=== PATIENT | female | born 1955 | race Caucasian/White ===

== ENCOUNTER 2016-04-13 09:25 | Day surgery (SDC) | payer BC ==
[2016-04-01 09:50] VITALS: BMI 19.1
[~2016-04-13 09:25] MED LIST: LACTATED RINGERS 1,000 ML IV SCH
[2016-04-13 09:43] VITALS: RESP 16; TEMP 98.1
[2016-04-13] MEDS ORDERED: LIDOCAINE 1% 20 ML VIAL (10MG/ML) FOR IV START INTRADERMA ONE (09:46)
[2016-04-13] MEDS ORDERED: TRIAMCINOLONE ACETONIDE 40 MG/ML 1 ML VIAL ONE (10:51)
[2016-04-13] MEDS ORDERED: BUPIVACAINE (PF) 0.5% 30 ML VIAL ONE (10:51)
[2016-04-13] MEDS ORDERED: MIDAZOLAM 2 MG/2 ML VIAL ONE (10:51)
[2016-04-13] MEDS ORDERED: fentaNYL (PF) 50 MCG/ML 2 ML AMP ONE (10:51)
--- NOTE | 2016-04-13 11:30 | P.PCN ---
Date of Procedure: 04/13/16 Preoperative Diagnosis: Lumbar spondylosis without myelopathy Postoperative Diagnosis: Lumbar spondylosis without myelopathy Procedure(s) Performed: Left lumbar medial branch radiofrequency ablation under fluoroscopic guidance Implants: Anesthesia: MAC Surgeon: Fátima Alex Pathology: none sent Condition: stable Disposition: PACU Indications for Procedure: Operative Findings: Description of Procedure: The patient was seen in preop holding area consent was obtained then she was brought into the procedure room and placed in prone position. Skin was prepped with the ChloraPrep and draped in a sterile manner. Lidocaine 1% was used to numb the skin up at the target points that were chosen as follows: For the L5- S1 level which corresponds to the to the dorsal ramus of L5 the target point was at the superior medial aspect of the sacral ala on the left side of the spine on the AP view of fluoroscopy and for the L2-L3 and L4 medial branches the target points were the connection between the transverse process and the superior to go process of L3 and L4 and L5 vertebra respectively on the left oblique view of fluoroscopy. I used 18-gauge 100 mm in length with 10 mm curved active tip radiofrequency ablation needle for this procedure. I placed the active tips as parallel as possible to the medial branches tracks by going in a superior medial direction. AP oblique and lateral views of fluoroscopy were used to verify needle tip position then motor stimulation showed only local twitches of these needles with no radiation of twitching to the left lower extremity. I then injected 1 mL of a solution made up of 3 mils Marcaine 0.5% +40 mg of Kenalog and 1 mL of the solution was given in each needle. Frequency ablation was then started for 90 seconds at 80. I was repeated one more time but after withdrawing the needles by 1 or 2 mm and turning the bevels by 180. Patient tolerated procedure well.
[2016-04-13] MEDS ORDERED: IV FLUID CONTINUATION 500 ML IV ONE (11:39)
[2016-04-13 12:00] VITALS: BP 127/78; PULSE 65
--- NOTE | 2016-04-13 13:09 | FL ---
EXAMINATION TYPE: FL guided pain mgmt statistic DATE OF EXAM: 04/13/2016 11:37 AM COMPARISON: NONE HISTORY: Pain Fluoroscopy support supplied to the referring clinician. See dictated report from anesthesia, 15 sec onds fluoroscopy time, 3 intraoperative C-arm images document the procedure
== END 2016-04-13 12:14 | disposition home or self-care (01) ==
LOC: ORPAIN 09:25
PROVIDERS: ATTEND Anesthesiology
DX: M47.816 Spondylosis without myelopathy or radiculopathy, lumbar region (principal); Z88.1 Allergy status to other antibiotic agents; Z88.0 Allergy status to penicillin
CPT/HCPCS: 64635; 64636 ×3; J2250; J3301; J3010

== ENCOUNTER → 2016-05-17 | Outpatient (CLI) | payer BC ==
[2016-05-17 13:43] VITALS: BP 149/81; PULSE 69; RESP 16; TEMP 98
--- NOTE | 2016-05-17 13:50 | P.PN ---
Progress Note - Text Patient returns for followup for chronic back pain with some radiation to lower extremities. Patient recently underwent bilateral lumbar RFA (February and April), which has provided relief for the interval. Patient continues on only Zanaflex prn medications for pain with good relief. Patient denies adverse drug effects from medications. Today, pt denies new-onset weakness, bowel/bladder incontinence, or any other signs or symptoms of cauda equina syndrome. There are no signs of acute intoxication, and no indications of medication diversion or overuse. In addition to above, 13-point review of systems is also negative for chest pain , shortness of breath, changes in vision, changes in hearing, new onset weakness , abdominal pain, diarrhea, extreme fatigue, malaise, fever, skin changes, homicidal or suicidal ideation, or bowel or bladder incontinence. Vital Signs: Reviewed in EMR Gen: WDWN, AAOx3, NAD HEENT: NCAT, EOMI, hearing grossly normal Pulm: resp unlabored Abd: soft, NT, ND Neck: supple, trachea midline ROM in flexion lumbar spine: reduced ROM in extension lumbar spine: reduced Lumbar paravertebral tenderness: + Facet loading: + bilateral, improved SI joint tenderness: + R side Cirilo's test: neg Straight leg raise: neg Neuro: CN II-XII grossly intact, muscle strength lower extremities PRESERVED Imaging: Reviewed in EMR Assessment: 1. lumbar spondylosis without myelopathy 2. sacroiliac joint dysfunction 3. chronic pain syndrome Plan: 1. Explanation: Opioid and psychological risk scores were reviewed. Diagnoses , prognoses, and multiple treatment options including but not limited to physical therapy, interventional therapies, adjuvant medical therapies, narcotic medication therapies, and surgery were discussed with the patient and all questions were answered to the patient's satisfaction. 2. Opioid agreement: Patient has previously signed narcotic agreement, and was orally counseled to not overuse, abuse, divert, or cell medications, and to take them as prescribed by only 1 healthcare provider. The patient was also counseled to store opioid medications in a safe and preferably locked location. Patient was also counseled against driving or operating heavy equipment while using narcotic medications and also to not use alcohol or any illicit or recreational drugs. The patient verbalized understanding that lack of compliance with any of the above and likely result in failure to renew narcotic prescriptions, possible discharge from the clinic, and possible legal ramifications thereafter if indicated. 3. Counseling: The patient was counseled extensively on SMOKING CESSATION, BODY MASS INDEX, EXERCISE. Specifically, the patient was instructed regarding the importance of smoking cessation, obesity, and exercise in the context of both chronic pain and overall health. 4. Procedures: none for now 5. Consultations: None 6. Investigations: None 7. Medications: none prescribed 8. Disposition: f/u as needed PQRS measures: 1-Patient's medications are documented in the chart. 2-Tobacco use is positive 3-Patient has not had a pneumococcal vaccine. 4-Advanced care planning discussed, patient unable to give. 5-Opioid contract NOT signed with the patient. 6-Pain positive, follow-up visit or procedure scheduled 7-Patient's blood pressure measured and documented, and patient will follow up with the primary care due to hypertension. 8-Patient's weight was measured, and body mass index within the normal limits, and counseling was done. Patient instructed to follow up with PCP. 9-Patient WAS NOT identified as an unhealthy alcohol user.
== END | disposition home or self-care (01) ==
LOC: PNWHC3 13:20
PROVIDERS: ATTEND Anesthesiology
DX: G89.4 Chronic pain syndrome (principal); M51.26 Other intervertebral disc displacement, lumbar region; M54.41 Lumbago with sciatica, right side; M51.36 Other intervertebral disc degeneration, lumbar region; M47.816 Spondylosis without myelopathy or radiculopathy, lumbar region; M48.8X9 Other specified spondylopathies, site unspecified; Z79.899 Other long term (current) drug therapy
CPT/HCPCS: 99211

== ENCOUNTER → 2016-11-03 | Outpatient (CLI) | payer BC ==
--- NOTE | 2016-11-03 14:40 | MM ---
Reason for exam: screening (asymptomatic). Last mammogram was performed 1 year and 1 month ago. History: Patient is postmenopausal and has history of endometrial cancer at age 51. Benign excisional biopsy of the left breast, 1989. Physical Findings: A clinical breast exam by your physician is recommended on an annual basis and results should be correlated with mammographic findings. MG 3D Screening Mammo W/Cad Bilateral CC and MLO view(s) were taken. Prior study comparison: September 23, 2015, bilateral MG screening mammo w CAD. August 06, 2014, bilateral MG screening mammo w CAD. There are scattered fibroglandular densities. There is no discrete abnormality. No significant changes when compared with prior studies. ASSESSMENT: Negative, BI-RAD 1 RECOMMENDATION: Routine screening mammogram of both breasts in 1 year.
--- NOTE | 2016-11-04 05:29 | WWHP ---
DATE OF SERVICE: 11/03/2016 CHIEF COMPLAINT: The patient is here for her routine gynecologic exam and mammogram. HPI: This is a 61-year-old G3, P2-0-1-2 with an LMP of 1999. She is status post vaginal hysterectomy and endometrial cancer was found at that time. The patient is without gynecologic complaints. PAST MEDICAL HISTORY: Endometrial cancer, grade 1, stage IA in 2006, asthma, rheumatoid arthritis, history of degenerative disc disease, glaucoma, osteopenia and seasonal allergies. MEDICATIONS: 1. Enbrel injections weekly. 2. Singulair as directed. 3. Pepcid 40 mg daily. 4. Allergy nasal spray used daily. Allergies to AUGMENTIN. 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 SOCIAL HISTORY: She denies tobacco and drug use and has about 10 alcoholic drinks per year. She is retired. She is and is not seeing anybody at this time. REVIEW OF SYSTEMS: Weight has been stable. She denies cardiac problems. RESPIRATORY: Occasional asthma symptoms. GI: Occasional stomach upset after meals, improved with an antacid. PHYSICAL EXAM: Blood pressure 153/88. Height 5 feet 5 inches. Weight 118 pounds. Temperature 98.0. Pulse 67. This is a well-developed, well-nourished white female who is alert and oriented x3 in no acute distress. HEENT is within normal limits. NECK: Supple without mass or thyromegaly. CHEST AND LUNGS: Clear to auscultation. HEART: Regular rate and rhythm. Breasts are without mass or discharge. Axillary exam is negative for adenopathy. BACK: Negative for CVA tenderness. ABDOMEN: Soft, nontender without palpable masses. PELVIC EXAM: External genitalia reveals mild to moderate atrophy without lesions. Vaginal reveals moderate atrophy without lesions. There is no evidence of prolapse. Bimanual exam is negative for mass or tenderness. Rectovaginal exam is negative for mass or tenderness and is negative for occult blood. EXTREMITIES: Nontender. IMPRESSION: 1. A 61-year-old menopausal female, status post vaginal hysterectomy with history of endometrial cancer in 2006. No evidence of recurrent. 2. History of osteopenia. PLAN: 1. Pap smear was performed from the vaginal cuff. 2. Self-breast examination was discussed. 3. Mammogram will be done today. 4. Osteoporosis preventions was discussed. 5. Bone density testing will be repeated and an order slip was given to the patient for this. 6. She will return in one year. BELL
== END | disposition home or self-care (01) ==
LOC: WWCWWP 08:33
PROVIDERS: ATTEND Obstetrics & Gynecology
DX: Z12.31 Encounter for screening mammogram for malignant neoplasm of breast (principal)
CPT/HCPCS: 77063; G0202

== ENCOUNTER → 2017-07-06 | Outpatient (CLI) | payer MEDICARE ==
[2017-07-06 12:25] VITALS: BP 161/93; PULSE 65; RESP 18
--- NOTE | 2017-07-06 12:48 | P.PN ---
Subjective Progress Note Date: 07/06/17 This is follow-up visit for this patient with a history of severe and chronic low back pain secondary to , lumbar spondylosis with facet arthropathy , we have done radiofrequency ablation of the medial branch lumbar area L2-3/L3/L4 5/L5-S1, and she gets excellent pain relief and lasted more than 12 months Patients currently on naproxen 220 mg when necessary Patient denies any side effects of the medication, denies excessive drowsiness or sleepiness, denies suicidal ideation, and reports that the current pain medication is NOT helping To control the pain and improve activity of daily living Patient denies any motor or sensory deficit , patient denies any fever or night sweats, denies any change in the bowel movements or urination Physical Examinations : 1-Constitutiona : Cooperative , not in acute distress . 2-HEENT : nech ; supple , no Lymphadenopathy , no Thyromegaly , normal thyroid size . eyes : no ptosis , no icterus, no photophobia . ENT : normal of hearing , normal oropharynx , no Thrush . 3- Respiratory : Chest clear to auscultations Bilaterally , no wheezing , no Rhonchi . 4- Cardiovascular : regular rate and rhythem , S1 , S2 , no S3 , no S4. 5- Gastrointestinal : abdomen soft no tenderness , bowel sounds positive all four quadrents , no organomegally . 6- Genitourinary : Defferred . 7- neurologic : Cranial nerve II to XII intact , no focal neurological deffecit . 8-psychatric : alert , oriented X 3 , appropriate affect , intact judgment and insight . 9-Lymphatic : no Lymphadenopathy . 10- musculoskeltal : exams of the Lumber spine = motor strength lower extremities ,thigh and legs .5/5 deep tendon reflexes : normal Knee Jerk , normal ankle Jerk . lumber facet Loading Test positive strait leg raising test negative bilaterally, Fabere test negative bilaterally Range of motion: Range of motion in flexion of the lumbar spine 60 degrees Range of motion range of motion of extension of the lumbar spine 10 Assessment and plan = Chronic low back pain secondary to , lumbar spondylosis with facet arthropathy without myelopathy , she had excellent relief after the radiofrequency ablation of the medial branch she will be good candidate to have repeat radiofrequency ablation medial branch lumbar area L2-3/L3 4/L4 5/L5-S1 Objective - Vital Signs Vital signs: Vital Signs Temp Pulse 65 03/28/18 12:19 Resp 18 07/06/17 12:19 BP 161/93 07/06/17 12:19 Pulse Ox 96 07/06/17 12:19 Intake & Output 07/05/17 07/06/17 07/06/17 18:59 06:59 18:59 Weight 52.163 kg
== END | disposition home or self-care (01) ==
LOC: PNWHC3 11:59
PROVIDERS: ATTEND Specialist
DX: G89.29 Other chronic pain (principal); M47.816 Spondylosis without myelopathy or radiculopathy, lumbar region; Z79.1 Long term (current) use of non-steroidal anti-inflammatories (NSAID)
CPT/HCPCS: 99211

== ENCOUNTER 2017-08-03 09:17 | Day surgery (SDC) | payer MEDICARE ==
[2017-08-03 10:12] VITALS: RESP 16; TEMP 98.7
[2017-08-03] MEDS ORDERED: LIDOCAINE 1% 20 ML VIAL (10MG/ML) FOR IV START INTRADERMA ONE (10:13)
[2017-08-03] MEDS ORDERED: KETOROLAC 30 MG/ML 1 ML VIAL IVP STA (11:08)
--- NOTE | 2017-08-03 11:08 | P.PCN ---
Date of Procedure: 08/03/17 Surgeon: Deshawn Cortez Pathology: none sent Condition: stable Disposition: PACU Description of Procedure: PREOPERATIVE DIAGNOSIS: Lumbar spondylosis without myelopathy and facet arthropathy POSTOPERATIVE DIAGNOSIS: Lumbar spondylosis without myelopathy and facet arthropathy PROCEDURES: Right Radiofrequency thermocoagulation, L3-L4, L4-L5, and L5-S1 medial branch, with fluoroscopic guidance. ANESTHESIA: 1% lidocaine plain; Conscious sedation with versed/fentanyl EBL: Minimal PROCEDURE INDICATION: The patient with low back pain secondary to lumbar arthropathy who had more than 50% relief of pain with previous diagnostic lumbar medial branch block with bupivacaine. Patient presents for lumbar RFA today after good relief from RFA in the past; no use of blood thinners. PROCEDURE DESCRIPTION / TECHNIQUE: The patient was seen and identified in the preoperative area. Risks, benefits, complications, and alternatives were discussed with the patient (including but not limited to incomplete pain relief , bleeding, infection, nerve damage, and allergies to medications), the patient agreed to proceed with the procedure and signed the consent after all questions were answered. Patient was taken to the OR and time out was completed to verify proper patient , position, laterality of pain, and allergies. Pt was placed in the prone position. IV was started. Vital signs remained stable throughout the procedure. A pillow was placed under the patients chest to decrease lordosis. The lumbosacral area was prepped and draped in the usual sterile fashion. Vital signs were closely monitored during the procedure. Conscious sedation was used during the procedure to decrease patients anxiety. Using AP and then oblique fluoroscopy, the eye of the Abdulaziz dog corresponding to the connection between the superior and transverse articular processes of right L3, L4, L5 and top of the sacrum were identified, marked, and localized with 1% lidocaine. Subsequently, a 20 gauge, 100-mm radiofrequency cannula with a 10-mm active tip was advanced guided by fluoroscopy to each of the eyes of the Abdulaziz dog at the levels of all four medial branches. Each site then underwent sensory testing at 50 Hz and 0 to 1 volt and motor testing at 2 Hz and 0 to 3 volt with local stimulation, but no radicular symptoms down the legs. Thereafter all four medial branch sites underwent radiofrequency thermocoagulation at 80 degrees Celsius for 90 seconds after injecting 0.5 ml of PF lidocaine 1%. After thermocoagulation, 1 ml of the block solution containing Kenalog 40 mg and 2 mL of preservative-free normal saline was injected at all four medial branch levels after negative aspiration of CSF and blood and with no paresthesias. Cannulas were retracted while injecting lidocaine 1% until the needles were removed. At the end of the procedure, the skin was cleansed and bandages were applied. COMPLICATIONS: No acute complications. DISPOSITION / PLANS: The patient was placed in a supine position and transferred to the recovery area in a stable condition for observation and was discharged from the recovery room after meeting discharge criteria. Home discharge instructions given to the patient by the staff. The patient was reexamined prior to discharge. The patient will schedule a left lumbar RFA at next visit.
[2017-08-03] MEDS ORDERED: IV FLUID CONTINUATION 1,000 ML IV ONE (11:17)
--- NOTE | 2017-08-03 11:17 | FL ---
EXAMINATION TYPE: FL guided pain mgmt statistic DATE OF EXAM: 08/03/2017 HISTORY: Flouroscopy time 16 seconds of fluoroscopy provided. IMPRESSION: 1. Fluoroscopy time.
[2017-08-03] MEDS ORDERED: KETOROLAC 30 MG/ML 1 ML VIAL IVP ONE (11:41)
[2017-08-03 12:04] VITALS: BP 126/65; PULSE 65
== END 2017-08-03 12:14 | disposition home or self-care (01) ==
LOC: ORPAIN 09:17
PROVIDERS: ATTEND Anesthesiology
DX: M47.816 Spondylosis without myelopathy or radiculopathy, lumbar region (principal); G89.29 Other chronic pain; Z88.0 Allergy status to penicillin
CPT/HCPCS: 64635; 64636 ×2; J2250; J3301; J3010; J1885; 99152; 99153

== ENCOUNTER 2017-08-17 06:28 | Day surgery (SDC) | payer MEDICARE ==
[2017-08-11 12:21] VITALS: BMI 19.1
[2017-08-17 07:14] VITALS: RESP 16; TEMP 98.1
[2017-08-17] MEDS ORDERED: LIDOCAINE 1% 20 ML VIAL (10MG/ML) FOR IV START INTRADERMA ONE (07:14)
[2017-08-17] MEDS ORDERED: LACTATED RINGERS 1,000 ML IV SCH (07:15)
--- NOTE | 2017-08-17 08:39 | P.PCN ---
Date of Procedure: 08/17/17 Procedure(s) Performed: PREOPERATIVE DIAGNOSIS: 1-Lumbar Spondylosis with Facet Arthropathy without myelopathy. POSTOPERATIVE DIAGNOSIS: 1- Lumbar Spondylosis with Facet Arthropathy without myelopathy. PROCEDURES : Left Radiofrequency thermocoagulation, L3-L4, L4-L5, and L5-S1 medial branch, with fluoroscopic guidance ANESTHESIA: Moderate sedation with intravenous versed 2 mg and fentaneyl 100 mcg and local infiltration with lidocaine 1% 3ml EBL: Minimal PROCEDURE INDICATION: The patient with low back pain secondary to lumbar facet arthropathy who had more than 50% relief of her pain with previous diagnostic lumbar medial branch block with bupivacaine. PROCEDURE DESCRIPTION / TECHNIQUE: The patient was seen and identified in the preoperative area. Risks, benefits, complications, including but not limited to risk of infection ,bleeding , allergic reactions to the medications and no complete pain releife , and alternatives were discussed with the patient, the patient agreed to proceed with the procedure and signed the consent. IV was started. Vital signs remained stable throughout the procedure. Patient was taken to the OR and time out was completed. The patient was placed in the prone position on the procedure table. The lumber area was prepped and draped in the usual sterile fashion. . Vital signs were closely monitored during the procedure .IV sedation was used during the procedure to decrease patients anxiety. Using AP and then oblique fluoroscopy, the ``eye of the Abdulaziz dog corresponding to the connection between the superior and transverse articular processes of leftL3, L4, and L5 were identified, marked, and localized with 1% lidocaine. Subsequently, a [id number] radiofrequency cannula with a 10-mm active tip was advanced guided by fluoroscopy to each of the ``eyes of the Abdulaziz dog at left L3, L4, and L5. Each site then underwent sensory testing at 50 Hz and 0 to 1 volt and motor testing at 2.5 Hz and 0 to 3 volt with local stimulation, but no radicular symptoms down the legs. Thereafter the left L3-4, L4-5, and L5-S1 sites underwent radiofrequency thermocoagulation at 80 degrees celsius for 90 seconds after injecting 0.5 ml of PF lidocaine 1%. then After the thermocoagulation done , 1 ml of the block solution containing Kenalog 40 mg and 3 ml of marcain 0.5% was injected at the left L3-4 , L4-5 , and L5-S1, levels after negative aspiration of CSF and blood and with no paresthesias. Cannulas were retracted while injecting lidocaine 1% until the needle is out. At the end of the procedure, the skin was cleansed and bandages were applied. COMPLICATIONS: No acute complications. DISPOSITION / PLANS: The patient was placed in a supine position and transferred to the recovery area in a stable condition for observation and was discharged from the recovery room after meeting discharge criteria. Home discharge instructions given to the patient by the staff. The patient was reexamined prior to discharge. The patient will schedule a follow up in the clinic in 2-4 weeks.
--- NOTE | 2017-08-17 08:47 | FL ---
EXAMINATION TYPE: FL guided pain mgmt statistic DATE OF EXAM: 08/17/2017 COMPARISON: NONE HISTORY: Lumbar back pain TECHNIQUE: Fluoroscopy. FINDINGS/IMPRESSION: Fluoroscopic guidance was provided during procedure performed by Dr. Craig. A total of 15 seconds of fluoroscopic time was utilized during the procedure and 3 spot images was a cquired demonstrating localization of the lumbar spine at multiple levels.
[2017-08-17] MEDS ORDERED: IV FLUID CONTINUATION 1,000 ML IV ONE ×2 (08:52)
[2017-08-17 09:10] VITALS: BP 154/84; PULSE 62
== END 2017-08-17 09:30 | disposition home or self-care (01) ==
LOC: ORPAIN 06:28
PROVIDERS: ATTEND Specialist
DX: M47.816 Spondylosis without myelopathy or radiculopathy, lumbar region (principal); J45.909 Unspecified asthma, uncomplicated; M06.9 Rheumatoid arthritis, unspecified; Z86.73 Personal history of transient ischemic attack (TIA), and cerebral infarction without residual deficits; Z88.0 Allergy status to penicillin
CPT/HCPCS: 64635; 64636 ×2; J2250; J3301; J3010; 99152

== ENCOUNTER → 2017-09-15 | Outpatient (CLI) | payer MEDICARE ==
[2017-09-15 12:30] VITALS: BP 163/85; PULSE 70; RESP 16
--- NOTE | 2017-09-15 12:43 | P.PN ---
Progress Note - Text Progress Note Date: 09/15/17 Patient returns for followup for chronic back pain with some radiation to lower extremities. Patient recently underwent bilateral lumbar RFA (July and August) with relief on left side and some relief on right side but complaints of mild weakness and lateral leg sensory deficit since procedure. Patient denies adverse drug effects from medications. Today, pt denies new-onset weakness, bowel/bladder incontinence, or any other signs or symptoms of cauda equina syndrome. There are no signs of acute intoxication, and no indications of medication diversion or overuse. In addition to above, 13-point review of systems is also negative for chest pain , shortness of breath, changes in vision, changes in hearing, new onset weakness , abdominal pain, diarrhea, extreme fatigue, malaise, fever, skin changes, homicidal or suicidal ideation, or bowel or bladder incontinence. Vital Signs: Reviewed in EMR Gen: WDWN, AAOx3, NAD HEENT: NCAT, EOMI, hearing grossly normal Pulm: resp unlabored Abd: soft, NT, ND Neck: supple, trachea midline ROM in flexion lumbar spine: reduced ROM in extension lumbar spine: reduced Lumbar paravertebral tenderness: + Facet loading: + bilateral, R > L SI joint tenderness: + R side Cirilo's test: + R >> L Straight leg raise: neg Imaging: Reviewed in EMR Assessment: 1. lumbar spondylosis without myelopathy 2. sacroiliac joint dysfunction 3. chronic pain syndrome Plan: 1. Explanation: Opioid and psychological risk scores were reviewed. Diagnoses , prognoses, and multiple treatment options including but not limited to physical therapy, interventional therapies, adjuvant medical therapies, narcotic medication therapies, and surgery were discussed with the patient and all questions were answered to the patient's satisfaction. 2. Opioid agreement: Patient has previously signed narcotic agreement, and was orally counseled to not overuse, abuse, divert, or cell medications, and to take them as prescribed by only 1 healthcare provider. The patient was also counseled to store opioid medications in a safe and preferably locked location. Patient was also counseled against driving or operating heavy equipment while using narcotic medications and also to not use alcohol or any illicit or recreational drugs. The patient verbalized understanding that lack of compliance with any of the above and likely result in failure to renew narcotic prescriptions, possible discharge from the clinic, and possible legal ramifications thereafter if indicated. 3. Counseling: The patient was counseled extensively on BODY MASS INDEX, EXERCISE. Specifically, the patient was instructed regarding the importance of weight control and exercise in the context of both chronic pain and overall health. 4. Procedures: R SIJ injection 5. Consultations: Dr. Martinez for EMG RLE 6. Investigations: None 7. Medications: none prescribed 8. Disposition: f/u for procedure as scheduled. Patient clearly has SI joint dysfunction along with lumbar spondylosis and I will send her for EMG to rule out any nerve root irritation before proceeding with next procedure. PQRS measures: 1-Patient's medications are documented in the chart. 2-Tobacco use is positive 3-Patient has not had a pneumococcal vaccine. 4-Advanced care planning discussed, patient unable to give. 5-Opioid contract NOT signed with the patient. 6-Pain positive, follow-up visit or procedure scheduled 7-Patient's blood pressure measured and documented, and patient will follow up with the primary care due to hypertension. 8-Patient's weight was measured, and body mass index within the normal limits, and counseling was done. Patient instructed to follow up with PCP. 9-Patient WAS NOT identified as an unhealthy alcohol user.
== END | disposition home or self-care (01) ==
LOC: PNWHC3 11:49
PROVIDERS: ATTEND Anesthesiology
DX: G89.4 Chronic pain syndrome (principal); M47.816 Spondylosis without myelopathy or radiculopathy, lumbar region; M53.3 Sacrococcygeal disorders, not elsewhere classified; Z72.0 Tobacco use
CPT/HCPCS: 99211

== ENCOUNTER 2017-09-29 07:13 | Day surgery (SDC) | payer MEDICARE ==
[2017-09-27 12:18] VITALS: BMI 19.1
[2017-09-29 08:15] VITALS: TEMP 97.6
--- NOTE | 2017-09-29 09:04 | P.PCN ---
Date of Procedure: 09/29/17 Procedure(s) Performed: Preoperative diagnoses= 1-lumbar spondylosis with lumbar facet arthropathy. 2- Right sacroiliac joint dysfunction. Postoperative diagnoses= same as preoperative diagnosis. Procedure= Right sacroiliac joint steroid injection under fluoroscopic guidance. Anesthesia= only local infiltration with lidocaine 1% 2ml Estimated blood loss=minimal. Procedure indication= the patient had a history of severe chronic low back pain , diagnosed with right sacroiliac joint dysfunction and lumbar sacral facet arthropathy unresponsive to conservative treatment. Procedure description= the patient was seen and identified in the preoperative holding area, risks and benefits and alternative of the procedure and possible complications discussed with the patient, and he agreed with the preceding, patient signed the consent, and vital signs were monitored and were stable throughout the procedure, patient was placed in the prone position or table and the lumbosacral area was prepped and draped with a sterile fashion, vital signs were closely monitored during the procedure, the fluoroscopy camera was placed in the contralateral oblique view on the right sacroiliac joint and the lower part of the joint was identified, local infiltration of the skin and subcutaneous tissue with lidocaine 1% 2 mL then a 22-gauge Quincke-type spinal needle advanced slowly under fluoroscopy and placed in the posterior and inferior border of the right sacroiliac joint, placement confirmed with AP and lateral view, and after appropriate needle placement confirmed and after negative aspiration for heme and CSF and there was no paresthesia during the injection, 3 ml of Marcaine 0.5% and 40 mg of Kenalog injected after negative aspiration, the needle removed, Patient tolerated the procedure well without any complication, The patient returned to supine position after the back was cleaned and a Band- Aid applied, the patient transported to recovery room in stable condition and he was monitored for 30 minutes before he was discharged home and then patient was reexamined before going home and patient was discharged in stable condition and patient will follow up with the pain clinic in a few weeks
[2017-09-29 09:10] VITALS: RESP 18
[2017-09-29 09:22] VITALS: BP 141/89; PULSE 78
--- NOTE | 2017-09-29 09:46 | FL ---
EXAMINATION TYPE: FL guided pain mgmt statistic DATE OF EXAM: 09/29/2017 HISTORY: Flouroscopy time 1 seconds of fluoroscopy provided. IMPRESSION: 1. Fluoroscopy time.
== END 2017-09-29 09:27 | disposition home or self-care (01) ==
LOC: ORPAIN 07:13
PROVIDERS: ATTEND Specialist
DX: M47.817 Spondylosis without myelopathy or radiculopathy, lumbosacral region (principal); J45.909 Unspecified asthma, uncomplicated; Z86.73 Personal history of transient ischemic attack (TIA), and cerebral infarction without residual deficits; G89.29 Other chronic pain; M53.3 Sacrococcygeal disorders, not elsewhere classified
CPT/HCPCS: J3301; G0260; 27096

== ENCOUNTER → 2017-10-31 | Outpatient (CLI) | payer MEDICARE ==
[2017-10-31 12:30] VITALS: BP 171/83; PULSE 62; RESP 16
--- NOTE | 2017-10-31 12:52 | P.PN ---
Subjective Progress Note Date: 10/31/17 This is a 62-year-old pleasant female with history of lower back pain and recent left groin pain that started after her last sacroiliac joint injection. She denies any numbness or tingling in the left groin area this pain is intermittent and it gets better by walking. The last sacroiliac joint injection did not give her good relief of pain however she feels generally better today as she states. She has already had bilateral lumbar medial branch RFA. Today, pt denies new-onset weakness, bowel/bladder incontinence, or any other signs or symptoms of cauda equina syndrome. There are no signs of acute intoxication, and no indications of medication diversion or overuse. In addition to above, 13-point review of systems is also negative for chest pain , shortness of breath, changes in vision, changes in hearing, new onset weakness , abdominal pain, diarrhea, extreme fatigue, malaise, fever, skin changes, homicidal or suicidal ideation, or bowel or bladder incontinence. Vital Signs: Reviewed in EMR Gen: WDWN, AAOx3, NAD HEENT: NCAT, EOMI, hearing grossly normal Pulm: resp unlabored Neck: supple, trachea midline She has tenderness in the adductor tendons by its insertion and the pubic tubercle on the left side. Internal and external rotation of the hip joints did not elicit any pain She has tenderness around the right greater trochanter Neuro exam of the lower extremities showed decreased but symmetrical deep tendon reflexes and normal muscle strength bilaterally and symmetrically Straight leg raise: neg Imaging: Reviewed in EMR Assessment: 1. lumbar spondylosis without myelopathy 2. Right greater trochanter bursitis Plan: 1. Explanation: Opioid and psychological risk scores were reviewed. Diagnoses , prognoses, and multiple treatment options including but not limited to physical therapy, interventional therapies, adjuvant medical therapies, narcotic medication therapies, and surgery were discussed with the patient and all questions were answered to the patient's satisfaction. 2. Opioid agreement: Patient has previously signed narcotic agreement, and was orally counseled to not overuse, abuse, divert, or cell medications, and to take them as prescribed by only 1 healthcare provider. The patient was also counseled to store opioid medications in a safe and preferably locked location. Patient was also counseled against driving or operating heavy equipment while using narcotic medications and also to not use alcohol or any illicit or recreational drugs. The patient verbalized understanding that lack of compliance with any of the above and likely result in failure to renew narcotic prescriptions, possible discharge from the clinic, and possible legal ramifications thereafter if indicated. 3. Counseling: The patient was counseled extensively on BODY MASS INDEX, EXERCISE. Specifically, the patient was instructed regarding the importance of weight control and exercise in the context of both chronic pain and overall health. 4. Procedures: The patient prefers to hold off on injections at this point. she might need right greater trochanter bursa steroid injection in the future if her pain continues in the right hip area. 5. Consultations: We will obtain her EMG results from Dr. Rice 1 6. Investigations: None 7. Medications: none prescribed 8. Disposition: We'll follow up as needed in the clinic. PQRS measures: 1-Patient's medications are documented in the chart. 2-Tobacco use is positive 3-Patient has not had a pneumococcal vaccine. 4-Advanced care planning discussed, patient unable to give. 5-Opioid contract NOT signed with the patient. 6-Pain positive, follow-up visit or procedure scheduled 7-Patient's blood pressure measured and documented, and patient will follow up with the primary care due to hypertension. 8-Patient's weight was measured, and body mass index within the normal limits, and counseling was done. Patient instructed to follow up with PCP. 9-Patient WAS NOT identified as an unhealthy alcohol user. Objective - Vital Signs Vital signs: Vital Signs Temp Pulse 62 10/31/17 12:24 Resp 16 10/31/17 12:24 BP 171/83 10/31/17 12:24 Pulse Ox Intake & Output 10/30/17 10/31/17 10/31/17 18:59 06:59 18:59 Weight 52.163 kg
== END | disposition home or self-care (01) ==
LOC: PNWHC3 12:04
PROVIDERS: ATTEND Anesthesiology
DX: M47.816 Spondylosis without myelopathy or radiculopathy, lumbar region (principal); M70.61 Trochanteric bursitis, right hip; Z72.0 Tobacco use
CPT/HCPCS: 99211

== ENCOUNTER → 2017-11-22 | Outpatient (CLI) | payer MEDICARE ==
[2017-11-22 08:26] VITALS: BP 169/97; PULSE 79; RESP 18; TEMP 94.8
--- NOTE | 2017-11-22 08:41 | P.HPOB ---
History of Present Illness H&P Date: 11/22/17 Chief Complaint: The patient is here for her routine gynecologic exam and mammogram. This is a 62-year-old 012 with an LMP of 1999. The patient is status post vaginal hysterectomy and endometrial cancer was found at that time. The patient is without gynecologic complaints. Review of Systems The patient has gained 2 pounds over the last year. She denies respiratory, cardiac, or G.I. problems. Past Medical History Past Medical History: Asthma, Cancer (Endometrial stage IA in 2006), CVA/TIA ( 1999, no residual effects, ), Eye Disorder, Rheumatoid Arthritis (RA) Additional Past Medical History / Comment(s): chronic low back pain-bulging discs, DJD, osteopenia, hx SMA (SUPERIOR MESENTERIC ARTERY SYNDROME), seasonal allergies. 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 Endometrial CA. History of Any Multi-Drug Resistant Organisms: None Reported Past Surgical History: Cholecystectomy, Hysterectomy (Vaginal 2006), Orthopedic Surgery Additional Past Surgical History / Comment(s): Rt foot bunionectomy. Cervical cone bx. surgery for SMA on intestines, laser eye surgery, bilateral for glaucoma. Colonoscopy 2013. Laparotomy for superior mesenteric artery syndrome. Past Anesthesia/Blood Transfusion Reactions: No Reported Reaction Additional Past Anesthesia/Blood Transfusion Reaction / Comment(s): Pt received blood with no reaction following uterine hemorrhage. Past Psychological History: No Psychological Hx Reported Additional Psychological History / Comment(s): . Smoking Status: Former smoker Past Alcohol Use History: Rare (Less than 10 per year) Additional Past Alcohol Use History / Comment(s): QUIT SMOKING 1999- SMOKED 1PPD for 20 YEARS. Past Drug Use History: None Reported Additional History: She is and is not seeing anybody at this time. 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 - Past Family History Father Family Medical History: Cancer (colon) Mother Family Medical History: Dementia Sister(s) Family Medical History: Cancer (Leukemia) Medications and Allergies Home Medications Medication Instructions Recorded Confirmed Type Albuterol Sulfate [Proair Hfa] 1 - 2 puff INHALATION Q6HR PRN 08/01/14 09/29/17 History Etanercept [Enbrel] 50 mg SQ TU 08/01/14 09/29/17 History Montelukast [Singulair] 10 mg PO HS 08/01/14 09/29/17 History Naproxen Sodium [Aleve] 220 mg PO BID PRN 07/17/15 09/29/17 History Famotidine [Pepcid] 40 mg PO HS 01/27/16 09/29/17 History Fluticasone Nasal [place] [Flonase 2 spr EA NOSTRIL DAILY 04/01/16 09/29/17 History Nasal [place]] Propylene Glycol/Peg 400/Pf 1 drop BOTH EYES QID 07/29/17 09/29/17 History [Systane 0.3-0.4% Eye Drops] Allergies Allergy/AdvReac Type Severity Reaction Status Date / Time amoxicillin trihydrate Allergy Intermediate Rash/Hives Verified 11/22/17 08:08 [From Augmentin] potassium clavulanate Allergy Rash/Hives Verified 10/31/17 12:16 [From Augmentin] Exam Vital Signs Temp Pulse Resp BP 11/22/17 08:09 94.8 F L 79 18 169/97 Intake and Output 11/21/17 11/22/17 11/22/17 22:59 06:59 14:59 Other: Weight 54.431 kg Height 5'5", BMI 20. This is a well-developed well-nourished white female who is alert and oriented times 3 in no acute distress. HEENT: Within normal limits. NECK: Supple without mass or thyromegaly. CHEST AND LUNGS: Clear to auscultation. HEART: Regular rate and rhythm. BREASTS: Are without mass or discharge. AXILLARY EXAM: Negative for adenopathy. BACK: Negative for CVA tenderness. ABDOMEN: Soft, nontender, without palpable masses. PELVIC EXAM: External genitalia appears normal with moderate atrophy. Vagina appears normal with moderate atrophy. There is no evidence of prolapse. Bimanual examination is negative for mass or tenderness. RECTAL EXAM: Rectovaginal exam is negative for mass or tenderness and is negative for occult blood. EXTREMITIES: Nontender. IMPRESSION: 1. 62-year-old menopausal female who is status post vaginal hysterectomy with history of endometrial cancer stage 1A found at the time of hysterectomy. No evidence of recurrence. 2. History of osteopenia. 3. Elevated blood pressure. PLAN: 1. Pap smear of the vaginal cuff was performed. 2. Self breast awareness was discussed. 3. Screening mammogram will be done today. 4. We have discussed her elevated blood pressure. I have recommended that she follow-up with Dr. Stephenson regarding this elevated blood pressure. She states she will do this soon. She states she has also checked her blood pressure is on her own and recently they have been elevated. 5. Osteoporosis prevention was discussed. I have recommended bone density screening since it is been several years. The order slip was given to the patient for this. 6. She'll return in one year.
--- NOTE | 2017-11-29 10:07 | MM ---
Reason for exam: screening (asymptomatic). Last mammogram was performed 1 year and 1 month ago. History: Patient is postmenopausal and has history of endometrial cancer at age 51. Benign excisional biopsy of the left breast, 1989. Physical Findings: A clinical breast exam by your physician is recommended on an annual basis and results should be correlated with mammographic findings. MG 3D Screening Mammo W/Cad Bilateral CC and MLO view(s) were taken. Prior study comparison: November 03, 2016, bilateral MG 3d screening mammo w/cad. September 23, 2015, bilateral MG screening mammo w CAD. The breast tissue is heterogeneously dense. This may lower the sensitivity of mammography. There is no discrete abnormality. ASSESSMENT: Negative, BI-RAD 1 RECOMMENDATION: Routine screening mammogram of both breasts in 1 year.
== END | disposition home or self-care (01) ==
LOC: WWCWWP 07:42
PROVIDERS: ATTEND Obstetrics & Gynecology
DX: Z12.31 Encounter for screening mammogram for malignant neoplasm of breast (principal)
CPT/HCPCS: 77063; 77067

== ENCOUNTER 2017-12-31 08:43 | Observation (INO) | payer MEDICARE ==
--- NOTE | 2017-12-31 09:06 | ED ---
General Adult HPI - General Chief complaint: Chest Pain Stated complaint: chest pain, SOB Time Seen by Provider: 12/31/17 08:51 Source: patient, RN notes reviewed, old records reviewed Mode of arrival: wheelchair Limitations: no limitations - History of Present Illness Initial comments: 62-year-old female presenting for evaluation of central chest pressure and dyspnea. Patient has history of asthma and recent diagnosis of hypertension. She was seen by her primary care physician within the last week, her inhaler was changed and she was started on 2.5 mg of enalapril. She did not start this medication because she was waiting to see if her change in inhaler made any difference on her dyspnea. Denies cough. Denies central chest pain. Just has a mild central pressure. No lower extremity pain or swelling. No history of CAD, patient is otherwise healthy. She has been eating and drinking normally, no vomiting. She had some mild nausea associated with her symptoms this morning. - Related Data Home Medications Medication Instructions Recorded Confirmed Albuterol Sulfate [Proair Hfa] 1 - 2 puff INHALATION RT-Q6H PRN 08/01/14 Etanercept [Enbrel] 50 mg SQ TU 08/01/14 12/31/17 Montelukast [Singulair] 10 mg PO HS 08/01/14 12/31/17 Naproxen Sodium [Aleve] 220 mg PO BID PRN 07/17/15 12/31/17 Famotidine [Pepcid] 40 mg PO HS 01/27/16 12/31/17 Fluticasone Nasal [place] [Flonase 2 spr EA NOSTRIL DAILY PRN 04/01/16 12/31/17 Nasal [place]] Propylene Glycol/Peg 400/Pf 1 drop BOTH EYES QID 07/29/17 12/31/17 [Systane 0.3-0.4% Eye Drops] Enalapril Maleate [Vasotec] 2.5 mg PO DAILY 12/31/17 12/31/17 Mometasone/Formoterol [Dulera 100 1 puff INHALATION RT-BID 12/31/17 12/31/17 Mcg/5 Mcg Inhaler] Allergies Allergy/AdvReac Type Severity Reaction Status Date / Time amoxicillin trihydrate Allergy Intermediate Rash/Hives Verified 12/31/17 11:24 [From Augmentin] potassium clavulanate Allergy Rash/Hives Verified 12/31/17 11:24 [From Augmentin] Review of Systems ROS Statement: Those systems with pertinent positive or pertinent negative responses have been documented in the HPI. ROS Other: All systems not noted in ROS Statement are negative. Past Medical History Past Medical History: Asthma, Cancer, CVA/TIA, Eye Disorder, Hypertension, Rheumatoid Arthritis (RA) Additional Past Medical History / Comment(s): chronic low back pain-bulging discs, DJD, osteopenia, hx SMA (SUPERIOR MESENTERIC ARTERY SYNDROME), seasonal allergies. 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 Endometrial CA. History of Any Multi-Drug Resistant Organisms: None Reported Past Surgical History: Cholecystectomy, Hysterectomy, Orthopedic Surgery Additional Past Surgical History / Comment(s): Rt foot bunionectomy. Cervical cone bx. surgery for SMA on intestines, laser eye surgery, bilateral for glaucoma. Colonoscopy 2013. Laparotomy for superior mesenteric artery syndrome. Past Anesthesia/Blood Transfusion Reactions: No Reported Reaction Additional Past Anesthesia/Blood Transfusion Reaction / Comment(s): Pt received blood with no reaction following uterine hemorrhage. Past Psychological History: No Psychological Hx Reported Smoking Status: Former smoker Past Alcohol Use History: Rare Past Drug Use History: None Reported - Past Family History Father Family Medical History: Cancer (colon) Additional Family Medical History / Comment(s): colon Mother Family Medical History: Dementia Sister(s) Family Medical History: Cancer (Leukemia) Additional Family Medical History / Comment(s): Leukemia General Exam Limitations: no limitations General appearance: alert, in no apparent distress Head exam: Present: atraumatic, normocephalic Eye exam: Present: normal appearance, PERRL ENT exam: Present: normal exam Neck exam: Present: normal inspection. Absent: tenderness, meningismus Respiratory exam: Present: normal lung sounds bilaterally. Absent: respiratory distress, wheezes Cardiovascular Exam: Present: regular rate, normal rhythm GI/Abdominal exam: Present: soft. Absent: distended, tenderness, guarding Extremities exam: Present: normal inspection, normal capillary refill, other ( Bilateral DP, bilateral radial pulses are symmetric 2+). Absent: pedal edema Neurological exam: Present: alert, oriented X3, CN II-XII intact. Absent: motor sensory deficit Psychiatric exam: Present: normal affect, normal mood Skin exam: Present: warm, dry, intact. 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 ] Respiratory 20 18 Rate Blood Pressure 181/91 173/84 O2 Sat by Pulse 97 98 Oximetry 12/31/17 10:43 Temperature Pulse Rate 75 Pulse Rate [ Product Craftsman ] Respiratory 16 Rate Blood Pressure 188/81 O2 Sat by Pulse 98 Oximetry EKG Findings - EKG Comments: EKG Findings:: EKG: Normal sinus rhythm, possible left atrial enlargement, biphasic T waves in lead V2 and V3 and T-wave inversion in lead 3, no ST segment elevation, rate of 79, MO interval 132, QRS duration 88, QTC 456 Medical Decision Making - Medical Decision Making 62-year-old female presenting with chest pressure, dyspnea, and significantly elevated blood pressure. She was recently diagnosed with hypertension and had not started her enalapril. Workup in the emergency department reveals normal CBC, normal CMP, troponin is negative, BNP is negative, chest x-ray negative for acute cardiopulmonary disease, CT angiography shows normal vessels, no pulmonary embolism or dissection. Patient's blood pressure is down trending in the emergency Department with initiation of lisinopril. Given her risk factor she will be kept in observation for blood pressure monitoring, serial cardiac enzymes, and cardiology consultation. - Lab Data Result diagrams: 12/31/17 08:55 12/31/17 08:55 Lab Results 12/31/17 12/31/17 12/31/17 Range/Units 08:55 08:55 08:55 WBC 7.1 (3.8-10.6) k/uL RBC 5.20 (3.80-5.40) m/uL Hgb 14.4 (11.4-16.0) gm/dL Hct 45.8 (34.0-46.0) % MCV 88.2 (80.0-100.0) fL MCH 27.7 (25.0-35.0) pg MCHC 31.4 (31.0-37.0) g/dL RDW 14.6 (11.5-15.5) % Plt Count 214 (150-450) k/uL Neutrophils % 65 % Lymphocytes % 23 % Monocytes % 7 % Eosinophils % 2 % Basophils % 1 % Neutrophils # 4.6 (1.3-7.7) k/uL Lymphocytes # 1.6 (1.0-4.8) k/uL Monocytes # 0.5 (0-1.0) k/uL Eosinophils # 0.2 (0-0.7) k/uL Basophils # 0.1 (0-0.2) k/uL PT (9.0-12.0) sec INR (<1.2) APTT (22.0-30.0) sec Sodium 141 (137-145) mmol/L Potassium 4.5 (3.5-5.1) mmol/L Chloride 106 (98-107) mmol/L Carbon Dioxide 25 (22-30) mmol/L Anion Gap 10 mmol/L BUN 18 H (7-17) mg/dL Creatinine 0.64 (0.52-1.04) mg/dL Est GFR (CKD-EPI)AfAm >90 (>60 ml/min/1.73 sqM) Est GFR (CKD-EPI)NonAf >90 (>60 ml/min/1.73 sqM) Glucose 103 H (74-99) mg/dL Calcium 9.5 (8.4-10.2) mg/dL Magnesium 1.8 (1.6-2.3) mg/dL Total Bilirubin 0.5 (0.2-1.3) mg/dL AST 40 H (14-36) U/L ALT 25 (9-52) U/L Alkaline Phosphatase 99 (38-126) U/L Total Creatine Kinase 279 H (30-135) U/L CK-MB (CK-2) 5.7 H (0.0-2.4) ng/mL CK-MB (CK-2) Rel Index 2.0 Troponin I <0.012 (0.000-0.034) ng/mL NT-Pro-B Natriuret Pep pg/mL Total Protein 7.2 (6.3-8.2) g/dL Albumin 4.4 (3.5-5.0) g/dL 12/31/17 12/31/17 Range/Units 08:55 08:55 WBC (3.8-10.6) k/uL RBC (3.80-5.40) m/uL Hgb (11.4-16.0) gm/dL Hct (34.0-46.0) % MCV (80.0-100.0) fL MCH (25.0-35.0) pg MCHC (31.0-37.0) g/dL RDW (11.5-15.5) % Plt Count (150-450) k/uL Neutrophils % % Lymphocytes % % Monocytes % % Eosinophils % % Basophils % % Neutrophils # (1.3-7.7) k/uL Lymphocytes # (1.0-4.8) k/uL Monocytes # (0-1.0) k/uL Eosinophils # (0-0.7) k/uL Basophils # (0-0.2) k/uL PT 10.3 (9.0-12.0) sec INR 1.1 (<1.2) APTT 23.1 (22.0-30.0) sec Sodium (137-145) mmol/L Potassium (3.5-5.1) mmol/L Chloride (98-107) mmol/L Carbon Dioxide (22-30) mmol/L Anion Gap mmol/L BUN (7-17) mg/dL Creatinine (0.52-1.04) mg/dL Est GFR (CKD-EPI)AfAm (>60 ml/min/1.73 sqM) Est GFR (CKD-EPI)NonAf (>60 ml/min/1.73 sqM) Glucose (74-99) mg/dL Calcium (8.4-10.2) mg/dL Magnesium (1.6-2.3) mg/dL Total Bilirubin (0.2-1.3) mg/dL AST (14-36) U/L ALT (9-52) U/L Alkaline Phosphatase (38-126) U/L Total Creatine Kinase (30-135) U/L CK-MB (CK-2) (0.0-2.4) ng/mL CK-MB (CK-2) Rel Index Troponin I (0.000-0.034) ng/mL NT-Pro-B Natriuret Pep 120 pg/mL Total Protein (6.3-8.2) g/dL Albumin (3.5-5.0) g/dL Disposition Clinical Impression: Chest pain, Hypertension Disposition: ADMITTED IP TO THIS HOSP Condition: Stable Is patient prescribed a controlled substance at d/c from ED?: No Referrals: Long Stephenson III, MD [Primary Care Provider] - 1-2 days Decision to Admit Reason: Admit from EC Decision Date: 12/31/17 Decision Time: 11:33
[2017-12-31 09:18] LABS: Basophils # (A) 0.1 k/uL (0-0.2); Basophils % (A) 1 %; Eosinophils # (A) 0.2 k/uL (0-0.7); Eosinophils % (A) 2 %; HCT 45.8 % (34.0-46.0); HGB 14.4 gm/dL (11.4-16.0); Lymphocytes # (A) 1.6 k/uL (1.0-4.8); Lymphocytes % (A) 23 %; MCH 27.7 pg (25.0-35.0); MCHC 31.4 g/dL (31.0-37.0); MCV 88.2 fL (80.0-100.0); Mean Platelet Volume 8.2; Monocytes # (A) 0.5 k/uL (0-1.0); Monocytes % (A) 7 %; Neutrophils # (A) 4.6 k/uL (1.3-7.7); Neutrophils % (A) 65 %; Platelet Count 214 k/uL (150-450); RDW 14.6 % (11.5-15.5); WBC 7.1 k/uL (3.8-10.6)
[2017-12-31 09:25] LABS: ALT 25 U/L (9-52); AST 40 U/L (14-36); Albumin 4.4 g/dL (3.5-5.0); Alkaline Phosphatase 99 U/L (38-126); Anion Gap 10 mmol/L; Blood Urea Nitrogen 18 mg/dL (7-17); Calcium 9.5 mg/dL (8.4-10.2); Carbon Dioxide 25 mmol/L (22-30); Chloride 106 mmol/L (98-107); Glucose 103 mg/dL (74-99); Magnesium 1.8 mg/dL (1.6-2.3); Potassium 4.5 mmol/L (3.5-5.1); Sodium 141 mmol/L (137-145); Total Bilirubin 0.5 mg/dL (0.2-1.3); Total Protein 7.2 g/dL (6.3-8.2)
[2017-12-31 09:32] LABS: INR 1.1 (<1.2); Partial Thromboplastin Time 23.1 sec (22.0-30.0); Prothrombin Time 10.3 sec (9.0-12.0)
[2017-12-31 09:38] LABS: Creatine Kinase 279 U/L (30-135)
--- NOTE | 2017-12-31 09:42 | XR ---
EXAMINATION TYPE: XR chest 2V DATE OF EXAM: 12/31/2017 HISTORY: Chest Pain. REFERENCE: Previous study dated 04/07/2012. FINDINGS: The lungs remain clear. Pleural spaces are clear. The heart is not enlarged. IMPRESSION: NO ACTIVE INTRATHORACIC DISEASE.
[2017-12-31 09:52] LABS: Creatine Kinase MB 5.7 ng/mL (0.0-2.4); Troponin I <0.012 ng/mL (0.000-0.034)
[2017-12-31] MEDS ORDERED: SODIUM CHLORIDE 0.9% 500 ML IV ONE (10:10)
[2017-12-31] MEDS ORDERED: LISINOPRIL 10 MG TAB PO STA (10:10)
--- NOTE | 2017-12-31 10:38 | CT ---
EXAMINATION TYPE: CT angio chest DATE OF EXAM: 12/31/2017 10:30 AM COMPARISON: Previous study dated 09/29/2007. HISTORY: SOB, Chest pain CT DLP: 109.3 mGycm Automated exposure control for dose reduction was used. CONTRAST: CTA scan of the thorax is performed with IV Contrast, patient injected with 62 mL of Isovue 370, pulm onary embolism protocol. . FINDINGS: There is apical scarring present bilaterally. There is some scarring or early infiltrate in the left lingula. The lungs are otherwise clear. There is no significant axillary, internal mammary, mediastinal or hilar adenopathy. There is no evidence of pulmonary embolus. The aorta is normal in caliber. The heart is not enlarged. There is no pleural or pericardial fluid. There is fullness of the left renal collecting system. There is a metallic suture line in the left upper quadrant which is incompletely visualized. There is hypertrophic spondylosis within the spine. IMPRESSION: THIS EXAMINATION IS NEGATIVE FOR PULMONARY EMBOLUS.
[2017-12-31] MEDS ORDERED: NALOXONE 0.4 MG/ML 1 ML VIAL IV PRN (11:29)
[2017-12-31] MEDS ORDERED: ALBUTEROL NEBULIZED 2.5 MG/3 ML INHALATION PRN (12:59)
[2017-12-31] MEDS ORDERED: NAPROXEN 250 MG TAB PO PRN (12:59)
[2017-12-31] MEDS: NITROGLYCERIN OINT 1 INCH/GM PACKET TOPICAL SCH ×3 (13:35→23:32)
[2017-12-31] MEDS: amLODIPine 5 MG TAB PO SCH (14:02)
[2017-12-31 15:44] LABS: Creatine Kinase 241 U/L (30-135)
--- NOTE | 2017-12-31 15:45 | P.HPIM ---
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 Patient says that she developed chest pressure along with shortness of breath, dizziness and lightheadedness started yesterday afternoon. Patient was still having symptoms this morning and made her come to the hospital. Chest pressure is mainly left retrosternal. No radiation. Associated with some nausea. No vomiting. No diaphoresis. Otherwise patient denied any chest pain. Patient was seen by primary care physician 2 weeks ago and was started on blood pressure medications in the form of Zestril which she has not been taking/not started at home currently. Denied any headache. No cough or sputum production. No previous history of coronary disease. Patient is a former smoker quit in 1997. No recent illnesses or sick contacts or travel. CTA negative for pulmonary embolism Chest x-rays negative EKG showed sinus rhythm normal. Blood pressure was 210/110 mm Hg on admission. Review of Systems Constitutional: Patient denies any fever or chills . No generalized weakness or weight loss. Abdomen: Patient denied nausea vomiting and diarrhea and abdominal pain. Cardiovascular: Chest pressure. Patient denies any chest pain or short of breath no palpitations. Respiratory: patient denied any cough is from production. No shortness of breath Neurologic: Patient denied any numbness or tingling headache. Musculoskeletal: Patient denies any complaints of joint swelling or deformity. Skin: Negative Psychiatric: Negative Endocrine: No heat or cold intolerance. No recent weight gain. Genitourinary: No dysuria or hematuria. All other 14 point ROS negative except the above Past Medical History Past Medical History: Asthma, Cancer, CVA/TIA, Eye Disorder, Hypertension, Rheumatoid Arthritis (RA) Additional Past Medical History / Comment(s): chronic low back pain-bulging discs, DJD, osteopenia, hx SMA (SUPERIOR MESENTERIC ARTERY SYNDROME), seasonal allergies. 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 Endometrial CA. History of Any Multi-Drug Resistant Organisms: None Reported Past Surgical History: Cholecystectomy, Hysterectomy, Orthopedic Surgery Additional Past Surgical History / Comment(s): Rt foot bunionectomy. Cervical cone bx. surgery for SMA on intestines, laser eye surgery, bilateral for glaucoma. Colonoscopy 2013. Laparotomy for superior mesenteric artery syndrome. Past Anesthesia/Blood Transfusion Reactions: No Reported Reaction Additional Past Anesthesia/Blood Transfusion Reaction / Comment(s): Pt received blood with no reaction following uterine hemorrhage. Past Psychological History: No Psychological Hx Reported Additional Psychological History / Comment(s): . Smoking Status: Former smoker Past Alcohol Use History: Rare Additional Past Alcohol Use History / Comment(s): QUIT SMOKING 1997- SMOKED 1PPD for 20 YEARS. Past Drug Use History: None Reported - Past Family History Father Family Medical History: Cancer Additional Family Medical History / Comment(s): colon Mother Family Medical History: Dementia Sister(s) Family Medical History: Cancer Additional Family Medical History / Comment(s): Leukemia Medications and Allergies Home Medications Medication Instructions Recorded Confirmed Type Albuterol Sulfate [Proair Hfa] 1 - 2 puff INHALATION RT-Q6H PRN 08/01/14 History Etanercept [Enbrel] 50 mg SQ TU 08/01/14 12/31/17 History Montelukast [Singulair] 10 mg PO HS 08/01/14 12/31/17 History Naproxen Sodium [Aleve] 220 mg PO BID PRN 07/17/15 12/31/17 History Famotidine [Pepcid] 40 mg PO HS 01/27/16 12/31/17 History Fluticasone Nasal [place] [Flonase 2 spr EA NOSTRIL HS 04/01/16 12/31/17 History Nasal [place]] Propylene Glycol/Peg 400/Pf 1 drop BOTH EYES BID 07/29/17 12/31/17 History [Systane 0.3-0.4% Eye Drops] Enalapril Maleate [Vasotec] 2.5 mg PO DAILY 12/31/17 12/31/17 History Mometasone/Formoterol [Dulera 100 1 puff INHALATION RT-BID PRN 12/31/17 History Mcg/5 Mcg Inhaler] Allergies Allergy/AdvReac Type Severity Reaction Status Date / Time amoxicillin trihydrate Allergy Intermediate Rash/Hives Verified 12/31/17 11:24 [From Augmentin] potassium clavulanate Allergy Rash/Hives Verified 12/31/17 11:24 [From Augmentin] Physical Exam Vitals: Vital Signs Temp Pulse Pulse Resp BP BP Pulse Ox 12/31/17 12:00 98.5 F 65 16 188/82 100 12/31/17 11:46 97.9 F 12/31/17 11:37 77 18 176/84 97 12/31/17 10:43 75 16 188/81 98 12/31/17 09:47 67 18 173/84 98 12/31/17 08:59 86 12/31/17 08:45 98.2 F 86 20 181/91 97 Intake and Output 12/30/17 12/31/17 12/31/17 22:59 06:59 14:59 Other: Weight 52.163 kg PHYSICAL EXAMINATION: Patient is lying in the bed comfortably, no acute distress, awake alert and oriented.. HEENT: Normocephalic. Neck is supple. Pupils reactive. Nostrils clear. Oral cavity is moist. Ears reveal no drainage. Neck reveals no JVD, carotid bruits, or thyromegaly. CHEST EXAMINATION: Trachea is central. Symmetrical expansion. Lung johnson clear to auscultation and percussion. CARDIAC: Normal S1, S2 with no gallops. No murmurs ABDOMEN: Soft. Bowel sounds normal. No organomegaly. No abdominal bruits. Extremities: reveal no edema. No clubbing or cyanosis Neurologically awake, alert, oriented x3 with well-coordinated movements. No focal deficits noted Skin: No rash or skin lesions. Psychiatric: Coperative. Nonsuicidal Musculoskeletal: No joint swelling or deformity. Normal range of motion. Results CBC & Chem 7: 12/31/17 08:55 12/31/17 08:55 Labs: Abnormal Lab Results - Last 24 Hours (Table) 12/31/17 12/31/17 Range/Units 08:55 08:55 BUN 18 H (7-17) mg/dL Glucose 103 H (74-99) mg/dL AST 40 H (14-36) U/L Total Creatine Kinase 279 H (30-135) U/L CK-MB (CK-2) 5.7 H (0.0-2.4) ng/mL Thrombosis Risk Factor Assmnt - DVT/VTE Prophylaxis DVT/VTE Prophylaxis: Pharmacologic Prophylaxis ordered - Choose All That Apply Any of the Below Risk Factors Present?: Yes Other Risk Factors: Yes Each Risk Factor Represents 2 Points: Age 61-74 years Thrombosis Risk Factor Assessment Total Risk Factor Score: 2 Thrombosis Risk Factor Assessment Level: Low Risk Assessment and Plan Assessment: Chest pressure likely due to hypertensive urgency. Rule out ACS Hypertensive urgency Hypertension. Currently patient is not taking any medications at home. Asthma History of smoking in the past 20 PPD History of CVA with mild right-sided weakness. Rheumatoid arthritis Chronic low back pain with bulging disks Degenerative joint disease History of superior mesenteric artery syndrome Mild CPK elevation 294 DVT prophylaxis Plan: Patient will be continued on telemetry monitoring. Serial EKGs and troponins. Patient was started back on lisinopril and added Norvasc. Cardiology was consulted. Monitor blood pressure closely. Continue with breathing treatments and Symbicort. Continue the pain management. Further recommendations based on the clinical course. Time with Patient: Greater than 30
[2017-12-31 15:57] LABS: Creatine Kinase MB 5.1 ng/mL (0.0-2.4); Troponin I <0.012 ng/mL (0.000-0.034)
[2017-12-31] MEDS: ACETAMINOPHEN TAB 325 MG TAB PO PRN ×2 (16:38→23:32)
[2017-12-31] MEDS: SYMBICORT 80-4.5 MCG INHALER INHALATION SCH (20:09)
[2017-12-31 21:02] LABS: Creatine Kinase 314 U/L (30-135)
[2017-12-31 21:14] LABS: Creatine Kinase MB 6.8 ng/mL (0.0-2.4); Troponin I <0.012 ng/mL (0.000-0.034)
[2017-12-31] MEDS: FAMOTIDINE 20 MG TAB PO SCH (21:16)
[2017-12-31] MEDS: MONTELUKAST 10 MG TAB PO SCH (21:17)
[2017-12-31] MEDS: ARTIFICIAL TEARS-HYPROMELLOSE DROPS 15 ML BTL BOTH EYES SCH (21:21)
[2017-12-31] MEDS: FLUTICASONE 50MCG/SPRAY NASAL 16GM EA NOSTRIL SCH (21:21)
[2018-01-01] MEDS: NITROGLYCERIN OINT 1 INCH/GM PACKET TOPICAL SCH ×4 (06:31→22:50)
[2018-01-01] MEDS: ACETAMINOPHEN TAB 325 MG TAB PO PRN ×3 (06:31→22:49)
--- NOTE | 2018-01-01 08:00 | P.CRDCN ---
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 She also has history of asthma and he used to take rescue inhalers. She had a follow-up with primary care physician who prescribed a new inhaler for her asthma to be taken on a regular basis because she was taking her rescue inhaler too Often. She was also prescribed lisinopril for blood pressure control. Over the last week or so patient has been having tightness and shortness of breath and dizziness. Because of ongoing symptoms patient came to the emergency room. She was found to have systolic blood pressure of about 200. Patient is treated and is admitted here for further evaluation. Patient is feeling better this morning. Her EKG did not reveal any acute changes. Cardiac enzymes are negative. Used to smoke in the past. No family history of ischemic heart disease. No history of hypercholesterolemia. We'll proceed with Lexiscan stress test tomorrow for further evaluation along with echocardiogram. Review of Systems As per the chart Past Medical History Past Medical History: Asthma, Cancer, CVA/TIA, Eye Disorder, Hypertension, Rheumatoid Arthritis (RA) Additional Past Medical History / Comment(s): chronic low back pain-bulging discs, DJD, osteopenia, hx SMA (SUPERIOR MESENTERIC ARTERY SYNDROME), seasonal allergies. 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 Endometrial CA. History of Any Multi-Drug Resistant Organisms: None Reported Past Surgical History: Cholecystectomy, Hysterectomy, Orthopedic Surgery Additional Past Surgical History / Comment(s): Rt foot bunionectomy. Cervical cone bx. surgery for SMA on intestines, laser eye surgery, bilateral for glaucoma. Colonoscopy 2014. Laparotomy for superior mesenteric artery syndrome. Past Anesthesia/Blood Transfusion Reactions: No Reported Reaction Additional Past Anesthesia/Blood Transfusion Reaction / Comment(s): Pt received blood with no reaction following uterine hemorrhage. Past Psychological History: No Psychological Hx Reported Additional Psychological History / Comment(s): . Smoking Status: Former smoker Past Alcohol Use History: Rare Additional Past Alcohol Use History / Comment(s): QUIT SMOKING 1997- SMOKED 1PPD for 20 YEARS. Past Drug Use History: None Reported - Past Family History Father Family Medical History: Cancer Additional Family Medical History / Comment(s): colon Mother Family Medical History: Dementia Sister(s) Family Medical History: Cancer Additional Family Medical History / Comment(s): Leukemia Medications and Allergies Home Medications Medication Instructions Recorded Confirmed Type Albuterol Sulfate [Proair Hfa] 1 - 2 puff INHALATION RT-Q6H PRN 08/01/14 History Etanercept [Enbrel] 50 mg SQ TU 08/01/14 12/31/17 History Montelukast [Singulair] 10 mg PO HS 08/01/14 12/31/17 History Naproxen Sodium [Aleve] 220 mg PO BID PRN 07/17/15 12/31/17 History Famotidine [Pepcid] 40 mg PO HS 01/27/16 12/31/17 History Fluticasone Nasal [place] [Flonase 2 spr EA NOSTRIL HS 04/01/16 12/31/17 History Nasal [place]] Propylene Glycol/Peg 400/Pf 1 drop BOTH EYES BID 07/29/17 12/31/17 History [Systane 0.3-0.4% Eye Drops] Enalapril Maleate [Vasotec] 2.5 mg PO DAILY 12/31/17 12/31/17 History Mometasone/Formoterol [Dulera 100 1 puff INHALATION RT-BID PRN 12/31/17 History Mcg/5 Mcg Inhaler] Allergies Allergy/AdvReac Type Severity Reaction Status Date / Time amoxicillin trihydrate Allergy Intermediate Rash/Hives Verified 12/31/17 11:24 [From Augmentin] potassium clavulanate Allergy Rash/Hives Verified 12/31/17 11:24 [From Augmentin] Physical Exam Vitals: Vital Signs Temp Pulse Pulse Pulse Resp BP BP 01/01/18 03:40 97.2 F L 58 L 18 101/58 12/31/17 23:30 97.1 F L 58 L 18 103/58 12/31/17 21:00 97.5 F L 56 L 18 116/64 12/31/17 16:00 97.8 F 60 16 143/74 12/31/17 12:00 98.5 F 65 16 188/82 12/31/17 11:46 97.9 F 12/31/17 11:37 77 18 176/84 12/31/17 10:43 75 16 188/81 12/31/17 09:47 67 18 173/84 12/31/17 08:59 86 12/31/17 08:45 98.2 F 86 20 181/91 Pulse Ox 01/01/18 03:40 96 12/31/17 23:30 98 12/31/17 21:00 97 12/31/17 16:00 99 12/31/17 12:00 100 12/31/17 11:46 12/31/17 11:37 97 12/31/17 10:43 98 12/31/17 09:47 98 12/31/17 08:59 12/31/17 08:45 97 Intake and Output 12/31/17 01/01/18 01/01/18 22:59 06:59 14:59 Other: Weight 97.7 kg GENERAL EXAM: Patient is alert and oriented and doesn't appear to be in any acute distress HEENT: Normocephalic. Normal reaction of pupils, equal size, normal range of extraocular motion. No erythema or exudates in the throat. NECK: No masses, no nuchal rigidity. CHEST: No chest wall deformity. LUNGS: Equal air entry with no crackles or wheeze. HEART: S1 and S2 normal with no audible mumurs or gallops. Regular rhythm, femorals equal on both sides.. ABDOMEN: No hepatosplenomegaly, normal bowel sounds, no guarding or rigidity. SKIN: No rashes CENTRAL NERVOUS SYSTEM: No focal deficits. EXTREMITIES: No cyanosis, clubbing or edema. Results 12/31/17 08:55 12/31/17 08:55 Cardiac Enzymes 12/31/17 12/31/17 12/31/17 Range/Units 08:55 08:55 15:04 AST 40 H (14-36) U/L CK-MB (CK-2) 5.7 H 5.1 H (0.0-2.4) ng/mL Troponin I <0.012 <0.012 (0.000-0.034) ng/mL 12/31/17 Range/Units 20:20 AST (14-36) U/L CK-MB (CK-2) 6.8 H (0.0-2.4) ng/mL Troponin I <0.012 (0.000-0.034) ng/mL Coagulation 09/22/18 Range/Units 08:55 PT 10.3 (9.0-12.0) sec APTT 23.1 (22.0-30.0) sec CBC 12/31/17 Range/Units 08:55 WBC 7.1 (3.8-10.6) k/uL RBC 5.20 (3.80-5.40) m/uL Hgb 14.4 (11.4-16.0) gm/dL Hct 45.8 (34.0-46.0) % Plt Count 214 (150-450) k/uL Comprehensive Metabolic Panel 12/31/17 Range/Units 08:55 Sodium 141 (137-145) mmol/L Potassium 4.5 (3.5-5.1) mmol/L Chloride 106 (98-107) mmol/L Carbon Dioxide 25 (22-30) mmol/L BUN 18 H (7-17) mg/dL Creatinine 0.64 (0.52-1.04) mg/dL Glucose 103 H (74-99) mg/dL Calcium 9.5 (8.4-10.2) mg/dL AST 40 H (14-36) U/L ALT 25 (9-52) U/L Alkaline Phosphatase 99 (38-126) U/L Total Protein 7.2 (6.3-8.2) g/dL Albumin 4.4 (3.5-5.0) g/dL Current Medications Generic Name Dose Route Start Last Admin Trade Name Freq PRN Reason Stop Dose Admin Acetaminophen 650 mg 12/31/17 11:29 01/01/18 06:31 Tylenol Tab PO 650 mg Q6HR PRN Administration Mild Pain or Fever > 100.5 Albuterol Sulfate 2.5 mg 12/31/17 12:59 Ventolin Nebulized INHALATION RT-Q6H PRN Shortness Of Breath Amlodipine Besylate 5 mg 12/31/17 13:00 12/31/17 14:02 Norvasc PO 5 mg DAILY DESHAUN Administration Artificial Tears 1 drops 12/31/17 21:00 12/31/17 21:21 Artificial Tear Drops BOTH EYES Not Given BID DESHAUN Budesonide/Formoterol Fumarate 2 puff 12/31/17 20:00 12/31/17 20:09 Symbicort 80-4.5 Mcg Inhaler INHALATION 2 puff RT-BID DESHUAN Administration Famotidine 40 mg 12/31/17 21:00 12/31/17 21:16 Pepcid PO 40 mg HS DESHAUN Administration Fluticasone Propionate 2 spray 12/31/17 21:00 12/31/17 21:21 Flonase Nasal [place] EA NOSTRIL Not Given HS DESHAUN Lisinopril 10 mg 01/01/18 09:00 Zestril PO DAILY DESHAUN Montelukast Sodium 10 mg 12/31/17 21:00 12/31/17 21:17 Singulair PO 10 mg HS DESHAUN Administration Naloxone HCl 0.2 mg 12/31/17 11:29 Narcan IV Q2M PRN Opioid Reversal Naproxen 250 mg 12/31/17 12:59 Naprosyn PO BID PRN Pain Nitroglycerin 1 inch 12/31/17 13:00 01/01/18 06:31 Nitro-Bid Oint TOPICAL 1 inch Q6HR DESHAUN Administration Patient's Own Med ( 50 mg 01/03/18 12:00 Etanercept [Enbrel] SQ 50 Mg) TU DESHAUN Intake and Output 12/31/17 01/01/18 01/01/18 22:59 06:59 14:59 Other: Weight 97.7 kg 12/31/17 08:55 12/31/17 08:55 EKG Interpretations (text) Sinus rhythm Assessment and Plan (1) Rheumatoid arthritis Current Visit: Yes Status: Acute Code(s): M06.9 - RHEUMATOID ARTHRITIS, UNSPECIFIED SNOMED Code(s): 36564163 (2) Chest pain Current Visit: Yes Status: Acute Code(s): R07.9 - CHEST PAIN, UNSPECIFIED SNOMED Code(s): 51185035 (3) Hypertension Current Visit: Yes Status: Acute Code(s): I10 - ESSENTIAL (PRIMARY) HYPERTENSION SNOMED Code(s): 70209908 (4) Asthma Current Visit: Yes Status: Acute Code(s): J45.909 - UNSPECIFIED ASTHMA, UNCOMPLICATED SNOMED Code(s): 854000945 Plan: We'll proceed with the stress correlation study and echocardiogram. Will increase her activity as tolerated. Further treatment depending upon the clinical course
[2018-01-01] MEDS: SYMBICORT 80-4.5 MCG INHALER INHALATION SCH ×2 (08:03→19:56)
[2018-01-01] MEDS: amLODIPine 5 MG TAB PO SCH (08:34)
[2018-01-01] MEDS: LISINOPRIL 10 MG TAB PO SCH (08:34)
[2018-01-01] MEDS: ARTIFICIAL TEARS-HYPROMELLOSE DROPS 15 ML BTL BOTH EYES SCH ×2 (11:17→20:39)
--- NOTE | 2018-01-01 13:56 | P.PN ---
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 Patient says that she developed chest pressure along with shortness of breath, dizziness and lightheadedness started yesterday afternoon. Patient was still having symptoms this morning and made her come to the hospital. Chest pressure is mainly left retrosternal. No radiation. Associated with some nausea. No vomiting. No diaphoresis. Otherwise patient denied any chest pain. Patient was seen by primary care physician 2 weeks ago and was started on blood pressure medications in the form of Zestril which she has not been taking/not started at home currently. Denied any headache. No cough or sputum production. No previous history of coronary disease. Patient is a former smoker quit in 1997. No recent illnesses or sick contacts or travel. CTA negative for pulmonary embolism Chest x-rays negative EKG showed sinus rhythm normal. Blood pressure was 210/110 mm Hg on admission. 01/01/2018 Blood pressure is better controlled today. Troponin 3 negative. Patient was seen by cardiology and is planning for stress test tomorrow. No nausea vomiting or abdominal pain. Patient is still having mild chest pressure. No headache or dizziness or lightheadedness. No cough or sputum production. Current medications reviewed Objective - Vital Signs Vital signs: Vital Signs Temp 97.3 F L 01/01/18 08:00 Pulse 97 01/01/18 08:00 Resp 20 01/01/18 08:00 BP 129/73 01/01/18 08:00 Pulse Ox 97 01/01/18 08:03 Intake & Output 12/31/17 01/01/18 01/01/18 18:59 06:59 18:59 Weight 52.163 kg 97.7 kg - Exam PHYSICAL EXAMINATION: Patient is lying in the bed comfortably, no acute distress, awake alert and oriented.. HEENT: Normocephalic. Neck is supple. Pupils reactive. Nostrils clear. Oral cavity is moist. Ears reveal no drainage. Neck reveals no JVD, carotid bruits, or thyromegaly. CHEST EXAMINATION: Trachea is central. Symmetrical expansion. Lung johnson clear to auscultation and percussion. CARDIAC: Normal S1, S2 with no gallops. No murmurs ABDOMEN: Soft. Bowel sounds normal. No organomegaly. No abdominal bruits. Extremities: reveal no edema. No clubbing or cyanosis Neurologically awake, alert, oriented x3 with well-coordinated movements. No focal deficits noted Skin: No rash or skin lesions. Psychiatric: Coperative. Nonsuicidal Musculoskeletal: No joint swelling or deformity. Normal range of motion. - Labs CBC & Chem 7: 12/31/17 08:55 12/31/17 08:55 Labs: Abnormal Lab Results - Last 24 Hours (Table) 12/31/17 12/31/17 Range/Units 15:04 20:20 Total Creatine Kinase 241 H 314 H (30-135) U/L CK-MB (CK-2) 5.1 H 6.8 H (0.0-2.4) ng/mL Assessment and Plan Assessment: Chest pressure likely due to hypertensive urgency. Rule out ACS Hypertensive urgency on admission. Hypertension. Currently patient is not taking any medications at home. Blood pressure controlled now. Asthma History of smoking in the past 20 PPD History of CVA with mild right-sided weakness. Rheumatoid arthritis Chronic low back pain with bulging disks Degenerative joint disease History of superior mesenteric artery syndrome Mild CPK elevation 294 DVT prophylaxis Plan: Patient will be continued on telemetry monitoring. Serial EKGs and troponins negative. Patient was started back on lisinopril and added Norvasc. Cardiology is following.. Monitor blood pressure closely. Continue with breathing treatments and Symbicort. Continue the pain management. Further recommendations based on the clinical course. Time with Patient: Greater than 30
[2018-01-01] MEDS: FLUTICASONE 50MCG/SPRAY NASAL 16GM EA NOSTRIL SCH (20:40)
[2018-01-01] MEDS: FAMOTIDINE 20 MG TAB PO SCH (20:40)
[2018-01-01] MEDS: MONTELUKAST 10 MG TAB PO SCH (20:40)
[2018-01-02] MEDS: ACETAMINOPHEN TAB 325 MG TAB PO PRN ×2 (05:22→11:04)
[2018-01-02] MEDS: NITROGLYCERIN OINT 1 INCH/GM PACKET TOPICAL SCH ×2 (05:22→12:43)
[2018-01-02] MEDS: SYMBICORT 80-4.5 MCG INHALER INHALATION SCH (07:43)
[2018-01-02 08:22] VITALS: RESP 16
[2018-01-02] MEDS: ARTIFICIAL TEARS-HYPROMELLOSE DROPS 15 ML BTL BOTH EYES SCH (08:58)
[2018-01-02 11:06] VITALS: BP 145/83; PULSE 88; TEMP 97.6
[2018-01-02] MEDS: LISINOPRIL 10 MG TAB PO SCH (12:43)
[2018-01-02] MEDS: amLODIPine 5 MG TAB PO SCH (12:43)
--- NOTE | 2018-01-02 12:55 | P.STRESS ---
- Stress Test Note Stress Test Results/Findings: Exam Performed: stress echo exercise Exam Date: 01/02/18 Reason for Exam: cp Height: 5 ft 5 in Weight: 53.6 kg Protocol: jakob Stage: 3 Duration of Exercise: 9min 30sec Resting Heart Rate: 73 Resting Blood Pressure: 112/62 Maximum Achieved Heart Rate: 141 Maximum Achieved Blood Pressure: 187/76 85% PMHR: 133 100% PMHR: 157 METS: 11.1 Technologist Comment: Stress Test Results/Findings: This is a 62-year-old female with history of hypertension, previous CVA being evaluated for symptoms of chest pain.. Stress data :Baseline EKG showed a sinus rhythm with normal PA and QRS duration. Blood pressure at rest was 112/62 with pulse rate of 73. Patient exercised on the Jakob protocol for 9 minutes and 30 seconds achieving a maximum to 141 with a blood pressure 155/58. EKGs taken during and after the exercise did not reveal any significant changes from the baseline. Echo data: Baseline echo images show normal wall motion and thickening. Exercise echo images showed augmentation of wall motion and thickening in all the segments. Final impression: #1. Negative stress test #2. Negative stress echo.
--- NOTE | 2018-01-02 13:32 | P.PN ---
Subjective Patient was seen and examined in no acute distress. She denies any further symptoms of chest discomfort, shortness of breath or dizziness. Stress echocardiogram was performed today and is negative for stress-induced cardiac ischemic changes. Blood pressure 145/83 heart rate 88 afebrile maintaining oxygen saturation on room air. Objective - Vital Signs Vital signs: Vital Signs Temp 97.6 F 01/02/18 11:05 Pulse 88 01/02/18 11:05 Resp 16 01/02/18 11:05 BP 145/83 01/02/18 11:05 Pulse Ox 98 01/02/18 11:05 Intake & Output 01/01/18 01/02/18 01/02/18 18:59 06:59 18:59 Weight 53.6 kg Other: Voiding Method Toilet # Voids 0 1 - Exam GENERAL: Well-appearing, well-nourished and in no acute distress. NECK: Supple without JVD or thyromegaly. LUNGS: Breath sounds clear to auscultation bilaterally. Respiration equal and unlabored. No wheezes, rales or rhonchi. HEART: Regular rate and rhythm without murmurs, rubs or gallops. S1 and S2 heard. EXTREMITIES: Normal range of motion, no edema. No clubbing or cyanosis. Peripheral pulses intact. - Labs CBC & Chem 7: 12/31/17 08:55 12/31/17 08:55 Assessment and Plan Assessment: ASSESSMENT Chest pain, atypical. An acute coronary event has been ruled out with no EKG evidence of ischemia and negative cardiac enzymes. Hypertension Asthma Rheumatoid arthritis PLAN Stress echocardiogram obtained negative for stress-induced cardiac ischemic changes. Stable from a cardiac perspective. Follow-up with Dr. Edgar in 2-3 weeks. Nurse Practitioner note has been reviewed, I agree with a documented findings and plan of care. Patient was seen and examined.
--- NOTE | 2018-01-02 14:26 | P.DS ---
Providers Date of admission: 12/31/17 11:29 Expected date of discharge: 01/02/18 Attending physician: Kaykay Estrada Consults: 12/31/17 11:30 Consult Physician Routine Consulting Provider: Aj Mayo Consult Reason/Comments: CP, HTN Do you want consulting provider notified?: Yes Primary care physician: Long Bradshaw [facility] Course: Final Diagnoses: Chest pressure likely due to hypertensive urgency. ACS ruled out as per cardiology; No EKG evidence of ischemia, status post negative reported stress test. Hypertensive urgency on admission. Hypertension. Currently patient is not taking any medications at home. Blood pressure controlled now. Asthma History of smoking in the past 20 PPD History of CVA with mild right-sided weakness. Rheumatoid arthritis Chronic low back pain with bulging disks Degenerative joint disease History of superior mesenteric artery syndrome Mild CPK elevation Hospital course:Chest pressure Patient is a 62-year-old female with a known history of asthma, history of CVA 20 years ago with mild residual right-sided weakness, rheumatoid arthritis and chronic back pain came to ER with complaints of chest pressure and shortness of breath. Patient says that she developed chest pressure along with shortness of breath, dizziness and lightheadedness started yesterday afternoon. Patient was still having symptoms this morning and made her come to the hospital. Chest pressure is mainly left retrosternal. No radiation. Associated with some nausea. No vomiting. No diaphoresis. Otherwise patient denied any chest pain. Patient was seen by primary care physician 2 weeks ago and was started on blood pressure medications in the form of Zestril which she has not been taking/not started at home currently. Denied any headache. No cough or sputum production. No previous history of coronary disease. Patient is a former smoker quit in 1997. No recent illnesses or sick contacts or travel. CTA negative for pulmonary embolism Chest x-rays negative EKG showed sinus rhythm normal. Blood pressure was 210/110 mm Hg on admission. 01/01/2018 Blood pressure is better controlled today. Troponin 3 negative. Patient was seen by cardiology and is planning for stress test tomorrow. No nausea vomiting or abdominal pain. Patient is still having mild chest pressure. No headache or dizziness or lightheadedness. No cough or sputum production. Evaluated by cardiology. Antihypertensives adjusted. underwent stress test reporting negative for stress-induced cardiac ischemia changes. Significant clinical improvement. Cleared by cardiology for discharge. Patient is being discharged home in a stable condition with guarded prognosis. Exam PHYSICAL EXAMINATION: GENERAL: no acute distress, awake alert and oriented X 3 .. CHEST EXAMINATION: Lung johnson clear to auscultation and percussion. CARDIAC: Normal S1, S2 with no gallops. No murmurs ABDOMEN: Soft. Bowel sounds normal. No organomegaly. No abdominal bruits. Neurologically No focal deficits noted The impression and plan of care has been dictated as directed. : I performed a history and examination of this patient, discussed the same with the dictator. I agree with the dictator's note ,documented as a scribe. Any additional findings or plans will be noted. Time taken: 35 minutes. Patient Condition at Discharge: Stable Plan - Discharge Summary Discharge Rx Participant: No New Discharge Prescriptions: New amLODIPine [Norvasc] 5 mg PO DAILY #30 tab Lisinopril [Zestril] 10 mg PO DAILY #30 tab Continue Montelukast [Singulair] 10 mg PO HS Etanercept [Enbrel] 50 mg SQ TU Albuterol Sulfate [Proair Hfa] 1 - 2 puff INHALATION RT-Q6H PRN PRN Reason: Shortness Of Breath Naproxen Sodium [Aleve] 220 mg PO BID PRN PRN Reason: Pain Famotidine [Pepcid] 40 mg PO HS Fluticasone Nasal [place] [Flonase Nasal [place]] 2 spr EA NOSTRIL HS Propylene Glycol/Peg 400/Pf [Systane 0.3-0.4% Eye Drops] 1 drop BOTH EYES BID Mometasone/Formoterol [Dulera 100 Mcg/5 Mcg Inhaler] 1 puff INHALATION RT- BID PRN PRN Reason: Shortness Of Breath Discontinued Enalapril Maleate [Vasotec] 2.5 mg PO DAILY Discharge Medication List Albuterol Sulfate [Proair Hfa] 1 - 2 puff INHALATION RT-Q6H PRN 08/01/14 [ History] Etanercept [Enbrel] 50 mg SQ TU 08/01/14 [History] Montelukast [Singulair] 10 mg PO HS 08/01/14 [History] Naproxen Sodium [Aleve] 220 mg PO BID PRN 07/17/15 [History] Famotidine [Pepcid] 40 mg PO HS 01/27/16 [History] Fluticasone Nasal [place] [Flonase Nasal [place]] 2 spr EA NOSTRIL HS 04/01/16 [ History] Propylene Glycol/Peg 400/Pf [Systane 0.3-0.4% Eye Drops] 1 drop BOTH EYES BID [History] Mometasone/Formoterol [Dulera 100 Mcg/5 Mcg Inhaler] 1 puff INHALATION RT-BID PRN 12/31/17 [History] Lisinopril [Zestril] 10 mg PO DAILY #30 tab 01/02/18 [Rx] amLODIPine [Norvasc] 5 mg PO DAILY #30 tab 01/02/18 [Rx] Follow up Appointment(s)/Referral(s): Long Stephenson III, MD [Primary Care Provider] - 3 Days Katia Edgar MD [STAFF PHYSICIAN] - 3 Weeks Ambulatory/Diagnostic Orders: Complete Blood Count w/diff [LAB.AMB] Time Frame: 3 Days, Location: None Selected
[2018-01-02 14:41] VITALS: BMI 19.6
[2018-01-03] MEDS ORDERED: PATIENT'S OWN MED (Etanercept [Enbrel] 50 MG) SQ SCH (12:00)
--- NOTE | 2018-01-04 12:15 | ECHOS ---
- Stress Test Note Stress Test Results/Findings: Exam Performed: stress echo exercise Exam Date: 01/02/18 Reason for Exam: cp Height: 5 ft 5 in Weight: 53.6 kg Protocol: jakob Stage: 3 Duration of Exercise: 9min 30sec Resting Heart Rate: 73 Resting Blood Pressure: 112/62 Maximum Achieved Heart Rate: 141 Maximum Achieved Blood Pressure: 187/76 85% PMHR: 133 100% PMHR: 157 METS: 11.1 Technologist Comment: Stress Test Results/Findings: This is a 62-year-old female with history of hypertension, previous CVA being evaluated for symptoms of chest pain.. Stress data :Baseline EKG showed a sinus rhythm with normal VA and QRS duration. Blood pressure at rest was 112/62 with pulse rate of 73. Patient exercised on the Jakob protocol for 9 minutes and 30 seconds achieving a maximum to 141 with a blood pressure 155/58. EKGs taken during and after the exercise did not reveal any significant changes from the baseline. Echo data: Baseline echo images show normal wall motion and thickening. Exercise echo images showed augmentation of wall motion and thickening in all the segments. Final impression: #1. Negative stress test #2. Negative stress echo. BELL
== END 2018-01-02 15:34 | disposition home or self-care (01) ==
LOC: EC 08:43 → 3SUR 11:29 → 6SEL 18:09
PROVIDERS: ADMIT Hospitalist; ATTEND Hospitalist
DX: R07.89 Other chest pain (principal); I16.0 Hypertensive urgency; J45.909 Unspecified asthma, uncomplicated; I69.351 Hemiplegia and hemiparesis following cerebral infarction affecting right dominant side; M06.9 Rheumatoid arthritis, unspecified; I10 Essential (primary) hypertension; M85.80 Other specified disorders of bone density and structure, unspecified site; M19.90 Unspecified osteoarthritis, unspecified site; G89.29 Other chronic pain; M54.5 Low back pain; H40.9 Unspecified glaucoma; R42 Dizziness and giddiness; R74.8 Abnormal levels of other serum enzymes; Z79.51 Long term (current) use of inhaled steroids; Z79.899 Other long term (current) drug therapy; Z88.0 Allergy status to penicillin; Z88.8 Allergy status to other drugs, medicaments and biological substances; Z85.42 Personal history of malignant neoplasm of other parts of uterus; Z86.79 Personal history of other diseases of the circulatory system; Z87.891 Personal history of nicotine dependence; Z90.49 Acquired absence of other specified parts of digestive tract; Z90.710 Acquired absence of both cervix and uterus; Z80.0 Family history of malignant neoplasm of digestive organs; Z81.8 Family history of other mental and behavioral disorders; Z80.6 Family history of leukemia
CPT/HCPCS: 96360; 96361; 99285; 36415; 94640 ×4; 94760; 93351; 83880; 80053; 82550; 82553; 83735; 84484; 85025; 85610; 85730; 71046; 71275; G0378 ×3; Q9967

== ENCOUNTER → 2018-02-01 | Outpatient (CLI) | payer MEDICARE ==
[2018-02-01 10:22] LABS: HCT 39.6 % (34.0-46.0); HGB 12.9 gm/dL (11.4-16.0); MCH 28.2 pg (25.0-35.0); MCHC 32.5 g/dL (31.0-37.0); MCV 86.7 fL (80.0-100.0); Mean Platelet Volume 8.2; Platelet Count 252 k/uL (150-450); RBC 4.56 m/uL (3.80-5.40); RDW 14.6 % (11.5-15.5); WBC 7.1 k/uL (3.8-10.6)
[2018-02-01 10:38] LABS: Anion Gap 8 mmol/L; Blood Urea Nitrogen 15 mg/dL (7-17); Carbon Dioxide 28 mmol/L (22-30); Chloride 105 mmol/L (98-107); Potassium 4.8 mmol/L (3.5-5.1); Sodium 141 mmol/L (137-145)
== END | disposition home or self-care (01) ==
LOC: LABPAT 09:29
PROVIDERS: ATTEND Internal Medicine Cardiovascular Disease
DX: Z01.812 Encounter for preprocedural laboratory examination (principal); R07.9 Chest pain, unspecified; R06.09 Other forms of dyspnea; I10 Essential (primary) hypertension
CPT/HCPCS: 36415; 80051; 82565; 84520; 85027

== ENCOUNTER → 2018-02-02 | Outpatient (CLI) | payer MEDICARE ==
[2018-02-02 14:08] VITALS: BP 121/69; PULSE 75; RESP 16
--- NOTE | 2018-02-02 14:40 | P.PN ---
Subjective Progress Note Date: 02/02/18 Principal diagnosis: Lumbar spondylosis without myelopathy Right sacroiliitis This is a 62-year-old lady with history of lower back pain with radiation to the right buttock. The patient had RFA on the lumbar medial branches on both sides previously. She also had right sacroiliac joint steroid injection under fluoroscopic guidance which helped her pain significantly. Recently she was found to have severely elevated blood pressure and she is scheduled to have cardiac catheterization next week. Objective - Vital Signs Vital signs: Vital Signs Temp Pulse 75 02/02/18 14:00 Resp 16 02/02/18 14:00 BP 121/69 02/02/18 14:00 Pulse Ox 97 02/02/18 14:00 Intake & Output 02/01/18 02/02/18 02/02/18 18:59 06:59 18:59 Weight 52.163 kg - EENT Eyes: Present: PERRLA - Respiratory Respiratory: bilateral: CTA - Neurologic Neurologic: Present: CNII-XII intact - Musculoskeletal Musculoskeletal Comment(s): Positive tenderness around the right sacroiliac joint Normal muscle strength in the lower extremities bilaterally and symmetrically - Psychiatric Psychiatric: Present: A&O x's 3, appropriate affect, intact judgment & insight Assessment and Plan Plan: This is a pleasant 62-year-old lady with history of lower back pain with radiation to the right buttock area. Lumbar spondylosis without myelopathy status post bilateral medial branch RFA Right sacroiliitis Possible coronary artery disease the patient is scheduled to have cardiac catheterization next week We will schedule her to have right sacral joint steroid injection under fluoroscopic guidance
== END | disposition home or self-care (01) ==
LOC: PNWHC3 13:48
PROVIDERS: ATTEND Anesthesiology
DX: M47.816 Spondylosis without myelopathy or radiculopathy, lumbar region (principal); M46.1 Sacroiliitis, not elsewhere classified; Z98.890 Other specified postprocedural states
CPT/HCPCS: 99211

== ENCOUNTER 2018-02-06 10:58 | Day surgery (SDC) | payer MEDICARE ==
[2018-02-02 10:53] VITALS: BMI 19.1
[~2018-02-06 10:58] MED LIST changes: +ALPRAZolam 0.25 MG TAB PO PRN; +ALPRAZolam 0.5 MG TAB PO PRN; +ASPIRIN 325 MG TAB PO STA; +ATORVASTATIN 80 MG TAB PO STA; -LACTATED RINGERS 1,000 ML IV SCH; +NITROGLYCERIN SL TABS 0.4 MG TAB SUBLINGUAL PRN; +SODIUM CHLORIDE 0.9% 1,000 ML in EMPTY BAG 1 BAG IV ONE
[2018-02-06 11:23] VITALS: TEMP 97.3
[2018-02-06] MEDS ORDERED: MIDAZOLAM 2 MG/2 ML VIAL ONE (12:35)
[2018-02-06] MEDS ORDERED: fentaNYL (PF) 50 MCG/ML 2 ML AMP ONE (12:36)
[2018-02-06] MEDS ORDERED: LIDOCAINE 1% INJ 10MG/ML (20 ML MDV) ONE (12:36)
[2018-02-06] MEDS ORDERED: fentaNYL (PF) 50 MCG/ML 2 ML AMP IVP ONE (12:38)
[2018-02-06] MEDS ORDERED: MIDAZOLAM 2 MG/2 ML VIAL IVP ONE (12:38)
[2018-02-06] MEDS ORDERED: LIDOCAINE 1% INJ 10MG/ML (20 ML MDV) SQ ONE (12:39)
[2018-02-06] MEDS ORDERED: IOPAMIDOL-370 125ML BTL INJ ONE (12:53)
[2018-02-06] MEDS ORDERED: RX INFO: IV CONTRAST WAS GIVEN 1 EACH MISC MISCELLANE PRN (13:01)
--- NOTE | 2018-02-06 13:07 | P.CARDCATH ---
Date of Procedure: 02/06/18 Preoperative Diagnosis: Recurrent chest pain and shortness of breath Postoperative Diagnosis: Normal coronary arteries and normal end-diastolic pressure of the left ventricle Description of Procedure: HISTORY: This is a 61-year-old female with history of smoking and hypertension who has been experiencing chest pains and shortness of breath. Patient had a stress test that was a normal. However, patient continued to have the pains and wanted to proceed with cardiac catheterization for definite diagnosis. CONSENT:I have discussed the risks, benefits and alternative therapies for the above-mentioned procedure and for both sedation/analgesia as well as necessary blood product administration, if indicated, as they pertain to this patient. The patient has indicated understanding and acceptance of the risks and procedures discussed. PROCEDURE: Patient was brought to the lab in a fasting state. Patient was given some IV sedation. The right groin is infiltrated with lidocaine and right femoral artery was entered using Seldinger technique. A 6-Bulgarian catheter was left in place and selective coronary arteriography and left ventriculography was performed. Patient tolerated the procedure well. Femoral angiogram was performed and Angio-Seal was applied for hemostasis. No immediate complications were noted and patient was transferred to [facility] in a stable condition Conscious Sedation: Versed 1mg Fentanyl 50 g Duration 15minutes HEMODYNAMICS: The aortic pressure is about 110/70. Left ventricular end- diastolic pressure is 5-8. There was no gradient across the aortic valve SELECTIVE CORONARY ARTERIOGRAPHY: LEFT MAIN: Normal length and patent THE LEFT ANTERIOR DESCENDING CORONARY ARTERY:. This is a good caliber vessel giving rise to good-sized diagonal branches. The LAD and its branches are free of occlusive disease THE LEFT CIRCUMFLEX AND IS CORONARY ARTERY:. This is a moderate caliber vessel giving rise good-sized OM branch. Free of occlusive disease THE RIGHT CORONARY ARTERY:. This is a dominant vessel giving rise to PDA and PLV and free of occlusive disease LEFT VENTRICULOGRAPHY:. Performed FINAL IMPRESSION:: Normal coronary arteries. Normal end-diastolic pressures of the left ventricle. No gradient across the aortic valve PLAN: Maximum medical therapy and risk factor modification. Symptomatic medical therapy PROGNOSIS:. Good
[2018-02-06] MEDS ORDERED: SODIUM CHLORIDE 0.9% 1,000 ML IV SCH (13:15)
[2018-02-06 16:03] VITALS: BP 110/60; PULSE 65; RESP 18
== END 2018-02-06 17:55 | disposition home or self-care (01) ==
LOC: CATHCVL 10:58
PROVIDERS: ATTEND Internal Medicine Cardiovascular Disease
DX: R06.00 Dyspnea, unspecified (principal); I10 Essential (primary) hypertension; Z87.891 Personal history of nicotine dependence; J45.909 Unspecified asthma, uncomplicated; Z79.899 Other long term (current) drug therapy; Z79.51 Long term (current) use of inhaled steroids; Z79.82 Long term (current) use of aspirin; Z88.0 Allergy status to penicillin
CPT/HCPCS: 93458; C1760; C1894; C1769; J2250; J2001; J3010; Q9967

== ENCOUNTER 2018-02-23 05:54 | Day surgery (SDC) | payer MEDICARE ==
[2018-02-21 09:21] VITALS: BMI 19.1
[~2018-02-23 05:54] MED LIST changes: -ALPRAZolam 0.25 MG TAB PO PRN; -ALPRAZolam 0.5 MG TAB PO PRN; -ASPIRIN 325 MG TAB PO STA; -ATORVASTATIN 80 MG TAB PO STA; -NITROGLYCERIN SL TABS 0.4 MG TAB SUBLINGUAL PRN; -SODIUM CHLORIDE 0.9% 1,000 ML in EMPTY BAG 1 BAG IV ONE; +SODIUM CHLORIDE 0.9% 500 ML 500 ML IV SCH
[2018-02-23 06:24] VITALS: RESP 16; TEMP 98
--- NOTE | 2018-02-23 07:23 | P.PCN ---
Date of Procedure: 02/23/18 Surgeon: Fátima Alex Pathology: none sent Condition: stable Disposition: PACU Description of Procedure: Preoperative diagnoses= sacroiliac joint dysfunction and sacroiliitis on the right side Postoperative diagnoses= same as preoperative diagnosis. Procedure= sacroiliac joint steroid injection under fluoroscopic guidance. Anesthesia= local anesthesia with lidocaine 1% and IV moderate conscious sedation with fentanyl and Versed Estimated blood loss=minimal. Procedure indication= the patient had a history of severe chronic low back pain , diagnosed with sacroiliitis and lumbar sacral facet arthropathy unresponsive to conservative treatment. Procedure description= the patient was seen and identified in the preoperative holding area, risks and benefits and alternative of the procedure and possible complications discussed with the patient, patient signed the consent. an IV was started, and vital signs were monitored and were stable throughout the procedure , patient was placed in the prone position or table and the lumbosacral area was prepped and draped with a sterile fashion, vital signs were closely monitored during the procedure.The sacroiliac joint was identified on the AP view of fluoroscopy then the C-arm was tilted to the oblique position to superimpose the anterior and posterior joint lines on each other and to have a unified joint line with the target point at the inferior one third of this line. I used 22-gauge 3-1/2 inch Quincke spinal needle for this procedure and after getting into the sacroiliac joint I injected 40 mg of Kenalog +2 MLS of Ropivacaine 0.5%. Patient tolerated the procedure well without any complication, The patient returned to supine position after the back was cleaned and a Band- Aid applied, the patient transported to recovery room in stable condition and he was monitored for 30 minutes before he was discharged home and then patient was reexamined before going home and patient was discharged in stable condition and patient will follow up with the pain clinic in a few weeks
[2018-02-23] MEDS ORDERED: IV FLUID CONTINUATION 1,000 ML IV ONE (07:26)
--- NOTE | 2018-02-23 07:32 | FL ---
EXAMINATION TYPE: FL guided pain mgmt statistic DATE OF EXAM: 02/23/2018 HISTORY: Pain 29 sec fl, 1 film
[2018-02-23 07:43] VITALS: BP 113/66; PULSE 74
== END 2018-02-23 08:29 | disposition home or self-care (01) ==
LOC: ORPAIN 05:54
PROVIDERS: ATTEND Anesthesiology
DX: M46.1 Sacroiliitis, not elsewhere classified (principal); M47.817 Spondylosis without myelopathy or radiculopathy, lumbosacral region; M53.3 Sacrococcygeal disorders, not elsewhere classified; G89.29 Other chronic pain; I10 Essential (primary) hypertension; Z88.0 Allergy status to penicillin
CPT/HCPCS: J2250; J3301; J3010; G0260; 27096

== ENCOUNTER → 2018-05-11 | Outpatient (CLI) | payer MEDICARE ==
[2018-05-11 12:10] VITALS: BP 154/79; PULSE 70; RESP 20
--- NOTE | 2018-05-11 15:32 | P.PAINPG ---
Subjective Progress Note Date: 05/11/18 This is a follow-up visit for this 63 years old female with a chronic history of severe low back pain, she is diagnosed with lumbar spondylosis with lumbar facet arthropathy without myelopathy, and right sacral iliac joint dysfunction/ right sacroiliitis, July 2017 with done radiofrequency ablation of the medial branch lumbar area, she did fairly well, her function improved and her pain decreased significantly, and later on she developed right sacroiliac joint dysfunction/right sacroiliitis, and we have done a right sacroiliac joint steroid injections 2, patient had excellent pain relief after the injection, the pain relief lasted for more than 2 weeks, and her ability to function improved more than 50% after the injection, currently patient reported that she is having pain in the low back and the buttock area, bilaterally, she denies any motor or sensory deficit, she denies any fever or night sweats, and there is no change in the bowel movement. Urination Objective - Vital Signs Vital signs: Vital Signs Temp Pulse 70 05/11/18 12:05 Resp 20 05/11/18 12:05 BP 154/79 05/11/18 12:05 Pulse Ox 99 05/11/18 12:05 Intake & Output 05/10/18 05/11/18 05/11/18 18:59 06:59 18:59 Weight 54.431 kg - Exam Physical Examinations : 1-Constitutiona : Cooperative , not in acute distress . 2-HEENT : nech ; supple , no Lymphadenopathy , normal thyroid size . eyes : no ptosis , no icterus, no photophobia . ENT : normal of hearing , normal oropharynx , no Thrush . 3- Respiratory : Chest clear to auscultations Bilaterally , no wheezing , no Rhonchi . 4- Cardiovascular : regular rate and rhythem , S1 , S2 , no S3 , no S4. 5- Gastrointestinal : abdomen soft no tenderness , bowel sounds , no organomegally . 6- Genitourinary : Defferred . 7- neurologic : Cranial nerve II to XII intact , no focal neurological deffecit . 8-psychatric : alert , oriented X 3 , appropriate affect , intact judgment and insight . 9-Lymphatic : no Lymphadenopathy . 10- musculoskeltal : Lumber spine moter stegnth lower extremities , thigh and legs 5/5 Right side , 5/5 Left side deep tendon reflexes : normal Knee Jerk , normal ankle Jerk positive lumber facet Loading Test Range of motion of the lumbar spine Flexion 60 degrees, extension 30 degrees strait leg raising test negative bilaterally Fabere test positive RT and positive LT . Sever tenderness over the Sacroiliac joint on the R and L sides Gaenslen test positive bilaterally. Seated flexion test positive bilaterally. Assessment and Plan Plan: Assessment and plan= chronic low back pain secondary to bilateral sacroiliitis, bilateral sacroiliac joint dysfunction lumbar spondylosis with lumbar facet arthropathy . Patient had excellent pain relief after right sacroiliac joint steroid injection done twice, she will be good candidate to have radiofrequency ablation of the right sacroiliac joint (Radiofrequency ablation of the L5-S1 dorsal Romus , and the radiofrequency ablation of the lateral branches of S1-S2 and S3 on the right side ), and at the same time we can do left- sided sacroiliac joint steroid injection, procedure risk and benefits and alternatives discussed with the patient she agreed with proceeding , Time with Patient: Less than 30 PQRS Measure Charge Sheet Measure #130: Documentation of Current Meds in Medical Chart: Patient's medications documented in chart Measure #226: Tobacco Use: Screen & Cessation Intervention: Pt not a tobacco user Measure #111: Pneumonia Vaccination: Pneumococcal vaccine administered or previously received Measure #47: Advance Care Plan: Advance care planning discussed & documented, plan or surrogate given Measure #412: Opioid Treatment Agreement: No documentation of signed opioid treatment agreement Measure #408: Opioid Therapy Follow-up Evaluation: Patient had NO f/u eval minimum every 3 months during opioid therapy Measure #317: Preventitive Care & Scrn High Bld Press & F/U: Pre-hypertensive or hypertensive BP documented, pt will f/u with PCP Measure #128: Body Mass Index (BMI) Screening & Follow-up: BMI documented within normal parameters Measure #131: Pain Assessment & Follow-up: Pain positive & plan documented, Follow-up scheduled Measure #431: Unhealthy Alcohol Use Preventative Care & Scrn: Patient not identified as an unhealthy alcohol user PQRS Narrative: Smoking Status Former smoker Do You Want the Pneumonia Vaccine Up to Date Vaccine AT THIS TIME? Blood Pressure 154/79 Pain Intensity [Bilateral 4 Lower Back] Hx Alcohol Use (MH) Yes: rare Home Medications: Ambulatory Orders Albuterol Sulfate [Proair Hfa] 1 - 2 puff INHALATION RT-Q6H PRN 08/01/14 Etanercept [Enbrel] 50 mg SQ TU 08/01/14 Montelukast [Singulair] 10 mg PO HS 08/01/14 Famotidine [Pepcid] 40 mg PO HS 01/27/16 Fluticasone Nasal [place] [Flonase Nasal [place]] 2 spr EA NOSTRIL HS 04/01/16 Propylene Glycol/Peg 400/Pf [Systane 0.3-0.4% Eye Drop] 1 drop BOTH EYES BID Fluticasone/Salmeterol [Advair 100-50 Diskus] 1 inhalation PO BID 02/02/18 Isosorbide Mononitrate [Isosorbide Mononitrate ER] 30 mg PO QAM 02/02/18 Lisinopril [Zestril] 10 mg PO HS 02/02/18 amLODIPine [Norvasc] 5 mg PO HS 02/02/18 Controlled Substance Measures - Controlled Substance Measures Is patient prescribed a controlled substance at discharge?: No When asked, does pt state using other controlled substances?: No If prescribed controlled substance>3 days was MAPS reviewed?: No If Rx opioid, was Start Talking consent form obtained?: No If opioid is for acute pain is fill amount 7 days or less?: No Was information provided regarding opioid addiction?: No
== END ==
LOC: PNWHC3 11:42
PROVIDERS: ATTEND Specialist
DX: G89.29 Other chronic pain (principal); M25.80 Other specified joint disorders, unspecified joint; M47.816 Spondylosis without myelopathy or radiculopathy, lumbar region; M46.96 Unspecified inflammatory spondylopathy, lumbar region; M46.1 Sacroiliitis, not elsewhere classified; Z87.891 Personal history of nicotine dependence; Z79.899 Other long term (current) drug therapy
CPT/HCPCS: 99211

== ENCOUNTER → 2018-05-24 | Outpatient (CLI) | payer MEDICARE ==
[2018-05-24 17:44] LABS: Basophils # (A) 0.1 k/uL (0-0.2); Basophils % (A) 1 %; Eosinophils # (A) 0.2 k/uL (0-0.7); Eosinophils % (A) 3 %; HCT 39.1 % (34.0-46.0); HGB 12.6 gm/dL (11.4-16.0); Lymphocytes # (A) 1.9 k/uL (1.0-4.8); Lymphocytes % (A) 27 %; MCH 29.9 pg (25.0-35.0); MCHC 32.4 g/dL (31.0-37.0); MCV 92.3 fL (80.0-100.0); Mean Platelet Volume 8.2; Monocytes # (A) 0.6 k/uL (0-1.0); Monocytes % (A) 8 %; Neutrophils # (A) 4.1 k/uL (1.3-7.7); Neutrophils % (A) 59 %; Platelet Count 207 k/uL (150-450); RBC 4.23 m/uL (3.80-5.40); RDW 14.2 % (11.5-15.5); WBC 6.9 k/uL (3.8-10.6)
[2018-05-24 23:11] LABS: ALT 25 U/L (8-44); AST 42 U/L (13-35); C Reactive Protein <0.4 mg/dL (0.0-0.8)
[2018-05-24 23:57] LABS: Erythrocyte Sedimentation Rate 5 mm/hr (0-20)
== END ==
LOC: LABWHC1 17:05
PROVIDERS: ATTEND Internal Medicine Rheumatology
DX: M05.79 Rheumatoid arthritis with rheumatoid factor of multiple sites without organ or systems involvement (principal)
CPT/HCPCS: 36415; 82040; 82565; 84450; 84460; 84520; 85025; 85652; 86140; 86480

== ENCOUNTER 2018-05-25 07:42 | Day surgery (SDC) | payer MEDICARE ==
[2018-05-25 08:31] VITALS: TEMP 98
[2018-05-25] MEDS ORDERED: LIDOCAINE 1% 20 ML VIAL (10MG/ML) FOR IV START INTRADERMA ONE (08:36)
[2018-05-25] MEDS ORDERED: LACTATED RINGERS 1,000 ML IV ONE (08:36)
--- NOTE | 2018-05-25 10:05 | P.PCN ---
Date of Procedure: 05/25/18 Surgeon: Fátima Alex Pathology: none sent Condition: stable Disposition: PACU Description of Procedure: PRE and post OPERATIVE DIAGNOSIS: 1-Lumbosacral arthropathy. 2- B/L sacroiliitis. 3-B/L sacroiliac joint dysfunction PROCEDURES: 1- radiofrequency thermocoagulation/ablation of the L5 dorsal ramus on the right side 2- multi-site radiofrequency thermocoagulation/ablation of the S1, S2, and S3 lateral branchs. The procedure was performed using fluoroscopic guidance during needle placement to assure proper position and maximize safety. ANESTHESIA: LOCAL ANESTHESIA with IV moderate conscious sedation using Versed and fentanyl EBL: NONE INDICATION/MEDICAL NECESSITY: History of low back pain secondary to sacroiliitis and lumbosacral arthropathy unresponsive to more conservative treatments. The patient reported more than 50 % relief of pain symptoms following 2 previous diagnostic blocks with Bupivacaine. PROCEDURE DESCRIPTION: The patient was seen and identified in the preoperative area. Risks, benefits, complications, and alternatives were discussed with the patient. The patient agreed to proceed with the procedure and signed the consent. Vital signs were checked before and after the procedure and they remained stable. Patient ambulated to the procedure room and time out was completed. The patient was placed in the prone position on the procedure table and a pillow was placed under the abdomen to reduce lumbar lordosis. The lumbosacral area was prepped and draped in the usual sterile fashion. Critical pause was taken. L5 Dorsal Ramus RF: Using right oblique fluoroscopy, the junction of the transverse process and the superior articular process of the -- S1 vertebra, which correspond to the fluoroscopic image of the "eye of the Abdulaziz dog" was identified. Subsequently, a 10-cm 18-gauge radiofrequency cannula with a 10-mm active tip was advanced under fluoroscopic guidance until contact was made with periosteum. At this level, the Sensory testing of the L5 dorsal ramus was performed at 50 Hz and 0 to 1 volt with production of concordant pain starting at 0.5 volt. Motor stimulation was done at 2 Hz with stimulation of mulitifidus muscle contration at 1.5 volts. No radicular symptoms or paresthesias were produced during the testing. Subsequently, the L5 dorsal ramus was subjected to a radiofrequency ablation at a mode of 90 seconds at 80 degrees Celsius after negative motor and sensory testing and after injecting 0.5 ml of preservative free ropivacaine 0.5%. The needle was withdrawn intact the procedure was repeated on the left side using the same technique. S1, S3, and S3 Lateral Branch RF: The lateral margins of the Right S1, S2, and S3 foramina were identified using AP fluoroscopy. Under fluoroscopic guidance, three 10-cm 18-gauge radiofrequency cannula with a 10-mm active tip were inserted at 8-10 mm peripheral to the posterior S1 foramen, at various locations using clock-face coordinates. The center of the clock was registered at the lateral margin of the foramen. The 2:30, 4:00, and 5:30 oclock positions were used. At this level , the sensory testing of the S1 lateral branch was performed at 50 Hz and 0 to 1 volt at the three levels with production of concordant pain starting at 0.5 volt. Motor stimulation was done at 2 Hz. No radicular symptoms or paresthesias were produced during the testing. Subsequently, the S1 lateral branch was subjected to a radiofrequency ablation at a mode of 90 seconds at 80 degrees Celsius at the 3 levels after negative motor and sensory testing and after injecting 0.5 ml of preservative free Bupivacaine 0.5% and 20 mg of Kenalog. The same procedure was performed at the level of the S2 foramen. For the S3 foramen, only the 2:30 and 4:00 oclock positions were used. Sensory and motor testing followed by radiofrequency ablation were performed as described for the S1 and S2 foramina. COMPLICATIONS: The patient tolerated the procedure well without any acute complications. Then I turned my attention into doing the left sacroiliac joint steroid injection under fluoroscopic guidance as follows: Preoperative diagnoses= Left sacroiliac joint dysfunction and sacroiliitis on the side Postoperative diagnoses= same as preoperative diagnosis. Procedure= Left sacroiliac joint steroid injection under fluoroscopic guidance. Anesthesia= local anesthesia with lidocaine 1% and IV moderate conscious sedation with fentanyl and Versed Estimated blood loss=minimal. Procedure indication= the patient had a history of severe chronic low back pain , diagnosed with sacroiliitis and lumbar sacral facet arthropathy unresponsive to conservative treatment. Procedure description= the patient was seen and identified in the preoperative holding area, risks and benefits and alternative of the procedure and possible complications discussed with the patient, patient signed the consent. an IV was started, and vital signs were monitored and were stable throughout the procedure , patient was placed in the prone position or table and the lumbosacral area was prepped and draped with a sterile fashion, vital signs were closely monitored during the procedure.The left sacroiliac joint was identified on the AP view of fluoroscopy then the C-arm was tilted to the Rt oblique position to superimpose the anterior and posterior joint lines on each other and to have a unified joint line with the target point at the inferior one third of this line. I used 22-gauge 3-1/2 inch Quincke spinal needle for this procedure and after getting into the sacroiliac joint I injected 20 mg of Kenalog +2 MLS of Ropivacaine 0.5%. Patient tolerated the procedure well without any complication, The patient returned to supine position after the back was cleaned and a Band- Aid applied, the patient transported to recovery room in stable condition and he was monitored for 30 minutes before he was discharged home and then patient was reexamined before going home and patient was discharged in stable condition and patient will follow up with the pain clinic in a few weeks
[2018-05-25] MEDS ORDERED: IV FLUID CONTINUATION 1,000 ML IV ONE (10:09)
[2018-05-25 10:21] VITALS: BP 145/87; PULSE 68; RESP 18
--- NOTE | 2018-05-25 10:22 | FL ---
Fluoroscopy INDICATION: Pain FINDINGS: Fluoroscopy time: 25 seconds. Images obtained: 2. IMPRESSIONS: 1. Documentation of fluoroscopy.
== END 2018-05-25 10:39 | disposition home or self-care (01) ==
LOC: ORPAIN 07:42
PROVIDERS: ATTEND Anesthesiology
DX: G89.29 Other chronic pain (principal); M46.96 Unspecified inflammatory spondylopathy, lumbar region; M46.1 Sacroiliitis, not elsewhere classified; M53.3 Sacrococcygeal disorders, not elsewhere classified; I10 Essential (primary) hypertension; Z88.0 Allergy status to penicillin
CPT/HCPCS: 64493; 64494; 64495; J2250; J3301; J3010; G0260; 27096; 99152; 99153

== ENCOUNTER → 2018-06-28 | Outpatient (CLI) | payer MEDICARE ==
[2018-06-28 12:53] VITALS: BP 156/81; PULSE 64; RESP 18
--- NOTE | 2018-06-28 13:09 | P.PN ---
Subjective Progress Note Date: 06/28/18 This is a 63-year-old lady with history of chronic right lower back pain. The patient has just received right sacroiliac joint RFA which improved her pain by at least 70% as she states. She is able to do more activities now. She denies any weakness in the lower extremities or any paresthesia. Today, pt denies new-onset weakness, bowel/bladder incontinence, or any other signs or symptoms of cauda equina syndrome. There are no signs of acute intoxication, and no indications of medication diversion or overuse. In addition to above, 13-point review of systems is also negative for chest pain, shortness of breath, changes in vision, changes in hearing, new onset weakness, abdominal pain, diarrhea, extreme fatigue, malaise, fever, skin changes, homicidal or suicidal ideation, or bowel or bladder incontinence. Vital Signs: Reviewed in EMR Gen: AAOx3, NAD HEENT: PERRLA,hearing grossly normal Pulm: resp unlabored,CTA Heart:S1,S2, No Mur Neck: supple, trachea midline Neuro exam of the lower extremities: Straight leg raising test: Negative bilaterally Cirilo's test: Range of motion of the lumbar spine: Facet loading test: Tenderness in the paravertebral musculature: No tenderness in the lumbar paravertebral area at this point Neuro: CN II-XII grossly intact, Imaging: Reviewed in EMR/chart Assessment: Right sacroiliac joint dysfunction/sacroiliitis Lumbar spondylosis without myelopathy Plan: 1. Explanation: Opioid and psychological risk scores were reviewed. Diagnoses, prognoses, and multiple treatment options including but not limited to physical therapy, interventional therapies, adjuvant medical therapies, narcotic medication therapies, and surgery were discussed with the patient and all questions were answered to the patient's satisfaction. 2. Opioid agreement: Signed with the patient and the patient is warned not to u se opioids while driving or before driving and not to combine opioids with benzodiazepines or alcohol. 3. Counseling: The patient was counseled extensively on SMOKING CESSATION, BODY MASS INDEX, EXERCISE. Specifically, the patient was instructed regarding the importance of smoking cessation, obesity, and exercise in the context of both chronic pain and overall health. 4. Procedures: None at this point 5. Consultations: None 6. Investigations: None 7. Medications: Patient is to continue using Tylenol Extra Strength as needed for pain. She takes 4 pills of that every day. 8. Disposition: Return to clinic as needed PQRS measures: 1-Patient's medications are documented in the chart. 2-Tobacco use is negative, counseling given 3-Patient has had a pneumococcal vaccine. 4-Advanced care planning discussed, patient unable to give 5-Opioid contract signed with the patient. 6-Pain positive, follow-up visit or procedure scheduled 7-Patient's blood pressure measured and documented out of normal limits. The patient will follow up with her PCP. 8-Patient's weight was measured, and body mass index within the normal limits, and counseling was done. 9-Patient WAS NOT identified as an unhealthy alcohol user. Objective - Vital Signs Vital signs: Vital Signs Temp Pulse 64 06/28/18 12:44 Resp 18 06/28/18 12:44 BP 156/81 06/28/18 12:44 Pulse Ox 96 06/28/18 12:44 Intake & Output 06/27/18 06/28/18 06/28/18 18:59 06:59 18:59 Weight 52.163 kg
== END | disposition home or self-care (01) ==
LOC: PNWHC3 12:12
PROVIDERS: ATTEND Anesthesiology
DX: G89.29 Other chronic pain (principal); M47.816 Spondylosis without myelopathy or radiculopathy, lumbar region; M53.3 Sacrococcygeal disorders, not elsewhere classified; M46.1 Sacroiliitis, not elsewhere classified; Z79.1 Long term (current) use of non-steroidal anti-inflammatories (NSAID)
CPT/HCPCS: 99211

== ENCOUNTER 2018-08-25 10:32 | Emergency (ER) | payer MEDICARE ==
[2018-08-25 10:45] VITALS: RESP 18
[2018-08-25] MEDS ORDERED: SODIUM CHLORIDE 0.9% 1,000 ML IV STA ×3 (10:47→12:18)
[2018-08-25] MEDS ORDERED: SODIUM CHLORIDE 0.9% 500 ML 500 ML IV STA (10:47)
--- NOTE | 2018-08-25 11:13 | ED ---
Fever HPI - General Chief Complaint: Recheck/Abnormal Lab/Rx Stated Complaint: Dizziness, SOB, Low BP Time Seen by Provider: 08/25/18 10:46 Source: patient, RN notes reviewed, old records reviewed Mode of arrival: ambulatory Limitations: no limitations - History of Present Illness Initial Comments: This is a 63-year-old female the ER for evaluation. Patient presents ER for evaluation regards to recent diagnosis of influenza concern for pneumonia. Pa tient with a cough congestion with history of asthma. Patient was diagnosed with influenza 2 days ago decreased appetite decreased oral intake decreased by mouth intake. Patient denies any current pain. No fevers that she knows. She does admit to diminished appetite MD Complaint: weakness -: days(s) Temperature Source: subjective Context: sick contacts Associated Symptoms: chills, cough Treatments Prior to Arrival: none - Related Data Home Medications Medication Instructions Recorded Confirmed Albuterol Sulfate [Proair Hfa] 1 - 2 puff INHALATION RT-Q6H PRN 08/01/14 08/25/18 Montelukast [Singulair] 10 mg PO HS 08/01/14 08/25/18 Famotidine [Pepcid] 40 mg PO HS 01/27/16 08/25/18 Fluticasone Nasal [place] [Flonase 2 spr EA NOSTRIL HS 04/01/16 08/25/18 Nasal [place]] Propylene Glycol/Peg 400/Pf 1 drop BOTH EYES BID 07/29/17 08/25/18 [Systane 0.3-0.4% Eye Drop] Fluticasone/Salmeterol [Advair 1 puff INHALATION RT-BID 02/02/18 08/25/18 100-50 Diskus] Lisinopril [Zestril] 10 mg PO HS 02/02/18 08/25/18 amLODIPine [Norvasc] 5 mg PO HS 02/02/18 08/25/18 PARoxetine [Paxil] 10 mg PO DAILY 06/28/18 08/25/18 Adalimumab [Humira Pen] 40 mg SQ [id number] 08/25/18 08/25/18 Previous Rx's Medication Instructions Recorded Albuterol Sulfate [Proair Hfa] 1 - 2 puff INHALATION Q4H PRN #1 08/25/18 inhaler Azithromycin [Zithromax Z-pack] 0 mg PO DIRECTED #1 pack 08/25/18 predniSONE 50 mg PO DAILY #5 tab 08/25/18 Allergies Allergy/AdvReac Type Severity Reaction Status Date / Time amoxicillin trihydrate Allergy Intermediate Rash/Hives Verified 08/25/18 10:56 [From Augmentin] potassium clavulanate Allergy Rash/Hives Verified 08/25/18 10:56 [From Augmentin] Review of Systems ROS Statement: Those systems with pertinent positive or pertinent negative responses have been documented in the HPI. ROS Other: All systems not noted in ROS Statement are negative. Past Medical History Past Medical History: Asthma, Cancer, CVA/TIA, Eye Disorder, Hypertension, Rheumatoid Arthritis (RA) Additional Past Medical History / Comment(s): chronic low back pain-bulging discs, DJD, osteopenia, hx SMA (SUPERIOR MESENTERIC ARTERY SYNDROME), seasonal allergies, Endometrial CA. 1998. CVA 1999. History of Any Multi-Drug Resistant Organisms: None Reported Past Surgical History: Cholecystectomy, Heart Catheterization, Hysterectomy, Orthopedic Surgery Additional Past Surgical History / Comment(s): Rt foot bunionectomy. Cervical cone bx. surgery for SMA on intestines, laser eye surgery, bilateral for glaucoma. Colonoscopy 2013. Laparotomy for superior mesenteric artery syndrome. HEART CATH 02/06/18-CLEAR Past Anesthesia/Blood Transfusion Reactions: No Reported Reaction Additional Past Anesthesia/Blood Transfusion Reaction / Comment(s): Pt received blood with no reaction following uterine hemorrhage. Past Psychological History: No Psychological Hx Reported Smoking Status: Former smoker Past Alcohol Use History: Rare Past Drug Use History: None Reported - Past Family History Father Family Medical History: Cancer Additional Family Medical History / Comment(s): colon Mother Family Medical History: Dementia Sister(s) Family Medical History: Cancer Additional Family Medical History / Comment(s): Leukemia General Exam Limitations: no limitations General appearance: alert, in no apparent distress Head exam: Present: atraumatic, normocephalic, normal inspection Eye exam: Present: normal appearance, PERRL, EOMI. Absent: scleral icterus, conjunctival injection, periorbital swelling ENT exam: Present: normal exam, mucous membranes moist Neck exam: Present: normal inspection. Absent: tenderness, meningismus, lymphadenopathy Respiratory exam: Present: wheezes, decreased breath sounds, prolonged expiratory. Absent: normal lung sounds bilaterally, respiratory distress, rales, rhonchi, stridor Cardiovascular Exam: Present: regular rate, normal rhythm, normal heart sounds. Absent: systolic murmur, diastolic murmur, rubs, gallop, clicks GI/Abdominal exam: Present: soft, normal bowel sounds. Absent: distended, tenderness, guarding, rebound, rigid Extremities exam: Present: normal inspection, full ROM, normal capillary refill. Absent: tenderness, pedal edema, joint swelling, calf tenderness Back exam: Present: normal inspection Neurological exam: Present: alert, oriented X3, CN II-XII intact Psychiatric exam: Present: normal affect, normal mood Skin exam: Present: warm, dry, intact, normal color. Absent: rash Course Vital Signs 08/25/18 08/25/18 08/25/18 10:42 12:49 12:58 Temperature 98.0 F Pulse Rate 72 64 66 Respiratory 18 Rate Blood Pressure 115/69 O2 Sat by Pulse 99 Oximetry 08/25/18 08/25/18 08/25/18 13:06 13:28 14:20 Temperature 98.8 F Pulse Rate 75 69 65 Respiratory 18 18 18 Rate Blood Pressure 118/68 126/73 124/72 O2 Sat by Pulse 98 95 99 Oximetry - Reevaluation(s) Reevaluation #1: Medical record is reviewed Patient symptoms are improved with IV hydration and breathing treatments here in the ER Medical Decision Making - Medical Decision Making 63 female the ER with dizziness recent diagnosis of influenza. Patient does have bronchitis history of asthma, likely bronchitis on x-ray. Patient does not want to stay in the ER for evaluation or admission. Patient can be discharged home - Lab Data Result diagrams: 08/25/18 11:15 08/25/18 11:15 Lab Results 08/25/18 08/25/18 08/25/18 Range/Units 11:15 11:15 11:15 WBC 5.0 (3.8-10.6) k/uL RBC 4.73 (3.80-5.40) m/uL Hgb 13.6 (11.4-16.0) gm/dL Hct 42.2 (34.0-46.0) % MCV 89.2 (80.0-100.0) fL MCH 28.7 (25.0-35.0) pg MCHC 32.2 (31.0-37.0) g/dL RDW 13.5 (11.5-15.5) % Plt Count 211 (150-450) k/uL Neutrophils % 69 % Lymphocytes % 17 % Monocytes % 9 % Eosinophils % 1 % Basophils % 1 % Neutrophils # 3.4 (1.3-7.7) k/uL Lymphocytes # 0.9 L (1.0-4.8) k/uL Monocytes # 0.5 (0-1.0) k/uL Eosinophils # 0.1 (0-0.7) k/uL Basophils # 0.0 (0-0.2) k/uL PT (9.0-12.0) sec INR (<1.2) APTT (22.0-30.0) sec Sodium 138 (137-145) mmol/L Potassium 4.3 (3.5-5.1) mmol/L Chloride 104 (98-107) mmol/L Carbon Dioxide 27 (22-30) mmol/L Anion Gap 7 mmol/L BUN 22 H (7-17) mg/dL Creatinine 1.00 (0.52-1.04) mg/dL Est GFR (CKD-EPI)AfAm 69 (>60 ml/min/1.73 sqM) Est GFR (CKD-EPI)NonAf 60 (>60 ml/min/1.73 sqM) Glucose 98 (74-99) mg/dL Calcium 9.2 (8.4-10.2) mg/dL Magnesium 1.9 (1.6-2.3) mg/dL Total Bilirubin 0.3 (0.2-1.3) mg/dL AST 35 (14-36) U/L ALT 28 (9-52) U/L Alkaline Phosphatase 68 (38-126) U/L Troponin I (0.000-0.034) ng/mL NT-Pro-B Natriuret Pep 55 pg/mL Total Protein 6.6 (6.3-8.2) g/dL Albumin 4.1 (3.5-5.0) g/dL Urine Color Urine Appearance (Clear) Urine pH (5.0-8.0) Ur Specific [place] (1.001-1.035) Urine Protein (Negative) Urine Glucose (UA) (Negative) Urine Ketones (Negative) Urine Blood (Negative) Urine Nitrite (Negative) Urine Bilirubin (Negative) Urine Urobilinogen (<2.0) mg/dL Ur Leukocyte Esterase (Negative) Urine RBC (0-5) /hpf Urine WBC (0-5) /hpf Calcium Oxalate Crystal (None) /hpf Hyaline Casts (0-2) /lpf Urine Mucus (None) /hpf 08/25/18 08/25/18 08/25/18 Range/Units 11:15 11:15 12:16 WBC (3.8-10.6) k/uL RBC (3.80-5.40) m/uL Hgb (11.4-16.0) gm/dL Hct (34.0-46.0) % MCV (80.0-100.0) fL MCH (25.0-35.0) pg MCHC (31.0-37.0) g/dL RDW (11.5-15.5) % Plt Count (150-450) k/uL Neutrophils % % Lymphocytes % % Monocytes % % Eosinophils % % Basophils % % Neutrophils # (1.3-7.7) k/uL Lymphocytes # (1.0-4.8) k/uL Monocytes # (0-1.0) k/uL Eosinophils # (0-0.7) k/uL Basophils # (0-0.2) k/uL PT 9.5 (9.0-12.0) sec INR 0.9 (<1.2) APTT 23.2 (22.0-30.0) sec Sodium (137-145) mmol/L Potassium (3.5-5.1) mmol/L Chloride (98-107) mmol/L Carbon Dioxide (22-30) mmol/L Anion Gap mmol/L BUN (7-17) mg/dL Creatinine (0.52-1.04) mg/dL Est GFR (CKD-EPI)AfAm (>60 ml/min/1.73 sqM) Est GFR (CKD-EPI)NonAf (>60 ml/min/1.73 sqM) Glucose (74-99) mg/dL Calcium (8.4-10.2) mg/dL Magnesium (1.6-2.3) mg/dL Total Bilirubin (0.2-1.3) mg/dL AST (14-36) U/L ALT (9-52) U/L Alkaline Phosphatase (38-126) U/L Troponin I <0.012 (0.000-0.034) ng/mL NT-Pro-B Natriuret Pep pg/mL Total Protein (6.3-8.2) g/dL Albumin (3.5-5.0) g/dL Urine Color Yellow Urine Appearance Clear (Clear) Urine pH 5.5 (5.0-8.0) Ur Specific [place] 1.010 (1.001-1.035) Urine Protein Trace H (Negative) Urine Glucose (UA) Negative (Negative) Urine Ketones Negative (Negative) Urine Blood Small H (Negative) Urine Nitrite Negative (Negative) Urine Bilirubin Negative (Negative) Urine Urobilinogen <2.0 (<2.0) mg/dL Ur Leukocyte Esterase Negative (Negative) Urine RBC 1 (0-5) /hpf Urine WBC 2 (0-5) /hpf Calcium Oxalate Crystal Rare H (None) /hpf Hyaline Casts 7 H (0-2) /lpf Urine Mucus Rare H (None) /hpf - EKG Data -: EKG Interpreted by Me (EKG shows sinus rhythm rate of 61, CT 124, QRS 80, QTC 410) - Radiology Data Radiology results: report reviewed (Chest x-rays negative for acute disease, CTA chest and pelvis is positive for bronchitis no other acute disease), image reviewed Disposition Clinical Impression: Acute bronchitis, Influenza, Dehydration Disposition: HOME SELF-CARE Condition: Good Prescriptions: predniSONE 50 mg PO DAILY #5 tab Albuterol Sulfate [Proair Hfa] 1 - 2 puff INHALATION Q4H PRN #1 inhaler PRN Reason: Shortness Of Breath Azithromycin [Zithromax Z-pack] 0 mg PO DIRECTED #1 pack Is patient prescribed a controlled substance at d/c from ED?: No Referrals: Long Stephenson III, MD [Primary Care Provider] - 1-2 days
[2018-08-25 11:34] LABS: Basophils % (A) 1 %; Eosinophils # (A) 0.1 k/uL (0-0.7); Eosinophils % (A) 1 %; HCT 42.2 % (34.0-46.0); HGB 13.6 gm/dL (11.4-16.0); Lymphocytes # (A) 0.9 k/uL (1.0-4.8); Lymphocytes % (A) 17 %; MCH 28.7 pg (25.0-35.0); MCHC 32.2 g/dL (31.0-37.0); MCV 89.2 fL (80.0-100.0); Mean Platelet Volume 8.4; Monocytes # (A) 0.5 k/uL (0-1.0); Monocytes % (A) 9 %; Neutrophils # (A) 3.4 k/uL (1.3-7.7); Neutrophils % (A) 69 %; Platelet Count 211 k/uL (150-450); RBC 4.73 m/uL (3.80-5.40); RDW 13.5 % (11.5-15.5)
[2018-08-25 11:41] LABS: INR 0.9 (<1.2); Partial Thromboplastin Time 23.2 sec (22.0-30.0); Prothrombin Time 9.5 sec (9.0-12.0)
[2018-08-25 11:45] LABS: Albumin 4.1 g/dL (3.5-5.0); Calcium 9.2 mg/dL (8.4-10.2); Magnesium 1.9 mg/dL (1.6-2.3); Potassium 4.3 mmol/L (3.5-5.1); Total Bilirubin 0.3 mg/dL (0.2-1.3); Total Protein 6.6 g/dL (6.3-8.2)
--- NOTE | 2018-08-25 12:12 | XR ---
EXAMINATION TYPE: XR chest 2V DATE OF EXAM: 08/25/2018 COMPARISON: Prior chest x-ray 12/31/2017 HISTORY: Difficulty breathing, shortness of breath and hypotension TECHNIQUE: Frontal and lateral views of the chest are obtained. FINDINGS: There is no focal air space opacity, pleural effusion, or pneumothorax seen. The cardiac silhouette size is within normal limits. The osseous structures are intact. There is biapical pleur al thickening which is stable. There are overlying cardiac leads. Patient is rotated. IMPRESSION: No acute cardiopulmonary process.
[2018-08-25] MEDS ORDERED: IPRATROPIUM-ALBUTEROL 3 ML NEB INHALATION STA (12:18)
[2018-08-25 12:35] LABS: Appearance,Urine Clear (Clear); Bilirubin,Urine Negative (Negative); Blood,Urine Small (Negative); Calcium Oxalate Crystals,Urine Rare /hpf; Color,Urine Yellow; Glucose,Urine (UA) Negative (Negative); Hyaline Casts,Urine 7 /lpf (0-2); Ketones,Urine Negative (Negative); Leukocyte Esterase,Urine Negative (Negative); Mucus,Urine Rare /hpf; Nitrite,Urine Negative (Negative); PH, Urine 5.5 (5.0-8.0); Protein,Urine Trace (Negative); RBC,Urine 1 /hpf (0-5); Urobilinogen,Urine <2.0 mg/dL (<2.0)
--- NOTE | 2018-08-25 12:58 | CT ---
EXAMINATION TYPE: CT angio chest DATE OF EXAM: 08/25/2018 COMPARISON: 12/31/2017 HISTORY: Cough, congestion and diarrhea. CT DLP: 208.1 mGycm. Automated Exposure Control for Dose Reduction was Utilized. CONTRAST: CTA scan of the thorax is performed with IV Contrast, patient injected with 100 mL of Isovue 370, pul monary embolism protocol. MIP Images are created on CT scanner and reviewed. FINDINGS: LUNGS: There is minimal biapical pleural-parenchymal thickening. The lungs are grossly clear, there i s no concerning parenchymal mass identified however there is a 3 mm lingular pulmonary nodule. Scatte red areas of subsegmental atelectasis are present. Mild peribronchial cuffing is seen and most pronounced of the lower lungs. There is no pleural effusi on or pneumothorax seen. The tracheobronchial tree is patent. MEDIASTINUM: There is satisfactory enhancement of the pulmonary artery and its branches, there is no CT evidence for pulmonary embolism. There are no greater than 1 cm hilar or mediastinal lymph nodes. No cardiomegaly or pericardial effusion is seen. No significant coronary calcifications are eviden t. OTHER: Visualized portions of the upper abdomen are discussed in the CT abdomen and pelvis dictation of the same date IMPRESSION: 1. No evidence of pulmonary embolus. 2. Minimal peribronchial cuffing could relate to bronchitis or reactive airway disease. 3. 3 mm solid lingular pulmonary nodule is seen for which surveillance CT could be performed in one y ear.
[2018-08-25] MEDS ORDERED: DEXAMETHASONE SOD PHOSPHATE 10 MG/ML 1 ML VIAL IV STA (13:13)
--- NOTE | 2018-08-25 13:14 | CT ---
EXAMINATION TYPE: CT abdomen pelvis w con DATE OF EXAM: 08/25/2018 COMPARISON: CT 07/01/2015 HISTORY: Cough, congestion and diarrhea. CT DLP: 474.8 mGycm Automated exposure control for dose reduction was used. TECHNIQUE: Helical acquisition of images from the lung bases through the pelvis have been completed. CONTRAST: Performed without Oral Contrast and with IV Contrast, patient injected with 100 mL of Isovue 370. FINDINGS: LUNG BASES: No significant abnormality is appreciated. AORTA: No significant abnormality is appreciated. LIVER/GB: Stable, patient is post cholecystectomy PANCREAS: No significant abnormality is seen. SPLEEN: No significant abnormality is seen. ADRENALS: No significant abnormality is seen. KIDNEYS: Stable. There are parapelvic cysts on the left. Malrotation noted of the right kidney. REPRODUCTIVE ORGANS: Not seen BOWEL: No significant abnormality is seen. Postop change noted to the stomach. There are some fluid- filled loops of small bowel without bowel distention. No oral contrast administered. Appendix not see n with certainty. Diverticular changes associated with the sigmoid colon. FREE AIR: No Free Air visible. ASCITES: Minimal fluid in the pelvis.. PELVIC ADENOPATHY: None visualized. RETROPERITONEAL ADENOPATHY: No Retroperitoneal Adenopathy visible. URINARY BLADDER: No significant abnormality is seen. OSSEOUS STRUCTURES: Stable degenerative disc changes. Right inguinal region again shows fluid attenu ation IMPRESSION: FLUID-FILLED BOWEL LOOPS MAY BE INDICATIVE OF UNDERLYING ENTERITIS. ADDITIONAL FINDINGS ABOVE.
[2018-08-25 14:21] VITALS: BP 124/72; PULSE 65; TEMP 98.8
== END 2018-08-25 14:20 | disposition home or self-care (01) ==
LOC: EC 10:32
DX: J20.9 Acute bronchitis, unspecified (principal); J11.1 Influenza due to unidentified influenza virus with other respiratory manifestations; J45.909 Unspecified asthma, uncomplicated; I10 Essential (primary) hypertension; H40.9 Unspecified glaucoma; M06.9 Rheumatoid arthritis, unspecified; Z85.42 Personal history of malignant neoplasm of other parts of uterus; Z86.73 Personal history of transient ischemic attack (TIA), and cerebral infarction without residual deficits; Z87.891 Personal history of nicotine dependence; Z79.899 Other long term (current) drug therapy; Z88.0 Allergy status to penicillin; Z95.818 Presence of other cardiac implants and grafts
CPT/HCPCS: 36415; 94640; 93005; 83880; 80053; 83735; 84484; 85025; 85610; 85730; 81001; 87040; 71046; 71275; 74177; 99285; 96374; 96361 ×3; J1100; Q9967

== ENCOUNTER → 2019-02-01 | Outpatient (CLI) | payer MEDICARE ==
[2019-02-01 13:25] VITALS: BP 134/82; PULSE 89; RESP 18
--- NOTE | 2019-02-01 14:03 | P.PAINPG ---
Subjective Progress Note Date: 02/01/19 This is a follow-up visit for this 63 years old female with a chronic history of severe low back pain, she is diagnosed with lumbar spondylosis with lumbar facet arthropathy without myelopathy, and right sacral iliac joint dysfunction/right sacroiliitis, May 2018,we have done radiofrequency ablation of the doors or paralysis of L5-S1 and radiofrequency thermocoagulation of the branches of S1/S2/S3, she did very well, her function improved and her pain decreased significantly, the pain relief lasted almost 8 months, 2 weeks ago she started complaining of severe low back pain mainly in the right buttock area, she denies any motor or sensory deficit, she denies any fever or night sweats, and there is no change in the bowel movement. Urination Objective - Vital Signs Vital signs: Vital Signs Temp Pulse 89 02/01/19 13:19 Resp 18 02/01/19 13:19 BP 134/82 02/01/19 13:19 Pulse Ox 100 02/01/19 13:19 Intake & Output 01/31/19 02/01/19 02/01/19 18:59 06:59 18:59 Weight 52.163 kg - Exam Physical Examinations : -Constitutiona : Cooperative , not in acute distress . -HEENT : nech : supple , no Lymphadenopathy , normal thyroid size . eyes : no ptosis , no icterus, no photophobia . - neurologic : Cranial nerve II to XII intact , no focal neurological deffecit . -psychatric : alert , oriented X 3 , appropriate affect , intact judgment and insight . -Lymphatic : no Lymphadenopathy . - musculoskeltal : Lumber spine moter stegnth lower extremities ,thigh and legs 5/5 Right side , 5/5 Left side deep tendon reflexes : normal Knee Jerk , normal ankle Jerk positive lumber facet Loading Test Range of motion of the lumbar spine Flexion 30 degrees, extension 10 degrees strait leg raising test= negative bilaterally Fabere test = negative bilaterally Sever tenderness over the Sacroiliac joint on the Right side Gaenslen test positive on the right side. Seated flexion test positive on the right side. Assessment and Plan Plan: Assessment and plan=1 right sacroiliitis/right sacroiliac joint dysfunction. 2- lumbar spondylosis with lumbar facet arthropathy Patient had excellent pain relief after the RFA of the right sacroiliac joint the pain relief lasted more than 6 months. She will be a good candidate to have repeat radiofrequency thermocoagulation of the right sacroiliac joint(radiofrequency thermocoagulation of those Right dorsal ramus L5- S1, and radiofrequency thermocoagulation of the lateral branches of right S1/S2/S3 Time with Patient: Less than 30 PQRS Measure Charge Sheet Measure #130: Documentation of Current Meds in Medical Chart: Patient's medications documented in chart Measure #226: Tobacco Use: Screen & Cessation Intervention: Pt not a tobacco user Measure #111: Pneumonia Vaccination: Pneumococcal vaccine administered or previously received Measure #47: Advance Care Plan: Advance care planning discussed & documented, pt chose/unable to give Measure #412: Opioid Treatment Agreement: No documentation of signed opioid treatment agreement Measure #408: Opioid Therapy Follow-up Evaluation: Patient had NO f/u eval minimum every 3 months during opioid therapy Measure #317: Preventitive Care & Scrn High Bld Press & F/U: Normal blood pressure, f/u not required Measure #128: Body Mass Index (BMI) Screening & Follow-up: BMI documented BELOW normal parameters - f/u documented Measure #131: Pain Assessment & Follow-up: Pain positive & plan documented, Follow-up scheduled Measure #431: Unhealthy Alcohol Use Preventative Care & Scrn: Patient not identified as an unhealthy alcohol user PQRS Narrative: Smoking Status Former smoker Blood Pressure 134/82 Pain Intensity [Lower Back] 6 Scale Used Numeric (1 - 10) Hx Alcohol Use (MH) Yes: rare Home Medications: Ambulatory Orders Montelukast [Singulair] 10 mg PO HS 08/01/14 Famotidine [Pepcid] 40 mg PO HS 01/27/16 Fluticasone Nasal [place] [Flonase Nasal [place]] 2 spr EA NOSTRIL HS 04/01/16 Propylene Glycol/Peg 400/Pf [Systane 0.3-0.4% Eye Drop] 1 drop BOTH EYES BID 07/29/17 Lisinopril [Zestril] 10 mg PO HS 02/02/18 amLODIPine [Norvasc] 5 mg PO HS 02/02/18 Adalimumab [Humira Pen] 40 mg SQ [id number] 08/25/18 Acetaminophen [Tylenol Extra Strength] 1,000 mg PO BID 01/31/19 Albuterol Sulfate [Proair Hfa] 1 - 2 puff INHALATION QID PRN 10/23/19 Controlled Substance Measures - Controlled Substance Measures Is patient prescribed a controlled substance at discharge?: No
== END | disposition home or self-care (01) ==
LOC: PNWHC3 12:46
PROVIDERS: ATTEND Specialist
DX: M47.816 Spondylosis without myelopathy or radiculopathy, lumbar region (principal); M46.96 Unspecified inflammatory spondylopathy, lumbar region; Z87.891 Personal history of nicotine dependence; Z79.51 Long term (current) use of inhaled steroids; Z79.899 Other long term (current) drug therapy
CPT/HCPCS: 99211

== ENCOUNTER 2019-02-22 09:27 | Day surgery (SDC) | payer MEDICARE ==
[2019-02-20 15:33] VITALS: BMI 19.1
[~2019-02-22 09:27] MED LIST changes: +LACTATED RINGERS 1,000 ML IV SCH; -SODIUM CHLORIDE 0.9% 500 ML 500 ML IV SCH
[2019-02-22 09:43] VITALS: TEMP 97.7
[2019-02-22] MEDS ORDERED: LIDOCAINE 1% 20 ML VIAL (10MG/ML) FOR IV START INTRADERMA ONE (09:48)
[2019-02-22] MEDS ORDERED: IV FLUID CONTINUATION 1,000 ML IV ONE (10:49)
[2019-02-22 10:55] VITALS: RESP 18
[2019-02-22 11:08] VITALS: BP 115/72; PULSE 66
--- NOTE | 2019-02-22 11:34 | P.PCN ---
Date of Procedure: 02/22/19 Procedure(s) Performed: Bipolar Radiofrequency Ablation of Dorasal Ramus of L5, Lateral Branches of S1 and S2 ATTENDING PHYSICIAN: Karol Estrada MD PREOPERATIVE DIAGNOSIS: Right Sacroiliac Joint Pain/ sacroilitis POSTOPERATIVE DIAGNOSIS: same PROCEDURE PERFORMED: Bipolar Radiofrequency Ablation of Lateral Branches of S1, S2 and unipolar radiofrequency ablation of Dorasal Ramus of L5; S3 foramen unable to be visualized SIDE: Right side IV SEDATION moderate sedation with Versed and fentanyl , sedation time 40 minutes ESTIMATED BLOOD LOSS: None FLUOROSCOPY WAS USED. Images were saved in the radiology portion of the chart. INDICATIONS FOR PROCEDURE: Patient has a clinical picture consistent with right sacroiliac joint dysfunction and has responded well to sacral radiofrequency ablation in the past. PROCEDURE AND FINDINGS: The patient was greeted in the pre procedure holding area. The risk, benefits and alternatives to the procedure were again reviewed with the patient and written informed consent was placed in the chart. Prior to the procedure a time out was completed, verifying correct patient, procedure, site, positioning, and implants and/or special equipment. An IV line was placed. The patient was taken to the procedure room and positioned prone on the fluoroscopy table. Routine monitors were applied including EKG leads, blood pressure cuff, and pulse oximetry. The skin was prepped with chlorhexidine and draped in the usual sterile fashion. A fluoroscopic AP view was used to identify the sacral ala and the right SI joint with the associated S1-S2 foramens medial to the SI joint line. A marker was used to eliezer the sacral ala and the lateral aspects of the S1-S2 foramen. Narayan were made 1 cm apart. Then overlying skin and subcutaneous tissues were anesthetized using a 25-gauge 1-1/2-inch needle with 1% preservative free lidocaine for a total volume of 10 mls. Under AP and lateral fluorscopic views, 18 gauge 100 mm Cosman Bipolar RF needles with a 10 mm active tip were inserted at the L5 dorsal ramus and the lateral aspects of the S1, S2 foramens and advanced until it touched os. Confirmation of position was then made with a lateral fluoroscopic view to ensure that the tips were posterior to the posterior plate of the sacrum. Motor stimulation at 2 Hz and up to 2V was conducted between sequential probes. There was no observable motor movement in the lower extremities and the patient confirmed this by self-report. After satisfactory motor testing was completed at each level, approximately 0.5 mL of 4% Lidocaine was injected to anesthetize the radiofrequency ablation target. Subsequently, bipolar radiofrequency ablation was carried out at each of the aforementioned locations with a probe temperature set to 90C for 150 seconds. A total of 5 bipolar radiofrequency lesions was done. Unipolar radiofrequency ablation was done for the dorsal ramus of L5 at 90C for 150 seconds. Following lesioning the needles were removed. The needle insertion site was dressed appropriately. The patient was taken to the recovery room where they were monitored for a brief period of time. They tolerated the procedure well and were discharged home in stable condition with post procedural instructions. Follow-up will be in clinic in 4 weeks. COMPLICATIONS: None
--- NOTE | 2019-02-22 11:58 | FL ---
EXAMINATION TYPE: FL guided pain mgmt statistic DATE OF EXAM: 02/22/2019 HISTORY: Pain mutiple R sacrum steroid injection, 29sec fl time
== END 2019-02-22 11:22 | disposition home or self-care (01) ==
LOC: ORPAIN 09:27
PROVIDERS: ATTEND Anesthesiology
DX: M53.3 Sacrococcygeal disorders, not elsewhere classified (principal); M46.1 Sacroiliitis, not elsewhere classified; M47.816 Spondylosis without myelopathy or radiculopathy, lumbar region; Z87.891 Personal history of nicotine dependence; Z79.51 Long term (current) use of inhaled steroids; Z79.899 Other long term (current) drug therapy
CPT/HCPCS: 64640; 64635; J2250; J3010; 99152; 99153

== ENCOUNTER 2019-03-10 06:36 | Emergency (ER) | payer MEDICARE ==
[2019-03-10] MEDS ORDERED: SODIUM CHLORIDE 0.9% 1,000 ML IV STA (07:11)
[2019-03-10] MEDS ORDERED: LOPERAMIDE 2 MG CAP PO STA (07:13)
--- NOTE | 2019-03-10 07:24 | ED ---
Nausea/Vomiting/Diarrhea HPI - General Chief complaint: Nausea/Vomiting/Diarrhea Stated complaint: NVD Time Seen by Provider: 03/10/19 06:59 Source: patient Mode of arrival: ambulatory Limitations: no limitations - History of Present Illness Initial comments: Patient is a 63-year-old female presenting to the emergency Department with complaints of diarrhea times one week. Patient states one week ago she had 24 hours of nausea, vomiting has since cleared but then she has been having "explosive diarrhea" for the past week. Patient states she went on a liquid diet and then slowly started introducing bland foods however her symptoms have persisted. Patient states every time she eats she gets pain in her lower left quadrant until she has a bowel movement which helps with the pain. Patient has not been able to keep anything down. Patient has about 5-6 bowel movements a day. Patient states she does have history of C. diff about 10 years ago. Patient denies any recent antibiotic use. Patient has history of cholecystectomy and also another laparotomy. No other abdominal surgeries. Patient denies fever, chills. Patient is no other complaints at this time. Upon arrival to ER, vital signs are stable, afebrile. - Related Data Home Medications Medication Instructions Recorded Confirmed Montelukast [Singulair] 10 mg PO HS 08/01/14 02/22/19 Famotidine [Pepcid] 40 mg PO HS 01/27/16 02/22/19 Fluticasone Nasal [place] [Flonase 2 spr EA NOSTRIL HS 04/01/16 02/22/19 Nasal [place]] Propylene Glycol/Peg 400/Pf 1 drop BOTH EYES BID 07/29/17 02/22/19 [Systane 0.3-0.4% Eye Drop] Lisinopril [Zestril] 10 mg PO DAILY 02/02/18 02/22/19 amLODIPine [Norvasc] 5 mg PO HS 02/02/18 02/22/19 Adalimumab [Humira Pen] 40 mg SQ [id number] 08/25/18 02/22/19 Acetaminophen [Tylenol Extra 1,000 mg PO BID 01/31/19 02/22/19 Strength] Albuterol Sulfate [Proair Hfa] 2 puff INHALATION QID PRN 01/31/19 02/22/19 Allergies Allergy/AdvReac Type Severity Reaction Status Date / Time amoxicillin trihydrate Allergy Intermediate Rash/Hives Verified 03/10/19 06:58 [From Augmentin] potassium clavulanate Allergy Rash/Hives Verified 03/10/19 06:58 [From Augmentin] Review of Systems ROS Statement: Those systems with pertinent positive or pertinent negative responses have been documented in the HPI. ROS Other: All systems not noted in ROS Statement are negative. Past Medical History Past Medical History: Asthma, Cancer, CVA/TIA, Eye Disorder, GERD/Reflux, Hypertension, Rheumatoid Arthritis (RA) Additional Past Medical History / Comment(s): chronic low back pain-bulging discs, DJD, osteopenia, hx SMA (SUPERIOR MESENTERIC ARTERY SYNDROME), seasonal allergies, Endometrial CA. 1998 (surgery)., CVA 1999 (no deficits) History of Any Multi-Drug Resistant Organisms: C-DIFF Date of last positivie culture/infection: MDRO Source:: stool Past Surgical History: Cholecystectomy, Heart Catheterization, Hysterectomy, Orthopedic Surgery Additional Past Surgical History / Comment(s): Rt foot bunionectomy. Cervical cone bx. surgery for SMA on intestines, laser eye surgery, bilateral for glaucoma. Colonoscopy 2013. Laparotomy for superior mesenteric artery syndrome. HEART CATH 02/06/18, pain clinic procedures. Past Anesthesia/Blood Transfusion Reactions: No Reported Reaction Additional Past Anesthesia/Blood Transfusion Reaction / Comment(s): Pt received blood with no reaction following uterine hemorrhage. Past Psychological History: No Psychological Hx Reported Smoking Status: Former smoker Past Alcohol Use History: None Reported Past Drug Use History: None Reported - Past Family History Father Family Medical History: Cancer Additional Family Medical History / Comment(s): colon Mother Family Medical History: Dementia Sister(s) Family Medical History: Cancer Additional Family Medical History / Comment(s): Leukemia General Exam - General Exam Comments Initial Comments: GENERAL: Well-appearing, well-nourished and in no acute distress. HEAD: Atraumatic, normocephalic. EYES: Pupils equal round and reactive to light, extraocular movements intact, sclera anicteric, conjunctiva are normal. ENT: Nares patent, oropharynx clear without exudates. Moist mucous membranes. NECK: Normal range of motion, supple without lymphadenopathy or JVD. LUNGS: Breath sounds clear to auscultation bilaterally and equal. No wheezes rales or rhonchi. HEART: Regular rate and rhythm without murmurs, rubs or gallops. ABDOMEN: Tender to palpation left lower quadrant. Soft, hyper active bowel sounds. No guarding, no rebound. No masses appreciated. : Deferred EXTREMITIES: Normal range of motion, no pitting or edema. No clubbing or cyanosis. NEUROLOGICAL: Cranial nerves II through XII grossly intact. Normal speech, normal gait. PSYCH: Normal mood, normal affect. SKIN: Warm, Dry, normal turgor, no rashes or lesions noted. Limitations: no limitations Course Vital Signs 03/10/19 06:53 Temperature 98.4 F Pulse Rate 87 Respiratory 15 Rate Blood Pressure 160/86 O2 Sat by Pulse 94 L Oximetry Medical Decision Making - Medical Decision Making Patient is a 63-year-old female presenting with diarrhea 5 days. Exam reveals very mild tenderness to the left lower quadrant. Symptoms improved after having a bowel movement. Vital signs are stable, afebrile. Lab work reveals no acute changes. Patient was unable to have a bowel movement during ER stay. Discussed with patient this is most likely viral in nature. Patient will start Imodium for her symptoms and continue with BRAT diet. Patient will follow up with PCP if symptoms persist. Patient will be given stool kit to go home with and prescription for outpatient lab work. Patient is agreement with this plan of care. Return parameters were discussed with the patient she verbalized understanding. Case discussed with Dr. Wooten. - Lab Data Result diagrams: 03/10/19 07:04 03/10/19 07:04 Lab Results 03/10/19 03/10/19 Range/Units 07:04 07:04 WBC 4.1 (3.8-10.6) k/uL RBC 4.74 (3.80-5.40) m/uL Hgb 14.2 (11.4-16.0) gm/dL Hct 43.3 (34.0-46.0) % MCV 91.4 (80.0-100.0) fL MCH 30.0 (25.0-35.0) pg MCHC 32.8 (31.0-37.0) g/dL RDW 12.8 (11.5-15.5) % Plt Count 244 (150-450) k/uL Neutrophils % 49 % Lymphocytes % 28 % Monocytes % 17 % Eosinophils % 1 % Basophils % 1 % Neutrophils # 2.0 (1.3-7.7) k/uL Lymphocytes # 1.2 (1.0-4.8) k/uL Monocytes # 0.7 (0-1.0) k/uL Eosinophils # 0.1 (0-0.7) k/uL Basophils # 0.0 (0-0.2) k/uL Sodium 142 (137-145) mmol/L Potassium 3.8 (3.5-5.1) mmol/L Chloride 107 (98-107) mmol/L Carbon Dioxide 23 (22-30) mmol/L Anion Gap 12 mmol/L BUN 14 (7-17) mg/dL Creatinine 0.86 (0.52-1.04) mg/dL Est GFR (CKD-EPI)AfAm 83 (>60 ml/min/1.73 sqM) Est GFR (CKD-EPI)NonAf 72 (>60 ml/min/1.73 sqM) Glucose 95 (74-99) mg/dL Calcium 9.4 (8.4-10.2) mg/dL Total Bilirubin 0.5 (0.2-1.3) mg/dL AST 32 (14-36) U/L ALT 23 (9-52) U/L Alkaline Phosphatase 78 (38-126) U/L Total Protein 7.5 (6.3-8.2) g/dL Albumin 4.3 (3.5-5.0) g/dL Amylase 66 (30-110) U/L Lipase 85 (23-300) U/L Disposition Clinical Impression: Diarrhea Disposition: HOME SELF-CARE Condition: Stable Instructions (If sedation given, give patient instructions): Acute Diarrhea (ED) Additional Instructions: Please return to the Emergency Department if symptoms worsen or any other concerns. Take Imodium as discussed. Follow-up with PCP if symptoms do not improve. Is patient prescribed a controlled substance at d/c from ED?: No Referrals: Long Stephenson III, MD [Primary Care Provider] - 1-2 days
[2019-03-10 07:27] LABS: Basophils % (A) 1 %; Eosinophils # (A) 0.1 k/uL (0-0.7); Eosinophils % (A) 1 %; HCT 43.3 % (34.0-46.0); HGB 14.2 gm/dL (11.4-16.0); Lymphocytes # (A) 1.2 k/uL (1.0-4.8); Lymphocytes % (A) 28 %; MCHC 32.8 g/dL (31.0-37.0); MCV 91.4 fL (80.0-100.0); Mean Platelet Volume 7.8; Monocytes # (A) 0.7 k/uL (0-1.0); Monocytes % (A) 17 %; Neutrophils % (A) 49 %; Platelet Count 244 k/uL (150-450); RBC 4.74 m/uL (3.80-5.40); RDW 12.8 % (11.5-15.5); WBC 4.1 k/uL (3.8-10.6)
[2019-03-10 07:39] LABS: Albumin 4.3 g/dL (3.5-5.0); Calcium 9.4 mg/dL (8.4-10.2); Potassium 3.8 mmol/L (3.5-5.1); Total Bilirubin 0.5 mg/dL (0.2-1.3); Total Protein 7.5 g/dL (6.3-8.2)
[2019-03-10 08:51] VITALS: BP 121/66; PULSE 66; RESP 16; TEMP 97.9
== END 2019-03-10 08:51 | disposition home or self-care (01) ==
LOC: EC 06:36
DX: R19.7 Diarrhea, unspecified (principal); R11.2 Nausea with vomiting, unspecified; K21.9 Gastro-esophageal reflux disease without esophagitis; J45.909 Unspecified asthma, uncomplicated; I10 Essential (primary) hypertension; Z79.899 Other long term (current) drug therapy; Z79.51 Long term (current) use of inhaled steroids; Z88.0 Allergy status to penicillin; Z88.1 Allergy status to other antibiotic agents; Z86.73 Personal history of transient ischemic attack (TIA), and cerebral infarction without residual deficits; Z85.42 Personal history of malignant neoplasm of other parts of uterus; Z87.891 Personal history of nicotine dependence
CPT/HCPCS: 36415; 80053; 82150; 83630; 83690; 85025; 87045; 87046; 87324; 96360; 99284

== ENCOUNTER → 2019-03-21 | Outpatient (CLI) | payer MEDICARE ==
[2019-03-21 11:40] VITALS: BP 152/90; PULSE 82; RESP 18
--- NOTE | 2019-03-21 11:55 | P.PAINPG ---
Subjective Progress Note Date: 03/21/19 This is a follow-up visit for this 63 years old female with a chronic history of severe low back pain, she is diagnosed with lumbar spondylosis with lumbar facet arthropathy without myelopathy, and right sacral iliac joint dysfunction/right sacroiliitis, status post radiofrequency ablation of the doors or paralysis of L5-S1 and radiofrequency thermocoagulation of the branches of S1/S2/S3, she reported that her pain improved significantly, her function improved and her pain decreased significantly, she is complaining of localized tenderness around the needles placement, she denies any fever or night sweats she denies any discharge at that site ,she denies any motor or sensory deficit, she denies any fever or night sweats, and there is no change in the bowel movement. Objective - Vital Signs Vital signs: Vital Signs Temp Pulse 82 03/21/19 11:35 Resp 18 03/21/19 11:35 BP 152/90 03/21/19 11:35 Pulse Ox 97 03/21/19 11:35 - Exam Physical Examinations : -Constitutiona : Cooperative , not in acute distress . -HEENT : nech : supple , no Lymphadenopathy , normal thyroid size . : eyes : no ptosis , no icterus, no photophobia . - neurologic : Cranial nerve II to XII intact , no focal neurological deffecit . -psychatric : alert , oriented X 3 , appropriate affect , intact judgment and insight . -Lymphatic : no Lymphadenopathy . - musculoskeltal : Lumber spine moter stegnth lower extremities ,thigh and legs 5/5 Right side , 5/5 Left side deep tendon reflexes : normal Knee Jerk , normal ankle Cesario Fabere test= positive Right , and positive LT . Localized tenderness at the medial aspect of the right sacroiliac joint, no erythema , no discharge ,no swelling. Assessment and Plan Plan: Assessment and plan= chronic low back pain secondary to lumbar spondylosis and sacroiliitis/sacroiliac joint dysfunction Pain improved after RFA of the right sacroiliac joint, currently she is complaining of localized tenderness Patient could benefit from Voltaren gel to be applied to the right buttock area twice daily and she will follow up in the pain clinic when necessary Time with Patient: Less than 30 PQRS Measure Charge Sheet Measure #130: Documentation of Current Meds in Medical Chart: Patient's medications documented in chart Measure #226: Tobacco Use: Screen & Cessation Intervention: Pt not a tobacco user Measure #111: Pneumonia Vaccination: Pneumococcal vaccine administered or previously received Measure #47: Advance Care Plan: Advance care planning discussed & documented, pt chose/unable to give Measure #412: Opioid Treatment Agreement: No documentation of signed opioid treatment agreement Measure #408: Opioid Therapy Follow-up Evaluation: Patient had NO f/u eval minimum every 3 months during opioid therapy Measure #317: Preventitive Care & Scrn High Bld Press & F/U: Pre-hypertensive or hypertensive BP documented, pt will f/u with PCP Measure #128: Body Mass Index (BMI) Screening & Follow-up: BMI documented within normal parameters Measure #131: Pain Assessment & Follow-up: Pain positive & plan documented, Follow-up scheduled Measure #431: Unhealthy Alcohol Use Preventative Care & Scrn: Patient not identified as an unhealthy alcohol user PQRS Narrative: Smoking Status Former smoker Blood Pressure 152/90 Pain Intensity [Right Hip] 7 Scale Used Numeric (1 - 10) Hx Alcohol Use (MH) Yes: rare Home Medications: Ambulatory Orders Montelukast [Singulair] 10 mg PO HS 08/01/14 Famotidine [Pepcid] 40 mg PO HS 01/27/16 Fluticasone Nasal [place] [Flonase Nasal [place]] 2 spr EA NOSTRIL HS 04/01/16 Propylene Glycol/Peg 400/Pf [Systane 0.3-0.4% Eye Drop] 1 drop BOTH EYES BID 07/29/17 Lisinopril [Zestril] 10 mg PO DAILY 02/02/18 amLODIPine [Norvasc] 5 mg PO HS 02/02/18 Adalimumab [Humira Pen] 40 mg SQ [id number] 08/25/18 Acetaminophen [Tylenol Extra Strength] 1,000 mg PO BID 01/31/19 Albuterol Sulfate [Proair Hfa] 2 puff INHALATION QID PRN 01/31/19 Controlled Substance Measures - Controlled Substance Measures Is patient prescribed a controlled substance at discharge?: No
== END | disposition home or self-care (01) ==
LOC: PNWHC3 11:28
PROVIDERS: ATTEND Specialist
DX: M47.816 Spondylosis without myelopathy or radiculopathy, lumbar region (principal); M46.1 Sacroiliitis, not elsewhere classified; M53.3 Sacrococcygeal disorders, not elsewhere classified; G89.29 Other chronic pain; Z87.891 Personal history of nicotine dependence; Z79.899 Other long term (current) drug therapy; Z79.891 Long term (current) use of opiate analgesic
CPT/HCPCS: 99211

== ENCOUNTER → 2019-06-28 | Outpatient (CLI) | payer MEDICARE ==
--- NOTE | 2019-06-28 07:16 | XR ---
EXAMINATION TYPE: XR chest 2V DATE OF EXAM: 06/28/2019 COMPARISON: CTA chest and two view chest x-ray August 25, 2018. HISTORY: Pneumonia progress study. TECHNIQUE: Frontal and lateral views of the chest are obtained. FINDINGS: Mild to moderate biapical pleural/parenchymal scarring redemonstrated. There is no focal a ir space opacity, pleural effusion, or pneumothorax seen currently. The cardiac silhouette size carmen ins within normal limits. The osseous structures are intact. IMPRESSION: No suspicious acute infiltrate identified currently. No significant change from prior st udies.
== END | disposition home or self-care (01) ==
LOC: RADXRMAIN 06:41
PROVIDERS: ATTEND Family Medicine
DX: J16.8 Pneumonia due to other specified infectious organisms (principal)
CPT/HCPCS: 71046

== ENCOUNTER 2019-09-23 19:46 | Observation (INO) | payer MEDICARE ==
[2019-09-23 19:54] VITALS: RESP 16
[2019-09-23 20:39] LABS: Basophils # (A) 0.1 k/uL (0-0.2); Basophils % (A) 1 %; Eosinophils # (A) 0.3 k/uL (0-0.7); Eosinophils % (A) 5 %; HCT 42.1 % (34.0-46.0); HGB 13.5 gm/dL (11.4-16.0); Lymphocytes # (A) 2.3 k/uL (1.0-4.8); Lymphocytes % (A) 32 %; MCH 29.3 pg (25.0-35.0); MCHC 32.1 g/dL (31.0-37.0); MCV 91.3 fL (80.0-100.0); Mean Platelet Volume 8.8; Monocytes # (A) 0.5 k/uL (0-1.0); Monocytes % (A) 8 %; Neutrophils # (A) 3.8 k/uL (1.3-7.7); Neutrophils % (A) 53 %; Platelet Count 214 k/uL (150-450); RBC 4.61 m/uL (3.80-5.40); RDW 13.9 % (11.5-15.5); WBC 7.2 k/uL (3.8-10.6)
--- NOTE | 2019-09-23 20:44 | XR ---
EXAMINATION TYPE: XR chest 2V DATE OF EXAM: 09/23/2019 COMPARISON: 06/28/2019 HISTORY: Chest pain TECHNIQUE: FINDINGS: Heart and mediastinum are normal. Lungs are clear. Diaphragm is normal. Bony thorax appears normal. IMPRESSION: Normal chest. No change.
[2019-09-23 20:46] LABS: ALT 18 U/L (4-34); AST 35 U/L (14-36); African American GFR (CKD) >90 (>60 ml/min/1.73 sqM); Albumin 4.5 g/dL (3.5-5.0); Alkaline Phosphatase 104 U/L (38-126); Anion Gap 9 mmol/L; Blood Urea Nitrogen 16 mg/dL (7-17); Calcium 9.4 mg/dL (8.4-10.2); Carbon Dioxide 26 mmol/L (22-30); Chloride 107 mmol/L (98-107); Glucose 145 mg/dL (74-99); Magnesium 1.9 mg/dL (1.6-2.3); Non-African American GFR(CKD) >90 (>60 ml/min/1.73 sqM); Potassium 3.7 mmol/L (3.5-5.1); Sodium 142 mmol/L (137-145); Total Bilirubin 0.2 mg/dL (0.2-1.3); Total Protein 7.3 g/dL (6.3-8.2)
[2019-09-23] MEDS ORDERED: ASPIRIN 81 MG PO STA (20:56)
[2019-09-23] MEDS ORDERED: IPRATROPIUM-ALBUTEROL 3 ML NEB INHALATION STA (20:56)
[2019-09-23] MEDS ORDERED: NITROGLYCERIN OINT 1 INCH/GM PACKET TOPICAL STA (20:57)
[2019-09-23 20:58] LABS: D-Dimer 0.23 mg/L FEU (<0.60); Partial Thromboplastin Time 22.6 sec (22.0-30.0); Prothrombin Time 10.3 sec (9.0-12.0)
--- NOTE | 2019-09-23 21:03 | ED ---
Chest Pain HPI - General Chief Complaint: Chest Pain Stated Complaint: SOB,Chest Pain,High BP Time Seen by Provider: 09/23/19 19:50 Source: patient Mode of arrival: ambulatory Limitations: no limitations - History of Present Illness Initial Comments: The patient is a 64-year-old female with past medical history of asthma who presents emergency Department with reported chest pain since 3:30 AM this morning. She describes it as a chest pressure located in the central part of her chest without radiation. States it makes her feel short of breath. Also admits to exertional shortness of breath. Denies any provocative factors. No pleuritic chest pain. No ripping or tearing sensation to her back. Denies previous history of cardiac disease. Patient did have a catheterization in 2018 and was negative for coronary disease. She denies a cough or hemoptysis. No numbness, tingling or weakness in her upper extremities. She attempted to use her inhaler at home as she thought it was an exacerbation of her asthma however had no improvement therefore came to the emergency room for evaluation. No recent head trauma. No history of GI bleeding. No headaches, fevers or chills. 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 - Related Data Home Medications Medication Instructions Recorded Confirmed Montelukast [Singulair] 10 mg PO HS 08/01/14 09/23/19 Famotidine [Pepcid] 40 mg PO HS 01/27/16 09/23/19 Fluticasone Nasal [place] [Flonase 2 spray EA NOSTRIL HS 04/01/16 09/23/19 Nasal [place]] Propylene Glycol/Peg 400/Pf 1 drop BOTH EYES BID PRN 07/29/17 09/23/19 [Systane 0.3-0.4% Eye Drop] Lisinopril [Zestril] 10 mg PO HS 02/02/18 09/23/19 amLODIPine [Norvasc] 5 mg PO HS 02/02/18 09/23/19 Acetaminophen [Tylenol Extra 1,000 mg PO TID PRN 01/31/19 09/23/19 Strength] Albuterol Sulfate [Proair Hfa] 2 puff INHALATION RT-QID PRN 01/31/19 09/23/19 Etanercept [Enbrel] 50 mg SQ DUKE 09/23/19 09/24/19 Previous Rx's Medication Instructions Recorded Mometasone/Formoterol [Dulera 100 2 puff INHALATION BID #1 inhaler 09/24/19 Mcg/5 Mcg Inhaler] Allergies Allergy/AdvReac Type Severity Reaction Status Date / Time amoxicillin trihydrate Allergy Intermediate Rash/Hives Verified 09/23/19 23:12 [From Augmentin] potassium clavulanate Allergy Rash/Hives Verified 09/23/19 23:12 [From Augmentin] Review of Systems ROS Statement: Those systems with pertinent positive or pertinent negative responses have been documented in the HPI. ROS Other: All systems not noted in ROS Statement are negative. EKG Findings - EKG Comments: EKG Findings:: EKG demonstrates normal sinus rhythm with a ventricular rate of 79. MD interval is 130. QRS 88. QTC of 470. The patient does have some ST depression in 2, 3 and aVF as well as V3 through V6. These changes are different from the patient's previous EKG no acute ST segment elevations Past Medical History Past Medical History: Asthma, Cancer, CVA/TIA, Eye Disorder, GERD/Reflux, Hypertension, Rheumatoid Arthritis (RA) Additional Past Medical History / Comment(s): chronic low back pain-bulging discs, DJD, osteopenia, hx SMA (SUPERIOR MESENTERIC ARTERY SYNDROME), seasonal allergies, Endometrial CA. 1998 (surgery)., CVA 1999 (no deficits), BILAT CATARACTS History of Any Multi-Drug Resistant Organisms: C-DIFF Date of last positivie culture/infection: 2007 MDRO Source:: stool Past Surgical History: Cholecystectomy, Heart Catheterization, Hysterectomy, Orthopedic Surgery Additional Past Surgical History / Comment(s): Rt foot bunionectomy. Cervical cone bx. surgery for SMA on intestines, laser eye surgery, bilateral for glaucoma. Colonoscopy 2013. Laparotomy for superior mesenteric artery syndrome. HEART CATH 02/06/18, pain clinic procedures. Past Anesthesia/Blood Transfusion Reactions: No Reported Reaction Additional Past Anesthesia/Blood Transfusion Reaction / Comment(s): Pt received blood with no reaction following uterine hemorrhage. Past Psychological History: No Psychological Hx Reported Smoking Status: Former smoker - Past Family History Father Family Medical History: Cancer Additional Family Medical History / Comment(s): colon Mother Family Medical History: Dementia Sister(s) Family Medical History: Cancer Additional Family Medical History / Comment(s): Leukemia General Exam Limitations: no limitations General appearance: alert, in no apparent distress Head exam: Present: atraumatic, normocephalic, normal inspection Eye exam: Present: normal appearance, PERRL, EOMI. Absent: scleral icterus, conjunctival injection, periorbital swelling ENT exam: Present: normal exam, mucous membranes moist Neck exam: Present: normal inspection. Absent: tenderness, meningismus, lymphadenopathy Respiratory exam: Present: normal lung sounds bilaterally. Absent: respiratory distress, wheezes, rales, rhonchi, stridor Cardiovascular Exam: Present: regular rate, normal rhythm, normal heart sounds. Absent: systolic murmur, diastolic murmur, rubs, gallop, clicks GI/Abdominal exam: Present: soft, normal bowel sounds. Absent: distended, tenderness, guarding, rebound, rigid Extremities exam: Present: normal inspection, full ROM, normal capillary refill. Absent: tenderness, pedal edema, joint swelling, calf tenderness Back exam: Present: normal inspection Neurological exam: Present: alert, oriented X3, CN II-XII intact Psychiatric exam: Present: normal affect, normal mood Skin exam: Present: warm, dry, intact, normal color. Absent: rash Course Vital Signs 09/23/19 09/23/19 09/23/19 19:52 20:00 20:06 Temperature 98.1 F Pulse Rate 65 Respiratory 16 16 16 Rate Blood Pressure 187/71 O2 Sat by Pulse 98 Oximetry 09/23/19 09/23/19 09/23/19 21:00 22:00 22:30 Temperature 97.8 F Pulse Rate 62 58 L 66 Respiratory 16 16 16 Rate Blood Pressure 147/81 128/69 137/77 O2 Sat by Pulse 97 96 97 Oximetry 09/23/19 09/23/19 22:36 22:48 Temperature Pulse Rate 73 68 Respiratory Rate Blood Pressure O2 Sat by Pulse Oximetry Chest Pain MDM - MDM Upon arrival the patient is placed into room 1. A thorough history and physical exam was performed. Peripheral IV is established. The patient was given 4 chewable aspirins. I also applied Nitropaste to her chest. 12-lead EKG was performed which does demonstrate some ST depression in 2, 3, aVF as well as V3 through V6. These are new changes. Laboratory studies are essentially unremarkable. First troponin is negative. Chest x-ray demonstrates no acute findings. D-dimer was negative at 0.23. I discussed results the patient. Because of her abnormal EKG I did recommend heparinizing the patient and admitting her to the hospital. The patient did agree to this. Patient has no contraindications to heparin at this time. No history of life-threatening GI bleeds. No recent head trauma or headaches. The patient was admitted to Dr. Estrada and was transferred to the floor in stable condition Critical Care Time Critical Care Time: Yes Critical Care Time: 32 minutes Disposition Clinical Impression: Chest pain, Abnormal EKG Disposition: ADMITTED IP TO THIS HOSP Condition: Stable Is patient prescribed a controlled substance at d/c from ED?: No Decision to Admit Reason: Admit from EC Decision Date: 09/23/19 Decision Time: 22:03
[2019-09-23] MEDS ORDERED: NALOXONE 0.4 MG/ML 1 ML VIAL IV PRN (22:03)
[2019-09-23] MEDS ORDERED: HEPARIN SODIUM,PORCINE 5,000 UNIT/ML 1 ML VIAL IV ONE (22:03)
[2019-09-23] MEDS ORDERED: HEPARIN SODIUM,PORCINE 5,000 UNIT/ML 1 ML VIAL IV PRN (22:03)
[2019-09-23] MEDS ORDERED: HEPARIN SOD,PORK IN 0.45% NACL 25,000 UNIT in 0.45% NACL 1 250ML.BAG IV SCH (22:15)
[2019-09-23] MEDS ORDERED: ARTIFICIAL TEARS-HYPROMELLOSE DROPS 15 ML BTL BOTH EYES PRN (23:50)
[2019-09-23] MEDS ORDERED: ACETAMINOPHEN TAB 500 MG TAB PO PRN (23:50)
[2019-09-23] MEDS ORDERED: ALBUTEROL NEBULIZED 2.5 MG/3 ML INHALATION PRN (23:50)
[2019-09-24] VITALS: TEMP 97.7
[2019-09-24 05:58] LABS: Basophils # (A) 0.1 k/uL (0-0.2); Basophils % (A) 1 %; Eosinophils # (A) 0.2 k/uL (0-0.7); Eosinophils % (A) 4 %; HCT 38.6 % (34.0-46.0); HGB 12.1 gm/dL (11.4-16.0); Lymphocytes # (A) 1.8 k/uL (1.0-4.8); Lymphocytes % (A) 32 %; MCH 29.2 pg (25.0-35.0); MCHC 31.3 g/dL (31.0-37.0); MCV 93.2 fL (80.0-100.0); Mean Platelet Volume 9.2; Monocytes # (A) 0.4 k/uL (0-1.0); Monocytes % (A) 8 %; Neutrophils # (A) 2.9 k/uL (1.3-7.7); Neutrophils % (A) 53 %; Platelet Count 186 k/uL (150-450); RBC 4.14 m/uL (3.80-5.40); WBC 5.6 k/uL (3.8-10.6)
[2019-09-24 06:14] LABS: African American GFR (CKD) >90 (>60 ml/min/1.73 sqM); Anion Gap 4 mmol/L; Blood Urea Nitrogen 15 mg/dL (7-17); Calcium 8.7 mg/dL (8.4-10.2); Carbon Dioxide 28 mmol/L (22-30); Chloride 109 mmol/L (98-107); Glucose 101 mg/dL (74-99); Non-African American GFR(CKD) >90 (>60 ml/min/1.73 sqM); Potassium 4.6 mmol/L (3.5-5.1); Sodium 141 mmol/L (137-145)
[2019-09-24 08:09] VITALS: BP 117/63
[2019-09-24 08:40] VITALS: PULSE 61
--- NOTE | 2019-09-24 09:40 | P.CRDCN ---
History of Present Illness History of present illness: HISTORY OF PRESENTING ILLNESS This is a pleasant 64-year-old female past medical history significant for hypertension, asthma, gastroesophageal reflux disease and chronic back pain. 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 We have been asked to see in consultation for chest pain. She states she woke up last night with symptoms of pressure in the left precordial region. The pain remained localized to the left anterior chest with no radiation to the arm, back, neck or jaw. While she was having chest pain she also noticed some shortness of breath. No palpitations, dizziness, nausea, vomiting or diaphoresis. She attempted to use her inhaler however this did not help her symptoms. She continues to feel mild chest tightness currently but has significantly improved. She underwent cardiac catheterization in 2018 secondary to ongoing chest discomfort was found to have normal coronary arteries with no obstructive disease. DIAGNOSTICS EKG reveals sinus mechanism heart rate 79 nonspecific mild seen the mouth is noted inferolaterally. Chest xray negative for an acute cardiopulmonary process. Laboratory reviewed, CBC unremarkable, d-dimer 0.23, sodium 141, potassium 4.6, creatinine 0.52, magnesium 1.9, cardiac enzymes negative 2. Current cardiac medications include lisinopril 10 mg at bedtime and amlodipine 5 mg at bedtime. Most recent echocardiogram obtained in 2016 revealed preserved LV systolic function with ejection fraction 60-65%. REVIEW OF SYSTEMS At the time of my exam: CONSTITUTIONAL: Denies fever or chills. CARDIOVASCULAR: Denies chest pain, shortness of breath, orthopnea, PND or palpitations. RESPIRATORY: Denies cough. GASTROINTESTINAL: Denies abdominal pain, diarrhea, constipation, nausea or vomiting. MUSCULOSKELETAL: Denies myalgias. NEUROLOGIC: Denies numbness, tingling or weakness. ENDOCRINE: Denies fatigue, weight change, polydipsia or polyurina. GENITOURINARY: Denies burning, hematuria or urgency with micturation. HEMATOLOGIC: Denies history of anemia or bleeding. PHYSICAL EXAMINATION Blood pressure 117/63 heart rate 77 afebrile and maintaining oxygen saturation on room air. CONSTITUTIONAL: No apparent distress. HEENT: Head is normocephalic. Pupils are equal, round. Sclerae anicteric. Mucous membranes of the mouth are moist. No JVD. No carotid bruit. CHEST EXAMINATION: Lungs are clear to auscultation. No chest wall tenderness is noted on palpation or with deep breathing. HEART EXAMINATION: Regular rate and rhythm. S1, S2 heard. No murmurs, gallops or rub. ABDOMEN: Soft, nontender. Positive bowel sounds. EXTREMITIES: 2+ peripheral pulses, no lower extremity edema and no calf tenderness. NEUROLOGIC EXAMINATION: Patient is awake, alert and oriented x3. ASSESSMENT Chest pain, atypical. An acute coronary event has been ruled out. Hypertension Asthma Gastroesophageal reflux disease PLAN An acute coronary event has been ruled out. Obtain 2-D echocardiogram and Doppler study to assess cardiac structure and function. Perform stress echocardiogram to assess for stress-induced ischemia. If normal she is stable for discharge from a cardiac perspective. Thank you kindly for this consultation. Nurse Practitioner note has been reviewed, I agree with a documented findings and plan of care. Patient was seen and examined. Past Medical History Past Medical History: Asthma, Cancer, CVA/TIA, Eye Disorder, GERD/Reflux, Hypertension, Rheumatoid Arthritis (RA) Additional Past Medical History / Comment(s): chronic low back pain-bulging discs, DJD, osteopenia, hx SMA (SUPERIOR MESENTERIC ARTERY SYNDROME), seasonal allergies, Endometrial CA. 1998 (surgery)., CVA 1999 (no deficits), BILAT CATARACTS History of Any Multi-Drug Resistant Organisms: C-DIFF Date of last positivie culture/infection: 2007 MDRO Source:: stool Past Surgical History: Cholecystectomy, Heart Catheterization, Hysterectomy, Orthopedic Surgery Additional Past Surgical History / Comment(s): Rt foot bunionectomy. Cervical cone bx. surgery for SMA on intestines, laser eye surgery, bilateral for glaucoma. Colonoscopy 2013. Laparotomy for superior mesenteric artery syndrome. HEART CATH 02/06/18, pain clinic procedures. Past Anesthesia/Blood Transfusion Reactions: No Reported Reaction Additional Past Anesthesia/Blood Transfusion Reaction / Comment(s): Pt received blood with no reaction following uterine hemorrhage. Past Psychological History: No Psychological Hx Reported Smoking Status: Former smoker - Past Family History Father Family Medical History: Cancer Additional Family Medical History / Comment(s): colon Mother Family Medical History: Dementia Sister(s) Family Medical History: Cancer Additional Family Medical History / Comment(s): Leukemia Medications and Allergies Home Medications Medication Instructions Recorded Confirmed Type Montelukast [Singulair] 10 mg PO HS 08/01/09/23/19 History Famotidine [Pepcid] 40 mg PO HS 01/27/16 09/23/19 History Fluticasone Nasal [place] [Flonase 2 spray EA NOSTRIL HS 04/01/16 09/23/19 History Nasal [place]] Propylene Glycol/Peg 400/Pf 1 drop BOTH EYES BID PRN 07/29/17 09/23/19 History [Systane 0.3-0.4% Eye Drop] Lisinopril [Zestril] 10 mg PO HS 02/02/18 09/23/19 History amLODIPine [Norvasc] 5 mg PO HS 02/02/18 09/23/19 History Acetaminophen [Tylenol Extra 1,000 mg PO TID PRN 01/31/19 09/23/19 History Strength] Albuterol Sulfate [Proair Hfa] 2 puff INHALATION RT-QID PRN 01/31/19 09/23/19 History Etanercept [Enbrel] 50 mg SQ DUKE 09/23/19 09/24/19 History Allergies Allergy/AdvReac Type Severity Reaction Status Date / Time amoxicillin trihydrate Allergy Intermediate Rash/Hives Verified 09/23/19 23:12 [From Augmentin] potassium clavulanate Allergy Rash/Hives Verified 09/23/19 23:12 [From Augmentin] Physical Exam Vitals: Vital Signs Temp Pulse Pulse Resp BP BP Pulse Ox 09/24/19 07:33 70 09/24/19 07:21 72 09/24/19 03:46 97.7 F 61 16 130/69 98 09/23/19 23:39 97.7 F 71 16 136/71 99 09/23/19 22:48 68 09/23/19 22:36 73 09/23/19 22:30 97.8 F 66 16 137/77 97 09/23/19 22:00 58 L 16 128/69 96 09/23/19 21:00 62 16 147/81 97 09/23/19 20:06 16 09/23/19 20:00 16 09/23/19 19:52 98.1 F 65 16 187/71 98 Intake and Output 09/23/19 09/24/19 09/24/19 22:59 06:59 14:59 Intake Total 51.228 Balance 51.228 Intake: Intake, IV Titration 51.228 Amount Heparin Sod,Pork in 0.45% 51.228 NaCl 25,000 unit In 0.45 % NaCl 1 250ml.bag @ 12 UNITS/KG/HR 6.26 mls/hr IV .Q24H [facility] Rx#: [id number] Other: Weight 52.163 kg 52.163 kg Results 09/24/19 05:21 09/24/19 05:21 Cardiac Enzymes 09/23/19 09/23/19 09/24/19 Range/Units 20:28 20:28 01:50 AST 35 (14-36) U/L Troponin I <0.012 <0.012 (0.000-0.034) ng/mL Coagulation 09/23/19 09/24/19 Range/Units 20:28 05:21 PT 10.3 (9.0-12.0) sec APTT 22.6 34.7 H (22.0-30.0) sec CBC 09/23/19 09/24/19 Range/Units 20:28 05:21 WBC 7.2 5.6 (3.8-10.6) k/uL RBC 4.61 4.14 (3.80-5.40) m/uL Hgb 13.5 12.1 (11.4-16.0) gm/dL Hct 42.1 38.6 (34.0-46.0) % Plt Count 214 186 (150-450) k/uL Comprehensive Metabolic Panel 09/23/19 09/24/19 Range/Units 20:28 05:21 Sodium 142 141 (137-145) mmol/L Potassium 3.7 4.6 (3.5-5.1) mmol/L Chloride 107 109 H (98-107) mmol/L Carbon Dioxide 26 28 (22-30) mmol/L BUN 16 15 (7-17) mg/dL Creatinine 0.53 0.52 (0.52-1.04) mg/dL Glucose 145 H 101 H (74-99) mg/dL Calcium 9.4 8.7 (8.4-10.2) mg/dL AST 35 (14-36) U/L ALT 18 (4-34) U/L Alkaline Phosphatase 104 (38-126) U/L Total Protein 7.3 (6.3-8.2) g/dL Albumin 4.5 (3.5-5.0) g/dL Current Medications Generic Name Dose Route Start Last Admin Trade Name Freq PRN Reason Stop Dose Admin Acetaminophen 1,000 mg 09/23/19 23:50 Tylenol Tab PO TID PRN Pain Albuterol Sulfate 2.5 mg 09/23/19 23:50 09/24/19 07:21 Ventolin Nebulized INHALATION 2.5 mg RT-QID PRN Administration Shortness Of Breath Amlodipine Besylate 5 mg 09/24/19 21:00 Norvasc PO HS DESHAUN Artificial Tears 1 drops 09/23/19 23:50 Artificial Tear Drops BOTH EYES BID PRN dry eyes Famotidine 40 mg 09/24/19 21:00 Pepcid PO HS DESHAUN Fluticasone Propionate 2 spray 09/24/19 21:00 Flonase Nasal [place] EA NOSTRIL HS DESHAUN Heparin Sodium (Porcine) 0 unit 09/23/19 22:03 09/24/19 06:47 Heparin IV 2,600 unit PER PROTOCOL PRN Administration Low PTT Protocol Lisinopril 10 mg 09/24/19 21:00 Zestril PO HS DESHAUN Montelukast Sodium 10 mg 09/24/19 21:00 Singulair PO HS DESHAUN Naloxone HCl 0.2 mg 09/23/19 22:03 Narcan IV Q2M PRN Opioid Reversal Intake and Output 09/23/19 09/24/19 09/24/19 22:59 06:59 14:59 Intake Total 51.228 Balance 51.228 Intake: Intake, IV Titration 51.228 Amount Heparin Sod,Pork in 0.45% 51.228 NaCl 25,000 unit In 0.45 % NaCl 1 250ml.bag @ 12 UNITS/KG/HR 6.26 mls/hr IV .Q24H [facility] Rx#: [id number] Other: Weight 52.163 kg 52.163 kg 09/24/19 05:21 09/24/19 05:21
--- NOTE | 2019-09-24 11:00 | ECHOF ---
Referral Reason:cp MEASUREMENTS -------- HEIGHT: 165.1 cm WEIGHT: 52.2 kg BP: 117/63 RVIDd: 2.8 cm (< 3.3) IVSd: 0.7 cm (0.6 - 1.1) LVIDd: 4.3 cm (3.9 - 5.3) LVPWd: 0.8 cm (0.6 - 1.1) IVSs: 1.2 cm LVIDs: 2.3 cm LVPWs: 1.6 cm LA Diam: 2.8 cm (2.7 - 3.8) LAESV Index (A-L): 31.23 ml/m Ao Diam: 2.6 cm (2.0 - 3.7) AV Cusp: 1.8 cm (1.5 - 2.6) MV EXCURSION: 14.919 mm (> 18.000) MV EF SLOPE: 131 mm/s (70 - 150) EPSS: 0.1 cm AR PHT: 1112 ms RAP: 5.00 mmHg RVSP: 30.55 mmHg FINDINGS -------- This was a technically good study. The left ventricular size is normal. Left ventricular wall thickness is normal. Overall left vent ricular systolic function is normal with, an EF between 60 - 65 %. The right ventricle is normal in size. The left atrial size is normal. The right atrium is normal in size. Interatrial and interventricular septum intact. The aortic valve is trileaflet and appears structurally normal. There is mild aortic regurgitation. The mitral valve leaflets are mildly thickened. Mild tricuspid regurgitation present. Right ventricular systolic pressure is normal at < 35 mmHg. Trace/mild (physiologic) pulmonic regurgitation. The aortic root size is normal. Normal inferior vena cava with normal inspiratory collapse consistent with estimated right atrial pre ssure of 5 mmHg. There is no pericardial effusion. CONCLUSIONS -------- 1. This was a technically good study. 2. The left ventricular size is normal. 3. Left ventricular wall thickness is normal. 4. Overall left ventricular systolic function is normal with, an EF between 60 - 65 %. 5. The right ventricle is normal in size. 6. The left atrial size is normal. 7. The right atrium is normal in size. 8. Interatrial and interventricular septum intact. 9. The aortic valve is trileaflet and appears structurally normal. 10. There is mild aortic regurgitation. 11. The mitral valve leaflets are mildly thickened. 12. Mild tricuspid regurgitation present. 13. Right ventricular systolic pressure is normal at < 35 mmHg. 14. Trace/mild (physiologic) pulmonic regurgitation. 15. The aortic root size is normal. 16. Normal inferior vena cava with normal inspiratory collapse consistent with estimated right atrial pressure of 5 mmHg. 17. There is no pericardial effusion. TOOL ANALYST: SAMIR Choi
[2019-09-24 11:26] LABS: Cholesterol 151 mg/dL (<200); HDL Cholesterol 63 mg/dL (40-60); LDL Cholesterol,Calculated 77 mg/dL (0-99); Triglycerides 55 mg/dL (<150)
--- NOTE | 2019-09-24 12:12 | ECHOS ---
STRESS ECHOCARDIOGRAM LUMASON: Vial INDICATIONS: Chest pain. MEDICATIONS: Singulair, Pepcid, Flonase, Norvasc, Zesteril, Tylenol extra strength, Proair, Enebrel. BASELINE HEART RATE: 68 BASELINE BLOOD PRESSURE: 148/71 MAXIMUM HEART RATE: 162 MAXIMUM BLOOD PRESSURE: 177/78 85% MPHR: 132 100% MPHR: 155 METS: 11.5 MAXIMUM STAGE REACHED: IV TOTAL EXERCISE TIME: 10:00 CLINICAL INFORMATION: Chest Pain. INDICATION: Chest pain baseline. Baseline EKG shows sinus rhythm, normal axis, normal intervals with mild ST-T wave changes. Patient exercised on Jonathan protocol for a total of 10 minutes achieving 11 METS, 100% of predicted maximal heart rate without chest pain. At peak exercise there was 0.[address]-segment depression noted in the inferolateral leads. Baseline echo shows normal left ventricular size wall motion and systolic function. Post exercise, there is normal hyperdynamic response of all segments of myocardium noted. CONCLUSION: 1. Good exercise tolerance. 2. Abnormal stress test by EKG criteria. 3. Abnormal stress echo. MMODL / IJN: [id number] /
--- NOTE | 2019-09-24 13:13 | P.HPIM ---
History of Present Illness 64-year-old pleasant female came in with compensative moderate amount of chest pressure-like sensation prechordal area denied any dizziness nausea lightheadedness or diaphoresis nonradiating chest pain which resolved at this time. Patient believes it improved with the DuoNeb nebulizations. Patient was a valid by cardiology rule out a concurrent syndromes underwent stress test which was negative. Patient was not wheezing on exam but although it appears to have asthma exacerbation which is cultures continue with into her chest pressure like sensation patient does use albuterol which did did not help her chest pressure. Review of Systems REVIEW OF SYSTEMS: CONSTITUTIONAL: No fever, no malaise, no fatigue. HEENT: No recent visual problems or hearing problems. Denied any sore throat. CARDIOVASCULAR: No orthopnea, PND, no palpitations, no syncope. PULMONARY: No shortness of breath, no cough, no hemoptysis. GASTROINTESTINAL: No diarrhea, no nausea, no vomiting, no abdominal pain. NEUROLOGICAL: No headaches, no weakness, no numbness. HEMATOLOGICAL: Denies any bleeding or petechiae. GENITOURINARY: Denies any burning micturition, frequency, or urgency. MUSCULOSKELETAL/RHEUMATOLOGICAL: Denies any joint pain, swelling, or any muscle pain. ENDOCRINE: Denies any polyuria or polydipsia. The rest of the 14-point review of systems is negative. Past Medical History Past Medical History: Asthma, Cancer, CVA/TIA, Eye Disorder, GERD/Reflux, H ypertension, Rheumatoid Arthritis (RA) Additional Past Medical History / Comment(s): chronic low back pain-bulging discs, DJD, osteopenia, hx SMA (SUPERIOR MESENTERIC ARTERY SYNDROME), seasonal allergies, Endometrial CA. 1998 (surgery)., CVA 1999 (no deficits), BILAT CATAR ACTS History of Any Multi-Drug Resistant Organisms: C-DIFF Date of last positivie culture/infection: 2007 MDRO Source:: stool Past Surgical History: Cholecystectomy, Heart Catheterization, Hysterectomy, Orthopedic Surgery Additional Past Surgical History / Comment(s): Rt foot bunionectomy. Cervical cone bx. surgery for SMA on intestines, laser eye surgery, bilateral for gl aucoma. Colonoscopy 2013. Laparotomy for superior mesenteric artery syndrome. HEART CATH 02/06/18, pain clinic procedures. Past Anesthesia/Blood Transfusion Reactions: No Reported Reaction Additional Past Anesthesia/Blood Transfusion Reaction / Comment(s): Pt received blood with no reaction following uterine hemorrhage. Past Psychological History: No Psychological Hx Reported Smoking Status: Former smoker - Past Family History Father Family Medical History: Cancer Additional Family Medical History / Comment(s): colon Mother Family Medical History: Dementia Sister(s) Family Medical History: Cancer Additional Family Medical History / Comment(s): Leukemia Medications and Allergies Home Medications Medication Instructions Recorded Confirmed Type Montelukast [Singulair] 10 mg PO HS 08/01/14 09/23/19 History Famotidine [Pepcid] 40 mg PO HS 01/27/16 09/23/19 History Fluticasone Nasal [place] [Flonase 2 spray EA NOSTRIL HS 04/01/16 09/23/19 History Nasal [place]] Propylene Glycol/Peg 400/Pf 1 drop BOTH EYES BID PRN 07/29/17 09/23/19 History [Systane 0.3-0.4% Eye Drop] Lisinopril [Zestril] 10 mg PO HS 02/02/18 09/23/19 History amLODIPine [Norvasc] 5 mg PO HS 02/02/18 09/23/19 History Acetaminophen [Tylenol Extra 1,000 mg PO TID PRN 01/31/19 09/23/19 History Strength] Albuterol Sulfate [Proair Hfa] 2 puff INHALATION RT-QID PRN 01/31/19 09/23/19 History Etanercept [Enbrel] 50 mg SQ DUKE 09/23/19 09/24/19 History Mometasone/Formoterol [Dulera 100 2 puff INHALATION BID #1 inhaler 09/24/19 Rx Mcg/5 Mcg Inhaler] Allergies Allergy/AdvReac Type Severity Reaction Status Date / Time amoxicillin trihydrate Allergy Intermediate Rash/Hives Verified 09/23/19 23:12 [From Augmentin] potassium clavulanate Allergy Rash/Hives Verified 09/23/19 23:12 [From Augmentin] Physical Exam Vitals: Vital Signs Temp Pulse Pulse Pulse Resp BP BP 09/24/19 08:00 97.7 F 77 61 16 117/63 09/24/19 07:33 70 09/24/19 07:21 72 09/24/19 03:46 97.7 F 61 16 130/69 09/23/19 23:39 97.7 F 71 16 136/71 09/23/19 22:48 68 09/23/19 22:36 73 09/23/19 22:30 97.8 F 66 16 137/77 09/23/19 22:00 58 L 16 128/69 09/23/19 21:00 62 16 147/81 09/23/19 20:06 16 09/23/19 20:00 16 09/23/19 19:52 98.1 F 65 16 187/71 Pulse Ox 09/24/19 08:00 97 09/24/19 07:33 09/24/19 07:21 09/24/19 03:46 98 09/23/19 23:39 99 09/23/19 22:48 09/23/19 22:36 09/23/19 22:30 97 09/23/19 22:00 96 09/23/19 21:00 97 09/23/19 20:06 09/23/19 20:00 09/23/19 19:52 98 Intake and Output 09/23/19 09/24/19 09/24/19 22:59 06:59 14:59 Intake Total 51.228 240 Balance 51.228 240 Intake: Intake, IV Titration 51.228 Amount Heparin Sod,Pork in 0.45% 51.228 NaCl 25,000 unit In 0.45 % NaCl 1 250ml.bag @ 12 UNITS/KG/HR 6.26 mls/hr IV .Q24H [facility] Rx#: [id number] Oral 240 Other: Voiding Method Toilet Weight 52.163 kg 52.163 kg 52.16 kg PHYSICAL EXAMINATION: GENERAL: The patient is alert and oriented x3, not in any acute distress. Well developed, well nourished. HEENT: Pupils are round and equally reacting to light. EOMI. No scleral icterus. No conjunctival pallor. Normocephalic, atraumatic. No pharyngeal erythema. No thyromegaly. CARDIOVASCULAR: S1 and S2 present. No murmurs, rubs, or gallops. PULMONARY: Chest is clear to auscultation, no wheezing or crackles. ABDOMEN: Soft, nontender, nondistended, normoactive bowel sounds. No palpable organomegaly. MUSCULOSKELETAL: No joint swelling or deformity. EXTREMITIES: No cyanosis, clubbing, or pedal edema. NEUROLOGICAL: Gross neurological examination did not reveal any focal deficits. SKIN: No rashes. Results CBC & Chem 7: 09/24/19 05:21 09/24/19 05:21 Labs: Abnormal Lab Results - Last 24 Hours (Table) 09/23/19 09/24/19 09/24/19 Range/Units 20:28 05:21 05:21 APTT 34.7 H (22.0-30.0) sec Chloride 109 H (98-107) mmol/L Glucose 145 H 101 H (74-99) mg/dL HDL Cholesterol (40-60) mg/dL 09/24/19 Range/Units 05:21 APTT (22.0-30.0) sec Chloride (98-107) mmol/L Glucose (74-99) mg/dL HDL Cholesterol 63 H (40-60) mg/dL Thrombosis Risk Factor Assmnt - Choose All That Apply Each Risk Factor Represents 2 Points: Age 61-74 years Thrombosis Risk Factor Assessment Total Risk Factor Score: 2 Thrombosis Risk Factor Assessment Level: Low Risk Assessment and Plan Plan: -Chest pressure: Atypical chest pain rule out acute current syndromes followed by stress test which was negative and patient is cleared from cardiology perspective her chest pressure appears to be secondary to asthma. Patient will be given prescription for inhaled steroid. -Mild to moderate intermittent asthma, not in asthma exacerbation at this time -Hypertension -Gastroesophageal reflux disease
--- NOTE | 2019-09-24 13:14 | P.DS ---
Providers Date of admission: 09/23/19 22:04 Attending physician: Maki Estrada Consults: 09/23/19 22:04 Consult Physician Urgent Consulting Provider: [facility] Consult Reason/Comments: acute chest pain, possible acs, abn ekg Do you want consulting provider notified?: Yes Primary care physician: Refugio Cuello MD Hospital Course: Please refer to my HPI for further details Patient Condition at Discharge: Stable Plan - Discharge Summary Discharge Rx Participant: No New Discharge Prescriptions: New Mometasone/Formoterol [Dulera 100 Mcg/5 Mcg Inhaler] 2 puff INHALATION BID #1 inhaler Continue Montelukast [Singulair] 10 mg PO HS Famotidine [Pepcid] 40 mg PO HS Fluticasone Nasal [place] [Flonase Nasal [place]] 2 spray EA NOSTRIL HS Propylene Glycol/Peg 400/Pf [Systane 0.3-0.4% Eye Drop] 1 drop BOTH EYES BID PRN PRN Reason: dry eyes amLODIPine [Norvasc] 5 mg PO HS Lisinopril [Zestril] 10 mg PO HS Albuterol Sulfate [Proair Hfa] 2 puff INHALATION RT-QID PRN PRN Reason: Shortness Of Breath Acetaminophen [Tylenol Extra Strength] 1,000 mg PO TID PRN PRN Reason: Pain Etanercept [Enbrel] 50 mg SQ DUKE Discharge Medication List Montelukast [Singulair] 10 mg PO HS 08/01/14 [History] Famotidine [Pepcid] 40 mg PO HS 01/27/16 [History] Fluticasone Nasal [place] [Flonase Nasal [place]] 2 spray EA NOSTRIL HS 04/01/16 [History] Propylene Glycol/Peg 400/Pf [Systane 0.3-0.4% Eye Drop] 1 drop BOTH EYES BID PRN 07/29/17 [History] Lisinopril [Zestril] 10 mg PO HS 02/02/18 [History] amLODIPine [Norvasc] 5 mg PO HS 02/02/18 [History] Acetaminophen [Tylenol Extra Strength] 1,000 mg PO TID PRN 01/31/19 [History] Albuterol Sulfate [Proair Hfa] 2 puff INHALATION RT-QID PRN 01/31/19 [History] Etanercept [Enbrel] 50 mg SQ DUKE 09/23/19 [History] Mometasone/Formoterol [Dulera 100 Mcg/5 Mcg Inhaler] 2 puff INHALATION BID #1 inhaler 09/24/19 [Rx] Follow up Appointment(s)/Referral(s): Refugio Cuello MD [Primary Care Provider] - 3 Days Katia Edgar MD [STAFF PHYSICIAN] - 10/05/19 3:15 pm () Discharge Disposition: HOME SELF-CARE
[2019-09-24] MEDS ORDERED: FAMOTIDINE 20 MG TAB PO SCH (21:00)
[2019-09-24] MEDS ORDERED: amLODIPine 5 MG TAB PO SCH (21:00)
[2019-09-24] MEDS ORDERED: MONTELUKAST 10 MG TAB PO SCH (21:00)
[2019-09-24] MEDS ORDERED: FLUTICASONE 50MCG/SPRAY NASAL 16GM EA NOSTRIL SCH (21:00)
[2019-09-24] MEDS ORDERED: LISINOPRIL 10 MG TAB PO SCH (21:00)
--- NOTE | 2019-10-08 08:53 | ECHOS ---
STRESS ECHOCARDIOGRAM LUMASON Vial INDICATIONS Chest pain. MEDICATIONS Singulair, Pepcid, Flonase, Norvasc, Zesteril, Tylenol extra strength, Proair, Enebrel. BASELINE HEART RATE 68 BASELINE BLOOD PRESSURE 148/71 MAXIMUM HEART RATE 162 MAXIMUM BLOOD PRESSURE 177/78 85% MPHR 132 100% MPHR 155 METs 11.5 MAXIMUM STAGE REACHED IV TOTAL EXERCISE TIME 10:00 CLINICAL INFORMATION Chest Pain. INDICATION Chest pain baseline. Baseline EKG shows sinus rhythm, normal axis, normal intervals with mild ST-T wave changes. Patient exercised on Jonathan protocol for a total of 10 minutes achieving 11 METS, 100% of predicted maximal heart rate without chest pain. At peak exercise there was 0.[address]-segment depression noted in the inferolateral leads. Baseline echo shows normal left ventricular size wall motion and systolic function. Post exercise, there is normal hyperdynamic response of all segments of myocardium noted. CONCLUSION 1. Good exercise tolerance. 2. Normal stress test by EKG criteria. 3. Normal stress echo. MMODL / IJN: [id number] /
== END 2019-09-24 13:32 | disposition home or self-care (01) ==
LOC: EC 19:46 → 1SOBS 22:04
PROVIDERS: ADMIT Internal Medicine; ATTEND Internal Medicine
DX: R07.89 Other chest pain (principal); R94.31 Abnormal electrocardiogram [ECG] [EKG]; K21.9 Gastro-esophageal reflux disease without esophagitis; J45.909 Unspecified asthma, uncomplicated; Z86.73 Personal history of transient ischemic attack (TIA), and cerebral infarction without residual deficits; I10 Essential (primary) hypertension; M06.9 Rheumatoid arthritis, unspecified; G89.29 Other chronic pain; M54.5 Low back pain; M51.26 Other intervertebral disc displacement, lumbar region; M19.90 Unspecified osteoarthritis, unspecified site; M85.80 Other specified disorders of bone density and structure, unspecified site; K55.1 Chronic vascular disorders of intestine; Z85.41 Personal history of malignant neoplasm of cervix uteri; Z86.19 Personal history of other infectious and parasitic diseases; Z90.49 Acquired absence of other specified parts of digestive tract; Z90.710 Acquired absence of both cervix and uterus; Z98.890 Other specified postprocedural states; Z87.891 Personal history of nicotine dependence; Z80.6 Family history of leukemia; Z81.8 Family history of other mental and behavioral disorders; Z80.0 Family history of malignant neoplasm of digestive organs; Z79.899 Other long term (current) drug therapy; Z88.0 Allergy status to penicillin
CPT/HCPCS: 96365; 96366 ×2; 96376 ×2; 99285; 36415; 94640; 93005 ×2; 93306; 93351; 85379; 80061; 80053; 80048; 83735; 84484 ×2; 85025 ×2; 85610; 85730 ×2; 71046; G0378 ×2; U0003; J1644 ×3

== ENCOUNTER → 2019-10-18 | Outpatient (CLI) | payer MEDICARE | END | disposition home or self-care (01) | LOC: LABWHC1 07:29 | PROVIDERS: ATTEND Family Medicine | DX: Z20.828 Contact with and (suspected) exposure to other viral communicable diseases (principal) | CPT/HCPCS: U0003; C9803 ==

== ENCOUNTER → 2019-11-14 | Outpatient (CLI) | payer MEDICARE ==
[2019-11-14 13:42] VITALS: BP 147/78; PULSE 69; RESP 16; TEMP 98.2
--- NOTE | 2019-11-27 09:36 | P.PAINPG ---
Subjective Progress Note Date: 11/14/19 This is a follow-up visit for this 64 years old female with a chronic history of severe low back pain, she is diagnosed with lumbar spondylosis with lumbar facet arthropathy without myelopathy, and right sacral iliac joint dysfunction/right sacroiliitis, status post radiofrequency ablation of L5-S1 and radiofrequency thermocoagulation of the branches of S1/S2/S3, she reported that her pain improved significantly, her function improved and her pain decreased significantly, she is complaining of localized tenderness around the needles placement, she denies any fever or night sweats she denies any discharge at that site ,she denies any motor or sensory deficit, she denies any fever or night sweats, and there is no change in the bowel movement. today she returns saying that the pain relief from her prior procedure has worn off and she would like to repeat the procedure. It is located in bilateral buttocks worse on the right side occasionally radiating to the hip. She feels that there are procedures provided adequate relief. No symptoms of cauda equina syndrome such as bowel or bladder incontinence, leg weakness, saddle anesthesia Review of systems is negative for chest pain, shortness of breath, new onset weakness, numbness/tingling, abdominal pain, malaise, fever, night sweats, chills, homicidal or suicidal ideation, or bowel or bladder incontinence. - Exam Physical Examinations : -Constitutiona : Cooperative , not in acute distress . -HEENT : nech : supple , no Lymphadenopathy , normal thyroid size . : eyes : no ptosis , no icterus, no photophobia . - neurologic : Cranial nerve II to XII intact , no focal neurological deffecit . -psychatric : alert , oriented X 3 , appropriate affect , intact judgment and insight . -Lymphatic : no Lymphadenopathy . - musculoskeltal : Lumber spine moter stegnth lower extremities ,thigh and legs 5/5 Right side , 5/5 Left side deep tendon reflexes : normal Knee Jerk , normal ankle Jerk Fabere test= positive Right , and positive LT . Localized tenderness at the medial aspect of the right sacroiliac joint, no erythema , no discharge ,no swelling. Assessment and Plan Plan: Assessment and plan= chronic low back pain secondary to lumbar spondylosis and sacroiliitis/sacroiliac joint dysfunction we'll reschedule patient for RFA of right sacroiliac joint and left sacroiliac joint injection as this is what she had last time and this provided adequate relief Smoking Status Former smoker Blood Pressure 152/90 Pain Intensity [Right Hip] 7 Scale Used Numeric (1 - 10) Hx Alcohol Use (MH) Yes: rare Controlled Substance Measures - Controlled Substance Measures Is patient prescribed a controlled substance at discharge?: No PQRS Measure Charge Sheet Measure #226: Tobacco Use: Screen & Cessation Intervention: Pt not a tobacco user Measure #111: Pneumonia Vaccination: Pneumococcal vaccine NOT administered or previously given Measure #47: Advance Care Plan: Advance care planning discussed & documented, pt chose/unable to give Measure #412: Opioid Treatment Agreement: No documentation of signed opioid treatment agreement Measure #408: Opioid Therapy Follow-up Evaluation: Patient had NO f/u eval minimum every 3 months during opioid therapy Measure #317: Preventitive Care & Scrn High Bld Press & F/U: Normal blood pressure, f/u not required Measure #128: Body Mass Index (BMI) Screening & Follow-up: BMI documented within normal parameters Measure #131: Pain Assessment & Follow-up: Pain positive & plan documented Measure #431: Unhealthy Alcohol Use Preventative Care & Scrn: Patient not identified as an unhealthy alcohol user PQRS Narrative: Smoking Status Former smoker Hx Alcohol Use (MH) Yes: rare Home Medications: Ambulatory Orders Montelukast [Singulair] 10 mg PO HS 08/01/14 Famotidine [Pepcid] 40 mg PO HS 01/27/16 Fluticasone Nasal [place] [Flonase Nasal [place]] 2 spray EA NOSTRIL HS 04/01/16 Propylene Glycol/Peg 400/Pf [Systane 0.3-0.4% Eye Drop] 1 drop BOTH EYES BID PRN 07/29/17 amLODIPine [Norvasc] 5 mg PO HS 02/02/18 lisinopriL [Zestril] 10 mg PO HS 02/02/18 Acetaminophen [Tylenol Extra Strength] 1,000 mg PO TID PRN 01/31/19 Albuterol Sulfate [Proair Hfa] 2 puff INHALATION RT-QID PRN 01/31/19 Etanercept [Enbrel] 50 mg SQ DUKE 09/23/19 Mometasone/Formoterol [Dulera 100 Mcg/5 Mcg Inhaler] 2 puff INHALATION BID #1 inhaler 09/24/19 Controlled Substance Measures - Controlled Substance Measures Is patient prescribed a controlled substance at discharge?: No
== END | disposition home or self-care (01) ==
LOC: PNWHC3 13:30
PROVIDERS: ATTEND Anesthesiology
DX: M47.816 Spondylosis without myelopathy or radiculopathy, lumbar region (principal); M46.1 Sacroiliitis, not elsewhere classified; M53.3 Sacrococcygeal disorders, not elsewhere classified; G89.29 Other chronic pain; Z87.891 Personal history of nicotine dependence; Z79.891 Long term (current) use of opiate analgesic; Z79.899 Other long term (current) drug therapy
CPT/HCPCS: 99211

== ENCOUNTER → 2019-11-28 | Outpatient (CLI) | payer MEDICARE | END | disposition home or self-care (01) | LOC: LABWHC1 10:13 | PROVIDERS: ATTEND Family Medicine | DX: Z20.828 Contact with and (suspected) exposure to other viral communicable diseases (principal) | CPT/HCPCS: U0003; C9803 ==

== ENCOUNTER 2019-12-14 07:40 | Day surgery (SDC) | payer MEDICARE ==
--- NOTE | 2019-11-14 14:28 | P.PAINPG ---
Subjective Progress Note Date: 11/14/19 This is a follow-up visit for this 64 years old female with a chronic history of severe low back pain, she is diagnosed with lumbar spondylosis with lumbar facet arthropathy without myelopathy, and right sacral iliac joint dysfunction/right sacroiliitis, status post radiofrequency ablation of L5-S1 and radiofrequency thermocoagulation of the branches of S1/S2/S3, she reported that her pain improved significantly, her function improved and her pain decreased significantly, she is complaining of localized tenderness around the needles placement, she denies any fever or night sweats she denies any discharge at that site ,she denies any motor or sensory deficit, she denies any fever or night sweats, and there is no change in the bowel movement. today she returns saying that the pain relief from her prior procedure has worn off and she would like to repeat the procedure. It is located in bilateral buttocks worse on the right side occasionally radiating to the hip. She feels that there are procedures provided adequate relief. No symptoms of cauda equina syndrome such as bowel or bladder incontinence, leg weakness, saddle anesthesia Review of systems is negative for chest pain, shortness of breath, new onset weakness, numbness/tingling, abdominal pain, malaise, fever, night sweats, chills, homicidal or suicidal ideation, or bowel or bladder incontinence. - Exam Physical Examinations : -Constitutiona : Cooperative , not in acute distress . -HEENT : nech : supple , no Lymphadenopathy , normal thyroid size . : eyes : no ptosis , no icterus, no photophobia . - neurologic : Cranial nerve II to XII intact , no focal neurological deffecit . -psychatric : alert , oriented X 3 , appropriate affect , intact judgment and insight . -Lymphatic : no Lymphadenopathy . - musculoskeltal : Lumber spine moter stegnth lower extremities ,thigh and legs 5/5 Right side , 5/5 Left side deep tendon reflexes : normal Knee Jerk , normal ankle Jerk Fabere test= positive Right , and positive LT . Localized tenderness at the medial aspect of the right sacroiliac joint, no erythema , no discharge ,no swelling. Assessment and Plan Plan: Assessment and plan= chronic low back pain secondary to lumbar spondylosis and sacroiliitis/sacroiliac joint dysfunction we'll reschedule patient for RFA of right sacroiliac joint and left sacroiliac joint injection as this is what she had last time and this provided adequate relief Smoking Status Former smoker Blood Pressure 152/90 Pain Intensity [Right Hip] 7 Scale Used Numeric (1 - 10) Hx Alcohol Use (MH) Yes: rare Controlled Substance Measures - Controlled Substance Measures Is patient prescribed a controlled substance at discharge?: No PQRS Measure Charge Sheet Measure #226: Tobacco Use: Screen & Cessation Intervention: Pt not a tobacco user Measure #111: Pneumonia Vaccination: Pneumococcal vaccine NOT administered or previously given Measure #47: Advance Care Plan: Advance care planning discussed & documented, pt chose/unable to give Measure #412: Opioid Treatment Agreement: No documentation of signed opioid treatment agreement Measure #408: Opioid Therapy Follow-up Evaluation: Patient had NO f/u eval minimum every 3 months during opioid therapy Measure #317: Preventitive Care & Scrn High Bld Press & F/U: Normal blood pressure, f/u not required Measure #128: Body Mass Index (BMI) Screening & Follow-up: BMI documented within normal parameters Measure #131: Pain Assessment & Follow-up: Pain positive & plan documented Measure #431: Unhealthy Alcohol Use Preventative Care & Scrn: Patient not identified as an unhealthy alcohol user PQRS Narrative: Smoking Status Former smoker Hx Alcohol Use (MH) Yes: rare Home Medications: Ambulatory Orders Montelukast [Singulair] 10 mg PO HS 08/01/14 Famotidine [Pepcid] 40 mg PO HS 01/27/16 Fluticasone Nasal [place] [Flonase Nasal [place]] 2 spray EA NOSTRIL HS 04/01/16 Propylene Glycol/Peg 400/Pf [Systane 0.3-0.4% Eye Drop] 1 drop BOTH EYES BID PRN 07/29/17 amLODIPine [Norvasc] 5 mg PO HS 02/02/18 lisinopriL [Zestril] 10 mg PO HS 02/02/18 Acetaminophen [Tylenol Extra Strength] 1,000 mg PO TID PRN 01/31/19 Albuterol Sulfate [Proair Hfa] 2 puff INHALATION RT-QID PRN 01/31/19 Etanercept [Enbrel] 50 mg SQ DUKE 09/23/19 Mometasone/Formoterol [Dulera 100 Mcg/5 Mcg Inhaler] 2 puff INHALATION BID #1 inhaler 09/24/19 Controlled Substance Measures - Controlled Substance Measures Is patient prescribed a controlled substance at discharge?: No
[~2019-12-14 07:40] MED LIST changes: +LIDOCAINE 1% (10MG/ML) FOR IV START INTRADERMA PRN
[2019-12-14 08:00] VITALS: RESP 16; TEMP 98.2
[2019-12-14] MEDS ORDERED: LIDOCAINE 1% (10MG/ML) FOR IV START INTRADERMA ONE (08:08)
[2019-12-14] MEDS ORDERED: PROPOFOL 10 MG/ML 20 ML VIAL IV ONE (08:29)
--- NOTE | 2019-12-14 08:31 | P.GSHP ---
History of Present Illness H&P Date: 12/14/19 Chief Complaint: Family history colonic Cancer This a 64-year-old female who presents today for colonoscopy. Patient has a strong family history li colonic Cancer with her father and grandmother having colon cancer. Past Medical History Past Medical History: Asthma, Cancer, CVA/TIA, Eye Disorder, GERD/Reflux, Hypertension, Rheumatoid Arthritis (RA) Additional Past Medical History / Comment(s): chronic low back pain-bulging discs, DJD, osteopenia, hx SMA (SUPERIOR MESENTERIC ARTERY SYNDROME), seasonal allergies, Endometrial CA. 1998 (surgery)., CVA 1999 (no deficits), BILAT glaucoma History of Any Multi-Drug Resistant Organisms: C-DIFF Date of last positivie culture/infection: 2007 MDRO Source:: stool Past Surgical History: Cholecystectomy, Heart Catheterization, Hysterectomy, Orthopedic Surgery Additional Past Surgical History / Comment(s): Rt foot bunionectomy. Cervical cone bx. surgery for SMA on intestines, laser eye surgery, bilateral for glaucoma. Colonoscopy 2013. Laparotomy for superior mesenteric artery syndrome. HEART CATH 02/06/18, pain clinic procedures. Past Anesthesia/Blood Transfusion Reactions: No Reported Reaction Additional Past Anesthesia/Blood Transfusion Reaction / Comment(s): Pt received blood with no reaction following uterine hemorrhage. Smoking Status: Former smoker - Past Family History Father Family Medical History: Cancer Additional Family Medical History / Comment(s): colon Mother Family Medical History: Dementia Sister(s) Family Medical History: Cancer Additional Family Medical History / Comment(s): Leukemia Medications and Allergies Home Medications Medication Instructions Recorded Confirmed Type Montelukast [Singulair] 10 mg PO HS 08/01/14 12/14/19 History Famotidine [Pepcid] 40 mg PO HS 01/27/16 12/14/19 History Fluticasone Nas[place] [Flonase 2 spray EA NOSTRIL HS 04/01/16 12/14/19 History [facility] [place]] Propylene Glycol/Peg 400/Pf 1 drop BOTH EYES BID PRN 07/29/17 12/14/19 History [Systane 0.3-0.4% Eye Drop] amLODIPine [Norvasc] 5 mg PO HS 02/02/18 12/14/19 History lisinopriL [Zestril] 10 mg PO HS 02/02/18 12/14/19 History Acetaminophen [Tylenol Extra 1,000 mg PO TID PRN 01/31/19 12/14/19 History Strength] Albuterol Sulfate [Proair Hfa] 2 puff INHALATION RT-QID PRN 01/31/19 12/14/19 History Etanercept [Enbrel] 50 mg SQ DUKE 09/23/19 12/14/19 History Mometasone/Formoterol [Dulera 100 2 puff INHALATION BID #1 inhaler 09/24/19 12/14/19 Rx Mcg/5 Mcg Inhaler] Allergies Allergy/AdvReac Type Severity Reaction Status Date / Time amoxicillin trihydrate Allergy Intermediate Rash/Hives Verified 12/14/19 07:57 [From Augmentin] potassium clavulanate Allergy Rash/Hives Verified 12/14/19 07:57 [From Augmentin] Surgical - Exam Vital Signs Temp Pulse Resp BP Pulse Ox 98.2 F 69 16 149/71 98 12/14/19 07:53 12/14/19 07:53 12/14/19 07:53 12/14/19 07:53 12/14/19 07:53 - General well developed, well nourished, no distress - Eyes PERRL - ENT normal pinna - Neck no masses - Respiratory normal expansion - Cardiovascular Rhythm: regular - Abdomen Abdomen: soft, non tender Assessment and Plan Assessment: Family history of colon cancer. We'll perform colonoscopy.
--- NOTE | 2019-12-14 08:46 | P.OP ---
Date of Procedure: 12/14/19 Preoperative Diagnosis: Family history of colon cancer Postoperative Diagnosis: Diverticulosis Incomplete colonoscopy Procedure(s) Performed: Colonoscopy Anesthesia: MAC Surgeon: Edmar Vance Pathology: none sent Condition: stable Disposition: PACU Description of Procedure: The patient's placed on the endoscopy table in the lateral position. He received IV sedation. Digital rectal exam was performed which revealed no abnormalities. Flexible colonoscope was then placed patient anus and passed throughout the colon. The scope couldn't be passed beyond the sigmoid colon secondary to tortuosity of the bowel. Diverticulosis was noted. Scope was withdrawn. The rectum appeared normal. Scope withdrawn for patient. Patient was scheduled for a barium enema.
[2019-12-14 11:18] VITALS: BP 135/81; PULSE 70
--- NOTE | 2019-12-14 15:34 | XR ---
EXAMINATION TYPE: XR KUB DATE OF EXAM: 12/14/2019 1:07 PM CLINICAL HISTORY: Failed colonoscopy today, unable to pass scope beyond sigmoid colon. TECHNIQUE: Area Safety Manager radiographs of the abdomen and pelvis obtained prior to barium enema. COMPARISON: KUB 08/01/2014. FINDINGS: There is a large volume of colonic gas, especially within the descending colon through the splenic flexure. Small bowel gas pattern is nonspecific. There is no visceromegaly. Large amount of proximal and mid colonic gas increases likelihood of air lock during attempted barium enema. Findings were discussed with the patient and alternatives including attempting barium enema t ga with possibility of incomplete examination versus patient returning for barium enema within the next few days. Patient opted to return for examination. IMPRESSION: Canceled barium enema due to large volume colonic gas and increased likelihood of airlock. Patient wi ll return for barium enema examination.
== END 2019-12-14 11:52 | disposition home or self-care (01) ==
LOC: ORWHC2ENDO 07:40
PROVIDERS: ATTEND Surgery
DX: K57.30 Diverticulosis of large intestine without perforation or abscess without bleeding (principal); Q43.8 Other specified congenital malformations of intestine; Z80.0 Family history of malignant neoplasm of digestive organs; J45.909 Unspecified asthma, uncomplicated; H40.9 Unspecified glaucoma; K21.9 Gastro-esophageal reflux disease without esophagitis; I10 Essential (primary) hypertension; M06.9 Rheumatoid arthritis, unspecified; M51.26 Other intervertebral disc displacement, lumbar region; M19.90 Unspecified osteoarthritis, unspecified site; M85.80 Other specified disorders of bone density and structure, unspecified site; Z86.73 Personal history of transient ischemic attack (TIA), and cerebral infarction without residual deficits; Z87.19 Personal history of other diseases of the digestive system; Z85.42 Personal history of malignant neoplasm of other parts of uterus; Z86.19 Personal history of other infectious and parasitic diseases; Z90.49 Acquired absence of other specified parts of digestive tract; Z98.890 Other specified postprocedural states; Z90.710 Acquired absence of both cervix and uterus; Z87.891 Personal history of nicotine dependence; Z79.899 Other long term (current) drug therapy; Z79.51 Long term (current) use of inhaled steroids; Z88.0 Allergy status to penicillin; Z81.8 Family history of other mental and behavioral disorders; Z80.6 Family history of leukemia
CPT/HCPCS: 74018; 45330; J2704

== ENCOUNTER → 2019-12-18 | Outpatient (CLI) | payer MEDICARE ==
--- NOTE | 2019-12-18 23:47 | FL ---
EXAMINATION TYPE: FL barium enema w air contrast DATE OF EXAM: 12/18/2019 COMPARISON: None HISTORY: Incomplete colonoscopy TECHNIQUE: Double air technique. Barium followed by air was refluxed through the colon to the cecum. Multiple overhead radiographs and fluoroscopic imaging is performed. Real-time observation is perform ed. After evacuation films obtained. Patient tolerated procedure very well. FINDINGS: Fluoroscopy time 2 minutes 19 seconds. Images: 19 Small diverticulum is evident within the distal transverse colon. Scattered diverticuli are within th e redundant sigmoid colon. There are couple of rounded lucencies at the splenic flexure. Sessile polyps are not excluded. An add itional area may be within the proximal transverse colon. There appears to be some adherent fecal sylvie ris present in scattered areas within the colon. No suspicious circumferential area of narrowing is evident. Real-time observation through the redunda nt sigmoid colon appear unremarkable. However, this area is difficult to evaluate with multiple overl nikki loops. IMPRESSION: 1. Diverticulosis without acute diverticulitis. 2. No large suspicious annular lesions. Couple small sessile polyps may be difficult to exclude.
== END | disposition home or self-care (01) ==
LOC: RADFLMAIN 09:21
PROVIDERS: ATTEND Surgery
DX: K57.90 Diverticulosis of intestine, part unspecified, without perforation or abscess without bleeding (principal)
CPT/HCPCS: 74280

== ENCOUNTER 2020-01-17 06:25 | Day surgery (SDC) | payer MEDICARE ==
[2020-01-17] MEDS ORDERED: LACTATED RINGERS 1,000 ML IV SCH (06:53)
[2020-01-17 06:56] VITALS: RESP 16; TEMP 97.2
[2020-01-17] MEDS ORDERED: fentaNYL (PF) 50 MCG/ML 2 ML AMP ONE (07:23)
[2020-01-17] MEDS ORDERED: ROPIVACAINE 5MG/ML 20ML VIAL ONE (07:23)
[2020-01-17] MEDS ORDERED: MIDAZOLAM 2 MG/2 ML VIAL ONE (07:23)
[2020-01-17] MEDS ORDERED: methylPREDNISolone ACETATE 40 MG/ML 1 ML VIAL ONE (07:23)
[2020-01-17] MEDS ORDERED: IV FLUID CONTINUATION 700 ML IV ONE (08:08)
--- NOTE | 2020-01-17 08:12 | P.PCN ---
Date of Procedure: 01/17/20 Procedure(s) Performed: PREOPERATIVE DIAGNOSIS: 1-Lumbosacral spondylosis with facet arthropathy without myelopathy. 2- sacroiliit. post operative Diagnosis: . 1-Lumbosacral spondylosis with facet arthropathy without myelopathy. 2- sacroiliit. PROCEDURES: 1- Right radiofrequency thermocoagulation/ablation of the L5 dorsal ramus. 2- Right multi-site radiofrequency thermocoagulation/ablation of the S1, S2, and S3 lateral branchs. 3-left sacroiliac joint steroid injections fluoroscopy guidance The procedure was performed using fluoroscopic guidance during needle placement to assure proper position (fluoroscopy images available in radiology department) ANESTHESIA = moderate sedation with intravenous versed 1 mg and Fentanyle 50 mcg EBL: NONE INDICATION/MEDICAL NECESSITY: History of low back pain secondary to bilateral sacroiliitis and lumbosacral arthropathy unresponsive to more conservative treatments. The patient reported more than 50% relief of pain symptoms following 2 previous diagnostic blocks with Bupivacaine. PROCEDURE DESCRIPTION: The patient was seen and identified in the preoperative area. Risks, benefits, complications, and alternatives were discussed with the patient. The patient agreed to proceed with the procedure and signed the consent. Vital signs were checked before and after the procedure and they remained stable. Patient ambulated to the procedure room and time out was completed. The patient was placed in the prone position on the procedure table and a pillow was placed under the abdomen to reduce lumbar lordosis. The lumbosacral area was prepped and draped in the usual sterile fashion. Critical pause was taken. L5 Dorsal Ramus RF: Using right oblique fluoroscopy, the junction of the transverse process and the superior articular process of the right S1 vertebra, which correspond to the fluoroscopic image of the "eye of the Abdulaziz dog" was identified. Subsequently, a 10-cm 20 -gauge radiofrequency cannula with a 10-mm active tip was advanced under fluoroscopic guidance until contact was made with periosteum. At this level, the Sensory testing of the L5 dorsal ramus was performed at 50 Hz and 0 to 1 volt with production of concordant pain starting at 0.5 volt. Motor stimulation was done at 2.5 Hz with stimulation of mulitifidus muscle contration . No radicular symptoms or paresthesias were produced during the testing. Subsequently, the L5 dorsal ramus was subjected to a radiofrequency ablation at 80 degree celsius for 90 seconds . after 0.5% Bupivacaine 1 ml injected at each level after negative aspirations . The needle was withdrawn intact the procedure was repeated on the left side using the same technique. S1, S3, and S3 Lateral Branch RF: The Right S1, S2, and S3 foramina were not identified using AP fluoroscopy. Under fluoroscopic guidance, for this reason three 10-cm 18 -gauge radiofrequency cannula with a 10-mm active tip were inserted at 8-10 mm medial to the medial branch of the right sacroiliac joint , then total of 6 needle was placed at the medial edge of the right sacroiliac joint starting from the inferior border of the joint going superiorly , total of 6 needle was placed , and after negative test placement confirmed with AP and lateral view,. At this level, the sensory testing of the S1, S2 ,S3 lateral branch was performed at 50 Hz and 0 to 1 volt at the three levels with production of concordant pain starting at 0.5 volt. Motor stimulation was done at 2.5 Hz. No radicular symptoms or paresthesias were produced during the testing. Subsequently, the S1, S2 ,S3 lateral branch was subjected to a radiofrequency ablation at a mode of 90 seconds at 80 degrees Celsius at the 3 levels before the needles taken MIXTURE of ropivacaine 0.5% 6 and 20 mg of Depo-Medrol mixed with her and injected 1 mL after negative aspiration The needle was withdrawn intact after each injection. Then after that the the left sacroiliac joint injection done in a sterile technique by placing a 22-gauge Quincke Needle in the left sacroiliac joint needle, and after ropivacaine 0.5% 2 mL injected for skin and subcutaneous tissue infiltration,needle placement confirmed with AP and lateral view ,then after negative aspiration of ropivacaine 0.5% CML and 20 mg of Depo-Medrol injected after negative aspiration patient tolerated the procedure well without any competitions COMPLICATIONS: The patient tolerated the procedure well without any acute complications. DISPOSTION/PLAN: The patient ambulated to the recovery area after the procedure in a stable condition for observation. Patient was reexamined prior to discharge. Patient was observed for 30 minutes in the recovery area and was discharged home, accompanied by an adult, after meeting discharged criteria. Discharge instructions were give to the patient by the staff. Patient was specifically instructed not to drive today and to rest for the rest of the day. The patient will schedule a follow up visit in the clinic in weeks or earlier if needed.
[2020-01-17 08:38] VITALS: BP 147/74; PULSE 67
--- NOTE | 2020-01-17 09:00 | FL ---
Fluoroscopy INDICATION: Pain FINDINGS: Fluoroscopy time: 57 seconds. Images obtained: 7. IMPRESSIONS: 1. Documentation of fluoroscopy.
== END 2020-01-17 08:40 | disposition home or self-care (01) ==
LOC: ORPAIN 06:25
PROVIDERS: ATTEND Specialist
DX: M47.817 Spondylosis without myelopathy or radiculopathy, lumbosacral region (principal); M46.1 Sacroiliitis, not elsewhere classified; Z88.0 Allergy status to penicillin
CPT/HCPCS: 64625; J2250; J1030; J3010; J2795; G0260; 27096; 64640; 99152; 99153

== ENCOUNTER → 2020-01-18 | Outpatient (CLI) | payer MEDICARE ==
[2020-01-18 11:09] LABS: HCT 37.3 % (34.0-46.0); HGB 11.8 gm/dL (11.4-16.0); MCH 28.8 pg (25.0-35.0); MCHC 31.7 g/dL (31.0-37.0); Mean Platelet Volume 8.2; Platelet Count 266 k/uL (150-450); RBC 4.09 m/uL (3.80-5.40); RDW 13.9 % (11.5-15.5); WBC 9.8 k/uL (3.8-10.6)
== END | disposition home or self-care (01) ==
LOC: LABPAT 09:59
PROVIDERS: ATTEND Surgery
DX: Z01.818 Encounter for other preprocedural examination (principal); K57.33 Diverticulitis of large intestine without perforation or abscess with bleeding
CPT/HCPCS: 36415; 80051; 85027

== ENCOUNTER 2020-01-30 10:47 | Inpatient (IN) | payer MEDICARE ==
[2020-01-25 10:54] VITALS: BMI 19.1
[~2020-01-30 10:47] MED LIST changes: +ACETAMINOPHEN TAB 500 MG TAB PO ONE; +DEXAMETHASONE SOD PHOSPHATE 10 MG/ML 1 ML VIAL IV ONE; +HEPARIN SODIUM,PORCINE 5,000 UNIT/ML 1 ML VIAL SQ ONE; -LACTATED RINGERS 1,000 ML IV SCH; +MIDAZOLAM 2 MG/2 ML VIAL IV PRN; +fentaNYL (PF) 50 MCG/ML 2 ML AMP IVP PRN; +metroNIDAZOLE-NS PMX 500 MG in SALINE 1 100ML.BAG IVPB ONE
[2020-01-30] MEDS: LACTATED RINGERS 1,000 ML IV SCH ×2 (11:28→20:34)
[2020-01-30] MEDS ORDERED: MELOXICAM 7.5 MG TAB PO ONE (11:54)
[2020-01-30] MEDS ORDERED: ALVIMOPAN 12 MG CAPSULE PO ONE (11:55)
[2020-01-30 12:20] LABS: INR 1.1 (<1.2); Partial Thromboplastin Time 24.3 sec (22.0-30.0); Prothrombin Time 10.8 sec (9.0-12.0)
[2020-01-30] MEDS ORDERED: MIDAZOLAM 2 MG/2 ML VIAL IVP ONE (12:42)
[2020-01-30] MEDS ORDERED: diphenhydrAMINE 50 MG/ML 1 ML VIAL IVP PRN (12:45)
[2020-01-30] MEDS ORDERED: NALOXONE 0.4 MG/ML 1 ML VIAL IV PRN (12:45)
--- NOTE | 2020-01-30 13:55 | P.GSHP ---
History of Present Illness H&P Date: 01/30/20 Chief Complaint: Diverticulitis This is a 64-year-old female who's had issues of diverticula is. Patient presents today for low anterior resection. Patient reversed surgery including was a colostomy bleeding and infection. Past Medical History Past Medical History: Asthma, Cancer, CVA/TIA, Eye Disorder, GERD/Reflux, Hypertension, Rheumatoid Arthritis (RA) Additional Past Medical History / Comment(s): diverticulitis,hx chronic low back pain-bulging discs, DJD, osteopenia, hx SMA (SUPERIOR MESENTERIC ARTERY SYNDROME), seasonal allergies, Endometrial CA. 1998 (surgery)., CVA 1999 (no deficits), BILAT glaucoma History of Any Multi-Drug Resistant Organisms: C-DIFF Date of last positivie culture/infection: 2007 MDRO Source:: stool Past Surgical History: Cholecystectomy, Heart Catheterization, Hysterectomy, Orthopedic Surgery Additional Past Surgical History / Comment(s): Rt foot bunionectomy. Cervical cone bx. surgery for SMA on intestines, laser eye surgery-bilateral for glaucoma. Colonoscopy 2013. Laparotomy for superior mesenteric artery syndrome. HEART CATH 02/06/18, pain clinic procedures. Past Anesthesia/Blood Transfusion Reactions: No Reported Reaction Additional Past Anesthesia/Blood Transfusion Reaction / Comment(s): Pt received blood with no reaction following uterine hemorrhage. Smoking Status: Former smoker - Past Family History Father Family Medical History: Cancer Additional Family Medical History / Comment(s): colon Mother Family Medical History: Dementia Sister(s) Family Medical History: Cancer Additional Family Medical History / Comment(s): Leukemia Medications and Allergies Home Medications Medication Instructions Recorded Confirmed Type Montelukast [Singulair] 10 mg PO HS 08/01/14 01/25/20 History Famotidine [Pepcid] 40 mg PO HS 01/27/16 01/25/20 History Fluticasone Nasal [place] [Flonase 2 spray EA NOSTRIL HS 04/01/16 01/25/20 History Nasal [place]] Propylene Glycol/Peg 400/Pf 1 drop BOTH EYES TID PRN 07/29/17 01/25/20 History [Systane 0.3-0.4% Eye Drop] amLODIPine [Norvasc] 5 mg PO HS 02/02/18 01/25/20 History lisinopriL [Zestril] 10 mg PO HS 02/02/18 01/25/20 History Acetaminophen [Tylenol Extra 1,000 mg PO TID PRN 01/31/19 01/25/20 History Strength] Albuterol Sulfate [Proair Hfa] 2 puff INHALATION RT-QID PRN 01/31/19 01/25/20 History Etanercept [Enbrel] 50 mg SQ DUKE 09/23/19 01/25/20 History Mometasone/Formoterol [Dulera 100 2 puff INHALATION BID #1 inhaler 09/24/19 01/25/20 Rx Mcg/5 Mcg Inhaler] Allergies Allergy/AdvReac Type Severity Reaction Status Date / Time amoxicillin trihydrate Allergy Intermediate Rash/Hives Verified 01/30/20 11:58 [From Augmentin] potassium clavulanate Allergy Rash/Hives Verified 01/30/20 11:58 [From Augmentin] Surgical - Exam Vital Signs Temp Pulse Resp BP Pulse Ox 98.2 F 71 16 125/82 99 01/30/20 11:40 01/30/20 11:40 01/30/20 11:40 01/30/20 11:40 01/30/20 11:40 - General well developed, well nourished, no distress - Eyes PERRL - ENT normal pinna - Neck no masses - Respiratory normal expansion - Cardiovascular Rhythm: regular - Abdomen Abdomen: soft, non tender Results - Labs 01/30/20 11:38 Diabetes panel 01/30/20 Range/Units 11:38 Potassium 3.6 (3.5-5.1) mmol/L Pituitary panel 01/30/20 Range/Units 11:38 Potassium 3.6 (3.5-5.1) mmol/L Adrenal panel 01/30/20 Range/Units 11:38 Potassium 3.6 (3.5-5.1) mmol/L Assessment and Plan Assessment: Diverticula is. We'll perform low anterior resection.
[2020-01-30] MEDS ORDERED: ROCURONIUM 10 MG/ML (10 ML VIAL) IV ONE (14:21)
[2020-01-30] MEDS ORDERED: PHENYLEPHRINE-0.9% NACL SYG 1 MG/10 ML SYRINGE ONE (14:21)
[2020-01-30] MEDS ORDERED: NEOSTIGMINE 1 MG/ML 10 ML VIAL ONE (14:21)
[2020-01-30] MEDS ORDERED: fentaNYL (PF) 50 MCG/ML 2 ML AMP ONE (14:21)
[2020-01-30] MEDS ORDERED: LIDOCAINE 1% INJ 10MG/ML (20 ML MDV) ONE (14:21)
[2020-01-30] MEDS ORDERED: GLYCOPYRROLATE 0.2 MG/ML 2 ML VIAL ONE (14:21)
[2020-01-30] MEDS ORDERED: MIDAZOLAM 2 MG/2 ML VIAL ONE (14:21)
[2020-01-30] MEDS ORDERED: PROPOFOL 10 MG/ML 20 ML VIAL IV ONE (14:21)
[2020-01-30] MEDS ORDERED: LACTATED RINGERS 1,000 ML IV ONE (15:40)
[2020-01-30] MEDS ORDERED: HYDROmorphone 1 MG/ML 1 ML SYRINGE IVP PRN (15:44)
[2020-01-30] MEDS ORDERED: ONDANSETRON 4 MG/2 ML VIAL IVP PRN (15:44)
[2020-01-30] MEDS ORDERED: BENZOCAINE/MENTHOL LOZENG 1 EACH LOZENGE MUCOUS MEM PRN (15:44)
--- NOTE | 2020-01-30 15:44 | P.OP ---
Date of Procedure: 01/30/20 Preoperative Diagnosis: Diverticulitis Postoperative Diagnosis: Diverticulitis Procedure(s) Performed: Low anterior resection Anesthesia: DAVID Surgeon: Edmar Vance Estimated Blood Loss (ml): 20 Pathology: other (Sigmoid colon) Condition: stable Disposition: PACU Description of Procedure: Patient's placed on the operative table in supine position. She received general anesthesia. He should've then placed in dorsal lithotomy position. Her abdomen was prepped and draped usual sterile fashion. The abdomen was entered through a low midline incision. The Bookwalter tract placed a wound. The area was explored. The patient appeared to have evidence of diverticulitis in the distal sigmoid colon. The sigmoid colon was mobilized by dividing the white line of Toldt and then the colon was reflected medially. The suitable spot for the proximal transection was found and then EEA stapler anvil was placed into the colon through a colotomy. The colon was then transected with a GI stapler and then the scope and was driven through the staple line. The enterotomy is then closed using 3-0 GI silk suture. And then using insulin lispro mesentery the bowel was divided and then the rectum was transected with the contour stapler. At this point the multimedia production assistant placed the EEA stapler patient's anus and then the spike was returned to the anterior rectal wall and then the anvil was connected stapler. The stapler is then closed and fired. 2 intact tissue rings were withdrawn for stapler. Next using a hydraulic suspender cutter the colon was occluded and then using a rigid sigmoidoscope the anastomosis checked under air insufflation. There is no evidence of any leakage of the staple line. The abdomen was irrigated there is no bleeding seen. His side perform incidental appendectomy the mesial appendix was divided with the incentive device and the appendix was suture-ligated with 3-0 silk ties. The patient was then cut liver metastases months scissors and sent to pathology. The fascia was then closed with looped #1 PDS suture. Skin was closed elke. Patient top she will was sent to recovery room in stable condition.
[2020-01-30] MEDS: ROPIVACAINE 250 MG, fentaNYL (PF) 625 MCG in SODIUM CHLORIDE 0.9% 188 ML EPIDURAL PRN (17:01)
[2020-01-30] MEDS ORDERED: ARTIFICIAL TEARS-HYPROMELLOSE DROPS 15 ML BTL BOTH EYES PRN (17:31)
[2020-01-30] MEDS: HEPARIN SODIUM,PORCINE 5,000 UNIT/ML 1 ML VIAL SQ SCH ×2 (17:32→22:57)
[2020-01-30] MEDS: ALBUTEROL NEBULIZED 2.5 MG/3 ML INHALATION PRN (20:00)
[2020-01-30] MEDS: SYMBICORT 80-4.5 MCG INHALER INHALATION SCH (20:00)
[2020-01-30] MEDS: D5-0.45% NACL WITH KCL 20MEQ/L 1,000 ML IV SCH (20:44)
[2020-01-30] MEDS: MONTELUKAST 10 MG TAB PO SCH (20:45)
[2020-01-30] MEDS: FAMOTIDINE 20 MG/2 ML VIAL IV SCH (20:45)
[2020-01-30] MEDS: ALVIMOPAN 12 MG CAPSULE PO SCH (20:45)
[2020-01-30] MEDS: FLUTICASONE 50MCG/SPRAY NASAL 16GM EA NOSTRIL SCH (20:45)
[2020-01-30] MEDS ORDERED: NON FORMULARY DRUG (Famotidine [Pepcid] 40 MG Tablet) PO SCH (21:00)
[2020-01-31] MEDS: D5-0.45% NACL WITH KCL 20MEQ/L 1,000 ML IV SCH ×4 (03:59→20:12)
[2020-01-31] MEDS: FAMOTIDINE 20 MG/2 ML VIAL IV SCH ×2 (08:05→20:11)
[2020-01-31] MEDS: ALVIMOPAN 12 MG CAPSULE PO SCH ×2 (08:05→20:11)
[2020-01-31] MEDS: HEPARIN SODIUM,PORCINE 5,000 UNIT/ML 1 ML VIAL SQ SCH ×3 (08:05→23:20)
[2020-01-31 08:20] LABS: Basophils % (A) 0 %; Eosinophils % (A) 0 %; HCT 37.1 % (34.0-46.0); HGB 11.9 gm/dL (11.4-16.0); Hypochromasia Slight; Lymphocytes # (A) 2.2 k/uL (1.0-4.8); Lymphocytes % (A) 17 %; MCH 30.1 pg (25.0-35.0); MCHC 32.1 g/dL (31.0-37.0); MCV 93.9 fL (80.0-100.0); Mean Platelet Volume 9.2; Monocytes # (A) 0.6 k/uL (0-1.0); Monocytes % (A) 5 %; Neutrophils # (A) 9.5 k/uL (1.3-7.7); Neutrophils % (A) 76 %; Platelet Count 204 k/uL (150-450); RBC 3.95 m/uL (3.80-5.40); RDW 13.3 % (11.5-15.5); WBC 12.4 k/uL (3.8-10.6)
[2020-01-31 08:29] LABS: African American GFR (CKD) >90 (>60 ml/min/1.73 sqM); Anion Gap 3 mmol/L; Blood Urea Nitrogen 10 mg/dL (7-17); Calcium 8.3 mg/dL (8.4-10.2); Carbon Dioxide 27 mmol/L (22-30); Chloride 107 mmol/L (98-107); Glucose 108 mg/dL (74-99); Non-African American GFR(CKD) >90 (>60 ml/min/1.73 sqM); Potassium 4.7 mmol/L (3.5-5.1); Sodium 137 mmol/L (137-145)
[2020-01-31] MEDS: SYMBICORT 80-4.5 MCG INHALER INHALATION SCH ×2 (08:59→19:04)
--- NOTE | 2020-01-31 12:41 | P.CONS ---
History of Present Illness - Reason for Consult Hypertension - History of Present Illness 64-year-old pleasant female admitted for the low anterior resection of the colon and an end-to-end anastomosis. Patient still has a Hernandez catheter and still has epidural in place patient denied any pain at this time feeling better pass gas didn't have a small bowel movement. Patient blood pressure is low which is not an expected postsurgery patient was on amlodipine and LISA inhibitor both of which are being held at this time. Review of Systems REVIEW OF SYSTEMS: CONSTITUTIONAL: No fever, no malaise, no fatigue. HEENT: No recent visual problems or hearing problems. Denied any sore throat. CARDIOVASCULAR: No chest pain, orthopnea, PND, no palpitations, no syncope. PULMONARY: No shortness of breath, no cough, no hemoptysis. GASTROINTESTINAL: No diarrhea, no nausea, no vomiting, no abdominal pain. NEUROLOGICAL: No headaches, no weakness, no numbness. HEMATOLOGICAL: Denies any bleeding or petechiae. GENITOURINARY: Denies any burning micturition, frequency, or urgency. MUSCULOSKELETAL/RHEUMATOLOGICAL: Denies any joint pain, swelling, or any muscle pain. ENDOCRINE: Denies any polyuria or polydipsia. The rest of the 14-point review of systems is negative. Past Medical History Past Medical History: Asthma, Cancer, CVA/TIA, Eye Disorder, GERD/Reflux, Hypertension, Rheumatoid Arthritis (RA) Additional Past Medical History / Comment(s): diverticulitis,hx chronic low back pain-bulging discs, DJD, osteopenia, hx SMA (SUPERIOR MESENTERIC ARTERY SYNDROME), seasonal allergies, Endometrial CA. 1998 (surgery)., CVA 1999 (no deficits), BILAT glaucoma History of Any Multi-Drug Resistant Organisms: C-DIFF Year Discovered:: 2007 MDRO Source:: stool Past Surgical History: Cholecystectomy, Heart Catheterization, Hysterectomy, Orthopedic Surgery Additional Past Surgical History / Comment(s): Rt foot bunionectomy. Cervical cone bx. surgery for SMA on intestines, laser eye surgery-bilateral for glaucoma. Colonoscopy 2013. Laparotomy for superior mesenteric artery syndrome. HEART CATH 02/06/18, pain clinic procedures. Past Anesthesia/Blood Transfusion Reactions: No Reported Reaction Additional Past Anesthesia/Blood Transfusion Reaction / Comm: Pt received blood with no reaction following uterine hemorrhage. Past Psychological History: No Psychological Hx Reported Additional Psychological History / Comment(s): . Smoking Status: Former smoker Past Alcohol Use History: Rare Additional Past Alcohol Use History / Comment(s): QUIT SMOKING 1997- SMOKED 1PPD for 20 YEARS. Past Drug Use History: None Reported - Past Family History Father Family Medical History: Cancer Additional Family Medical History / Comment(s): colon Mother Family Medical History: Dementia Sister(s) Family Medical History: Cancer Additional Family Medical History / Comment(s): Leukemia Medications and Allergies Home Medications Medication Instructions Recorded Confirmed Type Montelukast [Singulair] 10 mg PO HS 08/01/14 01/25/20 History Famotidine [Pepcid] 40 mg PO HS 01/27/16 01/25/20 History Fluticasone Nasal [place] [Flonase 2 spray EA NOSTRIL HS 04/01/16 01/25/20 History Nasal [place]] Propylene Glycol/Peg 400/Pf 1 drop BOTH EYES TID PRN 07/29/17 01/25/20 History [Systane 0.3-0.4% Eye Drop] amLODIPine [Norvasc] 5 mg PO HS 02/02/18 01/25/20 History lisinopriL [Zestril] 10 mg PO HS 02/02/18 01/25/20 History Acetaminophen [Tylenol Extra 1,000 mg PO TID PRN 01/31/19 01/25/20 History Strength] Albuterol Sulfate [Proair Hfa] 2 puff INHALATION RT-QID PRN 01/31/19 01/25/20 History Etanercept [Enbrel] 50 mg SQ DUKE 09/23/19 01/25/20 History Mometasone/Formoterol [Dulera 100 2 puff INHALATION BID #1 inhaler 09/24/19 01/25/20 Rx Mcg/5 Mcg Inhaler] Allergies Allergy/AdvReac Type Severity Reaction Status Date / Time amoxicillin trihydrate Allergy Intermediate Rash/Hives Verified 01/30/20 11:58 [From Augmentin] potassium clavulanate Allergy Rash/Hives Verified 01/30/20 11:58 [From Augmentin] Physical Exam Vitals: Vital Signs Temp Pulse Pulse Pulse Pulse Resp BP 01/31/20 08:00 99.6 F 72 16 103/55 01/31/20 01:00 98.6 F 77 20 94/53 01/31/20 00:00 78 20 01/30/20 23:00 98.7 F 78 20 102/54 01/30/20 20:13 56 L 01/30/20 20:02 56 L 01/30/20 20:00 67 20 01/30/20 19:30 97.9 F 67 20 118/72 01/30/20 18:30 54 L 01/30/20 18:15 51 L 01/30/20 18:00 01/30/20 17:45 51 L 01/30/20 17:30 60 01/30/20 17:15 98.1 F 58 L 17 01/30/20 17:02 50 L 12 01/30/20 16:47 48 L 12 01/30/20 16:41 12 01/30/20 16:30 51 L 14 01/30/20 16:16 47 L 16 01/30/20 16:02 48 L 16 01/30/20 15:54 97.0 F L 51 L 14 01/30/20 12:41 72 16 BP Pulse Ox 01/31/20 08:00 100 01/31/20 01:00 98 01/31/20 00:00 01/30/20 23:00 100 01/30/20 20:13 01/30/20 20:02 01/30/20 20:00 01/30/20 19:30 100 01/30/20 18:30 114/73 100 01/30/20 18:15 109/69 100 01/30/20 18:00 109/68 100 01/30/20 17:45 106/65 100 01/30/20 17:30 104/55 100 01/30/20 17:15 115/66 100 01/30/20 17:02 101/50 99 01/30/20 16:47 102/54 99 01/30/20 16:41 01/30/20 16:30 107/52 100 01/30/20 16:16 109/52 100 01/30/20 16:02 121/61 100 01/30/20 15:54 116/65 100 01/30/20 12:41 149/67 98 Intake and Output 01/30/20 01/31/20 01/31/20 22:59 06:59 14:59 Intake Total 1916 1000 Output Total 1075 600 325 Balance 841 400 -325 Intake: IV 916 Intake, IV Titration 1000 1000 Amount D5-0.45% NaCl with KCl 1000 1000 20Meq/l 1,000 ml @ 125 mls/hr IV .Q8H [facility] Rx#: [id number] Output: Urine 1000 600 325 Estimated Blood Loss 75 Other: Voiding Method Indwelling Catheter Indwelling Catheter Weight 55.3 kg PHYSICAL EXAMINATION: GENERAL: The patient is alert and oriented x3, not in any acute distress. Well developed, well nourished. HEENT: Pupils are round and equally reacting to light. EOMI. No scleral icterus. No conjunctival pallor. Normocephalic, atraumatic. No pharyngeal erythema. No thyromegaly. CARDIOVASCULAR: S1 and S2 present. No murmurs, rubs, or gallops. PULMONARY: Chest is clear to auscultation, no wheezing or crackles. ABDOMEN: Soft, nontender, nondistended, normoactive bowel sounds. No palpable organomegaly. Surgical site area looks clean. MUSCULOSKELETAL: No joint swelling or deformity. EXTREMITIES: No cyanosis, clubbing, or pedal edema. NEUROLOGICAL: Gross neurological examination did not reveal any focal deficits. SKIN: No rashes. Results CBC & Chem 7: 01/31/20 07:40 01/31/20 07:40 Labs: Abnormal Lab Results - Last 24 Hours (Table) 01/31/20 01/31/20 Range/Units 07:40 07:40 WBC 12.4 H (3.8-10.6) k/uL Neutrophils # 9.5 H (1.3-7.7) k/uL Glucose 108 H (74-99) mg/dL Calcium 8.3 L (8.4-10.2) mg/dL Assessment and Plan Plan: -Hypotension: Perioperative hypotension is expected and continue to hold off on antidepressant medications, patient is on D5 half-normal saline because of which I'll order basic metabolic profile tomorrow make sure patient is not becoming hyponatremic -Gastroesophageal reflux disease -asthma without any acute exacerbation -gastroesophageal reflux disease -Rheumatoid arthritis -Cholectomy: Pain management as per primary service For above-mentioned chronic medical problems patient will be continued on appropriate home medications.
--- NOTE | 2020-01-31 14:44 | P.PN ---
Progress Note - Text 01/30 700am 64-year-old female status post low anterior resection. Patient has an epidural catheter for postop pain control with the solution running at 8 mL an hour with a VAS of 5. Pain is predominantly one-sided. No motor or sensory deficits noted. Plan to increase epidural rate to 10 mL an hour
--- NOTE | 2020-01-31 15:06 | P.PN ---
Subjective Progress Note Date: 01/31/20 CHIEF COMPLAINT: Diverticulitis HISTORY OF PRESENT ILLNESS: Patient is status post lower anterior resection. She is passing gas. She did have some blood per rectum this morning. Her pain is controlled. She has epidural and Hernandez catheter. She denies any nausea or vomiting.She is on a clear liquid diet. She's afebrile.WBC 12.4 hemoglobin 11.9 PHYSICAL EXAM: VITAL SIGNS: Reviewed. GENERAL: Well-developed in no acute distress. HEENT: No sclera icterus. Extraocular movements grossly intact. Moist buccal mucosa. Head is atraumatic, normocephalic. ABDOMEN: Soft. Nondistended. Nontender. NEUROLOGIC: Alert and oriented. Cranial nerves II through XII grossly intact. ASSESSMENT: 1. Diverticulitis status post lower anterior resection. Postop day #1 PLAN: -Continue clear liquid diet -Continue epidural and Hernandez catheter -Continue IV fluids -encouraged patient to increase activity -Encouraged patient to ambulate Physician Production Finisher note has been reviewed by physician. Signing provider agrees with the documented findings, assessment, and plan of care. Objective - Vital Signs Vital signs: Vital Signs Temp 98.9 F 01/31/20 12:32 Pulse 75 01/31/20 12:38 Resp 18 01/31/20 12:32 BP 127/69 01/31/20 12:32 Pulse Ox 96 01/31/20 12:32 Intake & Output 01/30/20 01/31/20 01/31/20 18:59 06:59 18:59 Intake Total 3016 2000 Output Total 1075 600 605 Balance 1941 1400 -605 Weight 55.3 kg Intake: IV 3016 Intake, IV Titration 2000 Amount D5-0.45% NaCl with KCl 2000 20Meq/l 1,000 ml @ 125 mls/hr IV .Q8H [facility] Rx#: [id number] Output: Urine 1000 600 605 Estimated Blood Loss 75 Other: Voiding Method Indwelling Catheter Indwelling Catheter - Labs CBC & Chem 7: 01/31/20 07:40 01/31/20 07:40 Labs: Abnormal Lab Results - Last 24 Hours (Table) 01/31/20 01/31/20 Range/Units 07:40 07:40 WBC 12.4 H (3.8-10.6) k/uL Neutrophils # 9.5 H (1.3-7.7) k/uL Glucose 108 H (74-99) mg/dL Calcium 8.3 L (8.4-10.2) mg/dL
[2020-01-31] MEDS: ROPIVACAINE 250 MG, fentaNYL (PF) 625 MCG in SODIUM CHLORIDE 0.9% 188 ML EPIDURAL PRN (15:38)
[2020-01-31] MEDS: FLUTICASONE 50MCG/SPRAY NASAL 16GM EA NOSTRIL SCH (20:11)
[2020-01-31] MEDS: MONTELUKAST 10 MG TAB PO SCH (20:12)
[2020-02-01] MEDS: D5-0.45% NACL WITH KCL 20MEQ/L 1,000 ML IV SCH ×2 (02:30→11:01)
--- NOTE | 2020-02-01 06:23 | P.PN ---
Progress Note - Text Progress Note Date: 02/01/20 Patient without complaints. Tolerating clears. Denies headache or weakness. Pain 6/10. Pain mostly located on the right side describes a cramping pain Epidural at 10 ml/hr. Epidural site clean and dry. POD#2 s/p LAR. Assessment and plan: will discontinue epidural as patient is tolerating clears and mobile, working towards eventual discharge
[2020-02-01] MEDS: FAMOTIDINE 20 MG/2 ML VIAL IV SCH ×2 (08:52→21:35)
[2020-02-01] MEDS: HEPARIN SODIUM,PORCINE 5,000 UNIT/ML 1 ML VIAL SQ SCH ×2 (08:52→17:30)
[2020-02-01] MEDS: ALVIMOPAN 12 MG CAPSULE PO SCH (08:57)
[2020-02-01] MEDS: SYMBICORT 80-4.5 MCG INHALER INHALATION SCH ×2 (09:23→19:26)
[2020-02-01 09:44] LABS: HCT 36.1 % (34.0-46.0); HGB 11.6 gm/dL (11.4-16.0); Hypochromasia Slight; MCH 29.9 pg (25.0-35.0); MCV 93.7 fL (80.0-100.0); Mean Platelet Volume 9.2; Platelet Count 179 k/uL (150-450); RBC 3.86 m/uL (3.80-5.40); RDW 13.2 % (11.5-15.5); WBC 13.6 k/uL (3.8-10.6)
[2020-02-01] MEDS: ROPIVACAINE 250 MG, fentaNYL (PF) 625 MCG in SODIUM CHLORIDE 0.9% 188 ML EPIDURAL PRN (11:01)
--- NOTE | 2020-02-01 11:53 | P.PN ---
Subjective Progress Note Date: 02/01/20 CHIEF COMPLAINT: Diverticulitis HISTORY OF PRESENT ILLNESS: Patient is status post lower anterior resection. Patient did have 3 episodes of diarrhea. She's been having some nausea this morning and one episode of vomiting that did improve with Zofran. There is no blood reported in her stools. She denies abdominal pain. She is passing gas. She has epidural and Hernandez catheter. She's afebrile. WBC 13.6 hemoglobin 11.9 Epidural will be discontinued today PHYSICAL EXAM: VITAL SIGNS: Reviewed. GENERAL: Well-developed in no acute distress. HEENT: No sclera icterus. Extraocular movements grossly intact. Moist buccal mucosa. Head is atraumatic, normocephalic. ABDOMEN: Soft. Nondistended. Mild tenderness. Incision site clean dry and intact NEUROLOGIC: Alert and oriented. Cranial nerves II through XII grossly intact. ASSESSMENT: 1. Diverticulitis status post lower anterior resection. Postop day #2 PLAN: -Advanced to full liquid diet -Heplock IV -Add [place] PRN for pain control and continue IV dilaudid PRN pain -Encouraged patient to use incentive spirometer -Encouraged patient to ambulate -continue GI and DVT prophylaxis Physician Deputy Sheriff Generalist note has been reviewed by physician. Signing provider agrees with the documented findings, assessment, and plan of care. Objective - Vital Signs Vital signs: Vital Signs Temp 98.8 F 02/01/20 07:34 Pulse 72 02/01/20 08:35 Resp 16 02/01/20 10:36 BP 99/65 02/01/20 07:34 Pulse Ox 98 02/01/20 07:34 Intake & Output 01/31/20 02/01/20 02/01/20 18:59 06:59 18:59 Intake Total 2200 193.833 Output Total 1205 1602 225 Balance -1205 598 -31.167 Intake: Intake, IV Titration 1999 193.833 Amount D5-0.45% NaCl with KCl 2000 20Meq/l 1,000 ml @ 125 mls/hr IV .Q8H [facility] Rx#: [id number] Ropivacaine 250 mg 193.833 fentaNYL (PF) 625 mcg In Sodium Chloride 0.9% 188 ml @ Per Protocol EPIDURAL .Q0M PRN Rx#: [id number] Oral 200 Output: Urine 1205 1600 225 Stool 2 Other: Voiding Method Indwelling Catheter Indwelling Catheter Indwelling Catheter - Labs CBC & Chem 7: 02/01/20 09:11 01/31/20 07:40 Labs: Abnormal Lab Results - Last 24 Hours (Table) 02/01/20 Range/Units 09:11 WBC 13.6 H (3.8-10.6) k/uL
--- NOTE | 2020-02-01 16:35 | P.PN ---
Subjective 64-year-old pleasant female admitted for the low anterior resection of the colon and an end-to-end anastomosis. Patient still has a Hernandez catheter and still has epidural in place patient denied any pain at this time feeling better pass gas didn't have a small bowel movement. Patient blood pressure is low which is not an expected postsurgery patient was on amlodipine and LISA inhibitor both of which are being held at this time. 02/01/2020 Patient overall clinically doing wellexcept for having multiple episodes of diarrhea patient is on 1 25 mL of normal saline. Will order a C. diff testing patient does have history of C. diff. Patient blood pressures are remaining remains normal can you to hold off on antidepressant medications. Constitutional: Denied any fatigue denied any fever. Cardio vascular: denied any chest pain, palpitations Gastrointestinal denied any nausea vomiting Pulmonary: Denied any shortness of breath cough Neurologic denied any new focal deficits All inpatient medications were reviewed and appropriate changes in these medications as dictated in the interval history and assessment and plan. Objective - Vital Signs Vital signs: Vital Signs Temp 97.8 F 02/01/20 15:00 Pulse 75 02/01/20 15:00 Resp 16 02/01/20 15:00 BP 109/69 02/01/20 15:00 Pulse Ox 95 02/01/20 15:00 Intake & Output 01/31/20 02/01/20 02/01/20 18:59 06:59 18:59 Intake Total 2200 193.833 Output Total 1205 1602 225 Balance -1205 598 -31.167 Intake: Intake, IV Titration 1999 193.833 Amount D5-0.45% NaCl with KCl 2000 20Meq/l 1,000 ml @ 125 mls/hr IV .Q8H [facility] Rx#: [id number] Ropivacaine 250 mg 193.833 fentaNYL (PF) 625 mcg In Sodium Chloride 0.9% 188 ml @ Per Protocol EPIDURAL .Q0M PRN Rx#: [id number] Oral 200 Output: Urine 1205 1600 225 Stool 2 Other: Voiding Method Indwelling Catheter Indwelling Catheter Indwelling Catheter - Exam PHYSICAL EXAMINATION: GENERAL: The patient is alert and oriented x3, not in any acute distress. Well developed, well nourished. HEENT: Pupils are round and equally reacting to light. EOMI. No scleral icterus. No conjunctival pallor. Normocephalic, atraumatic. No pharyngeal erythema. No thyromegaly. CARDIOVASCULAR: S1 and S2 present. No murmurs, rubs, or gallops. PULMONARY: Chest is clear to auscultation, no wheezing or crackles. ABDOMEN: Soft, nontender, nondistended, normoactive bowel sounds. No palpable organomegaly. MUSCULOSKELETAL: No joint swelling or deformity. EXTREMITIES: No cyanosis, clubbing, or pedal edema. NEUROLOGICAL: Gross neurological examination did not reveal any focal deficits. SKIN: No rashes. - Labs CBC & Chem 7: 02/01/20 09:11 01/31/20 07:40 Labs: Abnormal Lab Results - Last 24 Hours (Table) 02/01/20 Range/Units 09:11 WBC 13.6 H (3.8-10.6) k/uL Assessment and Plan Plan: -diarrhea: Rule out C. diff continue with IV fluid -Hypotension: Perioperative hypotension is expected and continue to hold off on antidepressive medication medications, patient is on D5 half-normal alert relates are within normal limits, we'll repeat basic metabolic profile for tomorrow -Gastroesophageal reflux disease -asthma without any acute exacerbation -gastroesophageal reflux disease -Rheumatoid arthritis -Cholectomy: Pain management as per primary service For above-mentioned chronic medical problems patient will be continued on appropriate home medications.
[2020-02-01] MEDS: HYDROcodone/APAP 5-325MG 1 EACH TAB PO PRN ×2 (17:30→21:35)
[2020-02-01] MEDS: MONTELUKAST 10 MG TAB PO SCH (21:35)
[2020-02-01] MEDS: FLUTICASONE 50MCG/SPRAY NASAL 16GM EA NOSTRIL SCH (21:35)
[2020-02-02] MEDS: HEPARIN SODIUM,PORCINE 5,000 UNIT/ML 1 ML VIAL SQ SCH ×4 (01:12→23:04)
[2020-02-02] MEDS: ONDANSETRON 4 MG/2 ML VIAL IVP PRN (01:12)
[2020-02-02 06:43] LABS: Basophils % (A) 0 %; Eosinophils # (A) 0.2 k/uL (0-0.7); Eosinophils % (A) 3 %; HCT 35.6 % (34.0-46.0); HGB 11.3 gm/dL (11.4-16.0); Lymphocytes # (A) 1.5 k/uL (1.0-4.8); Lymphocytes % (A) 19 %; MCH 29.5 pg (25.0-35.0); MCHC 31.9 g/dL (31.0-37.0); MCV 92.4 fL (80.0-100.0); Mean Platelet Volume 9.2; Monocytes # (A) 0.4 k/uL (0-1.0); Monocytes % (A) 5 %; Neutrophils # (A) 5.7 k/uL (1.3-7.7); Neutrophils % (A) 72 %; Platelet Count 175 k/uL (150-450); RBC 3.85 m/uL (3.80-5.40); RDW 13.3 % (11.5-15.5); WBC 7.9 k/uL (3.8-10.6)
[2020-02-02] MEDS: FAMOTIDINE 20 MG/2 ML VIAL IV SCH ×2 (07:54→20:34)
[2020-02-02] MEDS: SYMBICORT 80-4.5 MCG INHALER INHALATION SCH ×2 (08:53→20:04)
[2020-02-02 09:30] LABS: African American GFR (CKD) 110.9 (60.0-200.0); Anion Gap 5.1 mmol/L (4.00-12.00); BUN/Creat Ratio 8.33 Ratio (12.00-20.00); Calcium 8.6 mg/dL (8.7-10.3); Carbon Dioxide 26.9 mmol/L (21.6-31.8); Non-African American GFR(CKD) 95.7 (60.0-200.0); Potassium 4.3 mmol/L (3.5-5.5)
[2020-02-02] MEDS: HYDROcodone/APAP 5-325MG 1 EACH TAB PO PRN ×2 (10:52→20:33)
--- NOTE | 2020-02-02 12:41 | P.PN ---
Subjective Progress Note Date: 02/02/20 CHIEF COMPLAINT: Diverticulitis HISTORY OF PRESENT ILLNESS: The patient is a 64-year-old female status post lower anterior resection, 01/30/2020. She has history of diverticulitis. She is on liquid diet. She reports liquid stools. No moderate abdominal pain. "I feel fine!" No diarrhea today. ROS: No reports of nausea and vomiting. No fevers or chills. No new chest pain. No productive sputum PHYSICAL EXAM: VITAL SIGNS: Reviewed CONSTITUTIONAL: Well developed and in no acute distress. EYES: Conjuctivae without sclera icterus. Extraocular movements grossly intact. Wears glasses. HEAD, EARS, NOSE, THROAT: Moist buccal mucosa. Head is atraumatic, normocephalic. Hears conversational speech. No nasal drainage. NECK: Supple. No thyroidomegaly. RESPIRATORY: Non-labored respirations and equal bilateral excursions. CARDIOVASCULAR: Palpable 2+ radial pulses. ABDOMEN: No peritonitis. Dressing intact. MUSCULOSKELETAL: No gross deformity of the lower extremities noted. No clubbing. No cyanosis. SKIN: Good skin turgor. Well perfused. NEUROLOGIC: Cranial nerves II through XII grossly intact. No focal or lateralizing signs. PSYCH: Appropriate affect. Alert and oriented to person, place and time. CLINICAL LABS: White blood cell count normal, 7.9. Hemoglobin stable 11.6-11.3. ASSESSMENT: 1. Diverticulitis PLAN: 1. Advance diet as tolerated to a low fiber diet Objective - Vital Signs Vital signs: Vital Signs Temp 98.6 F 02/02/20 07:00 Pulse 80 02/02/20 07:00 Resp 16 02/02/20 07:00 BP 113/73 02/02/20 07:00 Pulse Ox 99 02/02/20 07:00 Intake & Output 02/01/20 02/02/20 02/02/20 18:59 06:59 18:59 Intake Total 1193.833 Output Total 925 Balance 268.833 Intake: Intake, IV Titration 1193.833 Amount D5-0.45% NaCl with KCl 1000 20Meq/l 1,000 ml @ 125 mls/hr IV .Q8H [facility] Rx#: [id number] Ropivacaine 250 mg 193.833 fentaNYL (PF) 625 mcg In Sodium Chloride 0.9% 188 ml @ Per Protocol EPIDURAL .Q0M PRN Rx#: [id number] Output: Urine 925 Uretheral (Hernandez) 700 Other: Voiding Method Indwelling Catheter Toilet # Voids 5 - Labs CBC & Chem 7: 02/02/20 05:44 02/02/20 05:44 Labs: Abnormal Lab Results - Last 24 Hours (Table) 02/02/20 02/02/20 Range/Units 05:44 05:44 Hgb 11.3 L (11.4-16.0) gm/dL BUN 5.0 L (9.0-27.0) mg/dL BUN/Creatinine Ratio 8.33 L (12.00-20.00) Ratio Calcium 8.6 L (8.7-10.3) mg/dL
--- NOTE | 2020-02-02 16:23 | P.PN ---
Subjective 64-year-old pleasant female admitted for the low anterior resection of the colon and an end-to-end anastomosis. Patient still has a Hernandez catheter and still has epidural in place patient denied any pain at this time feeling better pass gas didn't have a small bowel movement. Patient blood pressure is low which is not an expected postsurgery patient was on amlodipine and LISA inhibitor both of which are being held at this time. 02/01/2020 Patient overall clinically doing wellexcept for having multiple episodes of diarrhea patient is on 1 25 mL of normal saline. Will order a C. diff testing patient does have history of C. diff. Patient blood pressures are remaining remains normal can you to hold off on antidepressant medications. 02/02/2020 Patient doesn't have any more diarrhea patient was started on liquid diet will advance to regular diet tomorrow. Patient is doing much better today patient blood pressure started going up patient was started on lisinopril at this time. Constitutional: Denied any fatigue denied any fever. Cardio vascular: denied any chest pain, palpitations Gastrointestinal denied any nausea vomiting Pulmonary: Denied any shortness of breath cough Neurologic denied any new focal deficits All inpatient medications were reviewed and appropriate changes in these medications as dictated in the interval history and assessment and plan. Objective - Vital Signs Vital signs: Vital Signs Temp 97.8 F 02/02/20 14:58 Pulse 67 02/02/20 14:58 Resp 18 02/02/20 14:58 BP 137/67 02/02/20 14:58 Pulse Ox 100 02/02/20 14:58 Intake & Output 02/01/20 02/02/20 02/02/20 18:59 06:59 18:59 Intake Total 1193.833 Output Total 925 Balance 268.833 Intake: Intake, IV Titration 1193.833 Amount D5-0.45% NaCl with KCl 1000 20Meq/l 1,000 ml @ 125 mls/hr IV .Q8H [facility] Rx#: [id number] Ropivacaine 250 mg 193.833 fentaNYL (PF) 625 mcg In Sodium Chloride 0.9% 188 ml @ Per Protocol EPIDURAL .Q0M PRN Rx#: [id number] Output: Urine 925 Uretheral (Hernandez) 700 Other: Voiding Method Indwelling Catheter Toilet # Voids 5 2 - Exam PHYSICAL EXAMINATION: GENERAL: The patient is alert and oriented x3, not in any acute distress. Well developed, well nourished. HEENT: Pupils are round and equally reacting to light. EOMI. No scleral icterus. No conjunctival pallor. Normocephalic, atraumatic. No pharyngeal erythema. No thyromegaly. CARDIOVASCULAR: S1 and S2 present. No murmurs, rubs, or gallops. PULMONARY: Chest is clear to auscultation, no wheezing or crackles. ABDOMEN: Soft, nontender, nondistended, normoactive bowel sounds. No palpable organomegaly. MUSCULOSKELETAL: No joint swelling or deformity. EXTREMITIES: No cyanosis, clubbing, or pedal edema. NEUROLOGICAL: Gross neurological examination did not reveal any focal deficits. SKIN: No rashes. - Labs CBC & Chem 7: 02/02/20 05:44 02/02/20 05:44 Labs: Abnormal Lab Results - Last 24 Hours (Table) 02/02/20 02/02/20 Range/Units 05:44 05:44 Hgb 11.3 L (11.4-16.0) gm/dL BUN 5.0 L (9.0-27.0) mg/dL BUN/Creatinine Ratio 8.33 L (12.00-20.00) Ratio Calcium 8.6 L (8.7-10.3) mg/dL Assessment and Plan Plan: -diarrhea: Resolved at this time unable to obtain full for C. diff -Hypotension: Resolved patient blood pressure started going up patient will be resumed on lisinopril -Hypertension: Management as mentioned above -Gastroesophageal reflux disease -asthma without any acute exacerbation -gastroesophageal reflux disease -Rheumatoid arthritis -Cholectomy: Pain management as per primary service
[2020-02-02] MEDS: MONTELUKAST 10 MG TAB PO SCH (20:34)
[2020-02-02] MEDS: FLUTICASONE 50MCG/SPRAY NASAL 16GM EA NOSTRIL SCH (20:35)
[2020-02-02] MEDS ORDERED: lisinopriL 10 MG TAB PO SCH (21:00)
[2020-02-03] MEDS: ONDANSETRON 4 MG/2 ML VIAL IVP PRN (01:12)
[2020-02-03] MEDS: FAMOTIDINE 20 MG/2 ML VIAL IV SCH (07:24)
[2020-02-03] MEDS: HEPARIN SODIUM,PORCINE 5,000 UNIT/ML 1 ML VIAL SQ SCH (07:24)
[2020-02-03] MEDS: HYDROcodone/APAP 5-325MG 1 EACH TAB PO PRN ×2 (07:31→15:26)
[2020-02-03] MEDS: ALBUTEROL NEBULIZED 2.5 MG/3 ML INHALATION PRN (08:11)
[2020-02-03] MEDS: SYMBICORT 80-4.5 MCG INHALER INHALATION SCH (08:11)
--- NOTE | 2020-02-03 14:59 | P.DS ---
Providers Date of admission: 01/30/20 10:47 Expected date of discharge: 02/03/20 Attending physician: Edmar Vance Consults: 01/30/20 15:44 Consult Physician Routine Consulting Provider: Kaykay Ortiz Consult Reason/Comments: Medical management Do you want consulting provider notified?: Yes Primary care physician: Velia Curry - Discharge Diagnosis(es) (1) Diverticulitis Current Visit: Yes Status: Acute (2) S/P colectomy Current Visit: Yes Status: Acute Hospital Course: CHIEF COMPLAINT: Diverticulitis HISTORY OF PRESENT ILLNESS: The patient is a 64-year-old female status post lower anterior resection, 01/30/2020. She has history of diverticulitis. She tolerated low fiber diet. Her pain is controlled. She is passing flatus and having bowel movements. ROS: No reports of nausea and vomiting. No fevers or chills. No new chest pain. No productive sputum PHYSICAL EXAM: VITAL SIGNS: Reviewed CONSTITUTIONAL: Well developed and in no acute distress. EYES: Conjuctivae without sclera icterus. Extraocular movements grossly intact. Wears glasses. HEAD, EARS, NOSE, THROAT: Moist buccal mucosa. Head is atraumatic, normocephalic. Hears conversational speech. No nasal drainage. NECK: Supple. No thyroidomegaly. RESPIRATORY: Non-labored respirations and equal bilateral excursions. CARDIOVASCULAR: Palpable 2+ radial pulses. ABDOMEN: Dressing intact. MUSCULOSKELETAL: No gross deformity of the lower extremities noted. No clubbing. No cyanosis. SKIN: Good skin turgor. Well perfused. NEUROLOGIC: Cranial nerves II through XII grossly intact. No focal or lateralizing signs. PSYCH: Appropriate affect. Alert and oriented to person, place and time. CLINICAL LABS: White blood cell count normal, 7.9. Hemoglobin stable 11.6-11.3. ASSESSMENT: 1. Diverticulitis PLAN: 1. She is doing well 2. May discharge home. Patient Condition at Discharge: Good Plan - Discharge Summary Discharge Rx Participant: Yes New Discharge Prescriptions: New Docusate [Colace] 100 mg PO BID #30 capsule HYDROcodone/APAP 5-325MG [[place] 5-325] 1 tab PO Q4HR PRN 3 Days #18 tab PRN Reason: Pain Continue Montelukast [Singulair] 10 mg PO HS Famotidine [Pepcid] 40 mg PO HS Fluticasone Nasal [place] [Flonase Nasal [place]] 2 spray EA NOSTRIL HS Propylene Glycol/Peg 400/Pf [Systane 0.3-0.4% Eye Drop] 1 drop BOTH EYES TID PRN PRN Reason: dry eyes amLODIPine [Norvasc] 5 mg PO HS lisinopriL [Zestril] 10 mg PO HS Albuterol Sulfate [Proair Hfa] 2 puff INHALATION RT-QID PRN PRN Reason: Shortness Of Breath Acetaminophen [Tylenol Extra Strength] 1,000 mg PO TID PRN PRN Reason: Pain Etanercept [Enbrel] 50 mg SQ DUKE Mometasone/Formoterol [Dulera 100 Mcg-5 Mcg Inhaler] 2 puff INHALATION BID #1 inhaler Discharge Medication List Montelukast [Singulair] 10 mg PO HS 08/01/14 [History] Famotidine [Pepcid] 40 mg PO HS 01/27/16 [History] Fluticasone Nasal [place] [Flonase Nasal [place]] 2 spray EA NOSTRIL HS 04/01/16 [History] Propylene Glycol/Peg 400/Pf [Systane 0.3-0.4% Eye Drop] 1 drop BOTH EYES TID PRN 07/29/17 [History] amLODIPine [Norvasc] 5 mg PO HS 02/02/18 [History] lisinopriL [Zestril] 10 mg PO HS 02/02/18 [History] Acetaminophen [Tylenol Extra Strength] 1,000 mg PO TID PRN 01/31/19 [History] Albuterol Sulfate [Proair Hfa] 2 puff INHALATION RT-QID PRN 01/31/19 [History] Etanercept [Enbrel] 50 mg SQ DUKE 09/23/19 [History] Mometasone/Formoterol [Dulera 100 Mcg-5 Mcg Inhaler] 2 puff INHALATION BID #1 inhaler 09/24/19 [Rx] Docusate [Colace] 100 mg PO BID #30 capsule 02/01/20 [Rx] HYDROcodone/APAP 5-325MG [[place] 5-325] 1 tab PO Q4HR PRN 3 Days #18 tab 02/01/20 [Rx] Follow up Appointment(s)/Referral(s): [facility], [NON-STAFF] - 1-2 Days Velia Curry MD [Primary Care Provider] - 1 Week Edmar Vance MD [STAFF PHYSICIAN] - 1 Week Patient Instructions/Handouts: Colectomy (IP), Laparoscopic Bowel Resection (DC), Colectomy Diet (DC) Activity/Diet/Wound Care/Special Instructions: No lifting over 10 pounds for 2 weeks. May shower. No bath tub soaks. Review handout on colectomy diet. Discharge Disposition: HOME SELF-CARE
[2020-02-03 15:17] VITALS: BP 135/69; PULSE 67; RESP 15; TEMP 98.2
--- NOTE | 2020-02-03 15:46 | P.PN ---
Subjective Progress Note Date: 02/03/20 64-year-old pleasant female admitted for the low anterior resection of the colon and an end-to-end anastomosis. Patient still has a Hernandez catheter and still has epidural in place patient denied any pain at this time feeling better pass gas didn't have a small bowel movement. Patient blood pressure is low which is not an expected postsurgery patient was on amlodipine and LISA inhibitor both of which are being held at this time. 02/01/2020 Patient overall clinically doing wellexcept for having multiple episodes of diarrhea patient is on 1 25 mL of normal saline. Will order a C. diff testing patient does have history of C. diff. Patient blood pressures are remaining remains normal can you to hold off on antidepressant medications. 02/02/2020 Patient doesn't have any more diarrhea patient was started on liquid diet will advance to regular diet tomorrow. Patient is doing much better today patient blood pressure started going up patient was started on lisinopril at this time. 02/03/20 Patient is seen today for post lower anterior resection, she continues to do well, she is tolerating diet pain is controlled. She has moved her bowels and is passing gas. Blood pressure has been well-controlled, her home dose of Norvasc has been home during hospitalization. Constitutional: Denied any fatigue denied any fever. Cardio vascular: denied any chest pain, palpitations Gastrointestinal denied any nausea vomiting Pulmonary: Denied any shortness of breath cough Neurologic denied any new focal deficits Objective - Vital Signs Vital signs: Vital Signs Temp 98.2 F 02/03/20 15:16 Pulse 67 02/03/20 15:16 Resp 15 02/03/20 15:16 BP 135/69 02/03/20 15:16 Pulse Ox 98 02/03/20 15:16 Intake & Output 02/02/20 02/03/20 02/03/20 18:59 06:59 18:59 Output Total 2 Balance -2 Output: Stool 2 Other: Voiding Method Toilet Toilet # Voids 2 1 2 - Exam PHYSICAL EXAMINATION: GENERAL: The patient is alert and oriented x3, not in any acute distress. Well developed, well nourished. HEENT: Pupils are round and equally reacting to light. EOMI. No scleral icterus. No conjunctival pallor. Normocephalic, atraumatic. No pharyngeal erythema. No thyromegaly. CARDIOVASCULAR: S1 and S2 present. No murmurs, rubs, or gallops. PULMONARY: Chest is clear to auscultation, no wheezing or crackles. ABDOMEN: Soft, nontender, nondistended, normoactive bowel sounds. No palpable organomegaly. MUSCULOSKELETAL: No joint swelling or deformity. EXTREMITIES: No cyanosis, clubbing, or pedal edema. NEUROLOGICAL: Gross neurological examination did not reveal any focal deficits. SKIN: No rashes. - Labs CBC & Chem 7: 02/02/20 05:44 02/02/20 05:44 Assessment and Plan Assessment: Plan: -diarrhea: Resolved at this time unable to obtain stool for C. diff -Hypotension: Improved, patient is continued on home dose of lisinopril. Recommend to continue to hold home dose of Norvasc and follow-up with PCP -Hypertension: Management as mentioned above -Gastroesophageal reflux disease -asthma without any acute exacerbation -gastroesophageal reflux disease -Rheumatoid arthritis -Colectomy: Lower anterior resection on 01/29 Pain management as per primary service. Discharge home today per primary team Thank you for the consultation.
[2020-02-03] MEDS ORDERED: FAMOTIDINE 20 MG TAB PO SCH (21:00)
--- NOTE | 2020-02-05 23:30 | CDI ---
Documentation Clarification Form Date: 02/06/2020 From: Georges Barber Phone: If you have a question about this query, please contact [employer] Installation Supervisor at [phone] between 8am and 5pm. Admit Date: 01/30/2020 Discharge Date: 02/03/2020 Patient Name: Kristen Dale Visit Number: [id number] ATTENTION: The Clinical Documentation Specialists (CDI) and [facility] Coding Staff appreciate your assistance in clarifying documentation. Please respond to the clarification below the line at the bottom and electronically sign. The CDI & [facility] Coding staff will review the response and follow-up if needed. Please note: Queries are made part of the Legal Health Record. If you have any questions, please contact the author of this message via ITS. Dear Edmar Knight MD., She did have some blood per rectum this morning is documented in the 01/30 progress notes mentioned Patients Admitting Diagnosis: Diverticulitis Post-Operative Diagnosis: Diverticulitis Procedure performed: Lower anterior resection History/Risk Factors: Diverticulitis, diarrhea 01/30 progress note She is passing gas.She did have some blood per rectum this morning.Her pain is controlled.She has epidural and Hernandez catheter In order to accurately reflect this patients severity of illness, please clarify if the hemorrhage per rectum is___ -is a complication of surgical procedure -is an expected outcome of the surgical procedure -is related to co-morbid condition(s) of -Other please specify -Unable to determine The rectal bleeding is an expected outcome of the surgical procedure. His due to the surgical stapler. It is old blood within the rectum. BELL
== END 2020-02-03 15:53 | disposition home health service (06) | DRG 331 ==
LOC: 2ORMAIN 10:47 → 4SSUR 16:17
PROVIDERS: ADMIT Surgery; ATTEND Surgery
PROC: 0DTN0ZZ Resection of Sigmoid Colon, Open Approach (ICD-10-PCS; principal; 2020-01-30 12:35)
PROC: 0DTJ0ZZ Resection of Appendix, Open Approach (ICD-10-PCS; principal; 2020-01-30 12:35)
DX: K57.92 Diverticulitis of intestine, part unspecified, without perforation or abscess without bleeding (principal); I10 Essential (primary) hypertension; J45.909 Unspecified asthma, uncomplicated; M06.9 Rheumatoid arthritis, unspecified; K21.9 Gastro-esophageal reflux disease without esophagitis; M19.90 Unspecified osteoarthritis, unspecified site; I95.89 Other hypotension; Z85.42 Personal history of malignant neoplasm of other parts of uterus; Z86.73 Personal history of transient ischemic attack (TIA), and cerebral infarction without residual deficits; Z90.710 Acquired absence of both cervix and uterus; Z87.891 Personal history of nicotine dependence; Z80.6 Family history of leukemia; Z79.899 Other long term (current) drug therapy; Z79.51 Long term (current) use of inhaled steroids; Z86.19 Personal history of other infectious and parasitic diseases; Z90.49 Acquired absence of other specified parts of digestive tract; Z98.890 Other specified postprocedural states; Z81.8 Family history of other mental and behavioral disorders; Z88.1 Allergy status to other antibiotic agents; Z88.8 Allergy status to other drugs, medicaments and biological substances
CPT/HCPCS: 80048; 84132; 85025; 85027; 85610; 85730; 86850; 86900; 86901; 88302; 88307; 94640

== ENCOUNTER → 2020-02-27 | Outpatient (CLI) | payer MEDICARE ==
[2020-02-27 10:21] VITALS: BP 137/83; PULSE 68; RESP 16; TEMP 98.1
--- NOTE | 2020-02-27 10:37 | P.PAINPG ---
Subjective Progress Note Date: 02/26/20 Subjective Progress Note Date: 11/14/19 This is a follow-up visit for this 64 years old female with a chronic history of severe low back pain, she is diagnosed with lumbar spondylosis with lumbar facet arthropathy without myelopathy, and right sacral iliac joint dysfunction/right sacroiliitis, status post radiofrequency ablation of L5-S1 and radiofrequency thermocoagulation of the branches of S1/S2/S3 on 01/2020. Recently had anterior colon resection with Dr. Vnace she reported that her pain improved significantly, her function improved and her pain decreased significantly, she denies any fever or night sweats she denies any discharge at that site ,she denies any motor or sensory deficit, she denies any fever or night sweats, and there is no change in the bowel movement. She feels that there are procedures provided adequate relief. No symptoms of cauda equina syndrome such as bowel or bladder incontinence, leg weakness, saddle anesthesia Review of systems is negative for chest pain, shortness of breath, new onset weakness, numbness/tingling, abdominal pain, malaise, fever, night sweats, chills, homicidal or suicidal ideation, or bowel or bladder incontinence. - Exam Physical Examinations : -Constitutiona : Cooperative , not in acute distress . -HEENT : nech : supple , no Lymphadenopathy , normal thyroid size . : eyes : no ptosis , no icterus, no photophobia . - neurologic : Cranial nerve II to XII intact , no focal neurological deffecit . -psychatric : alert , oriented X 3 , appropriate affect , intact judgment and insight . -Lymphatic : no Lymphadenopathy . - musculoskeltal : Lumber spine moter stegnth lower extremities ,thigh and legs 5/5 Right side , 5/5 Left side deep tendon reflexes : normal Knee Jerk , normal ankle Jerk Fabere test= positive Right , and positive LT . Localized tenderness at the medial aspect of the right sacroiliac joint, no erythema , no discharge ,no swelling. Assessment and Plan Plan: Assessment and plan= chronic low back pain secondary to lumbar spondylosis and sacroiliitis/sacroiliac joint dysfunction Follow up as needed for repeat procedure. Patient is doing very well and will call if needed Smoking Status Former smoker Blood Pressure 152/90 Pain Intensity [Right Hip] 7 Scale Used Numeric (1 - 10) Hx Alcohol Use (MH) Yes: rare Controlled Substance Measures - Controlled Substance Measures Is patient prescribed a controlled substance at discharge?: No PQRS Measure Charge Sheet Measure #226: Tobacco Use: Screen & Cessation Intervention: Pt not a tobacco user Measure #111: Pneumonia Vaccination: Pneumococcal vaccine NOT administered or previously given Measure #47: Advance Care Plan: Advance care planning discussed & documented, pt chose/unable to give Measure #412: Opioid Treatment Agreement: No documentation of signed opioid treatment agreement Measure #408: Opioid Therapy Follow-up Evaluation: Patient had NO f/u eval minimum every 3 months during opioid therapy Measure #317: Preventitive Care & Scrn High Bld Press & F/U: Normal blood pressure, f/u not required Measure #128: Body Mass Index (BMI) Screening & Follow-up: BMI documented within normal parameters Measure #131: Pain Assessment & Follow-up: Pain positive & plan documented Measure #431: Unhealthy Alcohol Use Preventative Care & Scrn: Patient not identified as an unhealthy alcohol user PQRS Narrative: Smoking Status Former smoker Hx Alcohol Use (MH) Yes: rare Controlled Substance Measures - Controlled Substance Measures Is patient prescribed a controlled substance at discharge?: No PQRS Measure Charge Sheet PQRS Narrative: Smoking Status Former smoker Pain Intensity [Lower Back] 3 Scale Used Numeric (1 - 10) Hx Alcohol Use (MH) Yes: rare Home Medications: Ambulatory Orders Montelukast [Singulair] 10 mg PO HS 08/01/14 Famotidine [Pepcid] 40 mg PO HS 01/27/16 Fluticasone Nasal [place] [Flonase Nasal [place]] 2 spray EA NOSTRIL HS 04/01/16 Propylene Glycol/Peg 400/Pf [Systane 0.3-0.4% Eye Drop] 1 drop BOTH EYES TID PRN 07/29/17 lisinopriL [Zestril] 10 mg PO HS 02/02/18 Acetaminophen [Tylenol Extra Strength] 1,000 mg PO TID PRN 01/31/19 Albuterol Sulfate [Proair Hfa] 2 puff INHALATION RT-QID PRN 01/31/19 Etanercept [Enbrel] 50 mg SQ DUKE 09/23/19 Mometasone/Formoterol [Dulera 100 Mcg-5 Mcg Inhaler] 2 puff INHALATION BID #1 inhaler 09/24/19 Docusate [Colace] 100 mg PO BID #30 capsule 02/01/20 HYDROcodone/APAP 5-325MG [[place] 5-325] 1 tab PO Q4HR PRN 3 Days #18 tab 02/01/20 Controlled Substance Measures - Controlled Substance Measures Is patient prescribed a controlled substance at discharge?: No
== END | disposition home or self-care (01) ==
LOC: PNWHC3 10:06
PROVIDERS: ATTEND Anesthesiology
DX: M46.1 Sacroiliitis, not elsewhere classified (principal); M47.816 Spondylosis without myelopathy or radiculopathy, lumbar region; G89.29 Other chronic pain; Z87.891 Personal history of nicotine dependence; Z79.891 Long term (current) use of opiate analgesic; Z79.899 Other long term (current) drug therapy
CPT/HCPCS: 99211

== ENCOUNTER → 2020-10-14 | Outpatient (CLI) | payer MEDICARE ==
--- NOTE | 2020-10-15 11:41 | CT ---
EXAMINATION TYPE: CT abdomen pelvis w con DATE OF EXAM: 10/14/2020 HISTORY: Diarrhea CT DLP: 392.20mGycm Automated Exposure Control for Dose Reduction was Utilized. CONTRAST: CT scan of the abdomen and pelvis is performed with IV Contrast, patient injected with 80 mL of Isovu e 300. COMPARISON: CT abdomen and pelvis August 25, 2018 and older CTs FINDINGS: LUNG BASES: No significant abnormality is appreciated. LIVER/GB: Mild to moderate central extrahepatic lung with mild to moderate left-sided intrahepatic bi liary dilatation is now present. Common bile duct measures up to 16 mm coronal image 17 towards the p ora hepatis. Some tapering towards the duodenal ampulla down to 10 mm coronal image 19. Abrupt cut o ff noted coronal image 21. Mild dilatation of the pancreatic duct in the pancreatic head up to 6 mm i nferior to this. Gallbladder not seen and presumed surgically absent similar to prior PANCREAS: Some generalized thinning of the pancreas slightly more prominent than prior with new ducta l dilatation. SPLEEN: No significant abnormality is seen. ADRENALS: No significant abnormality is seen. KIDNEYS: Prominent central simple parapelvic cyst in the left kidney redemonstrated. Symmetric cortic al measuring uptake and excretion without hydronephrosis noted. BOWEL: Evaluation suboptimal as patient has little intra-abdominal fat and oral contrast just reaches level of cecum. No suspicious small or large bowel dilatation. Surgical changes sigmoid colon left p josé miguel axial image 65 now present. Less well-seen diverticulosis at this level after surgery. UTERUS/ADNEXA: Uterus surgically absent or markedly atrophic. LYMPH NODES: No greater than 1cm abdominal or pelvic lymph nodes are appreciated. OSSEOUS STRUCTURES: Transitional type vertebra lumbosacral junction. OTHER: No significant additional abnormality is seen. IMPRESSION: New mild/moderate biliary dilatation. Obstructing ampullary mass or neoplasm needs to be considered. Further investigation with ERCP and/or MRCP is warranted. Prior distal colonic bowel surg doron. No bowel obstruction.
== END | disposition home or self-care (01) ==
LOC: RADCTMAIN 13:37
PROVIDERS: ATTEND Family Medicine
DX: K83.8 Other specified diseases of biliary tract (principal)
CPT/HCPCS: 82565; 84520; 74177; 36415; Q9967

== ENCOUNTER 2020-10-28 10:13 | Emergency (ER) | payer MEDICARE ==
[2020-10-28 10:19] VITALS: TEMP 97.8
[2020-10-28] MEDS ORDERED: SODIUM CHLORIDE 0.9% 1,000 ML IV STA (10:25)
[2020-10-28] MEDS ORDERED: MORPHINE SULFATE 4 MG/ML SYRINGE IV STA (10:25)
[2020-10-28] MEDS ORDERED: ONDANSETRON 4 MG/2 ML VIAL IVP STA (10:25)
[2020-10-28 11:15] LABS: Basophils # (A) 0.1 k/uL (0-0.2); Basophils % (A) 1 %; Eosinophils # (A) 0.1 k/uL (0-0.7); Eosinophils % (A) 2 %; HGB 14.1 gm/dL (11.4-16.0); Lymphocytes # (A) 2.2 k/uL (1.0-4.8); Lymphocytes % (A) 28 %; MCH 30.5 pg (25.0-35.0); MCHC 33.5 g/dL (31.0-37.0); MCV 91.1 fL (80.0-100.0); Mean Platelet Volume 9.7; Monocytes # (A) 0.4 k/uL (0-1.0); Monocytes % (A) 5 %; Neutrophils # (A) 5.1 k/uL (1.3-7.7); Neutrophils % (A) 64 %; Platelet Count 236 k/uL (150-450); RBC 4.61 m/uL (3.80-5.40); RDW 13.2 % (11.5-15.5); WBC 7.9 k/uL (3.8-10.6)
[2020-10-28 11:22] LABS: Albumin 4.7 g/dL (3.5-5.0); Calcium 9.9 mg/dL (8.4-10.2); Total Bilirubin 0.8 mg/dL (0.2-1.3); Total Protein 7.5 g/dL (6.3-8.2)
[2020-10-28 11:23] LABS: Potassium 4.7 mmol/L (3.5-5.1)
[2020-10-28 11:24] LABS: Appearance,Urine Clear (Clear); Bilirubin,Urine Negative (Negative); Blood,Urine Small (Negative); Color,Urine Yellow; Glucose,Urine (UA) Negative (Negative); Hyaline Casts,Urine 5 /lpf (0-2); Ketones,Urine Trace (Negative); Leukocyte Esterase,Urine Negative (Negative); Mucus,Urine Moderate /hpf; Nitrite,Urine Negative (Negative); PH, Urine 5.5 (5.0-8.0); Protein,Urine Trace (Negative); RBC,Urine 5 /hpf (0-5); Specific Gravity,Urine 1.025 (1.001-1.035); Squamous Epithelial Cell,Urine <1 /hpf (0-4); Urobilinogen,Urine <2.0 mg/dL (<2.0); WBC,Urine 2 /hpf (0-5)
--- NOTE | 2020-10-28 12:04 | US ---
EXAMINATION TYPE: US abdomen complete DATE OF EXAM: 10/28/2020 COMPARISON: NONE CLINICAL HISTORY: abdominal pain. LUQ pain, cholecystectomy and bowel resection last year EXAM MEASUREMENTS: Liver Length: 15.6 cm Gallbladder Wall: Surgically absent CBD: 1.2 cm Spleen: 8.1 cm Right Kidney: 9.6 x 4.9 x 3.7 cm Left Kidney: 9.7 x 3.6 x 5.3 cm Pancreas: wnl Liver: intrahepatic duct dilatation Gallbladder: Surgically absent Evidence for sonographic Griffiths's sign: no CBD: Enlarged status post cholecystectomy. Spleen: wnl Right Kidney: wnl Left Kidney: mild hydronephrosis seen Upper IVC: wnl Abd Aorta: wnl The liver is homogenous. The intrahepatic portion of the IVC and proximal abdominal aorta are within normal limits. The visualized portions of the pancreas are homogenous. The spleen is unremarkable. Kidneys are symmetric and free of hydronephrosis. No renal lesions are seen. IMPRESSION: 1. There is intrahepatic biliary ductal dilatation. 2. Status post cholecystectomy with enlargement of the common bile duct.
--- NOTE | 2020-10-28 12:10 | ED ---
Abdominal Pain HPI - General Source: patient, RN notes reviewed Mode of arrival: ambulatory Limitations: no limitations <Artemio Reddy - Last Filed: 10/28/20 12:15> <Fabiola Moore - Last Filed: 10/30/20 01:21> - General Chief Complaint: Abdominal Pain Stated Complaint: left side abd pain, diarrhea Time Seen by Provider: 10/28/20 10:20 - History of Present Illness Initial Comments: Patient is a 65-year-old female that presents to emergency department complaining of abdominal pain with some nausea for the past several days. She noted that she had a computed tomography scan done on October 15 that showed some Mild to moderate biliary dilatation. Obstructing ampullary mass or neoplasm needs to be considered. Investigation with ERCP and/or MRCP is warranted. She notes that she does have a follow-up with Dr. Felipe next Tuesday for further evaluation of the CT result findings. She did not appear to be in any distress or pain while sitting up in bed during exam and interview. She was a well-ap pearing 65-year-old female. She denied any chest pain shortness of breath headache vomiting constipation fever fatigue chills. (Artemio Reddy) - Related Data Home Medications Medication Instructions Recorded Confirmed Montelukast [Singulair] 10 mg PO HS 08/01/14 02/21/20 Famotidine [Pepcid] 40 mg PO HS 01/27/16 02/21/20 Fluticasone Nasal [place] [Flonase 2 spray EA NOSTRIL HS 04/01/16 02/21/20 Nasal [place]] Propylene Glycol/Peg 400/Pf 1 drop BOTH EYES TID PRN 07/29/17 02/21/20 [Systane 0.3-0.4% Eye Drop] lisinopriL [Zestril] 10 mg PO HS 02/02/18 02/21/20 Acetaminophen [Tylenol Extra 1,000 mg PO TID PRN 01/31/19 02/21/20 Strength] Albuterol Sulfate [Proair Hfa] 2 puff INHALATION RT-QID PRN 01/31/19 02/21/20 Etanercept [Enbrel] 50 mg SQ DUKE 09/23/19 02/21/20 Previous Rx's Medication Instructions Recorded Mometasone/Formoterol [Dulera 100 2 puff INHALATION BID #1 inhaler 09/24/19 Mcg-5 Mcg Inhaler] Docusate [Colace] 100 mg PO BID #30 capsule 02/01/20 HYDROcodone/APAP 5-325MG [[place] 1 tab PO Q4HR PRN 3 Days #18 tab 02/01/20 5-325] Allergies Allergy/AdvReac Type Severity Reaction Status Date / Time amoxicillin trihydrate Allergy Intermediate Rash/Hives Verified 10/28/20 10:19 [From Augmentin] potassium clavulanate Allergy Rash/Hives Verified 10/28/20 10:19 [From Augmentin] Review of Systems ROS Other: All systems not noted in ROS Statement are negative. <Artemio Reddy - Last Filed: 10/28/20 12:15> ROS Other: All systems not noted in ROS Statement are negative. <Fabiola Moore - Last Filed: 10/30/20 01:21> ROS Statement: Those systems with pertinent positive or pertinent negative responses have been documented in the HPI. Past Medical History Past Medical History: Asthma, Cancer, CVA/TIA, Eye Disorder, GERD/Reflux, Hypertension, Rheumatoid Arthritis (RA) Additional Past Medical History / Comment(s): diverticulitis,hx chronic low back pain-bulging discs, DJD, osteopenia, hx SMA (SUPERIOR MESENTERIC ARTERY SY NDROME), seasonal allergies, Endometrial CA. 1998 (surgery)., CVA 1999 (no deficits), BILAT glaucoma History of Any Multi-Drug Resistant Organisms: C-DIFF Date of last positivie culture/infection: 2007 MDRO Source:: stool Past Surgical History: Bowel Resection, Cholecystectomy, Heart Catheterization, Hysterectomy, Orthopedic Surgery Additional Past Surgical History / Comment(s): Rt foot bunionectomy. Cervical cone bx. surgery for SMA on intestines, laser eye surgery-bilateral for glaucoma. Colonoscopy 2013. Laparotomy for superior mesenteric artery syndrome. HEART CATH 02/06/18, pain clinic procedures. 01/30/20 LOWER ANTERIOR RESECTION Past Anesthesia/Blood Transfusion Reactions: No Reported Reaction Additional Past Anesthesia/Blood Transfusion Reaction / Comment(s): Pt received blood with no reaction following uterine hemorrhage. Past Psychological History: No Psychological Hx Reported Smoking Status: Former smoker Past Alcohol Use History: Rare Past Drug Use History: None Reported - Past Family History Father Family Medical History: Cancer Additional Family Medical History / Comment(s): colon Mother Family Medical History: Dementia Sister(s) Family Medical History: Cancer Additional Family Medical History / Comment(s): Leukemia <Artemio Reddy - Last Filed: 10/28/20 12:15> General Exam Limitations: no limitations General appearance: alert, in no apparent distress Head exam: Present: atraumatic, normocephalic, normal inspection Eye exam: Present: normal appearance, PERRL, EOMI. Absent: scleral icterus, conjunctival injection, periorbital swelling Neck exam: Present: normal inspection Respiratory exam: Present: normal lung sounds bilaterally. Absent: respiratory distress, wheezes, rales, rhonchi, stridor Cardiovascular Exam: Present: regular rate, normal rhythm, normal heart sounds. Absent: systolic murmur, diastolic murmur, rubs, gallop, clicks GI/Abdominal exam: Present: soft, tenderness (Left upper quadrant), normal bowel sounds. Absent: distended, guarding, rebound, rigid Extremities exam: Present: normal inspection, full ROM, normal capillary refill. Absent: tenderness, pedal edema, joint swelling, calf tenderness Neurological exam: Present: alert, oriented X3 Psychiatric exam: Present: normal affect, normal mood Skin exam: Present: warm, dry, intact, normal color. Absent: rash <Artemio Reddy - Last Filed: 10/28/20 12:15> Course Vital Signs 10/28/20 10/28/20 10/28/20 10:14 11:02 11:38 Temperature 97.8 F Pulse Rate 67 60 59 L Respiratory 18 18 18 Rate Blood Pressure 117/76 125/72 122/85 O2 Sat by Pulse 98 100 99 Oximetry 10/28/20 10/28/20 12:11 12:31 Temperature 97.8 F Pulse Rate 63 92 Respiratory 16 16 Rate Blood Pressure 123/71 123/71 O2 Sat by Pulse 99 100 Oximetry Medical Decision Making - Lab Data Result diagrams: 10/28/20 10:50 10/28/20 10:50 - Radiology Data Radiology results: report reviewed, image reviewed <Artemio Reddy - Last Filed: 10/28/20 12:15> - Lab Data Result diagrams: 10/28/20 10:50 10/28/20 10:50 <Fabiola Moore - Last Filed: 10/30/20 01:21> - Medical Decision Making 65-year-old female complaining of abdominal pain and some nausea for the past several days. Labs, abdominal ultrasound, 4 mg of Zofran, 4 mg of morphine 1 L normal saline ordered. Labs unremarkable. Ultrasound confirms finding from previous computed tomography scan. Case discussed with Dr. Moore, patient can discharge home with scheduled follow- up to Dr. Felipe (Artemio Reddy) I was available for consultation in the emergency department. The history and physical exam were done by the midlevel provider. I was consulted for this patients care. I reviewed the case with the midlevel provider and based on their presentation of the patient, I agree with the assessment, medical decision making and plan of care as documented. Chart was dictated using [employer] dictation software. Attempts were made to correct any dictation errors however some typographical errors may persist. (Fabiola Moore) - Lab Data Lab Results 10/28/20 10/28/20 10/28/20 Range/Units 10:50 10:50 10:50 WBC 7.9 (3.8-10.6) k/uL RBC 4.61 (3.80-5.40) m/uL Hgb 14.1 (11.4-16.0) gm/dL Hct 42.0 (34.0-46.0) % MCV 91.1 (80.0-100.0) fL MCH 30.5 (25.0-35.0) pg MCHC 33.5 (31.0-37.0) g/dL RDW 13.2 (11.5-15.5) % Plt Count 236 (150-450) k/uL MPV 9.7 Neutrophils % 64 % Lymphocytes % 28 % Monocytes % 5 % Eosinophils % 2 % Basophils % 1 % Neutrophils # 5.1 (1.3-7.7) k/uL Lymphocytes # 2.2 (1.0-4.8) k/uL Monocytes # 0.4 (0-1.0) k/uL Eosinophils # 0.1 (0-0.7) k/uL Basophils # 0.1 (0-0.2) k/uL Sodium 140 (137-145) mmol/L Potassium 4.7 (3.5-5.1) mmol/L Chloride 105 (98-107) mmol/L Carbon Dioxide 24 (22-30) mmol/L Anion Gap 11 mmol/L BUN 17 (7-17) mg/dL Creatinine 0.87 (0.52-1.04) mg/dL Est GFR (CKD-EPI)AfAm 81 (>60 ml/min/1.73 sqM) Est GFR (CKD-EPI)NonAf 70 (>60 ml/min/1.73 sqM) Glucose 97 (74-99) mg/dL Calcium 9.9 (8.4-10.2) mg/dL Total Bilirubin 0.8 (0.2-1.3) mg/dL AST 52 H (14-36) U/L ALT 31 (4-34) U/L Alkaline Phosphatase 74 (38-126) U/L Total Protein 7.5 (6.3-8.2) g/dL Albumin 4.7 (3.5-5.0) g/dL Amylase 76 (30-110) U/L Lipase 78 (23-300) U/L Urine Color Yellow Urine Appearance Clear (Clear) Urine pH 5.5 (5.0-8.0) Ur Specific [place] 1.025 (1.001-1.035) Urine Protein Trace H (Negative) Urine Glucose (UA) Negative (Negative) Urine Ketones Trace H (Negative) Urine Blood Small H (Negative) Urine Nitrite Negative (Negative) Urine Bilirubin Negative (Negative) Urine Urobilinogen <2.0 (<2.0) mg/dL Ur Leukocyte Esterase Negative (Negative) Urine RBC 5 (0-5) /hpf Urine WBC 2 (0-5) /hpf Ur Squamous Epith Cells <1 (0-4) /hpf Hyaline Casts 5 H (0-2) /lpf Urine Mucus Moderate H (None) /hpf - Radiology Data Abdominal ultrasound: There is intrahepatic biliary ductal dilatation. Status post cholecystectomy with enlargement of the common bile duct. (Artemio Reddy) Disposition Is patient prescribed a controlled substance at d/c from ED?: No Time of Disposition: 12:16 <Artemio Reddy - Last Filed: 10/28/20 12:15> <Fabiola Moore - Last Filed: 10/30/20 01:21> Clinical Impression: Abdominal pain Disposition: HOME SELF-CARE Condition: Stable Instructions (If sedation given, give patient instructions): Abdominal Pain (ED) Additional Instructions: Please return to the Emergency Department if symptoms worsen or any other concerns. Follow-up with primary care as needed. Follow-up with Dr. Felipe as planned. Take Tylenol and Motrin as needed for pain. Increase oral fluids. Referrals: Velia Curry MD [Primary Care Provider] - 1-2 days
[2020-10-28 12:12] VITALS: BP 123/71; RESP 16
[2020-10-28 12:32] VITALS: PULSE 92
== END 2020-10-28 12:35 | disposition home or self-care (01) ==
LOC: EC 10:13
DX: R10.12 Left upper quadrant pain (principal); I10 Essential (primary) hypertension; J45.909 Unspecified asthma, uncomplicated; K21.9 Gastro-esophageal reflux disease without esophagitis; M06.9 Rheumatoid arthritis, unspecified; Z87.891 Personal history of nicotine dependence; Z79.51 Long term (current) use of inhaled steroids; Z79.899 Other long term (current) drug therapy; Z88.0 Allergy status to penicillin; Z88.1 Allergy status to other antibiotic agents; Z90.49 Acquired absence of other specified parts of digestive tract; Z86.73 Personal history of transient ischemic attack (TIA), and cerebral infarction without residual deficits
CPT/HCPCS: 36415; 80053; 82150; 83690; 85025; 81001; 76700; 96374; 96375; 96361; 99284; J2270; J2405

== ENCOUNTER → 2020-11-07 | Outpatient (CLI) | payer MEDICARE ==
[2020-11-07 14:53] LABS: Basophils # (A) 0.04 X 10*3/uL (0.00-0.10); Basophils % (A) 0.6 %; Eosinophils # (A) 0.07 X 10*3/uL (0.04-0.35); Eosinophils % (A) 1.1 %; HCT 41.2 % (37.2-46.3); HGB 13.1 g/dL (12.0-15.0); Lymphocytes # (A) 1.65 X 10*3/uL (0.90-5.00); Lymphocytes % (A) 26.6 %; MCH 29.5 pg (27.0-32.0); MCHC 31.8 g/dL (32.0-37.0); MCV 92.8 fL (80.0-97.0); Mean Platelet Volume 11.6 fL (9.5-12.2); Monocytes # (A) 0.53 X 10*3/uL (0.20-1.00); Monocytes % (A) 8.5 %; Platelet Count 245 X 10*3/uL (140-440); RBC 4.44 X 10*6/uL (4.10-5.20); RDW 13.3 % (11.5-14.5)
[2020-11-07 20:27] LABS: ALT 27 U/L (8-44); AST 44 U/L (13-35); Albumin/Globulin Ratio 1.96 (1.60-3.17); Alkaline Phosphatase 89 U/L (41-126); C Reactive Protein <0.4 mg/dL (0.0-0.8); Calcium 9.3 mg/dL (8.7-10.3); Carbon Dioxide 26.2 mmol/L (21.6-31.8); Chloride 106 mmol/L (96-109); Globulin 2.3 g/dL (1.6-3.3); Glucose 118 mg/dL (70-110); Non-African American GFR(CKD) 58.7 (60.0-200.0); Potassium 4.4 mmol/L (3.5-5.5); Sodium 142 mmol/L (135-145); Total Bilirubin 0.5 mg/dL (0.3-1.2); Total Protein 6.8 g/dL (6.2-8.2)
[2020-11-07 23:32] LABS: Erythrocyte Sedimentation Rate 4 mm/Hr (0-30)
== END | disposition home or self-care (01) ==
LOC: LABWHC1 07:49
PROVIDERS: ATTEND Internal Medicine
DX: R19.7 Diarrhea, unspecified (principal)
CPT/HCPCS: 36415; 80053; 82656; 83516; 83630; 83993; 84439; 84443; 85025; 85652; 86140; 87045; 87046; 87328; 87329

== ENCOUNTER → 2020-11-19 | Outpatient (CLI) | payer MEDICARE ==
--- NOTE | 2020-11-20 05:55 | MR ---
EXAMINATION TYPE: MR abdomen wo/w con DATE OF EXAM: 11/19/2020 COMPARISON: None HISTORY: No prior MR, Prior CT and US on synapse, gen left sided abd pain, loose stools, and weight l oss, history of bowel resection 01/2020, and SMA sx 07/2014 CONTRAST: Standard multiplanar, multisequence MRI departmental protocol utilizing 4ml mL intravenous Gadavist g adolinium contrast. There are MRCP images. The stomach is large. Spleen is intact. I see no focal liver defect. There is no evidence of pancreat ic mass. Pancreatic duct appears normal. The bile ducts are not dilated. There is no adrenal mass. Changes at the left renal hilum consistent with multiple parapelvic cysts. I see no renal atrophy. There is no evidence of a solid renal mass. Contrast images show normal enhancement of the portal venous system. There is no ascites. IMPRESSION: Cholecystectomy. No evidence of filling defect in the bile ducts. Biliary tree appears within normal limits. The bile ducts appear within normal limits. I see no evidence of a filling defect. Common bi le duct measures 8 mm. Gallbladder appears absent.
== END | disposition home or self-care (01) ==
LOC: RADMRIMAIN 20:34
PROVIDERS: ATTEND Internal Medicine
DX: R10.9 Unspecified abdominal pain (principal); R19.5 Other fecal abnormalities; R63.4 Abnormal weight loss; Z90.49 Acquired absence of other specified parts of digestive tract
CPT/HCPCS: 74183; A9585

== ENCOUNTER → 2021-02-12 | Outpatient (CLI) | payer MEDICARE ==
--- NOTE | 2021-02-13 15:12 | MM ---
Reason for exam: screening (asymptomatic). Last mammogram was performed 3 years and 3 months ago. History: Patient is postmenopausal and has history of endometrial cancer at age 51. Benign excisional biopsy of the left breast, 1989. Physical Findings: A clinical breast exam by your physician is recommended on an annual basis and results should be correlated with mammographic findings. MG 3D Screening Mammo W/Cad Bilateral CC and MLO view(s) were taken. Prior study comparison: November 22, 2017, bilateral MG 3d screening mammo w/cad. November 03, 2016, bilateral MG 3d screening mammo w/cad. The breast tissue is heterogeneously dense. This may lower the sensitivity of mammography. No significant changes when compared with prior studies. ASSESSMENT: Benign, BI-RAD 2 RECOMMENDATION: Routine screening mammogram of both breasts in 1 year.
== END | disposition home or self-care (01) ==
LOC: RADMAMWWP 07:13
PROVIDERS: ATTEND Family Medicine
DX: Z12.31 Encounter for screening mammogram for malignant neoplasm of breast (principal); Z78.0 Asymptomatic menopausal state; Z85.42 Personal history of malignant neoplasm of other parts of uterus
CPT/HCPCS: 77063; 77067

== ENCOUNTER → 2021-03-02 | Outpatient (CLI) | payer MEDICARE ==
--- NOTE | 2021-03-02 07:53 | P.PN ---
Subjective Progress Note Date: 03/02/21 To recap: Kristen is a 65 years old female with a chronic history of severe low back pain, she is diagnosed with lumbar spondylosis with lumbar facet arthropathy without myelopathy, and right sacral iliac joint dysfunction/right sacroiliitis, status post radiofrequency ablation of L5-S1 and radiofrequency thermocoagulation of the branches of S1/S2/S3 on 01/2020. She reported greater than 100% pain relief for over 11 months since her last radiofrequency ablation., her function improved and her pain decreased significantly. Continues to be very active at home which includes walking several miles a day, swimming and doing her at home exercises that she had gotten from physical therapy. She reports her pain is worse with certain movements and changes in the weather. Her pain is reduced with rest and interventions. she denies any fever or night sweats she denies any discharge at that site ,she denies any motor or sensory deficit, she denies any fever or night sweats, and there is no change in the bowel movement. She feels that there are procedures provided adequate relief. No symptoms of cauda equina syndrome such as bowel or bladder incontinence, leg weakness, saddle anesthesia Review of systems is negative for chest pain, shortness of breath, new onset weakness, numbness/tingling, abdominal pain, malaise, fever, night sweats, chills, homicidal or suicidal ideation, or bowel or bladder incontinence. Objective - Exam Physical Examinations : -Constitutiona : Cooperative , not in acute distress . -HEENT : nech : supple , no Lymphadenopathy , normal thyroid size . : eyes : no ptosis , no icterus, no photophobia . - neurologic : Cranial nerve II to XII intact , no focal neurological deffecit . -psychatric : alert , oriented X 3 , appropriate affect , intact judgment and insight . -Lymphatic : no Lymphadenopathy . - musculoskeltal : Lumber spine moter stegnth lower extremities ,thigh and legs 5/5 Right side , 5/5 Left side deep tendon reflexes : normal Knee Jerk , normal ankle Jerk lumber facet Loading Test =positive Right , positive Left Range of motion of the lumbar spine Flexion 30 degrees, extension 10 degrees strait leg raising test = negative Fabere test= positive Right , Sever tenderness over the Sacroiliac joint on the Right [place] test= positive right Seated flexion test= positive right Distraction test= positive right Sacroiliac compression test= positive right Assessment and Plan Assessment: Assessment and plan Assessment: Lumbar spondylosis with facet arthropathy without myelopathy Sacroiliac joint dysfunction Plan: She could benefit from repeat right-sided RFA at L5-S1 Dr. Craig was available by phone for consultation during his visit. I have spent 21 minutes on patient care today. The time was used to review the medical records including relevant urine studies and Prescription history (MAPs), review of the available imaging, evaluation and examination of the patient, coordination of care with the medical staff and if applicable referring physicians, as well as creation of the medical record. - PQRS measures = - Patient's medications are documented in the chart. -Tobacco use is negative -Patient's has not received pneumococcal vaccine. -Advanced care planning discussed, patient not eligible. -Opiate contract signed. -Pain positive and follow-up visit/procedure is scheduled. -Patient's blood pressure measured 161/79 , and documented in the record ,and patient will follow up with the primary care. -Patient was not identified as an unhealthy alcohol user Time with Patient: Less than 30
[2021-03-02 08:02] VITALS: BP 161/79; PULSE 87; RESP 18; TEMP 97.5
== END ==
LOC: PNWHC3 07:18
PROVIDERS: ATTEND Student in an Organized Health Care Education/Training Program
DX: M47.816 Spondylosis without myelopathy or radiculopathy, lumbar region (principal); M53.3 Sacrococcygeal disorders, not elsewhere classified; F17.200 Nicotine dependence, unspecified, uncomplicated; Z88.6 Allergy status to analgesic agent
CPT/HCPCS: 99211

== ENCOUNTER 2021-05-01 07:48 | Day surgery (SDC) | payer MEDICARE ==
[2021-05-01] MEDS ORDERED: LACTATED RINGERS 1,000 ML IV ONE (08:20)
[2021-05-01 08:28] VITALS: RESP 16; TEMP 97.7
[2021-05-01] MEDS ORDERED: MIDAZOLAM 2 MG/2 ML VIAL ONE (08:53)
[2021-05-01] MEDS ORDERED: methylPREDNISolone ACETATE 40 MG/ML 1 ML VIAL ONE (08:53)
[2021-05-01] MEDS ORDERED: fentaNYL (PF) 50 MCG/ML 2 ML AMP ONE (08:53)
[2021-05-01] MEDS ORDERED: ROPIVACAINE 5MG/ML 20ML VIAL ONE (08:53)
--- NOTE | 2021-05-01 09:20 | P.PCN ---
Date of Procedure: 05/01/21 Procedure(s) Performed: PREOPERATIVE DIAGNOSIS: 1-Lumbar Spondylosis with Facet Arthropathy without myelopathy. 2-right sacroiliac joint dysfunction. 3-right sacroiliitis. POSTOPERATIVE DIAGNOSIS: Same as preop diagnosis. PROCEDURES : Right Radiofrequency thermocoagulation L4 , and L5 medial branch, with fluoroscopic guidance (fluoroscopy images available in the radiology department) ( to denervate the facet joint at Right L5-S1 levels ). ANESTHESIA: Monitored anesthesia care as per anesthesia department . EBL: Minimal PROCEDURE INDICATION: The patient with low back pain secondary to lumbar facet arthropathy who had more than 50% relief of her pain with previous diagnostic lumbar medial branch block with bupivacaine. PROCEDURE DESCRIPTION / TECHNIQUE: The patient was seen and identified in the preoperative area. Risks, benefits, complications, including but not limited to risk of infection ,bleeding , allergic reactions to the medications and no complete pain releife , and alternatives were discussed with the patient, the patient agreed to proceed with the procedure and signed the consent. IV was started. Vital signs remained stable throughout the procedure. Patient was taken to the OR and time out was completed. The patient was placed in the prone position on the procedure table. The lumber area was prepped and draped in the usual sterile fashion. . Vital signs were closely monitored during the procedure .IV sedation was used during the procedure to decrease patients anxiety. Using AP and then oblique fluoroscopy, the ``eye of the Abdulaziz dog corresponding to the connection between the superior and transverse articular processes of right L4, and L5 were identified, marked, and localized with 1% lidocaine. Subsequently, a 18 -dp radiofrequency cannula with a 10-mm active tip was advanced guided by fluoroscopy to each of the``eyes of the Abdulaziz dog at right L4, and L5. Each site then underwent sensory testing at 50 Hz and 0 to 1 volt and motor testing at 2.5 Hz and 0 to 3 volt with local stimulation, but no radicular symptoms down the legs. Thereafter each sites underwent radiofrequency thermocoagulation at 80 degrees celsius for 90 seconds after injecting 0.5 ml of PF Ropivacaine 1ml, then after the thermocoagulation done , 1 ml of the block solution containing Depo-Medrol 40 mg and 2 ml of Ropivacaine 0.5% was injected at the right L3 , L4 , and L5 , levels after negative aspiration of CSF and blood and with no paresthesias. Cannulas were retracted while injecting lidocaine 1% until the needle is out. At the end of the procedure, the skin was cleansed and bandages were applied. COMPLICATIONS: No acute complications. DISPOSITION / PLANS: The patient was placed in a supine position and transferred to the recovery area in a stable condition for observation and was discharged from the recovery room after meeting discharge criteria. Home discharge instructions given to the patient by the staff. The patient was reexamined prior to discharge. The patient will schedule a follow up in the clinic in 2-4 weeks. note= previously we have done RFA of the right sacroiliac joint, currently the RFA of the Sacroiliac joints , is not covered by the insurance, in the future, if patient had low back pain ,we can consider doing, right side sacroiliac joint steroid injection
[2021-05-01] MEDS ORDERED: IV FLUID CONTINUATION 1,000 ML IV ONE (09:22)
--- NOTE | 2021-05-01 09:23 | FL ---
EXAMINATION TYPE: FL guided pain mgmt statistic DATE OF EXAM: 05/01/2021 CLINICAL HISTORY: Low back pain. TECHNIQUE: Fluoroscopy. COMPARISON: None. FINDINGS: Fluoroscopic guidance was provided during pain relief procedure performed by Dr. Craig . A total of 5 seconds of fluoroscopic time was utilized during the procedure and 3 spot images are acquired. Images acquired shows needle localization at multiple levels in the lumbar spine. IMPRESSION: As Above.
[2021-05-01 09:48] VITALS: BP 138/63; PULSE 72
== END 2021-05-01 09:53 | disposition home or self-care (01) ==
LOC: ORPAIN 07:48
PROVIDERS: ATTEND Specialist
DX: M47.816 Spondylosis without myelopathy or radiculopathy, lumbar region (principal); M46.1 Sacroiliitis, not elsewhere classified; M53.3 Sacrococcygeal disorders, not elsewhere classified; Z88.0 Allergy status to penicillin; I10 Essential (primary) hypertension; J45.909 Unspecified asthma, uncomplicated; Z87.891 Personal history of nicotine dependence; Z86.73 Personal history of transient ischemic attack (TIA), and cerebral infarction without residual deficits; Z85.41 Personal history of malignant neoplasm of cervix uteri; K21.9 Gastro-esophageal reflux disease without esophagitis; Z79.51 Long term (current) use of inhaled steroids; Z79.899 Other long term (current) drug therapy; Z90.710 Acquired absence of both cervix and uterus
CPT/HCPCS: 64635; J2250; J1030; J3010; J2795

== ENCOUNTER → 2021-05-19 | Outpatient (CLI) | payer MEDICARE ==
--- NOTE | 2021-05-19 13:38 | BD ---
EXAMINATION TYPE: Axial Bone Density DATE OF EXAM: 05/19/2021 COMPARISON: 2013 CLINICAL HISTORY: post menopausal Z 78.0 Height: 5'4 Weight: 113 FRAX RISK QUESTIONS: Family History (Parent hip fracture): y Secondary Osteoporosis: 3. Menopause before 45: y RISK FACTORS HISTORY OF: Family History of Osteoporosis: y Postmenopausal woman: y MEDICATIONS: Additional Medications: blood pressure, reflux Additional History: uterine cancer 25 years, EXAM MEASUREMENTS: Bone mineral densitometry was performed using the [employer] [facility]. Bone mineral density as measured about the Lumbar spine is: ----- L1-L4(G/cm2): 1.015 T Score Values are as follows: ----- L2: -0.8 ----- L3: -0.8 ----- L4: -2.1 ----- L1-L4: -1.4 Bone mineral density has: Decreased -7.2% since study of: 09/28/2013 Bone mineral density about the R hip (g/cm2): 0.699 Bone mineral density about the L hip (g/cm2): 0.756 T Score values are as follows: -----R Neck: -2.4 -----L Neck: -2.0 -----R Total: -2.1 -----L Total: -1.6 Bone mineral density has: Decreased -14.3% since study of: 09/28/2013 IMPRESSION: Osteopenia (T Score between -2.5 and -1). There is slightly increased risk of fracture and the patient may be considered for treatment. Re-Screen 2-5 years. NOTE: T-SCORE=SD OF THE YOUNG ADULT MEAN.
== END | disposition home or self-care (01) ==
LOC: RADBDWWP 07:16
PROVIDERS: ATTEND Family Medicine
DX: M85.89 Other specified disorders of bone density and structure, multiple sites (principal); Z78.0 Asymptomatic menopausal state
CPT/HCPCS: 77080

== ENCOUNTER → 2021-05-21 | Outpatient (CLI) | payer MEDICARE ==
[2021-05-21 11:37] VITALS: BP 126/81; PULSE 65; RESP 18; TEMP 98
--- NOTE | 2021-05-21 11:53 | P.PN ---
Subjective Progress Note Date: 05/21/21 Principal diagnosis: A 66 yr old female with a history of severe and chronic low back pain secondary to lumbar degenerative disc diseases and lumbar spondylosis with facet arthropathy presents today for evaluation status post right L5-S1 RFA. She states she experiencing 0 pain relief with last procedure with pain at a 6 out of 10 in intensity, intermittent, on and off, burning and tightness in the lower lumbar spine. Pain is provoked by inactivity as patient leads a very active lifestyle of swimming and running. Pain is alleviated with indications, topicals, injections, ice, physical therapy and chiropractic treatments and massage 5 years ago, home exercise regimen and repositioning. Patient has not interested and facet blocks of the medial branches. Interventional pain procedures completed include B SI joint injections, R L5-S1 RFA Patient is currently on Tylenol ES Patient denies any side effects of the medication(s), denies excessive drowsiness or sleepiness, denies suicidal ideation and reports that the current pain medication is helping to control the pain and improve activities of daily living. Patient denies any motor or sensory deficits. Patient denies any fever or night sweats, denies any change in the bowel movements or urination. Physical Examination: -Constitutional: Cooperative. Not in acute distress . -HEENT: Neck is supple. No lymphadenopathy. No thyromegaly. Normal thyroid size. Eyes: No ptosis , no icterus, no photophobia. ENT: No auditory deficits. Normal oropharynx. No Thrush. - Respiratory: Chest clear to auscultations bilaterally. No wheezing. No rhonchi. - Cardiovascular: Regular rate and rhythm. S1 / S2 , no S3 , no S4. - Gastrointestinal: Abdomen soft no tenderness. Bowel sounds positive in all four quadrants. No organomegaly. - Genitourinary: Deferred. - Neurologic: Cranial nerve II to XII intact. No focal neurological deficits. - Psychatric: Alert & oriented x 3. Matching mood & appropriate affect. Judgment and insight intact. - Lymphatic: No Lymphadenopathy. - Musculoskeletal: Cervical spine: Muscle bulk/ tone/ strength in the bilateral upper extremities normal. Facet loading test cervical area positive. Lumbar spine: Motor bulk/ tone/ strength lower extremities , thigh and legs : 5/5 Deep tendon reflexes : Normal Knee Jerk. Normal Ankle Jerk . Vertebral body tenderness to palpation over Lumbar Facet Loading Test positive over L5-S1 with jump reflex and accompanying paraspinal spasms Straight Leg Raise: positive at 30 degrees right side/ left side Gaenslen's Test postive Sacral spine : Severe tenderness over the Sacroiliac joint: right side / left side Range of motion: Flexion of the lumbar spine <60 degrees Range of motion: Extension of the lumbar spine <20 degrees Gaenslen's Test positive Sherri test: positive right side / left side Assessment and plan: Chronic low back pain secondary to lumbar degenerative disc disease , lumbar spondylosis with facet arthropathy without myelopathy Recommendation of TPI of the bilateral L5-S1 Risks, benefits of procedure discussed and patient acknowledged understanding Discussed with patient that this will provide a short-term pain relief until she makes a decision about further medical management Patient states she will call her insurance company for clarification of improved procedures Denies aspirin or anticoagulants use All patient questions answered MAPS reviewed and it was appropriate. I have spent 31 minutes on patient care today. Dr Craig was available by phone for the evaluation of this patient. The time was used to review the medical records including relevant urine studies and Prescription history (MAPs), review of the available imaging, evaluation and examination of the patient, coordination of care with the medical staff and if applicable referring physicians, as well as creation of the medical record Objective - Vital Signs Vital signs: Intake & Output 05/20/21 05/21/21 05/21/21 18:59 06:59 18:59 Weight 49.895 kg PQRS Measure Charge Sheet Mode of Arrival: Ambulatory - Pain Location Lower Back Non-Pharmacological Interventions: Position/Reposition Pharmacological Interventions: PRN Medication PQRS Narrative: Smoking Status Former smoker Blood Pressure 126/81 Pain Intensity [Lower Back] 6 Scale Used Numeric (1 - 10) Hx Alcohol Use (MH) Yes: rare Home Medications: Ambulatory Orders Montelukast [Singulair] 10 mg PO HS 08/01/14 Famotidine [Pepcid] 40 mg PO HS 01/27/16 Fluticasone Nasal [place] [Flonase Nasal [place]] 2 spray EA NOSTRIL HS 04/01/16 Propylene Glycol/Peg 400/Pf [Systane 0.3-0.4% Eye Drop] 1 drop BOTH EYES TID PRN 07/29/17 lisinopriL [Zestril] 10 mg PO HS 02/02/18 Acetaminophen [Tylenol Extra Strength] 1,000 mg PO TID PRN 01/31/19 Albuterol Sulfate [Proair Hfa] 2 puff INHALATION RT-QID PRN 01/31/19 Mometasone/Formoterol [Dulera 100 Mcg-5 Mcg Inhaler] 2 puff INHALATION BID #1 inhaler 09/24/19 amLODIPine [Norvasc] 5 mg PO DAILY 03/02/21
== END ==
LOC: PNWHC3 10:29
PROVIDERS: ATTEND Physician Assistant Medical
DX: M51.36 Other intervertebral disc degeneration, lumbar region (principal); M47.816 Spondylosis without myelopathy or radiculopathy, lumbar region; G89.29 Other chronic pain; Z87.891 Personal history of nicotine dependence; Z88.1 Allergy status to other antibiotic agents
CPT/HCPCS: 99211

== ENCOUNTER 2021-06-25 06:57 | Day surgery (SDC) | payer MEDICARE ==
[2021-06-23 13:02] VITALS: BMI 18.6
[2021-06-25] MEDS ORDERED: LACTATED RINGERS 1,000 ML IV SCH (07:15)
[2021-06-25] MEDS ORDERED: LIDOCAINE 1% (10MG/ML) FOR IV START INTRADERMA PRN (07:15)
[2021-06-25 07:32] VITALS: TEMP 98.1
[2021-06-25] MEDS ORDERED: methylPREDNISolone ACETATE 40 MG/ML 1 ML VIAL ONE (08:00)
[2021-06-25] MEDS ORDERED: ROPIVACAINE 5MG/ML 20ML VIAL ONE (08:00)
--- NOTE | 2021-06-25 08:15 | P.PCN ---
Date of Procedure: 06/25/21 Procedure(s) Performed: Procedure= trigger point injection lumbar paraspinal muscles at lumbosacral area , total of 4 trigger points injected 3 on the right side and 1 on the left side lumbosacral area Preoperative diagnosis= 1-Right sacroiliitis 2-myofascial pain syndrome lumbar area 3-lumbar spondylosis with facet arthropathy Postoperative diagnosis=Same as preop Diagnosis . Complication = none Condition= stable Anesthesia= none Indication for the procedure= patient complaining of low back pain , examination was positive for severe tenderness over the sacral area bilaterally and patient diagnosed with sacroiliitis, and myofascial pain syndrome for this reason she was good candidate for trigger point injections Description of the procedure= procedure risk and benefits discussed with the patient, including but not limited, risk of infection and bleeding, and ALLERGIC reaction to the medication and not complete pain relief and patient agreed with the preceding patient taken to the operating room, placed in prone position or standard monitors applied to the patient then after induction of anesthesia back prepped with chlorhexidine 3 times , then each of the trigger point that was marked in the preop holding area each one of them injected, 2 mL of the mixture of ropivacaine 0.5% 8 ML and 40 mg of Depo-Medrol, 3 trigger point injected on the right side lumbosacral area and one on the left side lumbosacral area, injection done after negative aspiration and there was no paresthesia during the injection, patient tolerated the procedure well without any complications.
[2021-06-25 08:18] VITALS: RESP 16
[2021-06-25 08:36] VITALS: BP 130/82; PULSE 70
--- NOTE | 2021-07-03 12:27 | CDI ---
[facility] [place] [address] [place] [id number] Date: 07/03/2021 12:18:47 PM From: Tiffani Mckeon Phone: Admit Date: 06/25/2021 06:57:00 AM Patient Name: Kristen Dale Visit Number: [id number] Discharge Date: Payor: MEDICARE HMO Dear Dr. Craig, Please provide clarification as to how many muscles were injected with the trigger point injection procedure. In order to accurately code to the greatest specificity these codes are coded to how many muscles were injected not no many trigger points were injected in each muscle. Please clarify how any muscles were involved. Thank you for your kind consideration, MTDTodd
== END 2021-06-25 08:44 | disposition home or self-care (01) ==
LOC: ORPAIN 06:57
PROVIDERS: ATTEND Specialist
DX: M46.1 Sacroiliitis, not elsewhere classified (principal); M79.18 Myalgia, other site; M47.816 Spondylosis without myelopathy or radiculopathy, lumbar region
CPT/HCPCS: 20553; J1030; J2795

== ENCOUNTER 2021-08-18 06:17 | Day surgery (SDC) | payer MEDICARE ==
[2021-08-17 13:50] VITALS: BMI 17.6
[2021-08-18 06:35] VITALS: TEMP 97
[2021-08-18] MEDS ORDERED: methylPREDNISolone ACETATE 40 MG/ML 1 ML VIAL ONE (06:56)
[2021-08-18] MEDS ORDERED: ROPIVACAINE 5MG/ML 20ML VIAL ONE (06:56)
--- NOTE | 2021-08-18 07:12 | P.PCN ---
Date of Procedure: 08/18/21 Procedure(s) Performed: Procedure= bilateral sacroiliac joints steroid injection under fluoroscopy guidance (fluoroscopy image stored on file in the radiology Department ) Preoperative diagnosis= 1-sacroiliitis 2-lumbar degenerative disc disease 3- lumbar facet arthropathy Postoperative diagnosis=Same as preop Diagnosis . Complication = none Condition= stable Anesthesia=: local Infiltration with ropivacaine 0.5% 4 ML only . Indication for the procedure= patient complaining of low back pain , examination was positive for severe tenderness over the sacroiliac joints bilaterally and patient diagnosed with sacroiliitis, for this reason , she was good candidate for sacroiliac joint steroid injection. Description of the procedure= procedure risk and benefits discussed with the patient, including but not limited, risk of infection and bleeding, and ALLERGIC reaction to the medication and not complete pain relief and patient agreed with the preceding patient taken to the operating room, placed in prone position or standard monitors applied to the patient then after induction of anesthesia back prepped with chlorhexidine 3 times , Then under strict sterile technique, first I did the right sacroiliac joint the which was identified under fluoroscopy guidance been local infiltration of the skin and subcu interstitial with both pain 0.5% 2 ml then 22-gauge Quincke Needle advanced slowly under fluoroscopy and placed in the right sacroiliac joint needle placement confirmed with AP and oblique and lateral view and after appropriate needle placement confirmed and after negative aspiration, or heme , then Ropivacaine 0.5% 4 mL, and 40 mg of Depo-Medrol mixed together and injected in the right sacroiliac joint after negative aspiration patient tolerated the procedure well without any complication. Then the left sacroiliac joint steroid injection done under strict sterile technique local infiltration of the skin and subcu interstitial at the location of the left sacroiliac joint then a 22-gauge Quincke Needle advanced slowly under fluoroscopy time placed in the left sacroiliac joint, needle placement confirmed with AP and oblique and lateral view then after appropriate needle placement confirmed and after negative aspiration 0.5% Ropivacaine 4 mL and 30 mg of Depo-Medrol injected in the left sacroiliac joint after negative aspiration patient tolerated the procedure well that any complications and she will follow up in clinic 3 weeks
[2021-08-18 07:17] VITALS: RESP 18
[2021-08-18 07:28] VITALS: BP 120/64; PULSE 64
--- NOTE | 2021-08-18 09:51 | FL ---
EXAMINATION TYPE: FL guided pain mgmt statistic DATE OF EXAM: 08/18/2021 CLINICAL HISTORY: Bilateral SI injection TECHNIQUE: Fluoroscopy guided procedure COMPARISON: CT dated 10/14/2020 FINDINGS: Fluoroscopic guidance was provided during the procedure. A total of 11 seconds of fluorosc opic time was utilized during the procedure and 2 spot images were acquired. IMPRESSION: As Above.
== END 2021-08-18 09:12 | disposition home or self-care (01) ==
LOC: ORPAIN 06:17
PROVIDERS: ATTEND Specialist
DX: M46.1 Sacroiliitis, not elsewhere classified (principal); M51.36 Other intervertebral disc degeneration, lumbar region
CPT/HCPCS: G0260; J1030; J2795

== ENCOUNTER → 2021-09-23 | Outpatient (CLI) | payer MEDICARE ==
--- NOTE | 2021-09-23 08:23 | P.PAINPG ---
PQRS Measure Charge Sheet Comment: A 66 yr old female with a history of severe and chronic low back pain secondary to lumbar degenerative disc diseases and lumbar spondylosis with facet arthropathy presents today for evaluation status post BL SI joint injection. She states she experienced 70% pain relief s/p procedure. Pain level is curren tly at 7/10 in intensity, sharp pain with radiation of shooting pain towards the groin, R>L. Pain did not improve with PT or chiropractic treatments in the past. Pain is provoked by specific twisting motions when gardening. Pain is alleviated with medications, topicals, SI joint ablation in the past, ice, repositioning and rest. Interventional pain procedures completed include BL SI joint injection Patient is currently on Tylenol ES Patient denies any side effects of the medication(s), denies excessive drowsiness or sleepiness, denies suicidal ideation and reports that the current pain medication is helping to control the pain and improve activities of daily living. Patient denies any motor or sensory deficits. Patient denies any fever or night sweats, denies any change in the bowel movements or urination. Physical Examination: -Constitutional: Cooperative. Not in acute distress . -HEENT: Neck is supple. No lymphadenopathy. No thyromegaly. Normal thyroid size. Eyes: No ptosis , no icterus, no photophobia. ENT: No auditory deficits. Normal oropharynx. No Thrush. - Respiratory: Chest clear to auscultations bilaterally. No wheezing. No rhonchi. - Cardiovascular: Regular rate and rhythm. S1 / S2 , no S3 , no S4. - Gastrointestinal: Abdomen soft no tenderness. Bowel sounds positive in all four quadrants. No organomegaly. - Genitourinary: Deferred. - Neurologic: Cranial nerve II to XII intact. No focal neurological deficits. - Psychatric: Alert & oriented x 3. Matching mood & appropriate affect. Judgment and insight intact. - Lymphatic: No Lymphadenopathy. - Musculoskeletal: Cervical spine: Muscle bulk/ tone/ strength in the bilateral upper extremities normal Vertebral body tenderness to palpation over Facet loading test positive Thoracic spine Muscle bulk / tone/ strength in the bilateral paraspinal muscles normal Vertebral body tender to palpation over Facet loading test positive Lumbar spine: Motor bulk/ tone/ strength lower extremities , thigh and legs : 5/5 Deep tendon reflexes : Normal Knee Jerk. Normal Ankle Jerk . Vertebral body tenderness to palpation over Lumbar Facet Loading Test positive Straight Leg Raise: positive at 30 degrees right side/ left side Gaenslen's Test positive Sacral spine : Severe tenderness over the Sacroiliac joint: right side / left side Range of motion: Flexion of the lumbar spine <60 degrees Range of motion: Extension of the lumbar spine <20 degrees Gaenslen's Test positive BL Sherri test: positive right side / left side Thigh Thrust Test R>L Sacral Thrust Test R>L Assessment and plan: Chronic low back pain secondary to lumbar degenerative disc disease , lumbar spondylosis with facet arthropathy without myelopathy Recommendation of BL SI joint injection #2. May need a series of injections, up to every 3 months, for optimal pain relief. Risks, benefits of procedure discussed and pt verbalized understanding. Denies anticoagulant use or medical history of diabetes. All patient questions answered MAPS reviewed and it was appropriate. I have spent 31 minutes on patient care today. Dr Craig was available by phone for the evaluation of this patient. The time was used to review the medical records including relevant urine studies and Prescription history (MAPs), review of the available imaging, evaluation and examination of the patient, coordination of care with the medical staff and if applicable referring physicians, as well as creation of the medical record PQRS Narrative: Smoking Status Former smoker Hx Alcohol Use (MH) Yes: rare Home Medications: Ambulatory Orders Montelukast [Singulair] 10 mg PO HS 08/01/14 Famotidine [Pepcid] 40 mg PO HS 01/27/16 Fluticasone Nasal [place] [Flonase Nasal [place]] 2 spray EA NOSTRIL HS 04/01/16 Propylene Glycol/Peg 400/Pf [Systane 0.3-0.4% Eye Drop] 1 drop BOTH EYES TID PRN 07/29/17 lisinopriL [Zestril] 10 mg PO HS 02/02/18 Acetaminophen [Tylenol Extra Strength] 1,000 mg PO TID PRN 01/31/19 Albuterol Sulfate [Proair Hfa] 2 puff INHALATION RT-QID PRN 01/31/19 amLODIPine [Norvasc] 5 mg PO HS 03/02/21 Mometasone/Formoterol [Dulera 100 Mcg-5 Mcg Inhaler] 2 puff INHALATION BID PRN 06/23/21 Controlled Substance Measures - Controlled Substance Measures Is patient prescribed a controlled substance at discharge?: No
[2021-09-23 08:41] VITALS: BP 134/78; PULSE 61; RESP 16; TEMP 98.1
== END | disposition home or self-care (01) ==
LOC: PNWHC3 07:55
PROVIDERS: ATTEND Specialist
DX: M47.896 Other spondylosis, lumbar region (principal); M51.36 Other intervertebral disc degeneration, lumbar region
CPT/HCPCS: 99211

== ENCOUNTER 2021-11-03 06:30 | Day surgery (SDC) | payer MEDICARE ==
[~2021-11-03 06:30] MED LIST changes: -ACETAMINOPHEN TAB 500 MG TAB PO ONE; -DEXAMETHASONE SOD PHOSPHATE 10 MG/ML 1 ML VIAL IV ONE; -HEPARIN SODIUM,PORCINE 5,000 UNIT/ML 1 ML VIAL SQ ONE; +LACTATED RINGERS 1,000 ML IV SCH; -MIDAZOLAM 2 MG/2 ML VIAL IV PRN; -fentaNYL (PF) 50 MCG/ML 2 ML AMP IVP PRN; -metroNIDAZOLE-NS PMX 500 MG in SALINE 1 100ML.BAG IVPB ONE
[2021-11-03 06:56] VITALS: TEMP 97.7
[2021-11-03] MEDS ORDERED: ROPIVACAINE 5MG/ML 20ML VIAL ONE (07:16)
[2021-11-03] MEDS ORDERED: methylPREDNISolone ACETATE 80 MG/ML 1 ML VIAL ONE (07:16)
--- NOTE | 2021-11-03 07:38 | P.PCN ---
Date of Procedure: 11/03/21 Procedure(s) Performed: Procedure= bilateral sacroiliac joints steroid injection under fluoroscopy guidance (fluoroscopy image stored on file in the radiology Department ) Preoperative diagnosis= 1-sacroiliitis 2-lumbar degenerative disc disease 3- lumbar facet arthropathy Postoperative diagnosis=Same as preop Diagnosis . Complication = none Condition= stable Anesthesia=: local Infiltration with ropivacaine 0.5% 4 ML only . Indication for the procedure= patient complaining of low back pain , examination was positive for severe tenderness over the sacroiliac joints bilaterally and patient diagnosed with sacroiliitis, for this reason , she was good candidate for sacroiliac joint steroid injection. Description of the procedure= procedure risk and benefits discussed with the patient, including but not limited, risk of infection and bleeding, and ALLERGIC reaction to the medication and not complete pain relief and patient agreed with the preceding patient taken to the operating room, placed in prone position or standard monitors applied to the patient then after induction of anesthesia back prepped with chlorhexidine 3 times , Then under strict sterile technique, first I did the right sacroiliac joint the which was identified under fluoroscopy guidance been local infiltration of the skin and subcu interstitial with both pain 0.5% 2 ml then 22-gauge Quincke Needle advanced slowly under fluoroscopy and placed in the right sacroiliac joint needle placement confirmed with AP and oblique and lateral view and after appropriate needle placement confirmed and after negative aspiration, or heme , then Ropivacaine 0.5% 4 mL, and 30 mg of Depo-Medrol mixed together and injected in the right sacroiliac joint after negative aspiration patient tolerated the procedure well without any complication. Then the left sacroiliac joint steroid injection done under strict sterile technique local infiltration of the skin and subcu interstitial at the location of the left sacroiliac joint then a 22-gauge Quincke Needle advanced slowly under fluoroscopy time placed in the left sacroiliac joint, needle placement confirmed with AP and oblique and lateral view then after appropriate needle placement confirmed and after negative aspiration 0.5% Ropivacaine 4 mL and 30 mg of Depo-Medrol injected in the left sacroiliac joint after negative aspiration patient tolerated the procedure well that any complications and she will follow up in clinic 3 weeks
--- NOTE | 2021-11-03 08:06 | FL ---
DATE OF EXAM: 11/03/2021 CLINICAL HISTORY: Pain TECHNIQUE: Fluoroscopy. COMPARISON: 08/18/2021. FINDINGS: Fluoroscopic guidance was provided during pain relief procedure performed by Dr. Craig . A total of 5 seconds of fluoroscopic time was utilized during the procedure and 2 spot images are ac quired. IMPRESSION: As Above.
[2021-11-03 09:59] VITALS: BP 144/78; PULSE 75; RESP 15
== END 2021-11-03 10:10 | disposition home or self-care (01) ==
LOC: ORPAIN 06:30
PROVIDERS: ATTEND Specialist
DX: M46.1 Sacroiliitis, not elsewhere classified (principal); M47.816 Spondylosis without myelopathy or radiculopathy, lumbar region; M51.36 Other intervertebral disc degeneration, lumbar region; Z88.0 Allergy status to penicillin; Z88.8 Allergy status to other drugs, medicaments and biological substances; Z79.51 Long term (current) use of inhaled steroids; Z79.899 Other long term (current) drug therapy; Z87.891 Personal history of nicotine dependence
CPT/HCPCS: J1040; J2795; G0260

== ENCOUNTER → 2021-12-16 | Outpatient (CLI) | payer MEDICARE ==
[2021-12-16 07:49] VITALS: BP 156/76; PULSE 61; RESP 18; TEMP 98.4
--- NOTE | 2021-12-17 07:44 | P.PN ---
Subjective Progress Note Date: 12/16/21 This is follow-up visit for this patient with a history of chronic low back pain she's diagnosed with lumbar degenerative disc disease, lumbar spondylosis with lumbar facet arthropathy, and bilateral sacroiliitis, recently we have done bilateral sacroiliac joint steroid injection patient reported that her pain improved significantly after the injection, she is able to do activity of daily livings, she denies any motor or sensory deficit she denies any fever or night sweats, denies any change in the bowel movement or urination, she continue to use [id number]-[id number] Tylenol when necessary and she continues to use Voltaren gel when necessary, patient done with massage therapy in the past and she has do ne physical therapy a few years ago Also previously we have done RFA of the right L5-S1 Physical Examinations : -Constitutiona : Cooperative , not in acute distress . -HEENT : nech : supple , no Lymphadenopathy , normal thyroid size . : eyes : no ptosis , no icterus, no photophobia . - neurologic : Cranial nerve II to XII intact , no focal neurological deffecit . -psychatric : alert , oriented X 3 , appropriate affect , intact judgment and insight . -Lymphatic : no Lymphadenopathy . - musculoskeltal : Lumber spine moter stegnth lower extremities ,thigh and legs 5/5 Right side , 5/5 Left side. Assessment and plan=1-bilateral sacroiliitis. 2-lumbar degenerative disc disease. 3-lumbar spondylosis with lumbar facet arthropathy. Pain improved significantly after bilateral sacroiliac joint steroid injection. Patient will follow up in the pain clinic when necessary , patient will continue to use [id number]-dgzxikr Tylenol and Voltaren gel. Objective - Vital Signs Vital signs: Vital Signs Temp 98.4 F 12/16/21 07:42 Pulse 61 12/16/21 07:42 Resp 18 12/16/21 07:42 BP 156/76 12/16/21 07:42 Pulse Ox 99 12/16/21 07:42 FiO2 Intake & Output 12/16/21 12/17/21 12/17/21 18:59 06:59 18:59 Weight 54.431 kg
== END ==
LOC: PNWHC3 07:24
PROVIDERS: ATTEND Specialist
DX: M47.816 Spondylosis without myelopathy or radiculopathy, lumbar region (principal); M46.1 Sacroiliitis, not elsewhere classified; M51.36 Other intervertebral disc degeneration, lumbar region; Z88.1 Allergy status to other antibiotic agents
CPT/HCPCS: 99211

== ENCOUNTER 2022-07-13 06:29 | Day surgery (SDC) | payer MEDICARE ==
[2022-06-18 11:22] VITALS: BMI 19.6
[2022-07-13 07:03] VITALS: TEMP 97.3
[2022-07-13] MEDS ORDERED: methylPREDNISolone ACETATE 80 MG/ML 1 ML VIAL ONE (07:29)
[2022-07-13] MEDS ORDERED: ROPIVACAINE 5 MG/ML 20 ML AMPULE ONE (07:29)
--- NOTE | 2022-07-13 07:40 | P.PCN ---
Date of Procedure: 07/13/22 Procedure(s) Performed: Procedure= bilateral sacroiliac joints steroid injection under fluoroscopy guidance (fluoroscopy image stored on file in the radiology Department ) Preoperative diagnosis= 1-sacroiliitis 2-lumbar degenerative disc disease 3- lumbar facet arthropathy Postoperative diagnosis=Same as preop Diagnosis . Complication = none Condition= stable Anesthesia=: local Infiltration with ropivacaine 0.5% 4 ML only . Indication for the procedure= patient complaining of low back pain , examination was positive for severe tenderness over the sacroiliac joints bilaterally and patient diagnosed with sacroiliitis, for this reason , she was good candidate for sacroiliac joint steroid injection. Description of the procedure= procedure risk and benefits discussed with the patient, including but not limited, risk of infection and bleeding, and ALLERGIC reaction to the medication and not complete pain relief and patient agreed with the preceding patient taken to the operating room, placed in prone position or standard monitors applied to the patient then after induction of anesthesia back prepped with chlorhexidine 3 times , Then under strict sterile technique, first I did the right sacroiliac joint the which was identified under fluoroscopy guidance been local infiltration of the skin and subcu interstitial with both pain 0.5% 2 ml then 22-gauge Quincke Needle advanced slowly under fluoroscopy and placed in the right sacroiliac joint needle placement confirmed with AP and oblique and lateral view and after appropriate needle placement confirmed and after negative aspiration, or heme , then Ropivacaine 0.5% 4 mL, and 30 mg of Depo-Medrol mixed together and injected in the right sacroiliac joint after negative aspiration patient tolerated the procedure well without any complication. Then the left sacroiliac joint steroid injection done under strict sterile technique local infiltration of the skin and subcu interstitial at the location of the left sacroiliac joint then a 22-gauge Quincke Needle advanced slowly under fluoroscopy time placed in the left sacroiliac joint, needle placement confirmed with AP and oblique and lateral view then after appropriate needle placement confirmed and after negative aspiration 0.5% Ropivacaine 4 mL and 30 mg of Depo-Medrol injected in the left sacroiliac joint after negative aspiration patient tolerated the procedure well that any complications and she will follow up in clinic 3 weeks
[2022-07-13 07:46] VITALS: PULSE 72
[2022-07-13 08:02] VITALS: BP 136/76; RESP 14
--- NOTE | 2022-07-13 08:56 | FL ---
Fluoroscopy History: BILAT SI JT INJ DAP .41170 7 SEC FL TIME USED VAL JEAN LangT--CS
== END 2022-07-13 08:12 | disposition home or self-care (01) ==
LOC: ORPAIN 06:29
PROVIDERS: ATTEND Specialist
DX: M46.1 Sacroiliitis, not elsewhere classified (principal); M51.36 Other intervertebral disc degeneration, lumbar region; M47.816 Spondylosis without myelopathy or radiculopathy, lumbar region; Z88.0 Allergy status to penicillin; Z88.8 Allergy status to other drugs, medicaments and biological substances
CPT/HCPCS: J1040; J2795; G0260

== ENCOUNTER → 2022-08-04 | Outpatient (CLI) | payer MEDICARE ==
[2022-08-04 13:14] VITALS: BP 162/88; PULSE 80; RESP 18; TEMP 97.7
--- NOTE | 2022-08-04 14:18 | P.PAINPG ---
PQRS Measure Charge Sheet Comment: A 67 yr old female with a history of severe and chronic LBP secondary to lumbar DDD and spondylosis with facet arthropathy without myelopathy, BL Sacroiliitis presents today for evaluation s/p BL SI injection. Pt states she experienced 100 % pain relief x 2-3 wks s/p procedure. Pt also admits she had a RFA of the L4-5, L5-S1 where she experienced 100% pain relief x 10 mo s/p procedure. Pain level is provoked at 10/10 in intensity, constant, localized in the lower lumbar spine, burning in character w shooting towards the R hip and RLE. Pain is provoked by sitting for periods of 25 min or more. Pain is alleviated with PT x 6 wks in 2020, physician guided exercises, water aerobics, ice, meds, topicals, repositioning and rest. Interventional pain procedures completed include BL SI injection x3, Lumbar TPIs, R RFA L3-L5 Patient is currently on Voltaren gel, Tyl Patient denies any side effects of the medication(s), denies excessive drowsiness or sleepiness, denies suicidal ideation and reports that the current pain medication is helping to control the pain and improve activities of daily living. Patient denies any motor or sensory deficits. Patient denies any fever or night sweats, denies any change in the bowel movements or urination. Physical Examination: -Constitutional: Cooperative. Not in acute distress . - Neurologic: Cranial nerve II to XII intact. No focal neurological deficits. - Psychatric: Alert & oriented x 3. Matching mood & appropriate affect. Judgment and insight intact. - Musculoskeletal: Cervical spine: Muscle bulk/ tone/ strength in the bilateral upper extremities normal Vertebral body tenderness to palpation over Spurling test positive Distraction test positive Facet loading test positive TTP Thoracic spine Muscle bulk / tone/ strength in the bilateral paraspinal muscles normal Vertebral body tender to palpation over Facet loading test positive TTP Lumbar spine: Motor bulk/ tone/ strength lower extremities , thigh and legs : 5/5 Deep tendon reflexes : Normal Knee Jerk. Normal Ankle Jerk . Vertebral body tenderness to palpation over Lumbar Facet Loading Test positive TTP over BL L4-L5, L5-S1 facets, R>L Straight Leg Raise: positive at 30 degrees right side/ left side Gaenslen's Test positive Sacral spine : Severe tenderness over the Sacroiliac joint: right side / left side Range of motion: Flexion of the lumbar spine <60 degrees Range of motion: Extension of the lumbar spine <20 degrees Gaenslen's Test positive right side / left side Sherri test: positive right side / left side Thigh Thrust Test positive right side / left side Sacral Thrust Test positive right side / left side Assessment and plan: Chronic LBP secondary to lumbar DDD, spondylosis with facet arthropathy without myelopathy Recommendation of BL RFA L4-L5, L5-S1. Pt exhibited substantial pain relief w prior lumbar RFA procedures. Risks, benefits of procedure discussed and pt verbalized understanding. Admits to anticoagulant use or medical history of diabetes. Protocol for discontinuation/ continuation of medications magda procedure discussed. All questions answered. I have spent less than 30 minutes on patient care today. Dr Craig was available by phone for the evaluation of this patient. The time was used to review the medical records including relevant urine studies and Prescription history (MAPs), review of the available imaging, evaluation and examination of the patient, coordination of care with the medical staff and if applicable referring physicians, as well as creation of the medical record PQRS Narrative: Smoking Status Former smoker Hx Alcohol Use (MH) Yes: rare Home Medications: Ambulatory Orders Montelukast [Singulair] 10 mg PO HS 08/01/14 Famotidine [Pepcid] 40 mg PO HS 01/27/16 Fluticasone Nasal [place] [Flonase Nasal [place]] 2 spray EA NOSTRIL HS 04/01/16 Propylene Glycol/Peg 400/Pf [Systane 0.3-0.4% Ophth Dropperette] 1 drop BOTH EYES QID 07/29/17 lisinopriL [Zestril] 10 mg PO HS 02/02/18 Acetaminophen [Tylenol Extra Strength] 1,000 mg PO TID PRN 01/31/19 Albuterol Sulfate [Proair Hfa] 2 puff INHALATION RT-QID PRN 01/31/19 amLODIPine [Norvasc] 5 mg PO HS 03/02/21 Mometasone/Formoterol [Dulera 100 Mcg-5 Mcg Inhaler] 2 puff INHALATION BID PRN 06/23/21 Diclofenac Sodium Gel [Voltaren Gel] 100 gm TOPICAL BID PRN 30 Days #100 cream 12/16/21 Omega3/Dha/Epa/Fish Oil/Vit D3 [[place]-3 + Vitamin D3 Softgel] 3 each PO DAILY 06/18/22 Controlled Substance Measures - Controlled Substance Measures Is patient prescribed a controlled substance at discharge?: No
== END ==
LOC: PNWHC3 12:27
PROVIDERS: ATTEND Specialist
DX: M51.36 Other intervertebral disc degeneration, lumbar region (principal); M47.816 Spondylosis without myelopathy or radiculopathy, lumbar region; G89.29 Other chronic pain; Z87.891 Personal history of nicotine dependence; Z88.0 Allergy status to penicillin; Z88.8 Allergy status to other drugs, medicaments and biological substances
CPT/HCPCS: 99211

== ENCOUNTER 2022-08-20 09:11 | Observation (INO) | payer MEDICARE ==
[2022-08-20] MEDS ORDERED: ASPIRIN 81 MG PO STA (09:48)
[2022-08-20] MEDS ORDERED: NITROGLYCERIN SL TABS 0.4 MG TAB SUBLINGUAL STA ×3 (09:48)
--- NOTE | 2022-08-20 09:51 | ED ---
General Adult HPI - General Chief complaint: Shortness of Breath Stated complaint: SOB Time Seen by Provider: 08/20/22 09:20 Source: patient, RN notes reviewed Mode of arrival: ambulatory Limitations: no limitations - History of Present Illness Initial comments: Patient is a pleasant 67-year-old female presenting to the emergency department with concerns of chest discomfort. Onset of symptoms has been a couple of days and have been intermittent. Symptoms are worse with exertion. Patient has chest pressure currently 8/10. Patient has associated dyspnea. Patient has had some mild nausea. Patient has had some mild headedness. No diaphoresis. No history of similar symptoms previously. - Related Data Home Medications Medication Instructions Recorded Confirmed Montelukast [Singulair] 10 mg PO HS 08/01/14 08/04/22 Famotidine [Pepcid] 40 mg PO HS 01/27/16 08/04/22 Fluticasone Nasal [place] [Flonase 2 spray EA NOSTRIL HS 04/01/16 08/04/22 Nasal [place]] Propylene Glycol/Peg 400/Pf 1 drop BOTH EYES QID 07/29/17 08/04/22 [Systane 0.3-0.4% Ophth Droppe[place]] lisinopriL [Zestril] 10 mg PO HS 02/02/18 08/04/22 Acetaminophen [Tylenol Extra 1,000 mg PO TID PRN 01/31/19 08/04/22 Strength] Albuterol Sulfate [Proair Hfa] 2 puff INHALATION RT-QID PRN 01/31/19 08/04/22 amLODIPine [Norvasc] 5 mg PO HS 03/02/21 08/04/22 Mometasone/Formoterol [Dulera 100 2 puff INHALATION BID PRN 06/23/21 08/04/22 Mcg-5 Mcg Inhaler] Omega3/Dha/Epa/Fish Oil/Vit D3 3 each PO DAILY 06/18/22 08/04/22 [[place]-3 + Vitamin D3 Softgel] Previous Rx's Medication Instructions Recorded Diclofenac Sodium Gel [Voltaren 100 gm TOPICAL BID PRN 30 Days 12/16/21 Gel] #100 cream Allergies Allergy/AdvReac Type Severity Reaction Status Date / Time amoxicillin trihydrate Allergy Intermediate Rash/Hives Verified 08/20/22 09:15 [From Augmentin] potassium clavulanate Allergy Rash/Hives Verified 08/20/22 09:15 [From Augmentin] Review of Systems ROS Statement: Those systems with pertinent positive or pertinent negative responses have been documented in the HPI. ROS Other: All systems not noted in ROS Statement are negative. Constitutional: Denies: fever Eyes: Denies: eye pain ENT: Denies: ear pain Respiratory: Reports: as per HPI. Denies: cough Cardiovascular: Reports: as per HPI, chest pain Endocrine: Denies: fatigue Gastrointestinal: Denies: abdominal pain Genitourinary: Denies: dysuria Past Medical History Past Medical History: Asthma, Cancer, CVA/TIA, Eye Disorder, GERD/Reflux, Hypertension, Rheumatoid Arthritis (RA) Additional Past Medical History / Comment(s): diverticulitis,hx chronic low back pain-bulging discs, osteopenia, hx (SUPERIOR MESENTERIC ARTERY SYNDROME), seasonal allergies, Endometrial CA. 1998 (surgery)., CVA 1999 (no deficits) glaucoma. History of Any Multi-Drug Resistant Organisms: C-DIFF Date of last positivie culture/infection: 2007 MDRO Source:: stool Past Surgical History: Bowel Resection, Cholecystectomy, Heart Catheterization, Hysterectomy, Orthopedic Surgery Additional Past Surgical History / Comment(s): Rt foot bunionectomy. Cervical cone bx. intestinal surgery laser eye surgery, Colonoscopy,Laparotomy for superior mesenteric artery syndrome. pain clinic procedures. 01/30/20 LOWER ANTERIOR RESECTION Past Anesthesia/Blood Transfusion Reactions: No Reported Reaction Additional Past Anesthesia/Blood Transfusion Reaction / Comment(s): Pt received blood with no reaction following uterine hemorrhage. Past Psychological History: No Psychological Hx Reported Smoking Status: Former smoker Past Alcohol Use History: None Reported Past Drug Use History: None Reported - Past Family History Father Family Medical History: Cancer Additional Family Medical History / Comment(s): colon Mother Family Medical History: Dementia Sister(s) Family Medical History: Cancer Additional Family Medical History / Comment(s): Leukemia. General Exam Limitations: no limitations General appearance: alert, in no apparent distress Head exam: Present: normocephalic Eye exam: Present: normal appearance Neck exam: Present: normal inspection Respiratory exam: Present: normal lung sounds bilaterally. Absent: chest wall tenderness Cardiovascular Exam: Present: regular rate, normal rhythm Expanded Peripheral pulses: 2+: Radial (R), Radial (L), Posterior Tibialis (R), Posterior Tibialis (L) GI/Abdominal exam: Present: soft. Absent: tenderness Extremities exam: Present: normal inspection. Absent: pedal edema, calf tenderness Neurological exam: Present: alert Psychiatric exam: Present: normal affect, normal mood Skin exam: Present: normal color Course Vital Signs 08/20/22 08/20/22 08/20/22 09:15 10:33 11:00 Temperature 97.6 F Pulse Rate 89 72 88 Respiratory 18 18 18 Rate Blood Pressure 142/76 121/80 116/72 O2 Sat by Pulse 98 99 99 Oximetry EKG Findings - EKG Results: EKG: interpreted by ERMD, sinus rhythm, normal axis, normal QRS, normal ST/T Medical Decision Making - Medical Decision Making Was pt. sent in by a medical professional or institution ([facility], [facility], urgent care, hospital, or [facility]...) When possible be specific @ -No Did you speak to anyone other than the patient for history (EMS, parent, family, police, friend...)? What history was obtained from this source @ -No Did you review nursing and triage notes (agree or disagree)? Why? @ -I reviewed and agree with nursing and triage notes Were old charts reviewed (outside hosp., previous admission, EMS record, old EKG, old radiological studies, urgent care reports/EKG's, [facility] records)? Report findings @ -No old charts were reviewed Differential Diagnosis (chest pain, altered mental status, abdominal pain women, abdominal pain men, vaginal bleeding, weakness, fever, dyspnea, syncope, headache, dizziness, GI bleed, back pain, seizure, CVA, palpatations, mental health)? @ -Differential Chest Pain: Stable Angina, Unstable Angina, STEMI, NSTEMI Aortic Dissection, Pneumothorax, Musculoskeletal, Esophageal Spasm GERD, Cholecystitis, Pancreatitis, Zoster, this is not meant to be an all-inclusive list. EKG interpreted by me (3pts min.). @ -As above X-rays interpreted by me (1pt min.). @ -Chest x-ray shows no acute process CT interpreted by me (1pt min.). @ -None done U/S interpreted by me (1pt. min.). @ -None done What testing was considered but not performed or refused? (CT, X-rays, U/S, labs)? Why? @ -None What meds were considered but not given or refused? Why? @ -None Did you discuss the management of the patient with other professionals (professionals i.e. , PA, [facility], lab, RT, psych nurse, social sciences lecturer, appliance worker, teacher, annual giving officer, showcase trimmer)? Give summary @ -Case was discussed with Dr. Mauricio, who will admit covering Dr. Velia Carmona Was smoking cessation discussed for >3mins.? @ -No Was critical care preformed (if so, how long)? @ -No Were there social determinants of health that impacted care today? How? (Homelessness, low income, unemployed, alcoholism, drug addiction, tr ansportation, low edu. Level, literacy, decrease access to med. care, [facility]ci, rehab)? @ -No Was there de-escalation of care discussed even if they declined (Discuss DNR or withdrawal of care, Hospice)? DNR status @ -No What co-morbidities impacted this encounter? (DM, HTN, Smoking, COPD, CAD, Cancer, CVA, ARF, Chemo, Hep., AIDS, mental health diagnosis, sleep apnea, morbid obesity)? @ -None Was patient admitted / discharged? Hospital course, mention meds given and route, prescriptions, significant lab abnormalities, going to OR and other pertinent info. @ -Patient reevaluated and significantly improved following nitroglycerin. Patient states she feels incredibly better. Patient is updated on results and plan. Patient will be admitted Undiagnosed new problem with uncertain prognosis? @ -No Drug Therapy requiring intensive monitoring for toxicity (Heparin, Nitro, Insulin, Cardizem)? @ -No Were any procedures done? @ -No Diagnosis/symptom? @ -Chest pain Acute, or Chronic, or Acute on Chronic? @ -Acute Uncomplicated (without systemic symptoms) or Complicated (systemic symptoms)? @ -default Side effects of treatment? @ -No Exacerbation, Progression, or Severe Exacerbation? @ -No Poses a threat to life or bodily function? How? (Chest pain, [place], [place], pneumonia, PE, COPD, DKA, ARF, appy, cholecystitis, CVA, Diverticulitis, Homicidal, Suicidal, threat to staff... and all critical care pts) @ -No - Lab Data Result diagrams: 08/20/22 09:57 08/20/22 09:57 Lab Results 08/20/22 08/20/22 08/20/22 Range/Units 09:57 09:57 09:57 WBC 7.3 (3.8-10.6) k/uL RBC 4.83 (3.80-5.40) m/uL Hgb 14.3 (11.4-16.0) gm/dL Hct 42.9 (34.0-46.0) % MCV 88.7 (80.0-100.0) fL MCH 29.5 (25.0-35.0) pg MCHC 33.3 (31.0-37.0) g/dL RDW 13.2 (11.5-15.5) % Plt Count 261 (150-450) k/uL MPV 9.4 Neutrophils % 61 % Lymphocytes % 29 % Monocytes % 6 % Eosinophils % 1 % Basophils % 0 % Neutrophils # 4.5 (1.3-7.7) k/uL Lymphocytes # 2.2 (1.0-4.8) k/uL Monocytes # 0.5 (0-1.0) k/uL Eosinophils # 0.1 (0-0.7) k/uL Basophils # 0.0 (0-0.2) k/uL PT 10.2 (9.0-12.0) sec INR 1.0 (<1.2) APTT 22.8 (22.0-30.0) sec D-Dimer 0.36 (<0.60) mg/L FEU Sodium 139 (137-145) mmol/L Potassium 4.3 (3.5-5.1) mmol/L Chloride 102 (98-107) mmol/L Carbon Dioxide 25 (22-30) mmol/L Anion Gap 12 mmol/L BUN 18 H (7-17) mg/dL Creatinine 0.94 (0.52-1.04) mg/dL Est GFR (CKD-EPI)AfAm 72 (>60 ml/min/1.73 sqM) Est GFR (CKD-EPI)NonAf 63 (>60 ml/min/1.73 sqM) Glucose 120 H (74-99) mg/dL Calcium 9.6 (8.4-10.2) mg/dL Magnesium 1.9 (1.6-2.3) mg/dL Total Bilirubin 0.6 (0.2-1.3) mg/dL AST 41 H (14-36) U/L ALT 26 (4-34) U/L Alkaline Phosphatase 103 (38-126) U/L Troponin I (0.000-0.034) ng/mL NT-Pro-B Natriuret Pep pg/mL Total Protein 7.7 (6.3-8.2) g/dL Albumin 4.9 (3.5-5.0) g/dL 08/20/22 08/20/22 Range/Units 09:57 09:57 WBC (3.8-10.6) k/uL RBC (3.80-5.40) m/uL Hgb (11.4-16.0) gm/dL Hct (34.0-46.0) % MCV (80.0-100.0) fL MCH (25.0-35.0) pg MCHC (31.0-37.0) g/dL RDW (11.5-15.5) % Plt Count (150-450) k/uL MPV Neutrophils % % Lymphocytes % % Monocytes % % Eosinophils % % Basophils % % Neutrophils # (1.3-7.7) k/uL Lymphocytes # (1.0-4.8) k/uL Monocytes # (0-1.0) k/uL Eosinophils # (0-0.7) k/uL Basophils # (0-0.2) k/uL PT (9.0-12.0) sec INR (<1.2) APTT (22.0-30.0) sec D-Dimer (<0.60) mg/L FEU Sodium (137-145) mmol/L Potassium (3.5-5.1) mmol/L Chloride (98-107) mmol/L Carbon Dioxide (22-30) mmol/L Anion Gap mmol/L BUN (7-17) mg/dL Creatinine (0.52-1.04) mg/dL Est GFR (CKD-EPI)AfAm (>60 ml/min/1.73 sqM) Est GFR (CKD-EPI)NonAf (>60 ml/min/1.73 sqM) Glucose (74-99) mg/dL Calcium (8.4-10.2) mg/dL Magnesium (1.6-2.3) mg/dL Total Bilirubin (0.2-1.3) mg/dL AST (14-36) U/L ALT (4-34) U/L Alkaline Phosphatase (38-126) U/L Troponin I <0.012 (0.000-0.034) ng/mL NT-Pro-B Natriuret Pep 89 pg/mL Total Protein (6.3-8.2) g/dL Albumin (3.5-5.0) g/dL Disposition Clinical Impression: Chest pain Disposition: ADMITTED IP TO THIS HOSP Is patient prescribed a controlled substance at d/c from ED?: No Referrals: Velia Curry MD [Primary Care Provider] - 1-2 days Time of Disposition: 11:22
[2022-08-20 10:11] LABS: Basophils % (A) 0 %; Eosinophils # (A) 0.1 k/uL (0-0.7); Eosinophils % (A) 1 %; HCT 42.9 % (34.0-46.0); HGB 14.3 gm/dL (11.4-16.0); Lymphocytes # (A) 2.2 k/uL (1.0-4.8); Lymphocytes % (A) 29 %; MCH 29.5 pg (25.0-35.0); MCHC 33.3 g/dL (31.0-37.0); MCV 88.7 fL (80.0-100.0); Mean Platelet Volume 9.4; Monocytes # (A) 0.5 k/uL (0-1.0); Monocytes % (A) 6 %; Neutrophils # (A) 4.5 k/uL (1.3-7.7); Neutrophils % (A) 61 %; Platelet Count 261 k/uL (150-450); RBC 4.83 m/uL (3.80-5.40); RDW 13.2 % (11.5-15.5); WBC 7.3 k/uL (3.8-10.6)
[2022-08-20 10:22] LABS: Albumin 4.9 g/dL (3.5-5.0); Calcium 9.6 mg/dL (8.4-10.2); Magnesium 1.9 mg/dL (1.6-2.3); Potassium 4.3 mmol/L (3.5-5.1); Total Bilirubin 0.6 mg/dL (0.2-1.3); Total Protein 7.7 g/dL (6.3-8.2)
[2022-08-20 10:37] LABS: Partial Thromboplastin Time 22.8 sec (22.0-30.0); Prothrombin Time 10.2 sec (9.0-12.0)
--- NOTE | 2022-08-20 10:58 | XR ---
EXAMINATION TYPE: XR chest 2V DATE OF EXAM: 08/20/2022 10:45 AM COMPARISON: Chest radiographs from 09/23/2019. TECHNIQUE: XR chest 2V Frontal and lateral views of the chest. CLINICAL INDICATION:Female, 67 years old with history of Chest Pain; FINDINGS: Lungs/Pleura: There is no evidence of pleural effusion, focal consolidation, or pneumothorax. Mild bi apical pleural parenchymal scarring redemonstrated. Pulmonary vascularity: Unremarkable. Heart/mediastinum: Cardiomediastinal silhouette is unremarkable. Musculoskeletal: No acute osseous pathology. IMPRESSION: No acute cardiopulmonary disease/process.
[2022-08-20] MEDS ORDERED: NITROGLYCERIN SL TABS 0.4 MG TAB SUBLINGUAL PRN (11:23)
[2022-08-20] MEDS ORDERED: ACETAMINOPHEN TAB 500 MG TAB PO PRN (14:45)
[2022-08-20] MEDS ORDERED: ALBUTEROL NEBULIZED 2.5 MG/3 ML INHALATION PRN (14:45)
[2022-08-20] MEDS: NITROGLYCERIN OINT 1 INCH/GM PACKET TOPICAL SCH ×3 (16:36→23:34)
[2022-08-20] MEDS: FLUTICASONE 50MCG/SPRAY NASAL 16GM EA NOSTRIL SCH (19:58)
[2022-08-20] MEDS: FAMOTIDINE 20 MG TAB PO SCH (19:58)
[2022-08-20] MEDS: lisinopriL 10 MG TAB PO SCH (19:58)
[2022-08-20] MEDS: MONTELUKAST 10 MG TAB PO SCH (19:58)
[2022-08-20] MEDS: amLODIPine 5 MG TAB PO SCH (19:58)
[2022-08-21] MEDS: NITROGLYCERIN OINT 1 INCH/GM PACKET TOPICAL SCH ×4 (05:29→20:04)
[2022-08-21] MEDS ORDERED: ATORVASTATIN 80 MG TAB PO STA (08:45)
[2022-08-21] MEDS ORDERED: NITROGLYCERIN SL TABS 0.4 MG TAB SUBLINGUAL PRN (08:45)
[2022-08-21] MEDS ORDERED: ALPRAZolam 0.25 MG TAB PO PRN (08:45)
[2022-08-21] MEDS ORDERED: ALPRAZolam 0.5 MG TAB PO PRN (08:45)
[2022-08-21] MEDS ORDERED: ASPIRIN 325 MG TAB PO STA (08:45)
--- NOTE | 2022-08-21 08:52 | P.HPIM ---
History of Present Illness H&P Date: 08/20/22 Chief Complaint: Shortness of breath 67-year-old female presenting to the emergency department with concerns of chest discomfort. Onset of symptoms has been a couple of days and have been intermittent. Symptoms are worse with exertion. Patient has chest pressure currently 8/10. Patient has associated dyspnea. Patient has had some mild nausea. Patient has had some mild headedness. No diaphoresis. No history of similar symptoms previously. Blood work completed in ED reveals a WBC of 7.3, hemoglobin 14.3 and platelet count of 261, sodium 139, potassium 4.3, BUN/creatinine of 18/0.9 and blood glucose of 120, AST mildly elevated at 41 with normal ENT and total bilirubin; EKG: sinus rhythm, normal axis, normal QRS, normal ST/T Chest x-ray reveals no acute process Review of Systems REVIEW OF SYSTEMS: CONSTITUTIONAL: No fever, no malaise, no fatigue. HEENT: No recent visual problems or hearing problems. Denied any sore throat. CARDIOVASCULAR: No chest pain, orthopnea, PND, no palpitations, no syncope. PULMONARY: No shortness of breath, no cough, no hemoptysis. GASTROINTESTINAL: No diarrhea, no nausea, no vomiting, no abdominal pain. NEUROLOGICAL: No headaches, no weakness, no numbness. HEMATOLOGICAL: Denies any bleeding or petechiae. GENITOURINARY: Denies any burning micturition, frequency, or urgency. MUSCULOSKELETAL/RHEUMATOLOGICAL: Denies any joint pain, swelling, or any muscle pain. ENDOCRINE: Denies any polyuria or polydipsia. The rest of the 14-point review of systems is negative. Past Medical History Past Medical History: Asthma, Cancer, CVA/TIA, Eye Disorder, GERD/Reflux, Hypertension, Rheumatoid Arthritis (RA) Additional Past Medical History / Comment(s): diverticulitis,hx chronic low back pain-bulging discs, osteopenia, hx (SUPERIOR MESENTERIC ARTERY SYNDROME), seasonal allergies, Endometrial CA. 1998 (surgery)., CVA 1999 (no deficits) glaucoma. History of Any Multi-Drug Resistant Organisms: C-DIFF Date of last positivie culture/infection: 2007 MDRO Source:: stool Past Surgical History: Bowel Resection, Cholecystectomy, Heart Catheterization, Hysterectomy, Orthopedic Surgery Additional Past Surgical History / Comment(s): Rt foot bunionectomy. Cervical cone bx. intestinal surgery laser eye surgery, Colonoscopy,Laparotomy for superior mesenteric artery syndrome. pain clinic procedures. 01/30/20 LOWER ANTERIOR RESECTION Past Anesthesia/Blood Transfusion Reactions: No Reported Reaction Additional Past Anesthesia/Blood Transfusion Reaction / Comment(s): Pt received blood with no reaction following uterine hemorrhage. Past Psychological History: No Psychological Hx Reported Smoking Status: Former smoker Past Alcohol Use History: None Reported Past Drug Use History: None Reported - Past Family History Father Family Medical History: Cancer Additional Family Medical History / Comment(s): colon Mother Family Medical History: Dementia Sister(s) Family Medical History: Cancer Additional Family Medical History / Comment(s): Leukemia. Medications and Allergies Home Medications Medication Instructions Recorded Confirmed Type Montelukast [Singulair] 10 mg PO HS 08/01/14 08/20/22 History Famotidine [Pepcid] 40 mg PO HS 01/27/16 08/20/22 History Fluticasone Nasal [place] [Flonase 2 spr EA NOSTRIL HS 04/01/16 08/20/22 History Nasal [place]] lisinopriL [Zestril] 10 mg PO HS 02/02/18 08/20/22 History Acetaminophen [Tylenol Extra 1,000 mg PO TID PRN 01/31/19 08/20/22 History Strength] Albuterol Sulfate [Proair Hfa] 2 puff INHALATION RT-QID PRN 01/31/19 08/20/22 History amLODIPine [Norvasc] 5 mg PO HS 03/02/21 08/20/22 History Ibuprofen [Motrin Ib] 600 mg PO Q8H PRN 08/20/22 08/20/22 History Allergies Allergy/AdvReac Type Severity Reaction Status Date / Time amoxicillin trihydrate AdvReac Intermediate Nausea & Verified 08/20/22 12:09 [From Augmentin] Vomiting & Diarrhea potassium clavulanate AdvReac Nausea & Verified 08/20/22 12:09 [From Augmentin] Vomiting & Diarrhea Physical Exam Vitals: Vital Signs Temp Pulse Resp BP Pulse Ox 08/20/22 12:15 78 18 131/63 96 08/20/22 11:23 81 18 131/77 98 08/20/22 11:00 88 18 116/72 99 08/20/22 10:33 72 18 121/80 99 08/20/22 09:15 97.6 F 89 18 142/76 98 Intake and Output 08/19/22 08/20/22 08/20/22 22:59 06:59 14:59 Other: Weight 58.967 kg General appearance: alert, in no apparent distress Head exam: Present: normocephalic Eye exam: Present: normal appearance Neck exam: Present: normal inspection Respiratory exam: Present: normal lung sounds bilaterally. Absent: chest wall tenderness Cardiovascular Exam: Present: regular rate, normal rhythm Expanded Peripheral pulses: 2+: Radial (R), Radial (L), Posterior Tibialis (R), Posterior Tibialis (L) GI/Abdominal exam: Present: soft. Absent: tenderness Extremities exam: Present: normal inspection. Absent: pedal edema, calf tenderness Neurological exam: Present: alert Psychiatric exam: Present: normal affect, normal mood Skin exam: Present: normal color Results CBC & Chem 7: 08/20/22 09:57 08/20/22 09:57 Labs: Abnormal Lab Results - Last 24 Hours (Table) 08/20/22 Range/Units 09:57 BUN 18 H (7-17) mg/dL Glucose 120 H (74-99) mg/dL AST 41 H (14-36) U/L Assessment and Plan Assessment: 1. Chest pain rule out acute coronary syndrome - We will admit patient to telemetry and monitor EKG and trend troponin; recommend 2-D echo; sublingual nitroglycerin every 5 minutes when necessary for chest pain - Consult cardiology for further evaluation 2. Mild DEMARCO; - Slow IV fluid hydration with normal saline at rate of 70 mL an hour; we will monitor strict AUREA's, daily weights, renal function and electrolytes; avoid nephrotoxins and hypotension; plan to hold lisinopril if renal function continues to worsen 3. Hypertension; stable on home dose of amlodipine 5 mg by mouth daily at bedtime and lisinopril 10 mg by mouth daily at bedtime 4. Asthma; not in exacerbation; albuterol inhaler 2 puffs 4 times a day along with Singulair 10 mg daily 5. Seasonal ALLERGIES; continue with home dose of fluticasone nasal spray daily at bedtime DVT prophylaxis; SCDs CODE STATUS; full code
[2022-08-21] MEDS ORDERED: ASPIRIN 325 MG TAB PO SCH (09:00)
[2022-08-21 09:50] LABS: African American GFR (CKD) 70.8 (60.0-200.0); BUN/Creat Ratio 20.08 Ratio (12.00-20.00); Blood Urea Nitrogen 19.2 mg/dL (9.0-27.0); Calcium 9.5 mg/dL (8.7-10.3); Carbon Dioxide 24.9 mmol/L (20.0-27.5); Chloride 105 mmol/L (96-109); Chol/HDL Ratio 3.24 Ratio; Glucose 97 mg/dL (70-110); LDL Cholesterol,Calculated 141.3 mg/dL (0.0-131.0); Non-African American GFR(CKD) 61.1 (60.0-200.0); Potassium 4.4 mmol/L (3.5-5.5); Sodium 142 mmol/L (135-145)
[2022-08-21 11:27] LABS: Basophils # (A) 0.04 X 10*3/uL (0.00-0.10); Basophils % (A) 0.5 %; Eosinophils # (A) 0.11 X 10*3/uL (0.04-0.35); Eosinophils % (A) 1.5 %; HCT 40.8 % (37.2-46.3); HGB 13.4 g/dL (12.0-15.0); Immature Grans, Automated 0.3 %; Lymphocytes # (A) 2.58 X 10*3/uL (0.90-5.00); Lymphocytes % (A) 34.8 %; MCHC 32.8 g/dL (32.0-37.0); MCV 91.5 fL (80.0-97.0); Mean Platelet Volume 11.4 fL (9.5-12.2); Monocytes # (A) 0.64 X 10*3/uL (0.20-1.00); Monocytes % (A) 8.6 %; NRBC Per 100 WBC 0 /100 WBCS (0.0-0.0); Neutrophils # (A) 4.03 X 10*3/uL (1.80-7.70); Neutrophils % (A) 54.3 %; Platelet Count 297 X 10*3/uL (140-440); RBC 4.46 X 10*6/uL (4.10-5.20); RDW 13.2 % (11.5-14.5); WBC 7.42 X 10*3/uL (4.50-10.00)
--- NOTE | 2022-08-21 15:49 | P.CRDCN ---
History of Present Illness Consult date: 08/21/22 Consult reason: chest pain History of present illness: This is Milton Mulligan NP, I'm dictating on behalf of Dr. Rudd's H&P and A&P The patient was interviewed and examined. HPI: Patient is a pleasant 67 year old female who presented to the ER with chest pain. Patient reports that she walks at least 5 miles a day and swims regularly at the [facility]. She states that over the last month she has been experiencing chest pressure on the left side. She states that it would get worse with left arm movement, especially shoulder movement. She reports no associated shortness of breath, dizziness, or diaphoresis. Patient states that yesterday she went for a 5 mile walk, and about alf through it when she turned around to head home she experienced an episode of sharp, shooting chest pain in the center of her chest, different than her chest pressure. This concerned her, so she presented to the hospital for evaluation. In the ER her EKG demonstrated no ST elevation or depression, no T-wave abnormalities. Serial troponins have been ne gative. She is still complaining of the dull chest ache on the left side. Patient has a pertinent past medical history that includes asthma, cancer, CVA, GERD, hypertension. She has a pertinent past surgical history that includes heart catheterization. ROS: [No fever, chills, or rigors] [no cough, phlegm, or expectoration] [no nausea, vomiting, or diarrhea] [no hematuria, dysuria] [no musculoskelatal complaints] [no strokes or seizures] [no skin lesions] EXAMINATION: GENERAL: Well-appearing, well-nourished and in no acute distress. NECK: Supple without JVD or thyromegaly. LUNGS: Breath sounds clear to auscultation bilaterally. Respiration equal and unlabored. No wheezes, rales or rhonchi. HEART: Regular rate and rhythm without murmurs, rubs or gallops. S1 and S2 heard. EXTREMITIES: Normal range of motion, no edema. No clubbing or cyanosis. Peripheral pulses intact and strong. REVIEW OF LABS, ECG & MEDICAL DATA: LABS: White count 7.4, hemoglobin 13.4, platelets 297, sodium 142, potassium 4.4, chloride 105, BUN 19, creatinine 1.0, calcium 9.5, serial troponins 3-less than 0.012, BNP 89, triglycerides 64, cholesterol 223, LDL 141, HDL 68.9 EKG: Normal sinus rhythm IMAGING: Chest x-ray dated 08/20/2022 demonstrates no acute cardiopulmonary disease/process. VITALS: Temp 97.8, pulse 77, respirations 18, blood pressure 103/68, O2 saturation 98% on room air IMPRESSION: 1. Chest pain, typical for angina 2. Hypertension, controlled PLAN: Check hemoglobin A1c and lipid panel Start aspirin 81 mg daily and atorvastatin 80 mg at bedtime Obtain echocardiogram Plan for coronary angiogram on 08/23/2022 Continue previously prescribed cardiac medications Further recommendations based on the patient's clinical course Thank you for the consult and allowing us to participate in the care of this patient. Past Medical History Past Medical History: Asthma, Cancer, CVA/TIA, Eye Disorder, GERD/Reflux, Hypertension, Rheumatoid Arthritis (RA) Additional Past Medical History / Comment(s): diverticulitis,hx chronic low back pain-bulging discs, osteopenia, hx (SUPERIOR MESENTERIC ARTERY SYNDROME), [place] allergies, Endometrial CA. 1998 (surgery)., CVA 1999 (no deficits) glaucoma. History of Any Multi-Drug Resistant Organisms: C-DIFF Date of last positivie culture/infection: 2007 MDRO Source:: stool Past Surgical History: Bowel Resection, Cholecystectomy, Heart Catheterization, Hysterectomy, Orthopedic Surgery Additional Past Surgical History / Comment(s): Rt foot bunionectomy. Cervical cone bx. intestinal surgery laser eye surgery, Colonoscopy,Laparotomy for super ior mesenteric artery syndrome. pain clinic procedures. 01/30/20 LOWER ANTERIOR RESECTION Past Anesthesia/Blood Transfusion Reactions: No Reported Reaction Additional Past Anesthesia/Blood Transfusion Reaction / Comment(s): Pt received blood with no reaction following uterine hemorrhage. Past Psychological History: No Psychological Hx Reported Smoking Status: Former smoker Past Alcohol Use History: None Reported Past Drug Use History: None Reported - Past Family History Father Family Medical History: Cancer Additional Family Medical History / Comment(s): colon Mother Family Medical History: Dementia Sister(s) Family Medical History: Cancer Additional Family Medical History / Comment(s): Leukemia. Medications and Allergies Home Medications Medication Instructions Recorded Confirmed Type Montelukast [Singulair] 10 mg PO HS 08/01/14 08/20/22 History Famotidine [Pepcid] 40 mg PO HS 01/27/16 08/20/22 History Fluticasone Nasal [place] [Flonase 2 spr EA NOSTRIL HS 04/01/16 08/20/22 History Nasal [place]] lisinopriL [Zestril] 10 mg PO HS 02/02/18 08/20/22 History Acetaminophen [Tylenol Extra 1,000 mg PO TID PRN 01/31/19 08/20/22 History Strength] Albuterol Sulfate [Proair Hfa] 2 puff INHALATION RT-QID PRN 01/31/19 08/20/22 History amLODIPine [Norvasc] 5 mg PO HS 03/02/21 08/20/22 History Ibuprofen [Motrin Ib] 600 mg PO Q8H PRN 08/20/22 08/20/22 History Allergies Allergy/AdvReac Type Severity Reaction Status Date / Time amoxicillin trihydrate AdvReac Intermediate Nausea & Verified 08/20/22 12:09 [From Augmentin] Vomiting & Diarrhea potassium clavulanate AdvReac Nausea & Verified 08/20/22 12:09 [From Augmentin] Vomiting & Diarrhea Physical Exam Vitals: Vital Signs Temp Pulse Pulse Resp BP BP Pulse Ox 08/21/22 06:48 97.8 F 77 18 103/68 98 08/21/22 02:39 97.9 F 74 17 109/67 95 08/20/22 20:29 96 08/20/22 20:00 16 08/20/22 19:58 98.1 F 73 16 107/64 96 08/20/22 14:29 97.6 F 80 16 161/77 98 08/20/22 13:59 75 18 141/90 100 08/20/22 12:15 78 18 131/63 96 08/20/22 11:23 81 18 131/77 98 08/20/22 11:00 88 18 116/72 99 08/20/22 10:33 72 18 121/80 99 08/20/22 09:15 97.6 F 89 18 142/76 98 FiO2 08/21/22 06:48 08/21/22 02:39 08/20/22 20:29 21 08/20/22 20:00 08/20/22 19:58 08/20/22 14:29 08/20/22 13:59 08/20/22 12:15 08/20/22 11:23 08/20/22 11:00 08/20/22 10:33 08/20/22 09:15 Intake and Output 08/20/22 08/21/22 08/21/22 22:59 06:59 14:59 Intake Total 0 Balance 0 Intake: Oral 0 Other: Voiding Method Toilet # Voids 1 2 Results 08/21/22 06:29 08/21/22 06:29 Cardiac Enzymes 08/20/22 08/20/22 08/20/22 Range/Units 09:57 09:57 12:46 AST 41 H (14-36) U/L Troponin I <0.012 <0.012 (0.000-0.034) ng/mL 08/20/22 Range/Units 16:54 AST (14-36) U/L Troponin I <0.012 (0.000-0.034) ng/mL Coagulation 08/20/22 Range/Units 09:57 PT 10.2 (9.0-12.0) sec APTT 22.8 (22.0-30.0) sec CBC 08/20/22 Range/Units 09:57 WBC 7.3 (3.8-10.6) k/uL RBC 4.83 (3.80-5.40) m/uL Hgb 14.3 (11.4-16.0) gm/dL Hct 42.9 (34.0-46.0) % Plt Count 261 (150-450) k/uL Comprehensive Metabolic Panel 08/20/22 Range/Units 09:57 Sodium 139 (137-145) mmol/L Potassium 4.3 (3.5-5.1) mmol/L Chloride 102 (98-107) mmol/L Carbon Dioxide 25 (22-30) mmol/L BUN 18 H (7-17) mg/dL Creatinine 0.94 (0.52-1.04) mg/dL Glucose 120 H (74-99) mg/dL Calcium 9.6 (8.4-10.2) mg/dL AST 41 H (14-36) U/L ALT 26 (4-34) U/L Alkaline Phosphatase 103 (38-126) U/L Total Protein 7.7 (6.3-8.2) g/dL Albumin 4.9 (3.5-5.0) g/dL Current Medications Generic Name Dose Route Start Last Admin Trade Name Freq PRN Reason Stop Dose Admin Acetaminophen 1,000 mg 08/20/22 14:45 Acetaminophen Tab 500 Mg Tab PO TID PRN Pain Albuterol Sulfate 2.5 mg 08/20/22 14:45 Albuterol Nebulized 2.5 Mg/3 Ml INHALATION RT-QID PRN Shortness Of Breath Alprazolam 0.25 mg 08/21/22 08:45 Alprazolam 0.25 Mg Tab PO Q6HR PRN Mild Anxiety Alprazolam 0.5 mg 08/21/22 08:45 Alprazolam 0.5 Mg Tab PO Q6HR PRN Moderate Anxiety Amlodipine Besylate 5 mg 08/20/22 21:00 08/20/22 19:58 Amlodipine 5 Mg Tab PO 5 mg HS DESHAUN Administration Aspirin 81 mg 08/22/22 09:00 Aspirin 81 Mg PO DAILY DESHAUN Atorvastatin Calcium 80 mg 08/21/22 21:00 Atorvastatin 80 Mg Tab PO HS DESHAUN Famotidine 40 mg 08/20/22 21:00 08/20/22 19:58 Famotidine 20 Mg Tab PO 40 mg HS DESHAUN Administration Fluticasone Propionate 2 spray 08/20/22 21:00 08/20/22 19:58 Fluticasone 50mcg/[place] Nasal 16gm EA NOSTRIL 2 spray HS DESHAUN Administration Heparin Sodium (Porcine) 10, 1,001 mls @ 999 mls/hr 08/22/22 07:00 000 unit/ Sodium Chloride IRRIGATION 08/22/22 23:00 ONCE PRN INTRA-OP Heparin Sodium (Porcine) 2,500 250.5 mls @ 250 mls/hr 08/22/22 07:00 unit/ Sodium Chloride IRRIGATION 08/22/22 23:00 ONCE PRN INTRA-OP Lisinopril 10 mg 08/20/22 21:00 08/20/22 19:58 Lisinopril 10 Mg Tab PO 10 mg HS DESHAUN Administration Montelukast Sodium 10 mg 08/20/22 21:00 08/20/22 19:58 Montelukast 10 Mg Tab PO 10 mg HS DESHAUN Administration Nitroglycerin 0.4 mg 08/20/22 11:23 08/20/22 12:21 Nitroglycerin Sl Tabs 0.4 Mg Tab SUBLINGUAL 0.4 mg Q5M PRN Administration Chest Pain Nitroglycerin 0.5 inch 08/20/22 12:00 08/21/22 05:29 Nitroglycerin Oint 1 Inch/Gm Packet TOPICAL 0.5 inch Q6HR DESHAUN Administration Nitroglycerin 0.4 mg 08/21/22 08:45 Nitroglycerin Sl Tabs 0.4 Mg Tab SUBLINGUAL Q5M PRN Chest Pain Intake and Output 08/20/22 08/21/22 08/21/22 22:59 06:59 14:59 Intake Total 0 Balance 0 Intake: Oral 0 Other: Voiding Method Toilet # Voids 1 2 08/20/22 09:57 08/20/22 09:57
--- NOTE | 2022-08-21 17:51 | CA ---
Transthoracic Echo Report Name: Kristen Dale Age: 67 Gender: F : 1955 Exam Date: 08/21/2022 10:32 Exam Location: [place] [facility] Ht (in): 65 Wt (lb): 130 Ordering Physician: Milton Mulligan Attending/Referring Phys: Alarm Signaler Kassidy Esposito RDCS Procedure CPT: Indications: Chest Pain Cardiac Hx: Technical Quality: Fair Contrast 1: Total Dose (mL): Contrast 2: Total Dose (mL): MEASUREMENTS (Male / Female) Normal Values 2D ECHO LV Diastolic Diameter PLAX 3.6 cm 4.2 - 5.9 / 3.9 - 5.3 cm LV Systolic Diameter PLAX 2.1 cm IVS Diastolic Thickness 0.9 cm 0.6 - 1.0 / 0.6 - 0.9 cm LVPW Diastolic Thickness 0.9 cm 0.6 - 1.0 / 0.6 - 0.9 cm LV Relative Wall Thickness 0.5 RV Internal Dim ED PLAX 2.7 cm LA Volume 46.0 cm??? 18 - 58 / 22 - 52 cm??? M-MODE Aortic Root Diameter MM 2.6 cm LA Systolic Diameter MM 2.8 cm LA Ao Ratio MM 1.1 AV Cusp Separation MM 2.0 cm DOPPLER AV Peak Velocity 154.0 cm/s AV Peak Gradient 9.5 mmHg AV Mean Velocity 118.0 cm/s AV Mean Gradient 5.9 mmHg AV Velocity Time Integral 35.5 cm AI Peak Velocity 439.2 cm/s AI Peak Gradient 77.1 mmHg AI Pressure Half Time 690.6 ms LVOT Peak Velocity 139.2 cm/s LVOT Peak Gradient 7.8 mmHg LVOT Velocity Time Integral 23.8 cm MV Area PHT 3.9 cm??? Mitral E Point Velocity 62.1 cm/s Mitral A Point Velocity 80.9 cm/s Mitral E to A Ratio 0.8 MV Deceleration Time 194.1 ms MV E' Velocity 6.5 cm/s Mitral E to MV E' Ratio 9.6 TR Peak Velocity 225.7 cm/s TR Peak Gradient 20.4 mmHg Right Ventricular Systolic Press 24.5 mmHg FINDINGS Left Ventricle Normal Left ventricular size, wall thickness, systolic function with no obvious regional wall motion abnormalities. Normal Left ventricular diastolic filling pattern. Left ventricular ejection fraction is estimated at 55-60 %. Right Ventricle Normal right ventricular size and function. Right ventricular systolic pressure within normal limits. Right Atrium Normal right atrial size. Left Atrium Normal left atrial size. Mitral Valve Structurally normal mitral valve. Mitral valve thickened. Mitral annular calcification. No mitral regurgitation. Aortic Valve Trileaflet aortic valve. No aortic stenosis. Mild aortic regurgitation. Tricuspid Valve Structurally normal tricuspid valve. Mild tricuspid regurgitation. Pulmonic Valve Trace pulmonic regurgitation. Pericardium No pericardial effusion. Aorta Normal size aortic root and proximal ascending aorta. CONCLUSIONS Normal LV size and systolic function Previewed by: Dr. Austin Rudd MD (Electronically Signed) Final Date: 21 Aug 2022 17:51
[2022-08-21] MEDS: FAMOTIDINE 20 MG TAB PO SCH (20:02)
[2022-08-21] MEDS: FLUTICASONE 50MCG/SPRAY NASAL 16GM EA NOSTRIL SCH (20:03)
[2022-08-21] MEDS: MONTELUKAST 10 MG TAB PO SCH (20:03)
[2022-08-21] MEDS: lisinopriL 10 MG TAB PO SCH (20:03)
[2022-08-21] MEDS: amLODIPine 5 MG TAB PO SCH (20:03)
[2022-08-21] MEDS: ATORVASTATIN 80 MG TAB PO SCH (20:03)
[2022-08-22] MEDS: NITROGLYCERIN OINT 1 INCH/GM PACKET TOPICAL SCH ×4 (02:51→20:21)
[2022-08-22] MEDS ORDERED: HEPARIN SODIUM,PORCINE 2,500 UNIT in SODIUM CHLORIDE 0.9% 250 ML IRRIGATION PRN (07:00)
[2022-08-22] MEDS ORDERED: HEPARIN SODIUM,PORCINE 10,000 UNIT in SODIUM CHLORIDE 0.9% 1,000 ML IRRIGATION PRN (07:00)
[2022-08-22] MEDS: ASPIRIN 81 MG PO SCH (09:51)
--- NOTE | 2022-08-22 14:17 | P.PN ---
Subjective Progress Note Date: 08/22/22 This is Milton Mulligan NP, I'm dictating on behalf of Dr. Rudd's H&P and A&P. Patient was interviewed and examined. Patient is a pleasant 67-year-old female who presented to the hospital with chest pain. Patient reports chest pressure overnight, but no pain. Her lipid panel did come back with high cholesterol and high LDL. She was started on Atorvastatin 80mg HS yesterday. She otherwise denies palpitations, syncope, dizziness, diaphoresis. Her blood pressure is acceptable today. An echo comple kylie yesterday demonstrates a normal EF 55-60%, no other significant abnormalities. GENERAL: Well-appearing, well-nourished and in no acute distress. NECK: Supple without JVD or thyromegaly. LUNGS: Breath sounds clear to auscultation bilaterally. Respiration equal and unlabored. No wheezes, rales or rhonchi. HEART: Regular rate and rhythm without murmurs, rubs or gallops. S1 and S2 heard. EXTREMITIES: Normal range of motion, no edema. No clubbing or cyanosis. Peripheral pulses intact and strong. VITALS: Temp 97.8, pulse 88, respirations 18, blood pressure 106/69, O2 saturation 99% on room air TELEMETRY: LABS: Triglycerides 64, cholesterol 223, LDL 141.3, HDL 68.9 IMPRESSION: 1. Chest pain, typical for angina 2. Hypertension, controlled PLAN: Continue Atorvastatin 80mg at discharge Plan for heart cath tomorrow with Dr. Singer Continue telemetry monitoring Further recommendations based on patients clinical course Objective - Vital Signs Vital signs: Vital Signs Temp 97.8 F 08/22/22 07:27 Pulse 88 08/22/22 07:27 Resp 18 08/22/22 07:27 BP 106/69 08/22/22 07:27 Pulse Ox 99 08/22/22 07:27 FiO2 21 08/20/22 20:29 Intake & Output 08/21/22 08/22/22 08/22/22 18:59 06:59 18:59 Intake Total 118 0 Balance 118 0 Intake: Oral 118 0 Other: Voiding Method Toilet # Voids 4 2 # Bowel Movements 1 - Labs CBC & Chem 7: 08/21/22 06:29 08/21/22 06:29 Labs: Abnormal Lab Results - Last 24 Hours (Table) 08/21/22 Range/Units 06:29 BUN/Creatinine Ratio 20.08 H (12.00-20.00) Ratio Cholesterol 223.00 H (0.00-200.00) mg/dL LDL Cholesterol, Calc 141.3 H (0.0-131.0) mg/dL HDL Cholesterol 68.90 H (40.00-60.00) mg/dL
--- NOTE | 2022-08-22 18:47 | P.PN ---
Subjective Progress Note Date: 08/21/22 67-year-old female presenting to the emergency department with concerns of chest discomfort. Onset of symptoms has been a couple of days and have been intermittent. Symptoms are worse with exertion. Patient has chest pressure currently 8/10. Patient has associated dyspnea. Patient has had some mild n ausea. Patient has had some mild headedness. No diaphoresis. No history of similar symptoms previously. Blood work completed in ED reveals a WBC of 7.3, hemoglobin 14.3 and platelet count of 261, sodium 139, potassium 4.3, BUN/creatinine of 18/0.9 and blood glucose of 120, AST mildly elevated at 41 with normal ENT and total bilirubin; EKG: sinus rhythm, normal axis, normal QRS, normal ST/T Chest x-ray reveals no acute process Objective - Vital Signs Vital signs: Vital Signs Temp 97.8 F 08/21/22 06:48 Pulse 77 08/21/22 06:48 Resp 18 08/21/22 06:48 BP 103/68 08/21/22 06:48 Pulse Ox 98 08/21/22 06:48 FiO2 21 08/20/22 20:29 Intake & Output 08/20/22 08/21/22 08/21/22 18:59 06:59 18:59 Intake Total 0 Balance 0 Weight 58.967 kg Intake: Oral 0 Other: Voiding Method Toilet # Voids 2 - Exam General appearance: alert, in no apparent distress Head exam: Present: normocephalic Eye exam: Present: normal appearance Neck exam: Present: normal inspection Respiratory exam: Present: normal lung sounds bilaterally. Absent: chest wall tenderness Cardiovascular Exam: Present: regular rate, normal rhythm Expanded Peripheral pulses: 2+: Radial (R), Radial (L), Posterior Tibialis (R), Posterior Tibialis (L) GI/Abdominal exam: Present: soft. Absent: tenderness Extremities exam: Present: normal inspection. Absent: pedal edema, calf tenderness Neurological exam: Present: alert Psychiatric exam: Present: normal affect, normal mood Skin exam: Present: normal color - Labs CBC & Chem 7: 08/21/22 06:29 08/21/22 06:29 Labs: Abnormal Lab Results - Last 24 Hours (Table) 08/20/22 Range/Units 09:57 BUN 18 H (7-17) mg/dL Glucose 120 H (74-99) mg/dL AST 41 H (14-36) U/L Assessment and Plan Assessment: 1. Chest pain rule out acute coronary syndrome - We will admit patient to telemetry and monitor EKG and trend troponin; recommend 2-D echo; sublingual nitroglycerin every 5 minutes when necessary for chest pain - Consult cardiology for further evaluation 2. Mild DEMARCO; - Slow IV fluid hydration with normal saline at rate of 70 mL an hour; we will monitor strict AUREA's, daily weights, renal function and electrolytes; avoid nephrotoxins and hypotension; plan to hold lisinopril if renal function continues to worsen 3. Hypertension; stable on home dose of amlodipine 5 mg by mouth daily at bedtime and lisinopril 10 mg by mouth daily at bedtime 4. Asthma; not in exacerbation; albuterol inhaler 2 puffs 4 times a day along with Singulair 10 mg daily 5. Seasonal ALLERGIES; continue with home dose of fluticasone nasal spray daily at bedtime DVT prophylaxis; SCDs CODE STATUS; full code
--- NOTE | 2022-08-22 18:48 | P.PN ---
Subjective Progress Note Date: 08/22/22 67-year-old female presenting to the emergency department with concerns of chest discomfort. Onset of symptoms has been a couple of days and have been intermittent. Symptoms are worse with exertion. Patient has chest pressure currently 8/10. Patient has associated dyspnea. Patient has had some mild n ausea. Patient has had some mild headedness. No diaphoresis. No history of similar symptoms previously. Blood work completed in ED reveals a WBC of 7.3, hemoglobin 14.3 and platelet count of 261, sodium 139, potassium 4.3, BUN/creatinine of 18/0.9 and blood glucose of 120, AST mildly elevated at 41 with normal ENT and total bilirubin; EKG: sinus rhythm, normal axis, normal QRS, normal ST/T Chest x-ray reveals no acute process Continue Atorvastatin 80mg at discharge Plan for heart cath tomorrow with Dr. Singer Continue telemetry monitoring Objective - Vital Signs Vital signs: Vital Signs Temp 97.8 F 08/22/22 15:00 Pulse 86 08/22/22 15:00 Resp 17 08/22/22 15:00 BP 146/88 08/22/22 15:00 Pulse Ox 100 08/22/22 15:00 FiO2 21 08/20/22 20:29 Intake & Output 08/21/22 08/22/22 08/22/22 18:59 06:59 18:59 Intake Total 118 0 118 Balance 118 0 118 Intake: Oral 118 0 118 Other: Voiding Method Toilet # Voids 4 2 2 # Bowel Movements 1 - Exam General appearance: alert, in no apparent distress Head exam: Present: normocephalic Eye exam: Present: normal appearance Neck exam: Present: normal inspection Respiratory exam: Present: normal lung sounds bilaterally. Absent: chest wall tenderness Cardiovascular Exam: Present: regular rate, normal rhythm Expanded Peripheral pulses: 2+: Radial (R), Radial (L), Posterior Tibialis (R), Posterior Tibialis (L) GI/Abdominal exam: Present: soft. Absent: tenderness Extremities exam: Present: normal inspection. Absent: pedal edema, calf tenderness Neurological exam: Present: alert Psychiatric exam: Present: normal affect, normal mood Skin exam: Present: normal color - Labs CBC & Chem 7: 08/21/22 06:29 08/21/22 06:29 Assessment and Plan Assessment: 1. Chest pain rule out acute coronary syndrome - We will admit patient to telemetry and monitor EKG and trend troponin; recommend 2-D echo; sublingual nitroglycerin every 5 minutes when necessary for chest pain - Consult cardiology for further evaluation 2. Mild DEMARCO; - Slow IV fluid hydration with normal saline at rate of 70 mL an hour; we will monitor strict AUREA's, daily weights, renal function and electrolytes; avoid nephrotoxins and hypotension; plan to hold lisinopril if renal function continues to worsen 3. Hypertension; stable on home dose of amlodipine 5 mg by mouth daily at bedtime and lisinopril 10 mg by mouth daily at bedtime 4. Asthma; not in exacerbation; albuterol inhaler 2 puffs 4 times a day along with Singulair 10 mg daily 5. Seasonal ALLERGIES; continue with home dose of fluticasone nasal spray daily at bedtime DVT prophylaxis; SCDs CODE STATUS; full code
[2022-08-22] MEDS: MONTELUKAST 10 MG TAB PO SCH (20:21)
[2022-08-22] MEDS: FAMOTIDINE 20 MG TAB PO SCH (20:21)
[2022-08-22] MEDS: amLODIPine 5 MG TAB PO SCH (20:21)
[2022-08-22] MEDS: lisinopriL 10 MG TAB PO SCH (20:21)
[2022-08-22] MEDS: ATORVASTATIN 80 MG TAB PO SCH (20:22)
[2022-08-22] MEDS: FLUTICASONE 50MCG/SPRAY NASAL 16GM EA NOSTRIL SCH (20:25)
[2022-08-23] MEDS: NITROGLYCERIN OINT 1 INCH/GM PACKET TOPICAL SCH ×2 (01:27→08:55)
[2022-08-23] MEDS ORDERED: HEPARIN SODIUM,PORCINE 10,000 UNIT in SODIUM CHLORIDE 0.9% 1,000 ML IRRIGATION PRN (07:00)
[2022-08-23] MEDS ORDERED: HEPARIN SODIUM,PORCINE 2,500 UNIT in SODIUM CHLORIDE 0.9% 250 ML IRRIGATION PRN (07:00)
[2022-08-23 07:24] VITALS: RESP 18
[2022-08-23] MEDS ORDERED: ASPIRIN 325 MG TAB PO STA (07:50)
[2022-08-23] MEDS ORDERED: ALPRAZolam 0.25 MG TAB PO PRN (07:50)
[2022-08-23] MEDS ORDERED: ATORVASTATIN 80 MG TAB PO STA (07:50)
[2022-08-23] MEDS ORDERED: NITROGLYCERIN SL TABS 0.4 MG TAB SUBLINGUAL PRN (07:50)
[2022-08-23] MEDS ORDERED: ALPRAZolam 0.5 MG TAB PO PRN (07:50)
[2022-08-23] MEDS: ASPIRIN 81 MG PO SCH (08:32)
[2022-08-23] MEDS ORDERED: IV FLUID CONTINUATION 1,000 ML IV ONE (10:01)
[2022-08-23] MEDS ORDERED: MIDAZOLAM 2 MG/2 ML VIAL IV ONE (10:12)
[2022-08-23] MEDS ORDERED: fentaNYL (PF) 50 MCG/ML 2 ML AMP IV ONE (10:14)
[2022-08-23] MEDS ORDERED: LIDOCAINE 1% INJ 10MG/ML (5 ML VIAL-PF) SQ ONE (10:15)
[2022-08-23] MEDS ORDERED: VERAPAMIL SYRINGE (5 MG/10 ML) INTRAARTER ONE ×2 (10:16→10:17)
[2022-08-23] MEDS ORDERED: IOPAMIDOL-370 125ML BTL INJ ONE (10:28)
[2022-08-23] MEDS ORDERED: RX INFO: IV CONTRAST WAS GIVEN 1 EACH MISC MISCELLANE PRN (10:34)
[2022-08-23] MEDS ORDERED: SODIUM CHLORIDE 0.9% 1,000 ML IV SCH (10:45)
--- NOTE | 2022-08-23 11:02 | CC ---
CARDIAC CATHETERIZATION REPORT INDICATION: Unstable angina. PROCEDURE NOTE: After obtaining informed consent, left heart catheterization and coronary angiogram were performed via the right radial artery using standard Chad catheters. The patient tolerated the procedure well without any obvious immediate complications, received moderate conscious sedation. Total sedation time was 12 minutes. Using Seldinger technique, right radial artery access was obtained. A 6-Danish sheath was placed. Catheters and wires were floated into the ascending aorta under fluoroscopic guidance. The patient received verapamil and heparin per protocol. A TR band was used for hemostasis. FINDINGS: 1. HEMODYNAMICS: Left ventricular end-diastolic pressure is 14 mm. There is no significant gradient across the aortic valve. 2. LEFT VENTRICULOGRAM: Left ventriculogram has not been performed. 3. ANGIOGRAPHIC DATA: a.Right coronary artery: Right coronary artery is a dominant vessel and is free of stenosis. b.Left main coronary artery is a normal-sized vessel and is free of disease. It divides into left anterior descending coronary artery and circumflex coronary artery. c.LAD and its branches, circumflex coronary artery and its branches are free of significant stenosis. CONCLUSIONS: 1. Normal coronary arteries. 2. Normal left ventricular end-diastolic pressure. PLAN: The patient's chest discomfort is noncardiac in origin and her management is going to be in the form of aggressive risk factor modification. MMODL / IJN: [id number] /
--- NOTE | 2022-08-23 13:16 | P.PN ---
Subjective Progress Note Date: 08/23/22 Patient is a pleasant 67-year-old female who presented to the hospital with chest pain. Patient reports chest pressure overnight, but no pain. Her lipid panel did come back with high cholesterol and high LDL. She was started on Atorvastatin 80mg HS yesterday. She otherwise denies palpitations, syncope, dizziness, diaphoresis. Her blood pressure is acceptable today. An echo completed yesterday demonstrates a normal EF 55-60%, no other significant abnormalities. 08/23 patient is seen today in follow-up. She is scheduled for cardiac catheterization today with Dr. Felipe which found normal coronary arteries and plan for aggressive risk factor modification. Patient denies having any chest pain or shortness of breath. She has a mild aching in her room prior to procedure without any difficulty. Echocardiogram reveals EF of 55-60%. GENERAL: Well-appearing, well-nourished and in no acute distress. NECK: Supple without JVD or thyromegaly. LUNGS: Breath sounds clear to auscultation bilaterally. Respiration equal and unlabored. No wheezes, rales or rhonchi. HEART: Regular rate and rhythm without murmurs, rubs or gallops. S1 and S2 heard. EXTREMITIES: Normal range of motion, no edema. No clubbing or cyanosis. Peripheral pulses intact and strong. IMPRESSION: 1. Chest pain, typical for angina, normal coronary arteries 2. Hypertension, controlled PLAN: Continue Atorvastatin 80mg at discharge Continue other cardiac medications Patient is cleared for discharge from cardiology may follow-up in the office in one week. Nurse practitioner note has been reviewed, I agree with the documented findings and plan of care. Patient was seen and examined. Objective - Vital Signs Vital signs: Vital Signs Temp 97.6 F 08/23/22 07:10 Pulse 66 08/23/22 07:10 Resp 18 08/23/22 07:10 BP 98/54 08/23/22 07:10 Pulse Ox 99 08/23/22 07:10 FiO2 21 08/20/22 20:29 Intake & Output 08/22/22 08/23/22 08/23/22 18:59 06:59 18:59 Intake Total 118 0 Balance 118 0 Intake: Oral 118 0 Other: Voiding Method Toilet Toilet # Voids 2 2 - Labs CBC & Chem 7: 08/21/22 06:29 08/21/22 06:29
[2022-08-23 14:09] VITALS: TEMP 98.5
[2022-08-23 14:57] VITALS: BP 113/61; PULSE 67
--- NOTE | 2022-08-24 01:35 | P.DS ---
Providers Date of admission: 08/22/22 11:25 Attending physician: Zenaida Stearns MD Consults: 08/20/22 11:23 Consult Physician Urgent Consulting Provider: Oneal Felipe Consult Reason/Comments: cp Do you want consulting provider notified?: Yes Primary care physician: Velia Curry Hospital Course: Diagnoses: 1. Chest pain The 36, normal cardiac cath. Chest pain resolved upon discharge 2. Mild DEMARCO; result 3. Hypertension; stable 4. Asthma; not in exacerbation; 5. Seasonal ALLERGIES Hospital course: 67-year-old female presenting to the emergency department with concerns of chest discomfort. patient had extensive workup, d-dimer was -0.36. 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 No other new complaints. No dyspnea or coughing. No abdominal pain vomiting or change in urine or bowel habits. No fever. No headache confusion or dizziness. Patient was cleared for discharge by cardiology team Problems and management plan were discussed with the patient and he verbalized understanding and acceptance Patient was found stable and can be discharged home in guarded prognosis however he needs follow-up as an outpatient. Patient was instructed to follow up with PCP Dr. Velia shaffer one week and patient agrees Patient instructed to follow up with Dr. Felipe in 1-2 weeks and she agrees Physical exam Gen: patient is a AAOx3, no distress CVS: S1-S2, RRR, no murmur Lungs: B/L CTA, no wheezing Abdomen: soft, no distention, no tenderness, positive bowel sounds Extremity: no leg edema or induration Time spent more than 35 minutes Patient Condition at Discharge: Good Plan - Discharge Summary New Discharge Prescriptions: New RX: Atorvastatin [Lipitor] 80 mg PO HS 30 Days #30 tab Continue RX: Montelukast [Singulair] 10 mg PO HS RX: Famotidine [Pepcid] 40 mg PO HS RX: Fluticasone Nasal [place] [Flonase Nasal [place]] 2 spr EA NOSTRIL HS RX: lisinopriL [Zestril] 10 mg PO HS RX: Albuterol Sulfate [Proair Hfa] 2 puff INHALATION RT-QID PRN PRN Reason: Shortness Of Breath RX: Acetaminophen [Tylenol Extra Strength] 1,000 mg PO TID PRN PRN Reason: Pain RX: amLODIPine [Norvasc] 5 mg PO HS Discontinued Ibuprofen [Motrin Ib] 600 mg PO Q8H PRN PRN Reason: Pain Discharge Medication List RX: Montelukast [Singulair] 10 mg PO HS 08/01/14 [History] RX: Famotidine [Pepcid] 40 mg PO HS 01/27/16 [History] RX: Fluticasone Nasal [place] [Flonase Nasal [place]] 2 spr EA NOSTRIL HS 04/01/16 [History] RX: lisinopriL [Zestril] 10 mg PO HS 02/02/18 [History] RX: Acetaminophen [Tylenol Extra Strength] 1,000 mg PO TID PRN 01/31/19 [History] RX: Albuterol Sulfate [Proair Hfa] 2 puff INHALATION RT-QID PRN 01/31/19 [Histo ry] RX: amLODIPine [Norvasc] 5 mg PO HS 03/02/21 [History] RX: Atorvastatin [Lipitor] 80 mg PO HS 30 Days #30 tab 08/22/22 [Rx] Follow up Appointment(s)/Referral(s): Velia Curry MD [Primary Care Provider] - 1-2 days Oneal Felipe MD [STAFF PHYSICIAN] - 09/02/22 1:45 pm Patient Instructions/Handouts: Heart Catheterization (DC), After Radial Heart Catheterization (GEN) Activity/Diet/Wound Care/Special Instructions: Heart healthy diet Activity is restricted till you see your doctor Discharge Disposition: HOME SELF-CARE
== END 2022-08-23 18:16 | disposition home or self-care (01) ==
LOC: EC 09:11 → 6NMEDSUR 11:23 → OBSVTOIN 08-22 11:25 → INTOOBSV 08-22 11:25 → UNDODISIN 08-23 18:16
PROVIDERS: ADMIT Internal Medicine; ATTEND Internal Medicine
DX: R07.89 Other chest pain (principal); N17.9 Acute kidney failure, unspecified; I20.0 Unstable angina; J45.909 Unspecified asthma, uncomplicated; K21.9 Gastro-esophageal reflux disease without esophagitis; I10 Essential (primary) hypertension; M06.9 Rheumatoid arthritis, unspecified; M85.80 Other specified disorders of bone density and structure, unspecified site; H40.9 Unspecified glaucoma; I08.2 Rheumatic disorders of both aortic and tricuspid valves; Z88.1 Allergy status to other antibiotic agents; Z79.899 Other long term (current) drug therapy; Z88.8 Allergy status to other drugs, medicaments and biological substances; Z86.73 Personal history of transient ischemic attack (TIA), and cerebral infarction without residual deficits; Z85.44 Personal history of malignant neoplasm of other female genital organs; Z90.49 Acquired absence of other specified parts of digestive tract; Z90.710 Acquired absence of both cervix and uterus; Z80.0 Family history of malignant neoplasm of digestive organs; Z80.6 Family history of leukemia; Z82.0 Family history of epilepsy and other diseases of the nervous system
CPT/HCPCS: 99285; 36415; 94760; 93005; 93306; 93458; 85379; 83880; 80061; 80053; 80048; 83735; 84484; 85025 ×2; 85610; 85730; 83036; 71046; G0378 ×4; C1769; C1894; J2250; J2001; J3010; J1644; Q9967

== ENCOUNTER 2022-10-08 06:11 | Day surgery (SDC) | payer MEDICARE ==
[2022-10-08] MEDS ORDERED: LIDOCAINE 1% (10MG/ML) FOR IV START INTRADERMA PRN (06:35)
[2022-10-08 06:43] VITALS: RESP 16; TEMP 97
[2022-10-08] MEDS: LACTATED RINGERS 1,000 ML IV SCH ×2 (06:45→06:56)
[2022-10-08] MEDS ORDERED: fentaNYL (PF) 50 MCG/ML 2 ML AMP ONE (06:58)
[2022-10-08] MEDS ORDERED: methylPREDNISolone ACETATE 40 MG/ML 1 ML VIAL ONE (06:58)
[2022-10-08] MEDS ORDERED: ROPIVACAINE 5 MG/ML 20 ML AMPULE ONE (06:58)
[2022-10-08] MEDS ORDERED: MIDAZOLAM 2 MG/2 ML VIAL ONE (06:58)
--- NOTE | 2022-10-08 07:24 | P.PCN ---
Date of Procedure: 10/08/22 Procedure(s) Performed: PREOPERATIVE DIAGNOSIS: 1-Lumbar Spondylosis with Facet Arthropathy without myelopathy. 2- Lumber degenerative disc disease. POSTOPERATIVE DIAGNOSIS: 1- Lumbar Spondylosis with Facet Arthropathy without myelopathy. 2- Lumber degenerative disc disease. PROCEDURES : Bilateral Radiofrequency thermocoagulation, L3 , L4 , and L5 medial branch, with fluoroscopic guidance (fluoroscopy images available in the radiology department) ( to denervate the facet joint at bilateral L4-5 ,and L5- S1 levels ). ANESTHESIA: Monitored anesthesia care as per anesthesia department.. EBL: Minimal PROCEDURE INDICATION: The patient with low back pain secondary to lumbar facet arthropathy who had more than 50% relief of her pain with previous diagnostic lumbar medial branch block with bupivacaine. PROCEDURE DESCRIPTION / TECHNIQUE: The patient was seen and identified in the preoperative area. Risks, benefits, complications, including but not limited to risk of infection ,bleeding , allergic reactions to the medications and no complete pain releife , and alternatives were discussed with the patient, the patient agreed to proceed with the procedure and signed the consent. IV was started. Vital signs remained stable throughout the procedure. Patient was taken to the OR and time out was completed. The patient was placed in the prone position on the procedure table. The lumber area was prepped and draped in the usual sterile fashion. . Vital signs were closely monitored during the procedure .IV sedation was used during the procedure to decrease patients anxiety. Using AP and then oblique fluoroscopy, the ``eye of the Abdulaziz dog corresponding to the connection between the superior and transverse articular processes of right L3, L4, and L5 were identified, marked, and localized with 1% lidocaine. Subsequently, a 18 -oo radiofrequency cannula with a 10- mm active tip was advanced guided by fluoroscopy to each of the``eyes of the Abdulaziz dog at right L3, L4, and L5. Each site then underwent sensory testing at 50 Hz and 0 to 1 volt and motor testing at 2.5 Hz and 0 to 3 volt with local stimulation, but no radicular symptoms down the legs. Thereafter each sites underwent radiofrequency thermocoagulation at 80 degrees celsius for 90 seconds after injecting 0.5 ml of PF Ropivacaine 1ml, then after the thermocoagulation done , 1 ml of the block solution containing Depo-Medrol 20 mg and 3 ml of Ropivacaine 0.5% was injected at the right L3 , L4 , and L5 , levels after negative aspiration of CSF and blood and with no paresthesias. Cannulas were retracted while injecting lidocaine 1% until the needle is out. The same procedure was repeated at the level of Left L3, L4, and L5 levels. At the end of the procedure, the skin was cleansed and bandages were applied. COMPLICATIONS: No acute complications. DISPOSITION / PLANS: The patient was placed in a supine position and transferred to the recovery area in a stable condition for observation and was discharged from the recovery room after meeting discharge criteria. Home discharge instructions given to the patient by the staff. The patient was reexamined prior to discharge. The patient will schedule a follow up in the [facility]i [facility] in 2-4 weeks.
[2022-10-08] MEDS ORDERED: IV FLUID CONTINUATION 800 ML IV ONE (07:27)
[2022-10-08 07:43] VITALS: BP 112/71; PULSE 61
--- NOTE | 2022-10-08 08:36 | FL ---
Kristen Dale EXAMINATION TYPE: Fluoroscopy DATE OF EXAM: 10/08/2022 CLINICAL HISTORY: Low back pain. TECHNIQUE: Fluoroscopy. COMPARISON: None. FINDINGS: Fluoroscopic guidance was provided during pain relief procedure performed by Dr. Craig . A total of 13.9 seconds of fluoroscopic time was utilized during the procedure and 6 spot images a re acquired. Images acquired shows needle localization from posterior approach at multiple levels in the lower lumbar spine. TOTAL DAP = 0.07659 mGy x m2. IMPRESSION: As Above.
== END 2022-10-08 08:15 | disposition home or self-care (01) ==
LOC: ORPAIN 06:11
PROVIDERS: ATTEND Specialist
DX: M51.36 Other intervertebral disc degeneration, lumbar region (principal); M47.816 Spondylosis without myelopathy or radiculopathy, lumbar region; I10 Essential (primary) hypertension; K21.9 Gastro-esophageal reflux disease without esophagitis; J45.909 Unspecified asthma, uncomplicated; Z90.710 Acquired absence of both cervix and uterus; Z98.890 Other specified postprocedural states; Z79.899 Other long term (current) drug therapy; Z88.8 Allergy status to other drugs, medicaments and biological substances
CPT/HCPCS: 64635; 64636 ×2; J2250; J1030; J3010; J2795

== ENCOUNTER → 2022-11-04 | Outpatient (CLI) | payer MEDICARE ==
[2022-11-04 12:47] VITALS: BP 121/78; PULSE 71; RESP 15; TEMP 98
--- NOTE | 2022-11-04 13:30 | P.PAINPG ---
PQRS Measure Charge Sheet Comment: A 67 yr old female with a history of severe and chronic LBP secondary to lumbar DDD and spondylosis with facet arthropathy without myelopathy, BL Sacroiliitis presents today for evaluation s/p BL RFA L3-L5. Pt states she experienced 100 % pain relief s/p procedure. Pt also admits she had a RFA of the L4-5, L5-S1 where she experienced 100% pain relief x 10 mo s/p procedure. Pain level is provoked at 10/10 in intensity, constant, localized in the lower lumbar spine, burning in character w shooting towards the R hip and RLE. Pain is provoked by sitting for periods of 25 min or more. Pain is alleviated with PT x 6 wks in 2019, physician guided exercises, water aerobics, ice, meds, topicals, repositioning and rest. Oswestry axial pain score of 17. Interventional pain procedures completed include BL SI injection x3, Lumbar TPIs, BL RFA L3-L5 Patient is currently on Voltaren gel, Tyl Patient denies any side effects of the medication(s), denies excessive drowsiness or sleepiness, denies suicidal ideation and reports that the current pain medication is helping to control the pain and improve activities of daily living. Patient denies any motor or sensory deficits. Patient denies any fever or night sweats, denies any change in the bowel movements or urination. Physical Examination: -Constitutional: Cooperative. Not in acute distress . - Neurologic: Cranial nerve II to XII intact. No focal neurological deficits. - Psychatric: Alert & oriented x 3. Matching mood & appropriate affect. Judgment and insight intact. - Musculoskeletal: Cervical spine: Muscle bulk/ tone/ strength in the bilateral upper extremities normal Vertebral body tenderness to palpation over Spurling test positive Distraction test positive Facet loading test positive TTP Thoracic spine Muscle bulk / tone/ strength in the bilateral paraspinal muscles normal Vertebral body tender to palpation over Facet loading test positive TTP Lumbar spine: Motor bulk/ tone/ strength lower extremities , thigh and legs : 5/5 Deep tendon reflexes : Normal Knee Jerk. Normal Ankle Jerk . Vertebral body tenderness to palpation over Lumbar Facet Loading Test positive Straight Leg Raise: positive at 30 degrees right side/ left side Gaenslen's Test positive Sacral spine : Severe tenderness over the Sacroiliac joint: right side / left side Range of motion: Flexion of the lumbar spine <60 degrees Range of motion: Extension of the lumbar spine <20 degrees Gaenslen's Test positive right side > left side Sherri test: positive right side > left side Thigh Thrust Test positive right side / left side Sacral Thrust Test positive right side / left side Assessment and plan: Chronic LBP secondary to lumbar DDD, spondylosis with facet arthropathy without myelopathy Recommendation of BL SI injections. May need a series of injections for optimal pain relief. Risks, benefits of procedure discussed and pt verbalized understanding. Admits to anticoagulant use or medical history of diabetes. Protocol for discontinuation/ continuation of medications magda procedure discussed. All questions answered. I have spent less than 30 minutes on patient care today. Dr Craig was available by phone for the evaluation of this patient. The time was used to review the medical records including relevant urine studies and Prescription history (MAPs), review of the available imaging, evaluation and examination of the patient, coordination of care with the medical staff and if applicable referring physicians, as well as creation of the medical record PQRS Narrative: Smoking Status Former smoker Hx Alcohol Use (MH) Yes: rare Home Medications: Ambulatory Orders Montelukast [Singulair] 10 mg PO HS 08/01/14 Famotidine [Pepcid] 40 mg PO HS 01/27/16 Fluticasone Nasal [place] [Flonase Nasal [place]] 2 spr EA NOSTRIL HS 04/01/16 lisinopriL [Zestril] 10 mg PO HS 02/02/18 Acetaminophen [Tylenol Extra Strength] 1,000 mg PO TID PRN 01/31/19 Albuterol Sulfate [Proair Hfa] 2 puff INHALATION RT-QID PRN 01/31/19 amLODIPine [Norvasc] 5 mg PO HS 03/02/21 Atorvastatin [Lipitor] 80 mg PO HS 30 Days #30 tab 08/22/22 Budesonide [Pulmicort Flexhaler] 1 puff INHALATION DAILY 10/06/22 Controlled Substance Measures - Controlled Substance Measures Is patient prescribed a controlled substance at discharge?: No
== END ==
LOC: PNWHC3 12:13
PROVIDERS: ATTEND Specialist
DX: M51.36 Other intervertebral disc degeneration, lumbar region (principal); M47.816 Spondylosis without myelopathy or radiculopathy, lumbar region; G89.29 Other chronic pain; Z87.891 Personal history of nicotine dependence; Z88.0 Allergy status to penicillin; Z88.8 Allergy status to other drugs, medicaments and biological substances
CPT/HCPCS: 99211

== ENCOUNTER 2022-11-23 06:26 | Day surgery (SDC) | payer MEDICARE ==
[2022-11-16 11:11] VITALS: BMI 20.5
[2022-11-23] MEDS ORDERED: LACTATED RINGERS 1,000 ML IV SCH (06:32)
[2022-11-23 06:41] VITALS: TEMP 97.7
[2022-11-23] MEDS ORDERED: ROPIVACAINE 5 MG/ML 20 ML AMPULE ONE (07:24)
[2022-11-23] MEDS ORDERED: IOPAMIDOL M200 10 ML VIAL ONE (07:24)
[2022-11-23] MEDS ORDERED: methylPREDNISolone ACETATE 40 MG/ML 1 ML VIAL ONE (07:24)
--- NOTE | 2022-11-23 07:35 | P.PCN ---
Date of Procedure: 11/23/22 Procedure(s) Performed: Procedure= bilateral sacroiliac joints steroid injection under fluoroscopy guidance (fluoroscopy image stored on file in the radiology Department ) Preoperative diagnosis= 1-sacroiliitis 2-lumbar degenerative disc disease 3- lumbar facet arthropathy Postoperative diagnosis=Same as preop Diagnosis . Complication = none Condition= stable Anesthesia=: local Infiltration with ropivacaine 0.5% 4 ML only . Indication for the procedure= patient complaining of low back pain , examination was positive for severe tenderness over the sacroiliac joints bilaterally and patient diagnosed with sacroiliitis, for this reason , she was good candidate for sacroiliac joint steroid injection. Description of the procedure= procedure risk and benefits discussed with the patient, including but not limited, risk of infection and bleeding, and ALLERGIC reaction to the medication and not complete pain relief and patient agreed with the preceding patient taken to the operating room, placed in prone position or standard monitors applied to the patient then after induction of anesthesia back prepped with chlorhexidine 3 times , Then under strict sterile technique, first I did the right sacroiliac joint the which was identified under fluoroscopy guidance been local infiltration of the skin and subcu interstitial with both pain 0.5% 2 ml then 22-gauge Quincke Needle advanced slowly under fluoroscopy and placed in the right sacroiliac joint needle placement confirmed with AP and oblique and lateral view and after appropriate needle placement confirmed and after negative aspiration, or heme , then Ropivacaine 0.5% 3 mL, and 20 mg of Depo-Medrol mixed together and injected in the right sacroiliac joint after negative aspiration patient tolerated the procedure well without any complication. Then the left sacroiliac joint steroid injection done under strict sterile technique local infiltration of the skin and subcu interstitial at the location of the left sacroiliac joint then a 22-gauge Quincke Needle advanced slowly under fluoroscopy time placed in the left sacroiliac joint, needle placement confirmed with AP and oblique and lateral view then after appropriate needle placement confirmed and after negative aspiration 0.5% Ropivacaine 3 mL and 20 mg of Depo-Medrol injected in the left sacroiliac joint after negative aspiration patient tolerated the procedure well that any complications and she will follow up in clinic 3 weeks
[2022-11-23 07:48] VITALS: RESP 18
[2022-11-23 08:12] VITALS: BP 129/67; PULSE 81
--- NOTE | 2022-11-23 08:20 | FL ---
Intraoperative/procedural fluoroscopic services were provided for bilateral SI joint injection. Total fluoroscopy time is 13.4 seconds with a total of 2 submitted images to PACS. Total DAP 0.62186 mGym2 . Please see the operative note for further details.
== END 2022-11-23 10:12 | disposition home or self-care (01) ==
LOC: ORPAIN 06:26
PROVIDERS: ATTEND Specialist
DX: M46.1 Sacroiliitis, not elsewhere classified (principal); M51.36 Other intervertebral disc degeneration, lumbar region; M47.816 Spondylosis without myelopathy or radiculopathy, lumbar region; Z88.0 Allergy status to penicillin; Z88.1 Allergy status to other antibiotic agents
CPT/HCPCS: J1030; Q9966; J2795; G0260

== ENCOUNTER → 2022-12-16 | Outpatient (CLI) | payer MEDICARE ==
[2022-12-16 12:35] VITALS: BP 128/77; PULSE 63; RESP 16; TEMP 98.2
--- NOTE | 2022-12-16 13:31 | P.PAINPG ---
PQRS Measure Charge Sheet Comment: A 67 yr old female with a history of severe and chronic LBP secondary to lumbar DDD and spondylosis with facet arthropathy without myelopathy, BL Sacroiliitis presents today for evaluation s/p BL SI injection. Pt states she experienced 90 % pain relief x 3 wks s/p procedure. Pain level is provoked at 3/10 in intensity, constant, localized in the lower lumbar spine, sore in character w shooting towards the R hip and RLE. Pain is provoked by sitting for periods of 25 min or more. Pain is alleviated with PT x 6 wks in 2019, physician guided exercises, water aerobics, ice, meds, topicals, repositioning and rest. Oswestry axial pain score of 17. Interventional pain procedures completed include BL SI injection x4, Lumbar TPIs, BL RFA L3-L5 Patient is currently on Voltaren gel, Tyl Patient denies any side effects of the medication(s), denies excessive drowsiness or sleepiness, denies suicidal ideation and reports that the current pain medication is helping to control the pain and improve activities of daily living. Patient denies any motor or sensory deficits. Patient denies any fever or night sweats, denies any change in the bowel movements or urination. Physical Examination: -Constitutional: Cooperative. Not in acute distress . - Neurologic: Cranial nerve II to XII intact. No focal neurological deficits. - Psychatric: Alert & oriented x 3. Matching mood & appropriate affect. Judgment and insight intact. - Musculoskeletal: Cervical spine: Muscle bulk/ tone/ strength in the bilateral upper extremities normal Vertebral body tenderness to palpation over Spurling test positive Distraction test positive Facet loading test positive TTP Thoracic spine Muscle bulk / tone/ strength in the bilateral paraspinal muscles normal Vertebral body tender to palpation over Facet loading test positive TTP Lumbar spine: Motor bulk/ tone/ strength lower extremities , thigh and legs : 5/5 Deep tendon reflexes : Normal Knee Jerk. Normal Ankle Jerk . Vertebral body tenderness to palpation over Lumbar Facet Loading Test positive Straight Leg Raise: positive at 30 degrees right side/ left side Gaenslen's Test positive Sacral spine : Severe tenderness over the Sacroiliac joint: right side / left side Range of motion: Flexion of the lumbar spine <60 degrees Range of motion: Extension of the lumbar spine <20 degrees Gaenslen's Test positive right side > left side Sherri test: positive right side > left side Thigh Thrust Test positive right side / left side Sacral Thrust Test positive right side / left side Assessment and plan: Chronic LBP secondary to lumbar DDD, spondylosis with facet arthropathy without myelopathy Will manage residual pain on her own and may return to the clinic on an as needed basis. All questions answered. I have spent less than 30 minutes on patient care today. Dr Craig was available by phone for the evaluation of this patient. The time was used to review the medical records including relevant urine studies and Prescription history (MAPs), review of the available imaging, evaluation and examination of the patient, coordination of care with the medical staff and if applicable referring physicians, as well as creation of the medical record PQRS Narrative: Smoking Status Former smoker Hx Alcohol Use (MH) Yes: rare Home Medications: Ambulatory Orders Montelukast [Singulair] 10 mg PO HS 08/01/14 Famotidine [Pepcid] 40 mg PO HS 01/27/16 Fluticasone Nasal [place] [Flonase Nasal [place]] 2 spr EA NOSTRIL HS 04/01/16 lisinopriL [Zestril] 10 mg PO HS 02/02/18 Acetaminophen [Tylenol Extra Strength] 1,000 mg PO TID PRN 01/31/19 Albuterol Sulfate [Proair Hfa] 2 puff INHALATION RT-QID PRN 01/31/19 amLODIPine [Norvasc] 5 mg PO HS 03/02/21 Atorvastatin [Lipitor] 80 mg PO HS 30 Days #30 tab 08/22/22 Budesonide [Pulmicort Flexhaler] 1 puff INHALATION DAILY 10/06/22 Controlled Substance Measures - Controlled Substance Measures Is patient prescribed a controlled substance at discharge?: No
== END ==
LOC: PNWHC3 12:15
PROVIDERS: ATTEND Specialist
DX: M51.36 Other intervertebral disc degeneration, lumbar region (principal); M47.816 Spondylosis without myelopathy or radiculopathy, lumbar region; G89.29 Other chronic pain; Z87.891 Personal history of nicotine dependence; Z88.0 Allergy status to penicillin; Z88.8 Allergy status to other drugs, medicaments and biological substances
CPT/HCPCS: 99211

== ENCOUNTER 2023-02-10 13:08 | Inpatient (IN) | payer MEDICARE ==
[2023-02-10 13:58] LABS: Basophils % (A) 0 %; Eosinophils # (A) 0.2 k/uL (0-0.7); Eosinophils % (A) 1 %; HCT 41.7 % (34.0-46.0); HGB 13.8 gm/dL (11.4-16.0); Lymphocytes # (A) 1.8 k/uL (1.0-4.8); Lymphocytes % (A) 13 %; MCH 29.6 pg (25.0-35.0); MCV 89.5 fL (80.0-100.0); Mean Platelet Volume 9.1; Monocytes # (A) 0.6 k/uL (0-1.0); Monocytes % (A) 4 %; Neutrophils # (A) 11.7 k/uL (1.3-7.7); Neutrophils % (A) 81 %; Platelet Count 266 k/uL (150-450); RBC 4.66 m/uL (3.80-5.40); RDW 12.6 % (11.5-15.5); WBC 14.4 k/uL (3.8-10.6)
[2023-02-10 14:09] LABS: ALT 20 U/L (4-34); AST 33 U/L (14-36); African American GFR (CKD) 59 (>60 ml/min/1.73 sqM); Albumin 4.6 g/dL (3.5-5.0); Alkaline Phosphatase 101 U/L (38-126); Anion Gap 11 mmol/L; Blood Urea Nitrogen 18 mg/dL (7-17); Calcium 9.6 mg/dL (8.4-10.2); Carbon Dioxide 24 mmol/L (22-30); Chloride 104 mmol/L (98-107); Glucose 110 mg/dL (74-99); Non-African American GFR(CKD) 51 (>60 ml/min/1.73 sqM); Potassium 4.1 mmol/L (3.5-5.1); Sodium 139 mmol/L (137-145); Total Bilirubin 0.9 mg/dL (0.2-1.3); Total Protein 7.4 g/dL (6.3-8.2)
[2023-02-10] MEDS ORDERED: SODIUM CHLORIDE 0.9% 1,000 ML IV ONE (18:07)
--- NOTE | 2023-02-10 18:07 | ED ---
General Adult HPI - General Chief complaint: GI Bleed Stated complaint: Rectal bleeding Time Seen by Provider: 02/10/23 17:15 Source: patient, RN notes reviewed, old records reviewed Mode of arrival: ambulatory Limitations: no limitations - History of Present Illness Initial comments: This is a 67-year-old female who states yesterday she started feeling ill and she started having vomiting and diarrhea and eventually that subsided but after that she started having blood rolling down her leg and she looked and she was bleeding per rectum. Patient states it's definitely vaginal bleeding but it continues now anytime she sits down and goes to bathroom and she just blood dripping from her anus. Patient denies any fevers or chills patient states he h as a little bit of left-sided abdominal pain is not very bad at all. Patient denies chest pain difficulty breathing. Patient denies dysuria hematuria urinary frequency - Related Data Home Medications Medication Instructions Recorded Confirmed Montelukast [Singulair] 10 mg PO HS 08/01/14 02/10/23 Famotidine [Pepcid] 40 mg PO HS 01/27/16 02/10/23 lisinopriL [Zestril] 5 mg PO HS 02/02/18 02/10/23 Acetaminophen [Tylenol Extra 1,000 mg PO Q6H PRN 01/31/19 02/10/23 Strength] Albuterol Sulfate [Proair Hfa] 2 puff INHALATION RT-QID PRN 01/31/19 02/10/23 Donepezil [Aricept] 5 mg PO DIRECTED 02/10/23 02/10/23 amLODIPine [Norvasc] 10 mg PO HS 02/10/23 02/10/23 Allergies Allergy/AdvReac Type Severity Reaction Status Date / Time amoxicillin trihydrate AdvReac Intermediate Nausea & Verified 02/10/23 17:45 [From Augmentin] Vomiting & Diarrhea potassium clavulanate AdvReac Nausea & Verified 02/10/23 17:45 [From Augmentin] Vomiting & Diarrhea Review of Systems ROS Statement: Those systems with pertinent positive or pertinent negative responses have been documented in the HPI. ROS Other: All systems not noted in ROS Statement are negative. Past Medical History Past Medical History: Asthma, Cancer, CVA/TIA, Eye Disorder, GERD/Reflux, Hypertension, Rheumatoid Arthritis (RA) Additional Past Medical History / Comment(s): diverticulitis,hx chronic low back pain-bulging discs, osteopenia, hx (SUPERIOR MESENTERIC ARTERY SYNDROME), seasonal allergies, Endometrial CA. 1998 (surgery)., CVA 1999 (no deficits) glaucoma. hospitalized in August for chest pain, had normal cardiac cath, no current chest discomfort History of Any Multi-Drug Resistant Organisms: C-DIFF Date of last positivie culture/infection: 2007 MDRO Source:: stool Past Surgical History: Bowel Resection, Cholecystectomy, Heart Catheterization, Hysterectomy, Orthopedic Surgery Additional Past Surgical History / Comment(s): Rt foot bunionectomy. Cervical cone bx. intestinal surgery laser eye surgery, Colonoscopy,Laparotomy for superior mesenteric artery syndrome. pain clinic procedures. 01/30/20 LOWER ANTERIOR RESECTION Past Anesthesia/Blood Transfusion Reactions: No Reported Reaction Additional Past Anesthesia/Blood Transfusion Reaction / Comment(s): Pt received blood with no reaction following uterine hemorrhage. Past Psychological History: No Psychological Hx Reported Smoking Status: Former smoker Past Alcohol Use History: None Reported Past Drug Use History: None Reported - Past Family History Father Family Medical History: Cancer Additional Family Medical History / Comment(s): colon Mother Family Medical History: Dementia Sister(s) Family Medical History: Cancer Additional Family Medical History / Comment(s): Leukemia. General Exam - General Exam Comments Initial Comments: GENERAL: Patient is well-developed and well-nourished. Patient is nontoxic and well- hydrated and is in no acute distress. ENT: Neck is soft and supple. No significant lymphadenopathy is noted. Oropharynx is clear. Moist mucous membranes. Neck has full range of motion without eliciting any pain. EYES: The sclera were anicteric and conjunctiva were pink and moist. Extraocular movements were intact and pupils were equal round and reactive to light. Eyelids were unremarkable. PULMONARY: Unlabored respirations. Good breath sounds bilaterally. No audible rales rhonc hi or wheezing was noted. CARDIOVASCULAR: There is a regular rate and rhythm without any murmurs gallops or rubs. ABDOMEN: Soft and nontender with normal bowel sounds. SKIN: Skin is clear with no lesions or rashes and otherwise unremarkable. RECTAL: On rectal exam there was no obvious sites of bleeding there was bright red blood dripping from the anus. NEUROLOGIC: Patient is alert and oriented x3. Cranial nerves II through XII are grossly intact. Motor and sensory are also intact. Normal speech, volume and content. Symmetrical smile. MUSCULOSKELETAL: Normal extremities with adequate strength and full range of motion. LYMPHATICS: No significant lymphadenopathy is noted PSYCHIATRIC: Normal psychiatric evaluation. Limitations: no limitations Course Vital Signs 02/10/23 02/10/23 13:34 17:20 Temperature 97.2 F L Pulse Rate 85 85 Respiratory 16 18 Rate Blood Pressure 125/81 154/76 O2 Sat by Pulse 97 96 Oximetry Medical Decision Making - Medical Decision Making Was patient sent in by a medical professional or institution (, PA, STATION DETECTIVE, urgent care, hospital, or long term...) When possible be specific @ -No Did you speak to anyone other than the patient for history (EMS, parent, family, police, friend...)? What history was obtained from this source @ -No Did you review nursing and triage notes (agree or disagree)? Why? @ -I reviewed and agree with nursing and triage notes Were old charts reviewed (outside hosp., previous admission, EMS record, old EKG, old radiological studies, urgent care reports/EKG's, long term records)? Report findings @ -No old charts were reviewed Differential Diagnosis (chest pain, altered mental status, abdominal pain women, abdominal pain men, vaginal bleeding, weakness, fever, dyspnea, syncope, headache, dizziness, GI bleed, back pain, seizure, CVA, palpatations, mental health, musculoskeletal)? @ -Differential GI Bleed: Esophageal varices, aortoenteric fistula, Meera-Whitman, gastritis, peptic ulcer disease, diverticulosis, inflammatory bowel disease, hemorrhoids, fissure, colitis, malignancy, Meckels diverticulum, this is not meant to be an all- inclusive list. EKG interpreted by me (3pts min.). @ -As above X-rays interpreted by me (1pt min.). @ -None done CT interpreted by me (1pt min.). @ -None done U/S interpreted by me (1pt. min.). @ -None done What testing was considered but not performed or refused? (CT, X-rays, U/S, labs)? Why? @ -None What meds were considered but not given or refused? Why? @ -None Did you discuss the management of the patient with other professionals (professionals i.e. , PA, STATION DETECTIVE, lab, RT, psych nurse, sexual assault social worker, sales support assistant, teacher, conservation science officer, case managers)? Give summary @ -I spoke with the patient [place] hospitalist and they agreed to admit the p atient Was smoking cessation discussed for >3mins.? @ -No Was critical care preformed (if so, how long)? @ -No Were there social determinants of health that impacted care today? How? (Homelessness, low income, unemployed, alcoholism, drug addiction, transportation, low edu. Level, literacy, decrease access to med. care, [facility], rehab)? @ -No Was there de-escalation of care discussed even if they declined (Discuss DNR or withdrawal of care, Hospice)? DNR status @ -No What co-morbidities impacted this encounter? (DM, HTN, Smoking, COPD, CAD, Cancer, CVA, ARF, Chemo, Hep., AIDS, mental health diagnosis, sleep apnea, morbid obesity)? @ -None Was patient admitted / discharged? Hospital course, mention meds given and route, prescriptions, significant lab abnormalities, going to OR and other pertinent info. @ -Patient continued to have bright red blood per rectum and there was no obvious site of bleeding. Patient's abdominal pain was minimal. Patient's lab work came back within normal range however she did not feel comfortable going home with the continued bleeding and I spoke with the [facility] agreed to admit the patient minute the patient I consulted Dr. Felipe Undiagnosed new problem with uncertain prognosis? @ -No Drug Therapy requiring intensive monitoring for toxicity (Heparin, Nitro, Insulin, Cardizem)? @ -No Were any procedures done? @ -No Diagnosis/symptom? @ -GI bleed Acute, or Chronic, or Acute on Chronic? @ -Acute Uncomplicated (without systemic symptoms) or Complicated (systemic symptoms)? @ -Complicated Side effects of treatment? @ -No Exacerbation, Progression, or Severe Exacerbation? @ -No Poses a threat to life or bodily function? How? (Chest pain, [place], [place], pneumonia, PE, COPD, DKA, ARF, appy, cholecystitis, CVA, Diverticulitis, Homicidal, Suicidal, threat to staff... and all critical care pts) @ -This patient can bleed to which could lead to hypoxia was completely to end organ dysfunction - Lab Data Result diagrams: 02/10/23 13:54 02/10/23 13:54 Lab Results 02/10/23 02/10/23 02/10/23 Range/Units 13:54 13:54 13:54 WBC 14.4 H (3.8-10.6) k/uL RBC 4.66 (3.80-5.40) m/uL Hgb 13.8 (11.4-16.0) gm/dL Hct 41.7 (34.0-46.0) % MCV 89.5 (80.0-100.0) fL MCH 29.6 (25.0-35.0) pg MCHC 33.0 (31.0-37.0) g/dL RDW 12.6 (11.5-15.5) % Plt Count 266 (150-450) k/uL MPV 9.1 Neutrophils % 81 % Lymphocytes % 13 % Monocytes % 4 % Eosinophils % 1 % Basophils % 0 % Neutrophils # 11.7 H (1.3-7.7) k/uL Lymphocytes # 1.8 (1.0-4.8) k/uL Monocytes # 0.6 (0-1.0) k/uL Eosinophils # 0.2 (0-0.7) k/uL Basophils # 0.0 (0-0.2) k/uL APTT 23.7 (22.0-30.0) sec Sodium 139 (137-145) mmol/L Potassium 4.1 (3.5-5.1) mmol/L Chloride 104 (98-107) mmol/L Carbon Dioxide 24 (22-30) mmol/L Anion Gap 11 mmol/L BUN 18 H (7-17) mg/dL Creatinine 1.11 H (0.52-1.04) mg/dL Est GFR (CKD-EPI)AfAm 59 (>60 ml/min/1.73 sqM) Est GFR (CKD-EPI)NonAf 51 (>60 ml/min/1.73 sqM) Glucose 110 H (74-99) mg/dL Calcium 9.6 (8.4-10.2) mg/dL Total Bilirubin 0.9 (0.2-1.3) mg/dL AST 33 (14-36) U/L ALT 20 (4-34) U/L Alkaline Phosphatase 101 (38-126) U/L Total Protein 7.4 (6.3-8.2) g/dL Albumin 4.6 (3.5-5.0) g/dL Disposition Clinical Impression: Gastrointestinal hemorrhage Disposition: ADMITTED IP TO THIS HOSP Referrals: Velia Curry MD [Primary Care Provider] - 1-2 days Time of Disposition: 18:07
[2023-02-10 18:56] LABS: Basophils # (A) 0.1 k/uL (0-0.2); Basophils % (A) 0 %; Eosinophils # (A) 0.2 k/uL (0-0.7); Eosinophils % (A) 1 %; HCT 38.6 % (34.0-46.0); HGB 13.2 gm/dL (11.4-16.0); Lymphocytes # (A) 1.9 k/uL (1.0-4.8); Lymphocytes % (A) 14 %; MCHC 34.1 g/dL (31.0-37.0); MCV 88.1 fL (80.0-100.0); Mean Platelet Volume 9.2; Monocytes # (A) 0.6 k/uL (0-1.0); Monocytes % (A) 5 %; Neutrophils # (A) 10.4 k/uL (1.3-7.7); Neutrophils % (A) 78 %; Platelet Count 247 k/uL (150-450); RBC 4.38 m/uL (3.80-5.40); RDW 12.7 % (11.5-15.5); WBC 13.3 k/uL (3.8-10.6)
[2023-02-10 23:05] LABS: Basophils % (A) 0 %; Eosinophils # (A) 0.2 k/uL (0-0.7); Eosinophils % (A) 2 %; HGB 12.2 gm/dL (11.4-16.0); Lymphocytes # (A) 1.9 k/uL (1.0-4.8); Lymphocytes % (A) 17 %; MCH 29.2 pg (25.0-35.0); MCHC 32.9 g/dL (31.0-37.0); MCV 88.7 fL (80.0-100.0); Mean Platelet Volume 9.5; Monocytes # (A) 0.5 k/uL (0-1.0); Monocytes % (A) 5 %; Neutrophils # (A) 8.5 k/uL (1.3-7.7); Neutrophils % (A) 76 %; Platelet Count 224 k/uL (150-450); RBC 4.17 m/uL (3.80-5.40); RDW 12.7 % (11.5-15.5); WBC 11.3 k/uL (3.8-10.6)
[2023-02-11] MEDS ORDERED: ACETAMINOPHEN TAB 500 MG TAB PO PRN (06:18)
[2023-02-11] MEDS ORDERED: ALBUTEROL NEBULIZED 2.5 MG/3 ML INHALATION PRN (06:18)
[2023-02-11] MEDS ORDERED: IOPAMIDOL CONTRAST (ORAL USE) VIAL PO PRN (06:47)
[2023-02-11 07:16] LABS: Basophils % (A) 0 %; Eosinophils # (A) 0.2 k/uL (0-0.7); Eosinophils % (A) 2 %; HCT 37.7 % (34.0-46.0); HGB 12.4 gm/dL (11.4-16.0); Lymphocytes # (A) 1.6 k/uL (1.0-4.8); Lymphocytes % (A) 16 %; MCH 29.4 pg (25.0-35.0); MCHC 32.8 g/dL (31.0-37.0); MCV 89.6 fL (80.0-100.0); Mean Platelet Volume 9.4; Monocytes # (A) 0.5 k/uL (0-1.0); Monocytes % (A) 5 %; Neutrophils # (A) 7.8 k/uL (1.3-7.7); Neutrophils % (A) 76 %; Platelet Count 208 k/uL (150-450); RBC 4.21 m/uL (3.80-5.40); WBC 10.3 k/uL (3.8-10.6)
[2023-02-11 07:19] LABS: African American GFR (CKD) 82 (>60 ml/min/1.73 sqM); Anion Gap 8 mmol/L; Blood Urea Nitrogen 19 mg/dL (7-17); Calcium 8.8 mg/dL (8.4-10.2); Carbon Dioxide 24 mmol/L (22-30); Chloride 108 mmol/L (98-107); Glucose 76 mg/dL (74-99); Non-African American GFR(CKD) 71 (>60 ml/min/1.73 sqM); Sodium 140 mmol/L (137-145)
[2023-02-11 08:05] LABS: Potassium 4.5 mmol/L (3.5-5.1)
[2023-02-11] MEDS: PANTOPRAZOLE 40 MG/10 ML VIAL IVP SCH ×2 (08:47→21:10)
--- NOTE | 2023-02-11 08:54 | P.CONS ---
History of Present Illness - Reason for Consult Consult date: 02/11/23 GI bleed Requesting physician: William Barron - Chief Complaint Rectal bleeding - History of Present Illness This is a pleasant 67-year-old female with a past medical history including asthma which she states is well controlled and diverticulitis status post low anterior resection in 2019 who presented to the emergency department yesterday evening with complaints of nausea vomiting diarrhea followed with bright red blood per rectum. Patient states yesterday morning she got up and was not feeling well she had gotten nauseated and then vomited quite a bit. Denied any coffee-ground emesis or hematemesis. She felt like possible fever and chills. Later in the afternoon she started having bright red blood per rectum she states she had at least 20 episodes. She came to the emergency department for further evaluation. She states she has not had any further nausea or vomiting since yesterday morning. Overall rectal bleeding has a cyst sided. She had a very s mall bowel movement with a little bit of blood. She states that she had left lower quadrant cramping associated with the diarrhea. No previous history of a GI bleed. No previous history of colitis. She believes that her last colonoscopy was around 5 years ago. On admission patient had a leukocytosis with a WBC of 14 initial hemoglobin 13.8. No imaging was ordered. Today's labs WBC 10.3 hemoglobin 12.4 hematocrit 37 platelet count 208,000 sodium 140 potassium 4.5UN 19 creatinine 0.85 total bilirubin 0.9 AST 33 ALT 20 alkaline phosphatase 101. She currently states abdominal pain is improved but she still has tenderness in the left lower quadrant. Again no nausea or vomiting. And bleeding has overall subsided. She's been afebrile. Review of Systems REVIEW OF SYSTEMS: CARDIOPULMONARY: No chest pain or shortness of breath. Gastrointestinal: Left lower quadrant abdominal cramping. Nausea with vomiting yesterday morning. No hematemesis, coffee-ground emesis. Diarrhea with rectal bleeding, bright red blood per rectum. GENITOURINARY: No dysuria or hematuria. MUSCULOSKELETAL: Reports normal range of motion. SKIN: No rashes. No jaundice. ENDOCRINE: No chills, fevers. No excessive weight gain or loss. No polydipsia or polyuria. PSYCHIATRIC: Unremarkable. NEUROLOGY: No change in mental status. Denies dizziness, headache. ENT: Vision unremarkable. CONSTITUTIONAL: No recent weight loss. No fever, chills, night sweats. Past Medical History Past Medical History: Asthma, Cancer, CVA/TIA, Eye Disorder, GERD/Reflux, Hypertension, Rheumatoid Arthritis (RA) Additional Past Medical History / Comment(s): diverticulitis,hx chronic low back pain-bulging discs, osteopenia, hx (SUPERIOR MESENTERIC ARTERY SYNDROME), seasonal allergies, Endometrial CA. 1998 (surgery)., CVA 1999 (no deficits) glaucoma. hospitalized in August for chest pain, had normal cardiac cath, no current chest discomfort History of Any Multi-Drug Resistant Organisms: C-DIFF Year Discovered:: 2007 MDRO Source:: stool Past Surgical History: Bowel Resection, Cholecystectomy, Heart Catheterization, Hysterectomy, Orthopedic Surgery Additional Past Surgical History / Comment(s): Rt foot bunionectomy. Cervical cone bx. intestinal surgery laser eye surgery, Colonoscopy,Laparotomy for enciso perior mesenteric artery syndrome. pain clinic procedures. 01/30/20 LOWER ANTERIOR RESECTION Past Anesthesia/Blood Transfusion Reactions: No Reported Reaction Additional Past Anesthesia/Blood Transfusion Reaction / Comm: Pt received blood with no reaction following uterine hemorrhage. Past Psychological History: No Psychological Hx Reported Smoking Status: Former smoker Past Alcohol Use History: None Reported Past Drug Use History: None Reported - Past Family History Father Family Medical History: Cancer Additional Family Medical History / Comment(s): colon Mother Family Medical History: Dementia Sister(s) Family Medical History: Cancer Additional Family Medical History / Comment(s): Leukemia. Medications and Allergies Home Medications Medication Instructions Recorded Confirmed Type Montelukast [Singulair] 10 mg PO HS 08/01/14 02/10/23 History Famotidine [Pepcid] 40 mg PO HS 01/27/16 02/10/23 History lisinopriL [Zestril] 5 mg PO HS 02/02/18 02/10/23 History Acetaminophen [Tylenol Extra 1,000 mg PO Q6H PRN 01/31/19 02/10/23 History Strength] Albuterol Sulfate [Proair Hfa] 2 puff INHALATION RT-QID PRN 01/31/19 02/10/23 History Donepezil [Aricept] 5 mg PO DIRECTED 02/10/23 02/10/23 History amLODIPine [Norvasc] 10 mg PO HS 02/10/23 02/10/23 History Allergies Allergy/AdvReac Type Severity Reaction Status Date / Time amoxicillin trihydrate AdvReac Intermediate Nausea & Verified 02/10/23 17:45 [From Augmentin] Vomiting & Diarrhea potassium clavulanate AdvReac Nausea & Verified 02/10/23 17:45 [From Augmentin] Vomiting & Diarrhea Physical Exam Vitals: Vital Signs Temp Pulse Resp BP Pulse Ox 02/11/23 04:00 68 16 111/75 95 02/10/23 23:30 75 18 108/68 98 02/10/23 17:20 97.2 F L 85 18 154/76 96 02/10/23 13:34 85 16 125/81 97 Intake and Output 02/10/23 02/10/23 02/11/23 14:59 22:59 06:59 Other: Weight 54.431 kg General appearance: The patient is alert, oriented, appears in no acute distress. HET: Head is normocephalic and atraumatic. Conjunctiva pink. Sclera anicteric. Neck: Supple without lymphadenopathy. Trachea midline. Heart: Regular. Lungs: Equal expansion, normal respiratory effort. Abdomen: Soft, left lower quadrant tenderness, nondistended. No guarding or rigidity. Skin: No rashes. No jaundice. Extremities: Normal skin color and turgor. No pedal edema. Neurological: No focal deficits. Alert and oriented x3. Results CBC & Chem 7: 02/11/23 06:41 02/11/23 06:41 Labs: Abnormal Lab Results - Last 24 Hours (Table) 02/10/23 02/10/23 02/10/23 Range/Units 13:54 13:54 18:46 WBC 14.4 H 13.3 H (3.8-10.6) k/uL Neutrophils # 11.7 H 10.4 H (1.3-7.7) k/uL BUN 18 H (7-17) mg/dL Creatinine 1.11 H (0.52-1.04) mg/dL Glucose 110 H (74-99) mg/dL 02/10/23 Range/Units 22:50 WBC 11.3 H (3.8-10.6) k/uL Neutrophils # 8.5 H (1.3-7.7) k/uL BUN (7-17) mg/dL Creatinine (0.52-1.04) mg/dL Glucose (74-99) mg/dL Comments: CT abdomen and pelvis with contrast reports moderate annular soft tissue thickening at the level of the gastric antrum. Additional prominent fluid- filled and mildly thickened jejunal loop in the left side of the abdomen. Consider gastroenteritis however given the degree of annular thickening of the gastric antrum recommend direct visualization to exclude the possibility of neoplasm when patient able. Previous surgery at the distal rectum. Mild pelvic floor relaxation. The cecum hangs low in the pelvis. Questionable clinical significance. CT scan - abdomen: report reviewed Assessment and Plan (1) Rectal bleeding Narrative/Plan: 67-year-old female presenting with nausea vomiting diarrhea and rectal bleeding. Up to 20 episodes of bright red blood per rectum, with left lower quadrant abdominal cramping. No previous history of colitis however does have a history of diverticulitis with resection in 2019. Denies any anticoagulation no recent antibiotics or new medications. Patient is afebrile, did have leukocytosis on admission. Likely dealing with ischemic versus infectious colitis. Less likely an inflammatory colitis. Will obtain CT abdomen and pelvis. Treat symptomatically with outpatient follow-up for colonoscopy in 3-4 weeks. Current Visit: Yes Status: Acute Code(s): K62.5 - HEMORRHAGE OF ANUS AND RECTUM SNOMED Code(s): 98772973 (2) Abdominal pain Current Visit: No Status: Acute Code(s): R10.9 - UNSPECIFIED ABDOMINAL PAIN SNOMED Code(s): 39948185 Plan: 1. Continue symptomatic and supportive care 2. Patient may have clear liquid diet 3. Pain medication as needed 4. Antiemetics as needed 5. Will start IV Rocephin 1 g every 24 hours 6. Symptoms improving. Anticipate discharge in the next 24-48 hours 7. Recommend short course of antibiotics and discharge for 5 days CAT scan abdomen and pelvis results reviewed with patient. Recommend upper endoscopy during this admission. Procedure discussed with patient including risks and benefits, patient is agreeable to proceed. We'll plan for EGD later this afternoon. Recommend follow-up with gastroenterology in 1-2 weeks to review biopsy results and schedule outpatient colonoscopy at that time. Thank you for this consultation, we will sign off at this time. Dr. Timur Felipe I agree with the dictator's note, documented as a scribe by Fatou Matthew.
--- NOTE | 2023-02-11 10:08 | P.HPIM ---
History of Present Illness 67-year-old pleasant female with history of diverticulitis is status post resection in 2019 came in with complaints of left left lower quadrant mild to moderate crampy abdominal pain along with the blood in the stools multiple episo jayden as per the Patient. Although her hemoglobin remained stable relatively. Patient denied any nausea vomiting denied any fever but did have leukocytosis with a white blood cell count going up to 13,000 which has come down to 10.3 patient is presently on Rocephin patient denied any symptoms of urinary tract infection. CT of the abdomen was ordered. REVIEW OF SYSTEMS: CONSTITUTIONAL: No fever, no malaise, no fatigue. HEENT: No recent visual problems or hearing problems. Denied any sore throat. CARDIOVASCULAR: No chest pain, orthopnea, PND, no palpitations, no syncope. PULMONARY: No shortness of breath, no cough, no hemoptysis. GASTROINTESTINAL: As mentioned in HPI NEUROLOGICAL: No headaches, no weakness, no numbness. HEMATOLOGICAL: Denies any bleeding or petechiae. GENITOURINARY: Denies any burning micturition, frequency, or urgency. MUSCULOSKELETAL/RHEUMATOLOGICAL: Denies any joint pain, swelling, or any muscle pain. ENDOCRINE: Denies any polyuria or polydipsia. The rest of the 14-point review of systems is negative. PHYSICAL EXAMINATION: GENERAL: The patient is alert and oriented x3, not in any acute distress. Thin built female HEENT: Pupils are round and equally reacting to light. EOMI. No scleral icterus. No conjunctival pallor. Normocephalic, atraumatic. No pharyngeal erythema. No thyromegaly. CARDIOVASCULAR: S1 and S2 present. No murmurs, rubs, or gallops. PULMONARY: Chest is clear to auscultation, no wheezing or crackles. ABDOMEN: Soft, nontender, nondistended, normoactive bowel sounds. No palpable organomegaly. MUSCULOSKELETAL: No joint swelling or deformity. EXTREMITIES: No cyanosis, clubbing, or pedal edema. NEUROLOGICAL: Gross neurological examination did not reveal any focal deficits. SKIN: No rashes. Assessment and plan -Left lower quadrant abdominal pain: Colitis is a consideration will continue with Rocephin awaiting CT of the abdomen results. Patient denied any diarrhea but was comparing of blood in the stools -Lower GI bleed: Hemoglobin is stable though patient will be monitored. She is a possibility that there is a psychosomatic competent. Although patient is not narcotic seeking. -Hypertension patient blood pressure is low normal will hold up both amlodipine and lisinopril and monitor the blood pressure patient may need one or both of these medications at a lower dose -Asthma without any acute exacerbation -Gastroesophageal reflux disease DVT prophylaxis: Early ambulation no pharmacological coagulation because of possibility of GI bleed Past Medical History Past Medical History: Asthma, Cancer, CVA/TIA, Eye Disorder, GERD/Reflux, Hypertension, Rheumatoid Arthritis (RA) Additional Past Medical History / Comment(s): diverticulitis,hx chronic low back pain-bulging discs, osteopenia, hx (SUPERIOR MESENTERIC ARTERY SYNDROME), seasonal allergies, Endometrial CA. 1998 (surgery)., CVA 1999 (no deficits) glaucoma. hospitalized in August for chest pain, had normal cardiac cath, no current chest discomfort History of Any Multi-Drug Resistant Organisms: C-DIFF Date of last positivie culture/infection: 2007 MDRO Source:: stool Past Surgical History: Bowel Resection, Cholecystectomy, Heart Catheterization, Hysterectomy, Orthopedic Surgery Additional Past Surgical History / Comment(s): Rt foot bunionectomy. Cervical cone bx. intestinal surgery laser eye surgery, Colonoscopy,Laparotomy for superior mesenteric artery syndrome. pain clinic procedures. 01/30/20 LOWER ANTERIOR RESECTION Past Anesthesia/Blood Transfusion Reactions: No Reported Reaction Additional Past Anesthesia/Blood Transfusion Reaction / Comment(s): Pt received blood with no reaction following uterine hemorrhage. Past Psychological History: No Psychological Hx Reported Smoking Status: Former smoker Past Alcohol Use History: None Reported Past Drug Use History: None Reported - Past Family History Father Family Medical History: Cancer Additional Family Medical History / Comment(s): colon Mother Family Medical History: Dementia Sister(s) Family Medical History: Cancer Additional Family Medical History / Comment(s): Leukemia. Medications and Allergies Home Medications Medication Instructions Recorded Confirmed Type Montelukast [Singulair] 10 mg PO HS 08/01/14 02/10/23 History Famotidine [Pepcid] 40 mg PO HS 01/27/16 02/10/23 History lisinopriL [Zestril] 5 mg PO HS 02/02/18 02/10/23 History Acetaminophen [Tylenol Extra 1,000 mg PO Q6H PRN 01/31/19 02/10/23 History Strength] Albuterol Sulfate [Proair Hfa] 2 puff INHALATION RT-QID PRN 01/31/19 02/10/23 History Donepezil [Aricept] 5 mg PO DIRECTED 02/10/23 02/10/23 History amLODIPine [Norvasc] 10 mg PO HS 02/10/23 02/10/23 History Allergies Allergy/AdvReac Type Severity Reaction Status Date / Time amoxicillin trihydrate AdvReac Intermediate Nausea & Verified 02/10/23 17:45 [From Augmentin] Vomiting & Diarrhea potassium clavulanate AdvReac Nausea & Verified 02/10/23 17:45 [From Augmentin] Vomiting & Diarrhea Physical Exam Vitals: Vital Signs Temp Pulse Resp BP Pulse Ox 02/11/23 10:07 97.7 F 73 17 107/78 98 02/11/23 07:30 97.6 F 83 16 114/74 99 02/11/23 04:00 68 16 111/75 95 02/10/23 23:30 75 18 108/68 98 02/10/23 17:20 97.2 F L 85 18 154/76 96 02/10/23 13:34 85 16 125/81 97 Results CBC & Chem 7: 02/11/23 06:41 02/11/23 06:41 Labs: Abnormal Lab Results - Last 24 Hours (Table) 02/10/23 02/10/23 02/10/23 Range/Units 13:54 13:54 18:46 WBC 14.4 H 13.3 H (3.8-10.6) k/uL Neutrophils # 11.7 H 10.4 H (1.3-7.7) k/uL Chloride (98-107) mmol/L BUN 18 H (7-17) mg/dL Creatinine 1.11 H (0.52-1.04) mg/dL Glucose 110 H (74-99) mg/dL 02/10/23 02/11/23 02/11/23 Range/Units 22:50 06:41 06:41 WBC 11.3 H (3.8-10.6) k/uL Neutrophils # 8.5 H 7.8 H (1.3-7.7) k/uL Chloride 108 H (98-107) mmol/L BUN 19 H (7-17) mg/dL Creatinine (0.52-1.04) mg/dL Glucose (74-99) mg/dL
--- NOTE | 2023-02-11 10:42 | CT ---
EXAMINATION TYPE: CT abdomen pelvis w con DATE OF EXAM: 02/11/2023 COMPARISON: 10/14/2020 HISTORY: 67-year-old female Rectal bleeding, vomiting TECHNIQUE: Contiguous axial scanning of the abdomen and pelvis following administration of 100 ml Iso ricardo 300 IV contrast. Delayed images through the kidneys and coronal/sagittal reconstructions perform ed. CT DLP: 354.7 mGycm Automated exposure control for dose reduction was used. FINDINGS: The heart is normal size without pericardial effusion. Lung bases clear without pleural effusion. Annular soft tissue thickening at the level of the gastric antrum, refer to 28. Mild intrahepatic biliary ductal dilatation is unchanged. The bile duct remains dilated up to 9 mm, u nchanged. Portal venous system is patent. Gallbladder surgically absent. Adrenal glands, spleen, and pancreas within normal limits. Symmetric uptake and excretion of contrast from the kidneys. Small renal cortical cysts are present. Larger left-sided parapelvic cyst measuring up to 2.6 cm redemonstrated. A prominent fluid within left-sided jejunal loops and mild fold thickening, for example, axial image 26. The cecum hangs down low in the posterior right side of the pelvis. Mild scattered stool. There is some surgical material redemonstrated at the lower rectum. Mild pelvic floor relaxation. Loy dder urine distended. Uterus appears surgically absent. No mesenteric or retroperitoneal adenopathy seen. Osteopenia. No osseous destructive process. IMPRESSION: 1. MODERATE ANNULAR SOFT TISSUE THICKENING AT THE LEVEL OF THE GASTRIC ANTRUM. ADDITIONAL PROMINENT F LUID-FILLED AND MILDLY THICKENED JEJUNAL LOOP IN THE LEFT SIDE OF THE ABDOMEN. CONSIDER GASTROENTERIT IS. HOWEVER, GIVEN THE DEGREE OF ANNULAR THICKENING OF THE GASTRIC ANTRUM, RECOMMEND DIRECT VISUALIZA TION TO EXCLUDE THE POSSIBILITY OF NEOPLASM WHEN PATIENT ABLE. 2. PREVIOUS SURGERY AT THE DISTAL RECTUM. MILD PELVIC FLOOR RELAXATION. 3. THE CECUM HANGS LOW IN THE PELVIS. QUESTIONABLE CLINICAL SIGNIFICANCE.
[2023-02-11] MEDS ORDERED: LACTATED RINGERS 1,000 ML IV ONE (17:22)
[2023-02-11] MEDS ORDERED: PROPOFOL 10 MG/ML 20 ML VIAL IV ONE (17:23)
[2023-02-11] MEDS ORDERED: LIDOCAINE 1% INJ 10MG/ML (20 ML MDV) ONE (17:23)
--- NOTE | 2023-02-11 17:39 | P.PCN ---
Date of Procedure: 02/11/23 Procedure(s) Performed: BRIEF HISTORY: Patient is a 67-year-old, pleasant, female admitted to the hospital with acute onset of lower abdominal pain followed by rectal bleeding that started yesterday afternoon. She had at least 20 bowel movements with small amount of blood in the stool. She did not have any bleeding since this morning. As a part of workup she had a CT of the abdomen and pelvis done revealed abnormality in the gastric antrum with thickening/rule out malignancy. She is hence scheduled for upper endoscopy today. Patient does have history of superior descending artery syndrome several years ago for which she underwent exploratory laparotomy/gastrojejunostomy.. PROCEDURE PERFORMED: Esophagogastroduodenoscopy biopsy. PREOPERATIVE DIAGNOSIS: Abnormal CT of the abdomen showing thickened antrum rule out malignancy. IV sedation per anesthesia. PROCEDURE: After informed consent was obtained, the patient was brought into the endoscopy unit. IV sedation was administered by Anesthesia under continuous monitoring. Initially the Olympus GIF-140 video endoscope was inserted into the mouth. Esophagus intubated without any difficulty. It was gradually advanced into the stomach and duodenum and carefully examined. The bulb and the second part of the duodenum appeared normal. The scope at this time was withdrawn to the stomach, adequately insufflated with air, and upon careful examination, mucosa of the antrum, body, had diffuse gastritis with multiple linear areas of erythema and biopsies were done from this area. There was evidence of gastrojejunostomy and the scope was advanced with ease 40 cm into the jejunum which appeared normal. the scope was then withdrawn to the gastric body. Mucosa of the cardia and the fundus appeared normal. The scope was then withdrawn into the esophagus. The GE junction was located at 39 cm from the incisors. The esophagus appeared normal. There were no erosions or ulcerations seen and the patient tolerated the procedure well. IMPRESSION: 1. Diffuse gastritis involving the body and antrum of the stomach but no evidence of neoplasm. 2. Evidence of gastrojejunostomy 3. Patent pylorus and normal-appearing duodenum. RECOMMENDATIONS: The findings of this examination were discussed with the patient. Will await biopsy results. She'll be started on full liquid diet which can be advanced to a soft diet tomorrow morning . If she has no further bleeding she can be discharged home tomorrow and will plan on an outpatient co lonoscopy in 3-4 weeks .
[2023-02-11] MEDS ORDERED: MONTELUKAST 10 MG TAB PO SCH (21:00)
[2023-02-12 01:47] VITALS: TEMP 97.9
[2023-02-12 07:56] LABS: HCT 38.2 % (34.0-46.0); HGB 12.7 gm/dL (11.4-16.0); MCH 29.6 pg (25.0-35.0); MCHC 33.3 g/dL (31.0-37.0); MCV 88.9 fL (80.0-100.0); Mean Platelet Volume 9.3; Platelet Count 241 k/uL (150-450); RDW 12.9 % (11.5-15.5); WBC 7.2 k/uL (3.8-10.6)
[2023-02-12 08:12] LABS: African American GFR (CKD) >90 (>60 ml/min/1.73 sqM); Anion Gap 9 mmol/L; Blood Urea Nitrogen 16 mg/dL (7-17); Calcium 9.2 mg/dL (8.4-10.2); Carbon Dioxide 22 mmol/L (22-30); Chloride 106 mmol/L (98-107); Glucose 85 mg/dL (74-99); Non-African American GFR(CKD) 89 (>60 ml/min/1.73 sqM); Potassium 4.6 mmol/L (3.5-5.1); Sodium 137 mmol/L (137-145)
[2023-02-12 08:41] VITALS: BP 121/73; PULSE 71; RESP 16
--- NOTE | 2023-02-12 09:17 | P.DS ---
Providers Date of admission: 02/10/23 18:07 Attending physician: Kaykay Ortiz Consults: 02/10/23 18:07 Consult Physician Urgent Consulting Provider: Fabiola Felipe Consult Reason/Comments: GI bleed Do you want consulting provider notified?: Yes [facility] care [facility] Course: Patient is a 67-year-old female came in with complaints of abdominal pain, multiple episodes of GI bleeding because of which patient was admitted and computed tomography scan of the abdomen was obtained which showed diffuse inflammation in the duodenal and jejunal area because of which patient underwent upper GI endoscopy which showed diffuse esophagitis and gastritis biopsies were obtained and the patient doesn't have any more GI bleed will be discharged on Protonix with follow-up itchy gastroenterology as an outpatient. PHYSICAL EXAMINATION: GENERAL: The patient is alert and oriented x3, not in any acute distress. Well developed, well nourished. HEENT: Pupils are round and equally reacting to light. EOMI. No scleral icterus. No conjunctival pallor. Normocephalic, atraumatic. No pharyngeal erythema. No thyromegaly. CARDIOVASCULAR: S1 and S2 present. No murmurs, rubs, or gallops. PULMONARY: Chest is clear to auscultation, no wheezing or crackles. ABDOMEN: Soft, nontender, nondistended, normoactive bowel sounds. No palpable organomegaly. MUSCULOSKELETAL: No joint swelling or deformity. EXTREMITIES: No cyanosis, clubbing, or pedal edema. NEUROLOGICAL: Gross neurological examination did not reveal any focal deficits. SKIN: No rashes. Assessment and plan Acute GI bleed he appears to be upper GI bleed and patient is status post upper GI endoscopy showing esophagitis and gastritis patient will be discharged on 2 weeks of proton pump inhibitor her home Pepcid will be held follow up with the GI and PCP as an outpatient -Hypertension patient did treat did not require her and if his medications but my concern is her blood pressure will start going up in couple days because of which I'm continuing lisinopril discontinue Norvasc and the patient was instructed to monitor her blood pressure at home -Esophagitis and gastritis -Asthma without any acute exacerbation Plan - Discharge Summary Discharge Rx Participant: No New Discharge Prescriptions: New Pantoprazole Sodium [Protonix] 20 mg PO AC-BID #30 tab Continue Montelukast [Singulair] 10 mg PO HS lisinopriL [Zestril] 5 mg PO HS Albuterol Sulfate [Proair Hfa] 2 puff INHALATION RT-QID PRN PRN Reason: Shortness Of Breath Acetaminophen [Tylenol Extra Strength] 1,000 mg PO Q6H PRN PRN Reason: Pain Donepezil [Aricept] 5 mg PO DIRECTED Discontinued Famotidine [Pepcid] 40 mg PO HS amLODIPine [Norvasc] 10 mg PO HS Discharge Medication List Montelukast [Singulair] 10 mg PO HS 08/01/14 [History] lisinopriL [Zestril] 5 mg PO HS 02/02/18 [History] Acetaminophen [Tylenol Extra Strength] 1,000 mg PO Q6H PRN 01/31/19 [History] Albuterol Sulfate [Proair Hfa] 2 puff INHALATION RT-QID PRN 01/31/19 [History] Donepezil [Aricept] 5 mg PO DIRECTED 02/10/23 [History] Pantoprazole Sodium [Protonix] 20 mg PO AC-BID #30 tab 02/12/23 [Rx] Follow up Appointment(s)/Referral(s): Мария Smith NPC [REFERRING] - 1 Week (Gastroenterology follow-up for acute colitis to schedule outpatient colonoscopy) Velia Curry MD [Primary Care Provider] - 1-2 days Discharge Disposition: HOME SELF-CARE
[2023-02-12] MEDS: PANTOPRAZOLE 40 MG/10 ML VIAL IVP SCH (10:11)
== END 2023-02-12 10:43 | disposition home or self-care (01) | DRG 379 ==
LOC: EC 13:08 → 3SCARD 18:07 → 4SSUR 02-11 05:36
PROVIDERS: ADMIT Hospitalist; ATTEND Hospitalist
PROC: 0DB78ZX Excision of Stomach, Pylorus, Via Natural or Artificial Opening Endoscopic, Diagnostic (ICD-10-PCS; principal; 2023-02-11 08:15)
DX: K29.71 Gastritis, unspecified, with bleeding (principal); G89.29 Other chronic pain; M06.9 Rheumatoid arthritis, unspecified; I10 Essential (primary) hypertension; M51.26 Other intervertebral disc displacement, lumbar region; K20.90 Esophagitis, unspecified without bleeding; M85.80 Other specified disorders of bone density and structure, unspecified site; Z87.891 Personal history of nicotine dependence; Z87.19 Personal history of other diseases of the digestive system; Z79.899 Other long term (current) drug therapy; Z88.0 Allergy status to penicillin; Z85.42 Personal history of malignant neoplasm of other parts of uterus; Z86.73 Personal history of transient ischemic attack (TIA), and cerebral infarction without residual deficits
CPT/HCPCS: 36415; 43239; 74177; 80048; 80053; 85025; 85027; 85730; 88305; 96361; 96365; 96375; 99285

== ENCOUNTER 2023-04-01 11:22 | Day surgery (SDC) | payer MEDICARE ==
[2023-04-01 12:13] VITALS: RESP 16; TEMP 97.9
[2023-04-01] MEDS: LACTATED RINGERS 1,000 ML IV SCH ×2 (12:15→12:44)
[2023-04-01] MEDS ORDERED: PROPOFOL 10 MG/ML 20 ML VIAL IV ONE (12:46)
[2023-04-01] MEDS ORDERED: LIDOCAINE 1% INJ 10MG/ML (20 ML MDV) ONE (12:46)
--- NOTE | 2023-04-01 13:07 | P.PCN ---
Date of Procedure: 04/01/23 Procedure(s) Performed: BRIEF HISTORY: Patient is a -year-old pleasant white female scheduled for an elective colonoscopy as a part of evaluation of chronic diarrhea and intermittent rectal bleeding for the last few months duration. History of sigmoid colon resection for diverticular disease in 2019. PROCEDURE PERFORMED: Colonoscopy with random biopsies. PREOPERATIVE DIAGNOSIS: Rectal bleeding and diarrhea a few months duration. IV sedation per Anesthesia. PROCEDURE: After informed consent was obtained, the patient, was brought into the endoscopy unit. IV sedation was administered by Anesthesia under continuous monitoring. Digital rectal examination was normal. Initially the Olympus CF-160 flexible video colonoscope was then inserted in the rectum, gradually advanced into the proximal rectum and there was mild narrowing of the anastomosis at 20 cm from the anal verge. The scope could not be passed through the anastomosis. It was removed and a pediatric colonoscopy was then introduced into the rectum and gradually advanced through the stricture with some moderate resistance and then into the into the cecum without any difficulty. Careful examination was performed as the scope was gradually being withdrawn. Ileocecal valve and the appendiceal orifice were visualized and appeared normal. Prep was excellent. Mucosa of the cecum, ascending colon, transverse colon, descending colon, appeared normal. There was a proximal rectal anastomotic stricture identified located at 12 cm from the anal verge with some oozing from dilation with the scope. Rectum appeared normal. Retroflexion was performed in the rectum and no lesions were noted. Random biopsies were done from ascending and descending colon to rule out microscopic/collagenous colitis. Retroflexion was performed in the rectum and no lesions were seen. The patient tolerated the procedure well. IMPRESSION: Proximal rectal anastomotic stricture at 12 cm from the anal verge Rest of the colon appeared normal RECOMMENDATIONS: Findings of this examination were discussed with the patient as well as her family. She was advised to follow with the biopsy results. She'll be seen in office in 2-3 weeks..
[2023-04-01 13:27] VITALS: BP 165/79; PULSE 71
== END 2023-04-01 13:41 | disposition home or self-care (01) ==
LOC: ORWHC2ENDO 11:22
PROVIDERS: ATTEND Internal Medicine Gastroenterology
DX: K52.9 Noninfective gastroenteritis and colitis, unspecified (principal); I10 Essential (primary) hypertension; F03.90 Unspecified dementia, unspecified severity, without behavioral disturbance, psychotic disturbance, mood disturbance, and anxiety; Z88.0 Allergy status to penicillin; Z85.41 Personal history of malignant neoplasm of cervix uteri; Z86.73 Personal history of transient ischemic attack (TIA), and cerebral infarction without residual deficits; Z79.899 Other long term (current) drug therapy; Z90.49 Acquired absence of other specified parts of digestive tract
CPT/HCPCS: 88305; 45380; J2001; J2704

== ENCOUNTER → 2023-08-22 | Outpatient (CLI) | payer MEDICARE ==
--- NOTE | 2023-08-22 14:58 | P.PAINPG ---
PQRS Measure Charge Sheet Comment: A 68 yr old female with a history of severe and chronic LBP secondary to lumbar DDD and spondylosis with facet arthropathy without myelopathy, BL Sacroiliitis presents today for evaluation. Pain level is provoked at 7 /10 in intensity, constant, localized in the L lower lumbar spine, sore in character w shooting towards the L hip. Pain is provoked by sitting for periods > 20 min. Pain is alleviated with PT x 6 wks in 2019, physician guided exercises daily since May 2023, water aerobics, ice, meds, topicals, repositioning and rest. Oswestry axial pain score of 19. Interventional pain procedures completed include BL SI injection x4, Lumbar TPIs, BL RFA L3-L5 Patient is currently on Voltaren gel, Tyl Patient denies any side effects of the medication(s), denies excessive drowsiness or sleepiness, denies suicidal ideation and reports that the current pain medication is helping to control the pain and improve activities of daily living. Patient denies any motor or sensory deficits. Patient denies any fever or night sweats, denies any change in the bowel movements or urination. Physical Examination: -Constitutional: Cooperative. Not in acute distress . - Neurologic: Cranial nerve II to XII intact. No focal neurological deficits. - Psychatric: Alert & oriented x 3. Matching mood & appropriate affect. Judgment and insight intact. - Musculoskeletal: Cervical spine: Muscle bulk/ tone/ strength in the bilateral upper extremities normal Vertebral body tenderness to palpation over Spurling test positive Distraction test positive Facet loading test positive TTP Thoracic spine Muscle bulk / tone/ strength in the bilateral paraspinal muscles normal Vertebral body tender to palpation over Facet loading test positive TTP Lumbar spine: Motor bulk/ tone/ strength lower extremities , thigh and legs : 5/5 Deep tendon reflexes : Normal Knee Jerk. Normal Ankle Jerk . Vertebral body tenderness to palpation over Lumbar Facet Loading Test positive Straight Leg Raise: positive at 30 degrees right side/ left side Gaenslen's Test positive Sacral spine : Severe tenderness over the Sacroiliac joint: right side / left side Range of motion: Flexion of the lumbar spine <60 degrees Range of motion: Extension of the lumbar spine <20 degrees Gaenslen's Test positive right side< left side Sherri test: positive right side < left side Thigh Thrust Test positive right side / left side Sacral Thrust Test positive right side / left side Assessment and plan: Chronic LBP secondary to lumbar DDD, spondylosis with facet arthropathy without myelopathy, BL Sacroiliitis Recommendation of BL SI injection #1. May need a series of injections for optimal pain relief. Risks, benefits of procedure discussed and pt verbalized understanding. Protocol for discontinuation/ continuation of medications magda procedure discussed. All questions answered. I have spent less than 30 minutes on patient care today. Dr Craig was available by phone for the evaluation of this patient. The time was used to review the medical records including relevant urine studies and Prescription history (MAPs), review of the available imaging, evaluation and examination of the patient, coordination of care with the medical staff and if applicable referring physicians, as well as creation of the medical record PQRS Narrative: Smoking Status Former smoker Hx Alcohol Use (MH) Yes: rare Home Medications: Ambulatory Orders Montelukast [Singulair] 10 mg PO HS 08/01/14 lisinopriL [Zestril] 5 mg PO HS 02/02/18 Albuterol Sulfate [Proair Hfa] 2 puff INHALATION RT-QID PRN 01/31/19 Donepezil [Aricept] 10 mg PO HS 02/10/23 Fluticasone Nasal [place] [Flonase Nasal [place]] 1 spray EA NOSTRIL HS 03/29/23 Controlled Substance Measures - Controlled Substance Measures Is patient prescribed a controlled substance at discharge?: No
[2023-08-22 15:02] VITALS: BP 179/95; PULSE 69; RESP 16
== END ==
LOC: PNWHC3 14:00
PROVIDERS: ATTEND Specialist
DX: M46.1 Sacroiliitis, not elsewhere classified (principal); G89.29 Other chronic pain; M51.36 Other intervertebral disc degeneration, lumbar region; M47.816 Spondylosis without myelopathy or radiculopathy, lumbar region; Z87.891 Personal history of nicotine dependence; Z88.0 Allergy status to penicillin; Z88.8 Allergy status to other drugs, medicaments and biological substances
CPT/HCPCS: 99211

== ENCOUNTER 2023-09-06 07:36 | Day surgery (SDC) | payer MEDICARE ==
[~2023-09-06 07:36] MED LIST changes: -LIDOCAINE 1% (10MG/ML) FOR IV START INTRADERMA PRN
[2023-09-06] MEDS ORDERED: ROPIVACAINE 5MG/ML 20ML VIAL ONE (08:27)
[2023-09-06] MEDS ORDERED: TRIAMCINOLONE ACETONIDE 40 MG/ML 1 ML VIAL ONE (08:27)
--- NOTE | 2023-09-06 08:35 | P.PCN ---
Date of Procedure: 09/06/23 Surgeon: Fátima Alex Pathology: none sent Condition: stable Disposition: PACU Description of Procedure: Preoperative diagnoses= bilateral sacroiliac joint dysfunction and sacroiliitis Postoperative diagnoses= same as preoperative diagnosis. Procedure= bilateral sacroiliac joint steroid injection under fluoroscopic guidance. Anesthesia= local anesthesia only with lidocaine 1% Estimated blood loss=minimal. Procedure indication= the patient had a history of severe chronic low back pain, diagnosed with sacroiliitis and lumbar sacral facet arthropathy unresponsive to conservative treatment. Procedure description= the patient was seen and identified in the preoperative holding area, risks and benefits and alternative of the procedure and possible complications discussed with the patient, patient signed the consent. an IV was started, and vital signs were monitored and were stable throughout the procedure, patient was placed in the prone position or table and the lumbosacral area was prepped and draped with a sterile fashion, vital signs were closely monitored during the procedure.The sacroiliac joint was identified on the AP view of fluoroscopy then the C-arm was tilted to the contralateral oblique position to superimpose the anterior and posterior joint lines on each other and to have a unified joint line with the target point at the inferior one third of this line. I used 22-gauge 3-1/2 inch Quincke spinal needle for this procedure and after getting into the sacroiliac joint I injected 20 mg of Kenalog +2 MLS of Ropivacaine 0.5%. Patient tolerated the procedure well without any complication,the procedure was repeated in the same manner on the opposite side. The patient returned to supine position after the back was cleaned and a Band- Aid applied, the patient transported to recovery room in stable condition and he was monitored for 30 minutes before she was discharged home in stable condition . patient will follow up with the pain clinic in a few weeks. A copy of the needle placement was saved to the C-arm machine.
[2023-09-06 08:47] VITALS: RESP 16; TEMP 97.1
[2023-09-06 09:46] VITALS: BP 152/86; PULSE 59
--- NOTE | 2023-09-06 11:51 | FL ---
EXAMINATION TYPE: FL guided pain mgmt statistic DATE OF EXAM: 09/06/2023 FLUOROSCOPY Fluoroscopy time of 23 seconds was used during bilateral SI joint injection. 3 image/s document/s th e procedure. DAP: [id number] mGm2
== END 2023-09-06 08:57 | disposition home or self-care (01) ==
LOC: ORPAIN 07:36
PROVIDERS: ATTEND Anesthesiology
DX: M46.1 Sacroiliitis, not elsewhere classified (principal); Z88.1 Allergy status to other antibiotic agents
CPT/HCPCS: J3301; J2795; G0260

== ENCOUNTER → 2023-09-21 | Outpatient (CLI) | payer MEDICARE ==
--- NOTE | 2023-09-21 13:34 | XR ---
EXAMINATION TYPE: XR Hip Complete LT DATE OF EXAM: 09/21/2023 CLINICAL HISTORY: pain TECHNIQUE: AP and frogleg views of the left hip are obtained. COMPARISON: None. FINDINGS: There is no acute fracture/dislocation evident. The joint space appears within normal li mits. The overlying soft tissue appears unremarkable. IMPRESSION: 1. There is no acute fracture or dislocation.ICD 10 NO FRACTURE, INITIAL EVALUATION
== END | disposition home or self-care (01) ==
LOC: RADXRMAIN 13:11
PROVIDERS: ATTEND Physician Assistant Medical
DX: M16.12 Unilateral primary osteoarthritis, left hip (principal)
CPT/HCPCS: 73502

== ENCOUNTER → 2023-09-21 | Outpatient (CLI) | payer MEDICARE ==
[2023-09-21 13:10] VITALS: BP 135/82; PULSE 67; RESP 16
--- NOTE | 2023-09-21 14:54 | P.PAINPG ---
PQRS Measure Charge Sheet Comment: A 68 yr old female with a history of severe and chronic LBP secondary to lumbar DDD and spondylosis with facet arthropathy without myelopathy, BL Sacroiliitis presents today for evaluation s/p BL SI injection. Pt states she experienced 80 % pain relief s/p procedure. Pain level is provoked at 7 /10 in intensity, constant, localized in the L lower lumbar spine, sore in character w shooting towards the L hip. Pain is provoked by sitting for periods > 20 min. Pain is alleviated with PT x 6 wks in 2019, physician guided exercises daily since May 2023, water aerobics, ice, meds, topicals, repositioning and rest. Oswestry axial pain score of 19. Interventional pain procedures completed include BL SI injection x5 (August 2023), Lumbar TPIs, BL RFA L3-L5 Patient is currently on Voltaren gel, Tyl Patient denies any side effects of the medication(s), denies excessive drowsiness or sleepiness, denies suicidal ideation and reports that the current pain medication is helping to control the pain and improve activities of daily living. Patient denies any motor or sensory deficits. Patient denies any fever or night sweats, denies any change in the bowel movements or urination. Physical Examination: -Constitutional: Cooperative. Not in acute distress . - Neurologic: Cranial nerve II to XII intact. No focal neurological deficits. - Psychatric: Alert & oriented x 3. Matching mood & appropriate affect. Judgment and insight intact. - Musculoskeletal: Cervical spine: Muscle bulk/ tone/ strength in the bilateral upper extremities normal Vertebral body tenderness to palpation over Spurling test positive Distraction test positive Facet loading test positive TTP Thoracic spine Muscle bulk / tone/ strength in the bilateral paraspinal muscles normal Vertebral body tender to palpation over Facet loading test positive TTP Lumbar spine: +L Hip Pain w Abduction Motor bulk/ tone/ strength lower extremities , thigh and legs : 5/5 Deep tendon reflexes : Normal Knee Jerk. Normal Ankle Jerk . Vertebral body tenderness to palpation over Lumbar Facet Loading Test positive Straight Leg Raise: positive at 30 degrees right side/ left side Gaenslen's Test positive Sacral spine : Severe tenderness over the Sacroiliac joint: right side / left side Range of motion: Flexion of the lumbar spine <60 degrees Range of motion: Extension of the lumbar spine <20 degrees Gaenslen's Test positive right side< left side Sherri test: positive right side < left side Thigh Thrust Test positive right side / left side Sacral Thrust Test positive right side / left side Assessment and plan: Chronic LBP secondary to lumbar DDD, spondylosis with facet arthropathy without myelopathy, BL Sacroiliitis, L Hip DJD Recommendation of L hip x ray and PT x 6 wks M16.10. She may follow up w Dr Calderon and may RTC on an as needed basis. All questions answered. I have spent less than 30 minutes on patient care today. Dr Craig was available by phone for the evaluation of this patient. The time was used to review the medical records including relevant urine studies and Prescription history (MAPs), review of the available imaging, evaluation and examination of the patient, coordination of care with the medical staff and if applicable referring physicians, as well as creation of the medical record PQRS Narrative: Smoking Status Former smoker Hx Alcohol Use (MH) Yes: rare Home Medications: Ambulatory Orders Montelukast [Singulair] 10 mg PO HS 08/01/14 lisinopriL [Zestril] 10 mg PO HS 02/02/18 Albuterol Sulfate [Proair Hfa] 2 puff INHALATION RT-QID PRN 01/31/19 Donepezil [Aricept] 5 mg PO HS 02/10/23 Fluticasone Nasal [place] [Flonase Nasal [place]] 1 spray EA NOSTRIL HS 03/29/23 Controlled Substance Measures - Controlled Substance Measures Is patient prescribed a controlled substance at discharge?: No
== END ==
LOC: PNWHC3 12:31
PROVIDERS: ATTEND Specialist
DX: M46.1 Sacroiliitis, not elsewhere classified (principal); M51.36 Other intervertebral disc degeneration, lumbar region; M47.816 Spondylosis without myelopathy or radiculopathy, lumbar region; M16.12 Unilateral primary osteoarthritis, left hip; Z87.891 Personal history of nicotine dependence; Z88.0 Allergy status to penicillin; Z88.8 Allergy status to other drugs, medicaments and biological substances
CPT/HCPCS: 99211

== ENCOUNTER → 2024-02-08 | Outpatient (CLI) | payer MEDICARE ==
--- NOTE | 2024-02-09 12:32 | MM ---
Reason for Exam: Screening (asymptomatic). Last mammogram was performed 2 year(s) and 11 month(s) ago. Patient History: Menarche at age 15. First Full-Term at age 24. Hysterectomy at age 51. Postmenopausal. Patient has history of breast feeding. Endometrial cancer, age 51. 1990, Benign Excisional Biopsy on the left side. Risk Values: Marah 5 year model risk: 2.1%. NCI Lifetime model risk: 6.3%. Prior Study Comparison: 11/03/2016 Bilateral Screening Mammogram, [facility]. 11/22/2017 Bilateral Screening Mammogram, [facility]. 02/12/2021 Bilateral Screening Mammogram, [facility]. Tissue Density: The breasts are heterogeneously dense, which may obscure small masses. Findings: Analyzed By CAD. 1:00 nodular asymmetry anterior left breast appears more defined/medial further evaluation is recommended. Post excision changes redemonstrated on the left. Otherwise, no significant change. Overall Assessment: Incomplete: need additional imaging evaluation, BI-RAD 0 Management: Special View Mammogram of the left breast. Diagnostic Breast Ultrasound of the left breast. [facility] will attempt to contact patient to return for supplemental views and ultrasound if indicated. [facility], , 02/09/2024 12:29 PM. Electronically signed and approved by: Hazel Wilder M.D. Radiologist
== END | disposition home or self-care (01) ==
LOC: RADMAMWWP 09:05
PROVIDERS: ATTEND Family Medicine
DX: Z12.31 Encounter for screening mammogram for malignant neoplasm of breast (principal); R92.333 Mammographic heterogeneous density, bilateral breasts; Z78.0 Asymptomatic menopausal state
CPT/HCPCS: 77063; 77067

== ENCOUNTER → 2024-02-14 | Outpatient (CLI) | payer MEDICARE ==
--- NOTE | 2024-02-14 09:06 | MM ---
Reason for Exam: Additional evaluation requested from abnormal screening. Last screening mammogram was performed less than 1 month ago. Patient History: Menarche at age 15. First Full-Term at age 24. Hysterectomy at age 51. Postmenopausal. Patient has history of breast feeding. Endometrial cancer, age 51. 1990, Benign Excisional Biopsy on the left side. Risk Values: Marah 5 year model risk: 2.1%. NCI Lifetime model risk: 6.3%. Prior Study Comparison: 11/22/2017 Bilateral Screening Mammogram, [facility]. 02/12/2021 Bilateral Screening Mammogram, [facility]. 02/08/2024 Bilateral MG 3D screening mammo w/cad, [facility]. Tissue Density: Left: There are scattered areas of fibroglandular density. Findings: Analyzed By CAD. The pattern is symmetrical. Area disperses on compression. No underlying suspicious persistent density. No suspicious groups of microcalcifications, spiculated or lobular masses, architectural distortion or other secondary signs of malignancy are mammographically apparent. Overall Assessment: Probably benign, BI-RAD 3 Management: Diagnostic Mammogram of the left breast in 6 months. A negative mammogram report should not preclude additional follow up of suspicious palpable abnormalities. Patient should continue monthly self breast exam. A clinical breast exam by your physician is recommended on an annual basis and results should be correlated with mammographic findings. Note on Marah scores and lifetime risk: 1. A Marah score greater than 3% is considered moderate risk. If this is the case, consider specialist referral to assess eligibility for a risk reducing agent. 2. If overall lifetime risk for the development of breast cancer is 20% or higher, the patient may qualify for future screening with alternating mammogram and breast MRI. [facility], , 02/14/2024 9:01 AM. Electronically signed and approved by: Aries Navas D.O. Radiologis
== END | disposition home or self-care (01) ==
LOC: RADMAMWWP 08:33
PROVIDERS: ATTEND Family Medicine
DX: R92.8 Other abnormal and inconclusive findings on diagnostic imaging of breast (principal); Z78.0 Asymptomatic menopausal state; R92.322 Mammographic fibroglandular density, left breast
CPT/HCPCS: 77065; G0279; 77061

== ENCOUNTER 2024-04-22 05:06 | Observation (INO) | payer MEDICARE ==
--- NOTE | 2024-04-22 05:16 | ED ---
Chest Pain HPI - General Chief Complaint: Chest Pain Stated Complaint: Chest Pain, Shortness of Breath Time Seen by Provider: 04/22/24 05:15 Source: patient, RN notes reviewed, old records reviewed Mode of arrival: ambulatory Limitations: no limitations - History of Present Illness Initial Comments: This is a 68-year-old female to ER for chest pain. History of high blood pressure elevated blood pressure here in the ER patient has persistent chest pain does not feel well here in the ER with left-sided chest pain prior to arrival left-sided chest pain here in the emergency department patient has been feeling unwell for a few hours in the last night MD Complaint: chest pain -: hour(s) Onset: during rest, during exertion Pain Location: substernal, left chest Pain Radiation: LUE Severity: mild Severity scale (1-10): 4 Consistency: constant Improves With: nothing Worsens With: nothing Anginal Symptoms: sense of impending doom Other Symptoms: palpitations Treatments Prior to Arrival: none - Related Data Home Medications Medication Instructions Recorded Confirmed Montelukast [Singulair] 10 mg PO HS 08/01/14 09/02/23 lisinopriL [Zestril] 10 mg PO HS 02/02/18 09/02/23 Albuterol Sulfate [Proair Hfa] 2 puff INHALATION RT-QID PRN 01/31/19 09/06/23 Donepezil [Aricept] 5 mg PO HS 02/10/23 09/02/23 Fluticasone Nasal [place] [Flonase 1 spray EA NOSTRIL HS 03/29/23 09/02/23 Nasal [place]] Allergies Allergy/AdvReac Type Severity Reaction Status Date / Time amoxicillin trihydrate AdvReac Intermediate Nausea & Verified 04/22/24 05:14 [From Augmentin] Vomiting & Diarrhea potassium clavulanate AdvReac Nausea & Verified 04/22/24 05:14 [From Augmentin] Vomiting & Diarrhea Review of Systems ROS Statement: Those systems with pertinent positive or pertinent negative responses have been documented in the HPI. ROS Other: All systems not noted in ROS Statement are negative. EKG Findings - EKG Comments: EKG Findings:: EKG is sinus 86 TN 151 QRS 93 QTc 428 - EKG Results: EKG: interpreted by [facility] Past Medical History Past Medical History: Asthma, Cancer, Chest Pain / Angina, CVA/TIA, Eye Disorder, Hypertension, Rheumatoid Arthritis (RA) Additional Past Medical History / Comment(s): diverticulitis,hx chronic low back pain-bulging discs, osteopenia, hx (SUPERIOR MESENTERIC ARTERY SYNDROME), seasonal allergies, Endometrial CA. 1998 (surgery)., CVA 1999 (no deficits) glaucoma. hospitalized in August for chest pain, had normal cardiac cath, no current chest discomfort (long ago). beginings of dementia History of Any Multi-Drug Resistant Organisms: C-DIFF Date of last positivie culture/infection: 2007 MDRO Source:: stool Past Surgical History: Bowel Resection, Cholecystectomy, Heart Catheterization, Hysterectomy, Orthopedic Surgery Additional Past Surgical History / Comment(s): Rt foot bunionectomy. Cervical cone bx. intestinal surgery laser eye surgery, Colonoscopy,Laparotomy for superior mesenteric artery syndrome. pain clinic procedures. 01/30/20 LOWER ANTERIOR RESECTION Past Anesthesia/Blood Transfusion Reactions: No Reported Reaction Additional Past Anesthesia/Blood Transfusion Reaction / Comment(s): Pt received blood with no reaction following uterine hemorrhage. Past Psychological History: No Psychological Hx Reported Smoking Status: Former smoker Past Alcohol Use History: None Reported Past Drug Use History: None Reported - Past Family History Father Family Medical History: Cancer Additional Family Medical History / Comment(s): colon Mother Family Medical History: Dementia Sister(s) Family Medical History: Cancer Additional Family Medical History / Comment(s): Leukemia. General Exam Limitations: no limitations General appearance: alert, in no apparent distress Head exam: Present: atraumatic, normocephalic, normal inspection Eye exam: Present: normal appearance, PERRL, EOMI. Absent: scleral icterus, conjunctival injection, periorbital swelling ENT exam: Present: normal exam, mucous membranes moist Neck exam: Present: normal inspection. Absent: tenderness, meningismus, lymphadenopathy Respiratory exam: Present: normal lung sounds bilaterally. Absent: respiratory distress, wheezes, rales, rhonchi, stridor Cardiovascular Exam: Present: regular rate, normal rhythm, normal heart sounds. Absent: systolic murmur, diastolic murmur, rubs, gallop, clicks GI/Abdominal exam: Present: soft, normal bowel sounds. Absent: distended, tenderness, guarding, rebound, rigid Extremities exam: Present: normal inspection, full ROM, normal capillary refill. Absent: tenderness, pedal edema, joint swelling, calf tenderness Back exam: Present: normal inspection Neurological exam: Present: alert, oriented X3, CN II-XII intact Psychiatric exam: Present: normal affect, normal mood Skin exam: Present: warm, dry, intact, normal color. Absent: rash Course Vital Signs 04/22/24 04/22/24 04/22/24 05:12 05:44 06:11 Temperature 97.8 F 98.1 F Pulse Rate 74 67 85 Respiratory 16 18 Rate Blood Pressure 181/94 175/75 O2 Sat by Pulse 99 98 Oximetry 04/22/24 06:21 Temperature Pulse Rate 90 Respiratory Rate Blood Pressure O2 Sat by Pulse Oximetry - Reevaluation(s) Reevaluation #1: 04/22/24 06:52 Records reviewed Reevaluation #2: 04/22/24 06:52 Patient still with chest pain Reevaluation #3: 04/22/24 06:52 Patient informed of results and questions answered Reevaluation #4: Was pt. sent in by a medical professional or institution (, PA, NEGATIVE CHECKER, urgent care, hospital, or custodial...) When possible be specific @ -no Did you speak to anyone other than the patient for history (EMS, parent, family, police, friend...)? What history was obtained from this source @ -no Did you review nursing and triage notes (agree or disagree)? Why? @ -agree Are old charts reviewed (outside hosp., previous admission, EMS record, old EKG, old radiological studies, urgent care reports/EKG's, custodial records)? Report findings @ -yes Differential Diagnosis (chest pain, altered mental status, abdominal pain women, abdominal pain men, vaginal bleeding, weakness, fever, dyspnea, syncope, headache, dizziness, GI bleed, back pain, seizure, CVA, palpatations, mental health, musculoskeletal)? @ -prior EKG interpreted by me (3pts min.). @ -yes X-rays interpreted by me (1pt min.). @ -yes negative for acute disease CT interpreted by me (1pt min.). @ -no U/S interpreted by me (1pt. min.). @ -no What testing was considered but not performed or refused? (CT, X-rays, U/S, labs)? Why? @ -none What meds were considered but not given or refused? Why? @ -none Did you discuss the management of the patient with other professionals (professionals i.e. , PA, NEGATIVE CHECKER, lab, RT, psych nurse, social media campaign manager, inspector rag sorting, teacher, senior commercial loan officer, pillowcase cleaner)? Give summary @ -no Was smoking cessation discussed for >3mins.? @ -no Was critical care preformed (if so, how long)? @ -no Were there social determinants of health that impacted care today? How? (Homelessness, low income, unemployed, alcoholism, drug addiction, transportation, low edu. Level, literacy, decrease access to med. care, fpc, rehab)? @ -none Was there de-escalation of care discussed even if they declined (Discuss DNR or withdrawal of care, Hospice)? DNR status @ -no What co-morbidities impacted this encounter? (DM, HTN, Smoking, COPD, CAD, Cancer, CVA, ARF, Chemo, Hep., AIDS, mental health diagnosis, sleep apnea, morbid obesity)? @ -none Was patient admitted / discharged? Hospital course, mention meds given and route, prescriptions, significant lab abnormalities, going to OR and other pertinent info. @ - Undiagnosed new problem with uncertain prognosis? @ -no Drug Therapy requiring intensive monitoring for toxicity (Heparin, Nitro, Insulin, Cardizem)? @ -no Were any procedures done? @ -no Diagnosis/symptom? @ - Acute, or Chronic, or Acute on Chronic? @ -Acute Uncomplicated (without systemic symptoms) or Complicated (systemic symptoms)? @ -Complicated Side effects of treatment? @ -no Exacerbation, Progression, or Severe Exacerbation? @ -exacerbation Poses a threat to life or bodily function? How? (Chest pain, [place], [place], pneumonia, PE, COPD, DKA, ARF, appy, cholecystitis, CVA, Diverticulitis, Homicidal, Suicidal, threat to staff... and all critical care pts) @ -yes Reevaluation #5: Differential Chest Pain: Stable Angina, Unstable Angina, STEMI, NSTEMI Aortic Dissection, Pneumothorax, Musculoskeletal, Esophageal Spasm GERD, Cholecystitis, Pancreatitis, Zoster, this is not meant to be an all-inclusive list. - Consultations Consultation #1: Spoke with [facility] who agrees to admit this patient Chest Pain MDM - [facility] 68 female to be admitted for chest pain observation Disposition Clinical Impression: Chest pain, Hypertension Disposition: ADMITTED IP TO THIS HOSP Condition: Fair Is patient prescribed a controlled substance at d/c from ED?: No Referrals: Velia Curry MD [Primary Care Provider] - 1-2 days Time of Disposition: 06:50
[2024-04-22 05:45] VITALS: TEMP 98.1
[2024-04-22] MEDS: KETOROLAC 15 MG/ML 1 ML VIAL IVP STA (05:45)
[2024-04-22] MEDS: MORPHINE SULFATE 4 MG/ML SYRINGE IV STA (05:48)
[2024-04-22] MEDS: SODIUM CHLORIDE 0.9% 1,000 ML IV STA (05:55)
[2024-04-22] MEDS: IPRATROPIUM-ALBUTEROL 3 ML NEB INHALATION STA (06:10)
[2024-04-22 06:13] LABS: Basophils # (A) 0.1 k/uL (0-0.2); Basophils % (A) 1 %; Eosinophils # (A) 0.1 k/uL (0-0.7); Eosinophils % (A) 1 %; HCT 45.5 % (34.0-46.0); HGB 14.4 gm/dL (11.4-16.0); Lymphocytes # (A) 1.8 k/uL (1.0-4.8); Lymphocytes % (A) 22 %; MCH 28.7 pg (25.0-35.0); MCHC 31.7 g/dL (31.0-37.0); MCV 90.5 fL (80.0-100.0); Mean Platelet Volume 8.5; Monocytes # (A) 0.5 k/uL (0-1.0); Monocytes % (A) 6 %; Neutrophils # (A) 5.6 k/uL (1.3-7.7); Neutrophils % (A) 68 %; Platelet Count 268 k/uL (150-450); RBC 5.03 m/uL (3.80-5.40); RDW 12.8 % (11.5-15.5); WBC 8.3 k/uL (3.8-10.6)
[2024-04-22 06:26] LABS: ALT 24 U/L (4-34); AST 39 U/L (14-36); African American GFR (CKD) >90 (>60 ml/min/1.73 sqM); Albumin 4.5 g/dL (3.5-5.0); Alkaline Phosphatase 119 U/L (38-126); Anion Gap 10 mmol/L; Blood Urea Nitrogen 15 mg/dL (7-17); Calcium 9.6 mg/dL (8.4-10.2); Carbon Dioxide 26 mmol/L (22-30); Chloride 106 mmol/L (98-107); Glucose 109 mg/dL (74-99); Lipase 180 U/L (23-300); Non-African American GFR(CKD) 82 (>60 ml/min/1.73 sqM); Potassium 4.1 mmol/L (3.5-5.1); Sodium 142 mmol/L (137-145); Total Bilirubin 0.5 mg/dL (0.2-1.3); Total Protein 7.1 g/dL (6.3-8.2)
[2024-04-22 06:34] LABS: NT-Pro-B-Type Natriuretic Pept 171 pg/mL
[2024-04-22] MEDS ORDERED: ONDANSETRON 4 MG/2 ML VIAL IVP PRN (06:49)
[2024-04-22] MEDS ORDERED: MORPHINE SULFATE 4 MG/ML SYRINGE IV PRN (06:49)
[2024-04-22] MEDS ORDERED: NALOXONE 0.4 MG/ML 1 ML VIAL IV PRN (06:49)
[2024-04-22 06:57] LABS: Prothrombin Time 11.3 sec (10.0-12.5)
--- NOTE | 2024-04-22 07:21 | XR ---
EXAMINATION TYPE: XR chest 1V portable DATE OF EXAM: 04/22/2024 7:16 AM COMPARISON: 08/20/2022 CLINICAL INDICATION: Female, 68 years old with history of cp, TECHNIQUE: XR chest 1V portable view(s) obtained. FINDINGS: The heart size is normal. The pulmonary vasculature is normal. There may be some minimal atelectasis the left peripheral midlung. Lungs otherwise appear clear. IMPRESSION: 1. Minimal plate atelectasis left midlung. [facility], , 04/22/2024 7:18 AM
[2024-04-22] MEDS: SODIUM CHLORIDE 0.9% 1,000 ML IV SCH (07:43)
[2024-04-22 07:46] VITALS: RESP 16
--- NOTE | 2024-04-22 11:56 | P.CRDCN ---
History of Present Illness Consult date: 04/22/24 Consult reason: chest pain History of present illness: This is a 68-year-old female patient of Dr. Karishma Felipe with past medical history of hypertension, mild aortic regurgitation. We have been asked to evaluate the patient for chest pain. Patient states that she woke up and she was having some left shoulder and arm pain. She woke up not feeling well and did not feel well all day. She felt like she was getting a cold. She normally gets up and gets on the treadmill but did not do this yesterday. She subsequently developed some left-sided chest pain as well. She had a what she describes as a flip sensation where she was dizzy and the room was spinning and she felt off balance. She laid down on the bed and was feeling better later. She checked her blood pressure and she normally runs 130s systolic but was 160 and when she rechecked it she was at 200. She denies having any fever or chills. No cough. Chest pain was in the midsternal area. Minimal tenderness. Blood pressure 139/69, heart rate 71, pulse ox 99% on room air. Patient is seen today in the emergency center waiting for a bed on the observation unit. -EKG: Sinus rhythm with no acute changes -Chest x-ray: -Laboratory studies: Troponin negative x 1. proBNP 171, sodium 142, potassium 4.1, BUN 15 creatinine 0.75, WBC 8.3, hemoglobin 14.4. -Home cardiac medications: Lisinopril 10 mg daily -Cardiac catheterization performed 08/2022 revealed normal coronary arteries. Normal left ventricular end-diastolic pressure. Review Of Systems: At the time of my exam: CONSTITUTIONAL: Denies fever or chills. HEENT: Denies blurred vision, vision changes, or eye pain. Denies hemoptysis CARDIOVASCULAR: Denies chest pain. Denies orthopnea. Denies PND. Denies palpitations RESPIRATORY: Denies shortness of breath. GASTROINTESTINAL: Denies abdominal pain. Denies nausea or vomiting. HEMATOLOGIC: Denies bleeding disorders. GENITOURINARY: Denies any blood in urine. SKIN: Denies puritis. Denies rash. Physical examination: Gen: This is a 68-year-old female in no acute distress VS: reviewed HEENT: Head is atraumatic, normocephalic. Pupils equal, round. Sclerae is anicte shawna. NECK: Supple. No JVD. LUNGS: Clear to auscultation. No wheezes or rhonchi. No intercostal re tractions. HEART: Regular rate and rhythm. No murmur. ABDOMEN: Soft No tenderness. EXTREMITIES: No pedal edema. No calf tenderness. NEUROLOGICAL: Patient is awake, alert and oriented x3. Assessment: Vague symptoms with dizziness spinning off-balance Chest pressure possibly due to uncontrolled hypertension Acute coronary syndrome ruled out Hypertension Plan: Resume patient's home cardiac medications If second troponin is unremarkable, patient is cleared for discharge and may follow-up in the office with Dr. Felipe in 1 to 2 weeks. Further recommendations to follow based upon clinical course Thank you kindly for this consultation. Nurse practitioner note has been reviewed, I agree with documented findings and plan of care. Patient was seen and examined. Past Medical History Past Medical History: Asthma, Cancer, Chest Pain / Angina, CVA/TIA, Eye Disorder, Hypertension, Rheumatoid Arthritis (RA) Additional Past Medical History / Comment(s): diverticulitis,hx chronic low back pain-bulging discs, osteopenia, hx (SUPERIOR MESENTERIC ARTERY SYNDROME), seasonal allergies, Endometrial CA. 1998 (surgery)., CVA 1999 (no deficits) glaucoma. hospitalized in August for chest pain, had normal cardiac cath, no current chest discomfort (long ago). beginings of dementia History of Any Multi-Drug Resistant Organisms: C-DIFF Date of last positivie culture/infection: 2007 MDRO Source:: stool Past Surgical History: Bowel Resection, Cholecystectomy, Heart Catheterization, Hysterectomy, Orthopedic Surgery Additional Past Surgical History / Comment(s): Rt foot bunionectomy. Cervical cone bx. intestinal surgery laser eye surgery, Colonoscopy,Laparotomy for superior mesenteric artery syndrome. pain clinic procedures. 01/30/20 LOWER ANTERIOR RESECTION Past Anesthesia/Blood Transfusion Reactions: No Reported Reaction Additional Past Anesthesia/Blood Transfusion Reaction / Comment(s): Pt received blood with no reaction following uterine hemorrhage. Past Psychological History: No Psychological Hx Reported Smoking Status: Former smoker Past Alcohol Use History: None Reported Past Drug Use History: None Reported - Past Family History Father Family Medical History: Cancer Additional Family Medical History / Comment(s): colon Mother Family Medical History: Dementia Sister(s) Family Medical History: Cancer Additional Family Medical History / Comment(s): Leukemia. Medications and Allergies Home Medications Medication Instructions Recorded Confirmed Type Montelukast [Singulair] 10 mg PO HS 08/01/14 04/22/24 History lisinopriL [Zestril] 10 mg PO DIRECTED 02/02/18 04/22/24 History Albuterol Sulfate [Proair Hfa] 2 puff INHALATION RT-Q4H PRN 01/31/19 04/22/24 History Donepezil [Aricept] 5 mg PO HS 02/10/23 04/22/24 History Fluticasone Nasal [place] [Flonase 1 spray EA NOSTRIL HS 03/29/23 04/22/24 History Nasal [place]] Allergies Allergy/AdvReac Type Severity Reaction Status Date / Time amoxicillin trihydrate AdvReac Intermediate Nausea & Verified 04/22/24 10:28 [From Augmentin] Vomiting & Diarrhea potassium clavulanate AdvReac Nausea & Verified 04/22/24 10:28 [From Augmentin] Vomiting & Diarrhea Physical Exam Vitals: Vital Signs Temp Pulse Resp BP Pulse Ox 04/22/24 07:44 71 16 139/69 99 04/22/24 06:21 90 04/22/24 06:11 85 04/22/24 05:44 98.1 F 67 18 175/75 98 04/22/24 05:12 97.8 F 74 16 181/94 99 Intake and Output 04/21/24 04/22/24 04/22/24 22:59 06:59 14:59 Other: Weight 54.431 kg Results 04/22/24 05:40 04/22/24 05:40 Cardiac Enzymes 04/22/24 04/22/24 Range/Units 05:40 05:40 AST 39 H (14-36) U/L Troponin I <0.012 (0.000-0.034) ng/mL Coagulation 04/22/24 Range/Units 05:40 PT 11.3 (10.0-12.5) sec APTT 23.0 (22.0-30.0) sec CBC 04/22/24 Range/Units 05:40 WBC 8.3 (3.8-10.6) k/uL RBC 5.03 (3.80-5.40) m/uL Hgb 14.4 (11.4-16.0) gm/dL Hct 45.5 (34.0-46.0) % Plt Count 268 (150-450) k/uL Comprehensive Metabolic Panel 04/22/24 Range/Units 05:40 Sodium 142 (137-145) mmol/L Potassium 4.1 (3.5-5.1) mmol/L Chloride 106 (98-107) mmol/L Carbon Dioxide 26 (22-30) mmol/L BUN 15 (7-17) mg/dL Creatinine 0.75 (0.52-1.04) mg/dL Glucose 109 H (74-99) mg/dL Calcium 9.6 (8.4-10.2) mg/dL AST 39 H (14-36) U/L ALT 24 (4-34) U/L Alkaline Phosphatase 119 (38-126) U/L Total Protein 7.1 (6.3-8.2) g/dL Albumin 4.5 (3.5-5.0) g/dL Current Medications Generic Name Dose Route Start Last Admin Trade Name Freq PRN Reason Stop Dose Admin Sodium Chloride 1,000 mls @ 100 mls/hr 04/22/24 05:15 04/22/24 05:55 Saline 0.9% IV 04/22/24 15:14 100 mls/hr .Q10H STA Administration Sodium Chloride 1,000 mls @ 75 mls/hr 04/22/24 07:00 04/22/24 07:43 Saline 0.9% IV 75 mls/hr .[id number] DESHAUN Administration Morphine Sulfate 4 mg 04/22/24 06:49 Morphine Sulfate 4 Mg/Ml Syringe IV Q4HR PRN Severe Pain (Scale 7 to 10) Naloxone HCl 0.2 mg 04/22/24 06:49 Naloxone 0.4 Mg/Ml 1 Ml Vial IV Q2M PRN Opioid Reversal Ondansetron HCl 4 mg 04/22/24 06:49 Ondansetron 4 Mg/2 Ml Vial IVP Q8HR PRN Nausea And Vomiting Intake and Output 04/21/24 04/22/24 04/22/24 22:59 06:59 14:59 Other: Weight 54.431 kg 04/22/24 05:40 04/22/24 05:40
--- NOTE | 2024-04-22 13:33 | P.HPIM ---
History of Present Illness Please consider this note as combined H&P and discharge summary This is a pleasant 68 years old female with past medical history of multiple medical problems She presents because of chest pain which started yesterday, pain was on the left side radiating to the left shoulder felt like a pressure with no obvious precipitating or relieving factors. This is associated with some dizziness As per patient it is pretty much gone now. She denies dyspnea or coughing No GI or symptoms. No headache. No weakness numbness in extremities. No other new complaint She denies smoking alcohol or illicit drugs Vitals are stable patient afebrile Labs unremarkable CBC, BMP, LFT, INR troponin Chest x-ray showed left midlung minimal atelectasis EKG showing sinus rhythm at [address]-T changes Review of Systems Review of systems CONSTITUTIONAL: No fever, no malaise, no fatigue. HEENT: No recent visual problems or hearing problems. Denied any sore throat. CARDIOVASCULAR: No orthopnea, PND, no palpitations, no syncope. PULMONARY: No shortness of breath, no cough, no hemoptysis. GASTROINTESTINAL: No diarrhea, no nausea, no vomiting, no abdominal pain. Normoactive bowel sounds. NEUROLOGICAL: No headaches, no weakness, no numbness. HEMATOLOGICAL: Denies any bleeding or petechiae. GENITOURINARY: Denies any burning micturition, frequency, or urgency. MUSCULOSKELETAL/RHEUMATOLOGICAL: Denies any joint pain, swelling, or any muscle pain. ENDOCRINE: Denies any polyuria or polydipsia. Past Medical History Past Medical History: Asthma, Cancer, Chest Pain / Angina, CVA/TIA, Eye Disorder, Hypertension, Rheumatoid Arthritis (RA) Additional Past Medical History / Comment(s): diverticulitis,hx chronic low back pain-bulging discs, osteopenia, hx (SUPERIOR MESENTERIC ARTERY SYNDROME), seasonal allergies, Endometrial CA. 1998 (surgery)., CVA 1999 (no deficits) glaucoma. hospitalized in August for chest pain, had normal cardiac cath, no current chest discomfort (long ago). beginings of dementia History of Any Multi-Drug Resistant Organisms: C-DIFF Date of last positivie culture/infection: 2007 MDRO Source:: stool Past Surgical History: Bowel Resection, Cholecystectomy, Heart Catheterization, Hysterectomy, Orthopedic Surgery Additional Past Surgical History / Comment(s): Rt foot bunionectomy. Cervical cone bx. intestinal surgery laser eye surgery, Colonoscopy,Laparotomy for superior mesenteric artery syndrome. pain clinic procedures. 01/30/20 LOWER ANTERIOR RESECTION Past Anesthesia/Blood Transfusion Reactions: No Reported Reaction Additional Past Anesthesia/Blood Transfusion Reaction / Comment(s): Pt received blood with no reaction following uterine hemorrhage. Past Psychological History: No Psychological Hx Reported Smoking Status: Former smoker Past Alcohol Use History: None Reported Past Drug Use History: None Reported - Past Family History Father Family Medical History: Cancer Additional Family Medical History / Comment(s): colon Mother Family Medical History: Dementia Sister(s) Family Medical History: Cancer Additional Family Medical History / Comment(s): Leukemia. Medications and Allergies Home Medications Medication Instructions Recorded Confirmed Type Montelukast [Singulair] 10 mg PO HS 08/01/14 04/22/24 History lisinopriL [Zestril] 10 mg PO DIRECTED 02/02/18 04/22/24 History Albuterol Sulfate [Proair Hfa] 2 puff INHALATION RT-Q4H PRN 01/31/19 04/22/24 History Donepezil [Aricept] 5 mg PO HS 02/10/23 04/22/24 History Fluticasone Nasal [place] [Flonase 1 spray EA NOSTRIL HS 03/29/23 04/22/24 History Nasal [place]] Allergies Allergy/AdvReac Type Severity Reaction Status Date / Time amoxicillin trihydrate AdvReac Intermediate Nausea & Verified 04/22/24 10:28 [From Augmentin] Vomiting & Diarrhea potassium clavulanate AdvReac Nausea & Verified 04/22/24 10:28 [From Augmentin] Vomiting & Diarrhea Physical Exam Vitals: Vital Signs Temp Pulse Resp BP Pulse Ox 04/22/24 07:44 71 16 139/69 99 04/22/24 06:21 90 04/22/24 06:11 85 04/22/24 05:44 98.1 F 67 18 175/75 98 04/22/24 05:12 97.8 F 74 16 181/94 99 Intake and Output 04/21/24 04/22/24 04/22/24 22:59 06:59 14:59 Other: Weight 54.431 kg GENERAL: The patient is alert and oriented x3, not in any acute distress. Well developed, well nourished. HEENT: Pupils are round and equally reacting to light. EOMI. No scleral icterus. No conjunctival pallor. Normocephalic, atraumatic. No pharyngeal erythema. No thyromegaly. CARDIOVASCULAR: S1 and S2 present. No murmurs, rubs, or gallops. PULMONARY: Chest is clear to auscultation, no wheezing , no crackles. ABDOMEN: Soft, nontender, nondistended, normoactive bowel sounds. No palpable organomegaly. MUSCULOSKELETAL: No joint swelling or deformity. EXTREMITIES: No cyanosis, clubbing, or pedal edema. NEUROLOGICAL: Gross neurological examination did not reveal any focal deficits. SKIN: No rashes. no petechiae. Results CBC & Chem 7: 04/22/24 05:40 04/22/24 05:40 Labs: Abnormal Lab Results - Last 24 Hours (Table) 04/22/24 Range/Units 05:40 Glucose 109 H (74-99) mg/dL AST 39 H (14-36) U/L Assessment and Plan Assessment: Chest pain, could be musculoskeletal. Rule out cardiac origin Asthma, not an active issue Hypertension Rheumatoid arthritis History of CVA/TIA, not an active issue Chronic back pain, not an active issue Plan: Continue with serial troponin Heart healthy diet Cardiology consult Labs and medication were reviewed.. Continue same treatment. Continue with symptomatic treatment. Resume home medication. Monitor labs and vitals. DVT and GI prophylaxis. Further recommendations as per clinical course of the patient DVT prophylaxis: Subcutaneous heparin GI Prophylaxis: Pepcid As per vulcanizer operator if second troponin came back negative patient might be discharge. Will actually the second the third troponin are both negative. Patient remains asymptomatic with no chest pain dizziness or any other symptoms I got a page from the bedside nurse and ER Stefany that patient wants to be discharged. Patient was recommended to follow-up with her vulcanizer operator Dr. Gresham in 1 to 2 weeks and her PCP in 1 week and she agrees
[2024-04-22 14:33] VITALS: BP 147/74; PULSE 60
[2024-04-22] MEDS ORDERED: HEPARIN SODIUM,PORCINE 5,000 UNIT/ML 1 ML VIAL SQ SCH (21:00)
[2024-04-22] MEDS ORDERED: FAMOTIDINE 20 MG/2 ML VIAL IV SCH (21:00)
== END 2024-04-22 14:33 | disposition home or self-care (01) ==
LOC: EC 05:06 → 6NMEDSUR 06:50
PROVIDERS: ADMIT Hospitalist; ATTEND Hospitalist
DX: R07.89 Other chest pain (principal); R42 Dizziness and giddiness; I10 Essential (primary) hypertension; J45.909 Unspecified asthma, uncomplicated; M06.9 Rheumatoid arthritis, unspecified; G89.29 Other chronic pain; M54.50 Low back pain, unspecified; Z85.42 Personal history of malignant neoplasm of other parts of uterus; Z86.73 Personal history of transient ischemic attack (TIA), and cerebral infarction without residual deficits; Z87.891 Personal history of nicotine dependence; Z79.51 Long term (current) use of inhaled steroids; Z79.899 Other long term (current) drug therapy; Z88.0 Allergy status to penicillin
CPT/HCPCS: 96374; 96375; 99285; 36415; 94640; 93005; 83880; 80053; 83690; 83735; 84484; 85025; 85610; 85730; 71045; G0378; J2270; J1885

== ENCOUNTER → 2024-07-17 | Outpatient (CLI) | payer MEDICARE ==
--- NOTE | 2024-07-17 08:03 | MM ---
Reason for Exam: Follow-up at short interval from prior study. Last screening mammogram was performed 6 month(s) ago. Patient History: Menarche at age 15. First Full-Term at age 24. Hysterectomy at age 51. Postmenopausal. Patient has history of breast feeding. Endometrial cancer, age 51. 1990, Benign Excisional Biopsy on the left side. Risk Values: Marah 5 year model risk: 2.1%. NCI Lifetime model risk: 6.0%. Prior Study Comparison: 11/03/2016 Bilateral Screening Mammogram, [facility]. 11/22/2017 Bilateral Screening Mammogram, [facility]. 02/12/2021 Bilateral Screening Mammogram, [facility]. 02/08/2024 Bilateral MG 3D screening mammo w/cad, [facility]. 02/14/2024 Left MG 3D work up w/cad LT, [facility]. Tissue Density: Left: The breasts are heterogeneously dense, which may obscure small masses. Findings: Analyzed By CAD. 12:00 central pulmonary asymmetry is unchanged. Outer anterior asymmetric density on the CC view remains unchanged for 6 months. Ongoing short interval follow-up recommended. Otherwise, no significant change. Overall Assessment: Probably benign, BI-RAD 3 Management: Diagnostic Mammogram of both breasts in 6 months. Total one-year follow-up left breast and annual exam of the right breast. Results were given to the patient verbally at the time of exam. Patient should continue monthly self-breast exams. A clinical breast exam by your physician is recommended on an annual basis. This exam should not preclude additional follow-up of suspicious palpable abnormalities. Note on Marah scores and lifetime risk: 1. A Marah score greater than 3% is considered moderate risk. If this is the case, consider specialist referral to assess eligibility for a risk reducing agent. 2. If overall lifetime risk for the development of breast cancer is 20% or higher, the patient may qualify for future screening with alternating mammogram and breast MRI. [facility], , 07/17/2024 7:59 AM. Electronically signed and approved by: Hazel Wilder M.D. Radiologist
--- NOTE | 2024-07-17 08:41 | XR ---
EXAMINATION TYPE: XR abdomen 2V DATE OF EXAM: 07/17/2024 CLINICAL INDICATION: Female, 69 years old with history of K52.9 GASTROENTERITIS AND COLITIS, pain TECHNIQUE: Supine and upright views of the abdomen are obtained. COMPARISON: CT abdomen and pelvis February 11, 2023. FINDINGS: Gas is seen in nondistended stomach. Some paucity of small bowel gas. Scattered gas seen i n nondistended small and large bowel loops. Surgical change in the left midabdomen is suspected on on e view not confirmed on second view. Possible moderate wall thickening involving small bowel loops in the midabdomen. There is no visceromegaly, pneumoperitoneum, or abnormal calcification appreciated. The lung bases are clear and the osseous structures are intact. IMPRESSION: Overall nonspecific strongly favor nonobstructive bowel gas pattern. Possible underlying enteritis. Correlate clinically. [facility], , 07/17/2024 8:39 AM
[2024-07-17 11:12] LABS: Basophils # (A) 0.04 X 10*3/uL (0.00-0.10); Basophils % (A) 0.6 %; Eosinophils # (A) 0.13 X 10*3/uL (0.04-0.35); Eosinophils % (A) 1.9 %; HCT 44.4 % (37.2-46.3); HGB 14.1 g/dL (12.0-15.0); Lymphocytes # (A) 1.75 X 10*3/uL (0.90-5.00); MCHC 31.8 g/dL (32.0-37.0); MCV 91.2 FL (80.0-97.0); Mean Platelet Volume 11.6 FL (9.5-12.2); Monocytes # (A) 0.54 X 10*3/uL (0.20-1.00); NRBC Per 100 WBC 0 X 10*3/uL (0.00-0.01); Neutrophils # (A) 4.24 X 10*3/uL (1.80-7.70); Neutrophils % (A) 63.2 %; Platelet Count 257 X 10*3/uL (140-440); RBC 4.87 X 10*6/uL (4.10-5.20); RDW 13.3 % (11.5-14.5); WBC 6.72 X 10*3/uL (4.50-10.00)
[2024-07-17 11:19] LABS: ALT 26 U/L (8-44); AST 35 U/L (13-35); Albumin 4.5 g/dL (3.8-4.9); Albumin/Globulin Ratio 2.14 Ratio (1.60-3.17); Alkaline Phosphatase 107 U/L (41-126); BUN/Creat Ratio 13.89 Ratio (12.00-20.00); Blood Urea Nitrogen 12.5 mg/dL (9.0-27.0); Calcium 9.4 mg/dL (8.7-10.3); Carbon Dioxide 26.6 mmol/L (21.6-31.8); Chloride 104 mmol/L (96-109); Globulin 2.1 g/dL (1.6-3.3); Glucose 105 mg/dL (70-110); Potassium 4.4 mmol/L (3.5-5.5); Sodium 140 mmol/L (135-145); Total Bilirubin 0.4 mg/dL (0.3-1.2); Total Protein 6.6 g/dL (6.2-8.2)
== END | disposition home or self-care (01) ==
LOC: RADMAMWWP 07:29
PROVIDERS: ATTEND Family Medicine
DX: R92.8 Other abnormal and inconclusive findings on diagnostic imaging of breast (principal); R92.332 Mammographic heterogeneous density, left breast; K52.9 Noninfective gastroenteritis and colitis, unspecified; Z78.0 Asymptomatic menopausal state
CPT/HCPCS: 74019; 77061; 77065; 80053; 85025

== ENCOUNTER → 2024-08-17 | Outpatient (CLI) | payer MEDICARE ==
[2024-08-17 07:21] LABS: African American GFR (CKD) >90 (>60 ml/min/1.73 sqM); Blood Urea Nitrogen 16 mg/dL (7-17); Non-African American GFR(CKD) 81 (>60 ml/min/1.73 sqM)
--- NOTE | 2024-08-17 08:47 | CT ---
EXAMINATION TYPE: CT abdomen pelvis w con DATE OF EXAM: 08/17/2024 COMPARISON: Prior CT February 11, 2023 CLINICAL INDICATION: Female, 69 years old with history of K52.9 Noninfect gastroenteritis and colitis , complaints of diarrhea, TECHNIQUE: CT scan of the abdomen and pelvis is performed with IV Contrast, patient injected with 100ml mL of Is ovue 300., (none if empty) Oral contrast used: with Oral Contrast (none if empty) CT DLP: 375.5 mGycm, Automated exposure control for dose reduction was used. FINDINGS: LUNG BASES: No significant abnormality is appreciated. LIVER/GB: Gallbladder remains surgically absent. Stable [id number] central left hepatic and ext ra hepatic biliary dilatation up to 13 mm in the anurag hepatis coronal image 19. PANCREAS: No significant abnormality is seen. SPLEEN: No significant abnormality is seen. ADRENALS: No significant abnormality is seen. KIDNEYS: Symmetric cortical medullary uptake and excretion without hydronephrosis seen bilaterally. S imple parapelvic cysts centrally in the left kidney are redemonstrated. BOWEL: Oral contrast reaches level of the right colon. Low-lying cecum into the right pelvis is prese nt. There is no abnormal small or large bowel dilatation. Persistent surgical changes at level of the distal stomach with [id number] wall thickening distally. There is mild to moderate diffuse col onic fecal prominence. Surgical sutures involving sigmoid colon in the left pelvis are redemonstrated . UTERUS/ADNEXA: Uterus is surgically absent. LYMPH NODES: No greater than 1cm abdominal or pelvic lymph nodes are appreciated. OSSEOUS STRUCTURES: Moderate narrowing of both hip joint. Moderate narrowing at the L4-L5 level. OTHER: Mild peripheral calcified plaque of the infrarenal abdominal aorta extends into the iliac bran ch vessels. IMPRESSION: Surgical changes to the distal stomach is redemonstrated. Suspect persistent distal mild to moderate gastritis/antritis. Correlate clinically. No bowel obstruction. Mild diffuse colonic feca l stasis or constipation is noted. [facility], , 08/17/2024 8:44 AM
== END | disposition home or self-care (01) ==
LOC: RADCTMAIN 06:33
PROVIDERS: ATTEND Internal Medicine Gastroenterology
DX: K52.9 Noninfective gastroenteritis and colitis, unspecified (principal); Z98.890 Other specified postprocedural states
CPT/HCPCS: 82565; 84520; 74177; 36415; Q9967